=== PATIENT | male | born 1960 | race Caucasian/White ===

== ENCOUNTER 2017-05-21 15:15 | Inpatient (IN) | payer OTHER ==
[~2017-05-21] VITALS: Ht 175.3 cm; Wt 93.4 kg
[~2017-05-21 15:15] MED LIST: CGN1X PO; CLON0.5T3 PO; HALO10TA17 PO; INHALER PO; MULT-506 PO; OMEP40CA41 PO; TRAZ50TA35 PO
[2017-05-21] MEDS ORDERED: DSY100 PO (15:34)
[2017-05-21] MEDS ORDERED: ALBU18002 INH (15:34)
[2017-05-21] MEDS ORDERED: LEVO25TA PO (15:34)
[2017-05-21] MEDS ORDERED: MELO15TA4 PO (15:34)
[2017-05-21] MEDS ORDERED: OMEP40CA41 PO (15:34)
[2017-05-21] MEDS ORDERED: BENZ2TAB6 PO (15:34)
--- NOTE | 2017-05-21 15:50 | EMERGENCY ROOM VISIT NOTE ---
History Report prepared by Jesus: Matty Cnonor Under the Supervision of: Dr. William Irby M.D. First contact with patient: 15:25 Chief Complaint: ALTERED MENTAL STATUS Stated Complaint: ALTERED MENTAL STATUS Nursing Triage Summary: Patient arrives via ALS from elderly apartment complex with complaints of altered mental status, weakness, frequent urination, and paranoia. Patient A&O to person, place, and event. History of Present Illness The patient is a 56 year old male who presents to the Emergency Room via [facility] for an altered mental status. Per EMS, the patient lives in an elderly assisted living complex with his who suffers from dementia. The nursing staff states that the patient was seeing people who were not actually there today. EMS also note increased urinary frequency, worsening weakness, and paranoia. His temperature was 101.9 degrees on their evaluation. He is currently complaining of pain in the left chest, intermittent vomiting, and diarrhea. The patient has a history of schizophrenia and mental illness. Source of History: patient, EMS History Limited By: AMS Position: other (AMS) Quality: other (AMS) Associated Symptoms: + fevers, + chest pain, + diarrhea, + urinary symptoms , + weakness Review of Systems See HPI for pertinent positives & negatives. A total of 10 systems reviewed and were otherwise negative. Past Medical & Surgical Medical Problems: (1) Anxiety (2) Benign hypertension (3) Depression (4) Gastroesophageal reflux disease (5) History of - schizophrenia (6) Pulmonary embolism Family History FHx: cancer FHx: diabetes FHx: heart disease FHx: hypertension FHx: lung disease Social History Smoking Status: Current Every Day Smoker Alcohol Use: none Drug Use: none Marital Status: Housing Status: lives with significant other Occupation Status: disabled Current/Historical Medications Scheduled Benztropine Mesylate (Benztropine Mesylate), 2 MG PO BID Clonazepam (Klonopin), 0.5 MG PO BID Haloperidol (Haldol), 20 MG PO HS Levothyroxine Sodium (Synthroid), 25 MCG PO QAM Meloxicam (Meloxicam), 15 MG PO DAILY Multivitamin (Multivitamin), 1 TAB PO DAILY Omeprazole (Prilosec), 40 MG PO DAILY Trazodone HCl (Trazodone HCl), 100 MG PO HS Scheduled PRN Albuterol Sulfate (Proair Respiclick), 2 PUFFS INH QID PRN for SOB/Wheezing Allergies Coded Allergies: No Known Allergies (Verified , 06/18/16) Physical Exam Vital Signs Date Time Temp Pulse Resp B/P (MAP) Pulse Ox O2 Delivery O2 Flow Rate FiO2 05/21/17 17:15 123 20 134/83 93 Nasal Cannula 2.0 05/21/17 16:34 126 20 123/86 05/21/17 16:16 123 05/21/17 15:35 94 Room Air 05/21/17 15:27 37.1 128 18 127/90 92 Room Air Physical Exam GENERAL: Patient is in no acute distress. HEENT: No acute trauma, normocephalic atraumatic, mucous membranes dry, no nasal congestion, no scleral icterus. NECK: No stridor, no adenopathy, no meningismus, trachea is midline. LUNGS: Clear to auscultation bilaterally, no wheeze, no rhonchi, breath sounds equal. HEART: Tachycardiac with a regular rhythm, no murmurs. ABDOMEN: Soft, nontender, bowel sounds positive, no hernias, no peritonitis. EXTREMITIES: There are abrasions to the knees and ankles, no evidence for underlying fracture, no cellulitis. No edema. NEUROLOGIC: Somewhat confused. Mumbles at times, no facial droop or focal motor deficit. Skin: No rash or jaundice. Medical Decision & Procedures ER Provider Diagnostic Interpretation: Radiology results as stated below per my review and radiologist interpretation: CHEST ONE VIEW PORTABLE CLINICAL HISTORY: Altered mental status. Weakness. COMPARISON STUDY: Chest radiograph June 18, 2016. FINDINGS: Lung volumes are diminished. There is no pneumothorax or pleural effusion. There is no evidence of pulmonary edema. Mild bibasilar opacities are noted. Cardiac size is within normal limits. The patient is rotated. IMPRESSION: Diminished lung volumes with bibasilar opacities which favor atelectasis. An infectious process could appear. Electronically signed by: Valeriano Cuellar M.D. 05/21/2017 4:08 PM Dictated Date/Time: 05/21/2017 4:[address] HEAD WITHOUT CONTRAST (CT) CLINICAL HISTORY: Acute change in mental status. Weakness. COMPARISON STUDY: 12/18/2012 TECHNIQUE: Axial CT of the brain is performed from the vertex to the skull base. IV contrast was not administered for this examination. A dose lowering technique was utilized adhering to the principles of ALARA. CT DOSE: 537.48 mGy.cm FINDINGS: No intra or extra-axial mass lesions are visualized. There is no CT evidence of acute cortical infarction. There is no evidence of midline shift. There is no acute hemorrhage. No calvarial fractures are visualized. There is no evidence of pathologic ventricular dilatation. There is no evidence of acute sinusitis IMPRESSION: No acute intracranial findings Electronically signed by: Dain Frias M.D. 05/21/2017 5:05 PM Dictated Date/Time: 05/21/2017 5:04 PM Laboratory Results 05/21/17 16:13 Red Blood Count 4.70, Mean Corpuscular Volume 87.9, Mean Corpuscular Hemoglobin 31.1, Mean Corpuscular Hemoglobin Concent 35.4, Mean Platelet Volume 8.8, Neutrophils (%) (Auto) 86.9, Lymphocytes (%) (Auto) 4.4, Monocytes (%) (Auto) 8.1, Eosinophils (%) (Auto) 0.0, Basophils (%) (Auto) 0.1, Neutrophils # (Auto) 19.01, Lymphocytes # (Auto) 0.96, Monocytes # (Auto) 1.77, Eosinophils # (Auto) 0.00, Basophils # (Auto) 0.02 05/21/17 16:13 Test 05/21/17 15:40 05/21/17 15:58 05/21/17 16:13 05/21/17 16:23 Urine Color YELLOW Urine Appearance CLEAR (CLEAR) Urine pH 5.5 (4.5-7.5) Urine Specific [place] 1.020 (1.000-1.030) Urine Protein TRACE (NEG) Urine Glucose (UA) NEG (NEG) Urine Ketones 1+ (NEG) Urine Occult Blood 2+ (NEG) Urine Nitrite NEG (NEG) Urine Bilirubin NEG (NEG) Urine Urobilinogen NEG (NEG) Urine Leukocyte Esterase NEG (NEG) Urine WBC (Auto) 1-5 /hpf (0-5) Urine RBC (Auto) 0-4 /hpf (0-4) Urine Hyaline Casts (Auto) 10-30 /lpf (0-5) Urine Epithelial Cells (Auto) >30 /lpf (0-5) Urine Bacteria (Auto) NEG (NEG) Urine Renal Epithelial Cells 0-5 /lpf (0-5) Urine Pathogenic Casts 0-3 RBC CASTS /lpf (0) Urine Opiates Screen NEG (NEG) Urine Methadone, Qualitative NEG (NEG) Urine Barbiturates NEG (NEG) Urine Phencyclidine (PCP) Level NEG (NEG) Ur Amphetamine/Methamphetamine NEG (NEG) MDMA (Ecstasy) Screen NEG (NEG) Urine Benzodiazepines Screen POS (NEG) Urine Cocaine Metabolite NEG (NEG) Urine Marijuana (THC) NEG (NEG) White Blood Count 21.87 K/uL (4.8-10.8) Red Blood Count 4.70 M/uL (4.7-6.1) Hemoglobin 14.6 g/dL (14.0-18.0) Hematocrit 41.3 % (42-52) Mean Corpuscular Volume 87.9 fL (80-100) Mean Corpuscular Hemoglobin 31.1 pg (25-34) Mean Corpuscular Hemoglobin Concent 35.4 g/dl (32-36) Platelet Count 250 K/uL (130-400) Mean Platelet Volume 8.8 fL (7.4-10.4) Neutrophils (%) (Auto) 86.9 % Lymphocytes (%) (Auto) 4.4 % Monocytes (%) (Auto) 8.1 % Eosinophils (%) (Auto) 0.0 % Basophils (%) (Auto) 0.1 % Neutrophils # (Auto) 19.01 K/uL (1.4-6.5) Lymphocytes # (Auto) 0.96 K/uL (1.2-3.4) Monocytes # (Auto) 1.77 K/uL (0.11-0.59) Eosinophils # (Auto) 0.00 K/uL (0-0.5) Basophils # (Auto) 0.02 K/uL (0-0.2) RDW Standard Deviation 45.0 fL (36.4-46.3) RDW Coefficient of Variation 14.0 % (11.5-14.5) Immature Granulocyte % (Auto) 0.5 % Immature Granulocyte # (Auto) 0.11 K/uL (0.00-0.02) Prothrombin Time 11.1 SECONDS (9.0-12.0) Prothromb Time International Ratio 1.0 (0.9-1.1) Activated Partial Thromboplast Time 26.7 SECONDS (21.0-31.0) Partial Thromboplastin Ratio 1.0 Anion Gap 8.0 mmol/L (3-11) Estimated GFR () 44.7 Estimated GFR (Non- 38.6 BUN/Creatinine Ratio 15.1 (10-20) Lactic Acid Level 2.2 mmol/L (0.4-2.0) Calcium Level 9.8 mg/dl (8.5-10.1) Magnesium Level 1.6 mg/dl (1.8-2.4) Total Bilirubin 0.8 mg/dl (0.2-1) Aspartate Amino Transf (AST/SGOT) 54 U/L (15-37) Alanine Aminotransferase (ALT/SGPT) 31 U/L (12-78) Alkaline Phosphatase 64 U/L (45-117) Ammonia 25.0 umol/L (11-32) Total Creatine Kinase 1708 U/L (39-308) Troponin I 0.414 ng/ml (0-0.045) Total Protein 6.9 gm/dl (6.4-8.2) Albumin 3.6 gm/dl (3.4-5.0) Globulin 3.3 gm/dl (2.5-4.0) Albumin/Globulin Ratio 1.1 (0.9-2) Thyroid Stimulating Hormone (TSH) 0.376 uIu/ml (0.300-4.500) Free Thyroxine 1.14 ng/dl (0.80-1.60) Ethyl Alcohol mg/dL < 3.0 mg/dl (0-3) Laboratory results reviewed by me. Medications Administered Medications (Trade) Dose Ordered Sig/Key Route Start Time Stop Time Status Last Admin Dose Admin Piperacillin Sod/ Tazobactam Sod (Zosyn Iv) 4.5 gm NOW STAT IV 05/21/17 16:49 05/21/17 16:50 DC 05/21/17 17:14 4.5 GM Sodium Chloride 1,000 ml @ 999 mls/hr Q1H1M STAT IV 05/21/17 17:04 05/21/17 18:04 DC 05/21/17 17:15 999 MLS/HR Magnesium Sulfate (Magnesium Sulfate) 1 gm NOW STAT IV 05/21/17 17:16 05/21/17 17:17 DC 05/21/17 17:25 1 GM ECG Indication: chest pain, altered mental status Rate (beats per minute): 127 Rhythm: sinus tachycardia Findings: nonspecific-ST abn, no acute ischemic change ED Course 1531: The patient was evaluated in room B1. A complete history and physical exam was performed. 1649: Ordered Zosyn 4.5 gm IV. 1704: Ordered Sodium Chloride 1000 mL @ 999 mL/hr IV. 1716: Ordered Magnesium Sulfate 1 gm IV. 1741: I reevaluated the patient at this time. He looks the same. His HR is coming down and I informed him about the status of his . 1748: I discussed the case with Dr. Anthony COWAN Hospitalist at this time. She will call me back for further consultation. 1807: I discussed the case further with Dr. Anthony COWAN Hospitalist at this time. She will evaluate the patient for further treatment. Medical Decision Differential Diagnosis includes; Dehydration, medication overdose, rhabdomyolysis, electrolyte abnormality, intracranial bleeding, stroke, sepsis, bacteremia, UTI. There is a significant leukocytosis at 21,000, this could be consistent with infection or with the stress of his situation over the last few days. There was no concerning anemia. Renal panel testing shows some acute renal failure/ dehydration. Magnesium was low at 1.6. There was no hepatitis. The patient appeared to be in a euthyroid state. Chest film did not show pneumonia or CHF. Brain CT showed no acute bleed or mass effect. On exam, there were no focal motor deficits. EKG show what I thought to be a sinus tachycardia without acute ischemia. Cardiac enzyme testing times one does show a slight elevation to the troponin-this could be consistent with cardiac injury or strain. There was no coagulopathy. Urinalysis does not show infection. Urine tox shows benzos, alcohol level was undetectable. Ammonia level was not elevated. Blood cultures are pending. The patient received IV saline, IV magnesium. He was given IV Zosyn as antibiotic coverage. The patient presents with a change in mental status. He has laboratory abnormalities that warrant a hospital stay. He is not medically clear for any type of rehabilitation or long-term care facility. The cause for this entire presentation is not completely clear. Of note, his was brought to the ER as well, the office of aging had been involved and the living conditions were not felt adequate. The patient's is being [facility] a jail later today. I spoke to case management, I talked to the patient. The on-call hospitalist was consulted. Medication Reconcilliation Current Medication List: was personally reviewed by me Blood Pressure Screening Patient's blood pressure: Elevated blood pressure Blood pressure disposition: Elevated BP felt to be situational Consults Time Called: 174 Consulting Physician: Dr. Anthony COWAN Hospitalist Returned Call: [phone] I discussed the case further with Dr. Anthony COWAN [facility] at this time. She will evaluate the patient for further treatment. Impression Primary Impression: Altered mental status Additional Impressions: Tachycardia Leukocytosis Dehydration Elevated troponin Scribe Attestation The scribe's documentation has been prepared under my direction and personally reviewed by me in its entirety. I confirm that the note above accurately reflects all work, treatment, procedures, and medical decision making performed by me. Departure Information Dispostion Being Evaluated By Hospitalist Referrals Ashley Spence (PCP) Patient Instructions [facility] Problem Qualifiers
--- NOTE | 2017-05-21 16:10 | DIAGNOSTIC IMAGING REPORT ---
CHEST ONE VIEW PORTABLE CLINICAL HISTORY: Altered mental status. Weakness. COMPARISON STUDY: Chest radiograph June 18, 2016. FINDINGS: Lung volumes are diminished. There is no pneumothorax or pleural effusion. There is no evidence of pulmonary edema. Mild bibasilar opacities are noted. Cardiac size is within normal limits. The patient is rotated. IMPRESSION: Diminished lung volumes with bibasilar opacities which favor atelectasis. An infectious process could appear. Electronically signed by: Valeriano Cuellar M.D. 05/21/2017 4:08 PM Dictated Date/Time: 05/21/2017 4:07 PM
[2017-05-21 16:25] LABS: URINE APPEARANCE CLEAR (CLEAR); URINE BILIRUBIN NEG (NEG); URINE COLOR YELLOW; URINE EPITHELIAL CELL AUTO >30 /lpf (0-5); URINE NITRITE NEG (NEG); URINE PH 5.5 (4.5-7.5); UROBILINOGEN NEG (NEG); ZZURINE CULT IF INDIC CATH NO
[2017-05-21 16:26] LABS: MANUAL MICROSCOPIC REQUIRED? NO; REVIEW REQ? YES
[2017-05-21 16:37] LABS: URINE PATH CASTS 0-3 RBC CASTS /lpf (0)
[2017-05-21 16:39] LABS: BENZODIAZEPINE, URINE POS (NEG); COCAINE,URINE NEG (NEG); PHENCYCLIDINE, URINE NEG (NEG)
[2017-05-21 16:47] LABS: HEMATOCRIT 41.3 % (42-52); MEAN CELL VOLUME 87.9 fL (80-100); MEAN CORPUSCULAR HEMOGLOBIN 31.1 pg (25-34); MEAN CORPUSCULAR HGB CONC 35.4 g/dl (32-36); MEAN PLATELET VOLUME 8.8 fL (7.4-10.4); PLATELET COUNT 250 K/uL (130-400); WHITE BLOOD COUNT 21.87 K/uL (4.8-10.8)
[2017-05-21] MEDS ORDERED: PIPERACILLIN/TAZOBACTAM 4.5 GM/100ML D5W IV STA (16:49)
[2017-05-21 16:55] LABS: PROTHROMBIN TIME (PATIENT) 11.1 SECONDS (9.0-12.0)
[2017-05-21] MEDS ORDERED: SODIUM CHLORIDE 0.9% 1000ML 1,000 ML IV STA (17:04)
--- NOTE | 2017-05-21 17:06 | DIAGNOSTIC IMAGING REPORT ---
CT HEAD WITHOUT CONTRAST (CT) CLINICAL HISTORY: Acute change in mental status. Weakness. COMPARISON STUDY: 12/18/2012 TECHNIQUE: Axial CT of the brain is performed from the vertex to the skull base. IV contrast was not administered for this examination. A dose lowering technique was utilized adhering to the principles of ALARA. CT DOSE: 537.48 mGy.cm FINDINGS: No intra or extra-axial mass lesions are visualized. There is no CT evidence of acute cortical infarction. There is no evidence of midline shift. There is no acute hemorrhage. No calvarial fractures are visualized. There is no evidence of pathologic ventricular dilatation. There is no evidence of acute sinusitis IMPRESSION: No acute intracranial findings Electronically signed by: Dain Frias M.D. 05/21/2017 5:05 PM Dictated Date/Time: 05/21/2017 5:04 PM
[2017-05-21 17:08] LABS: ALT/SGPT 31 U/L (12-78); AST/SGOT 54 U/L (15-37); BLOOD UREA NITROGEN 29 mg/dl (7-18); BUN/CREATININE RATIO 15.1 (10-20); CALCIUM 9.8 mg/dl (8.5-10.1); CARBON DIOXIDE 23 mmol/L (21-32); CHLORIDE 112 mmol/L (98-107); GLUCOSE 129 mg/dl (70-99); MAGNESIUM 1.6 mg/dl (1.8-2.4); POTASSIUM 3.9 mmol/L (3.5-5.1); SODIUM 143 mmol/L (136-145)
[2017-05-21 17:09] LABS: BASO % 0.1 %; BASO ABS # 0.02 K/uL (0-0.2); COMPLETE YES; IG% 0.5 %; LYMPH % 4.4 %; LYMPH ABS # 0.96 K/uL (1.2-3.4); MONO % 8.1 %; NEUT % 86.9 %
[2017-05-21] MEDS ORDERED: MAGNESIUM SULFATE 1GM / D5W 1 GM BAG IV STA (17:16)
[2017-05-21 17:26] LABS: ALB/GLOB RATIO 1.1 (0.9-2); ALKALINE PHOSPHATASE 64 U/L (45-117); THYROID STIMULATING HORMONE 0.376 uIu/ml (0.300-4.500)
--- NOTE | 2017-05-21 19:54 | History and Physical ---
History & Physical Date & Time of Service: May 21, 2017 at 19:12 Chief Complaint: Altered Mental Status Primary Care Physician: Ashley Spence History of Present Illness Source: patient The patient is a 56 year old male who presents to the Emergency Room via [facility] for an altered mental status. Per EMS, the patient lives in an elderly assisted living complex with his who suffers from dementia. The nursing staff states that the patient was seeing people who were not actually there today. EMS also note increased urinary frequency, worsening weakness, and paranoia. His temperature was 101.9 degrees on their evaluation. He is currently complaining of pain in the left chest, intermittent vomiting, and diarrhea. The patient has a history of schizophrenia and mental illness. Past Medical/Surgical History Medical Problems: (1) Anxiety Status: Chronic (2) Benign hypertension Status: Chronic (3) Depression Status: Chronic (4) Gastroesophageal reflux disease Status: Chronic (5) History of - schizophrenia Status: Chronic (6) Pulmonary embolism Status: Resolved PSH: Family History FHx: cancer FHx: diabetes FHx: heart disease FHx: hypertension FHx: lung disease Social History Smoking Status: Current Every Day Smoker Drug Use: none Marital Status: Housing status: lives with family Occupational Status: disabled Immunizations History of Influenza Vaccine: Yes Influenza Vaccine Date: Nov 01, 2009 History of Tetanus Vaccine?: No History of Pneumococcal: Yes Pneumococcal Date: Nov 24, 2008 History of Hepatitis B Vaccine: No Multi-Drug Resistant Organisms History of MDRO: No Allergies Coded Allergies: No Known Allergies (Verified , 06/18/16) Home Medications Scheduled Benztropine Mesylate (Benztropine Mesylate), 2 MG PO BID Clonazepam (Klonopin), 0.5 MG PO BID Haloperidol (Haldol), 20 MG PO HS Levothyroxine Sodium (Synthroid), 25 MCG PO QAM Meloxicam (Meloxicam), 15 MG PO DAILY Multivitamin (Multivitamin), 1 TAB PO DAILY Omeprazole (Prilosec), 40 MG PO DAILY Trazodone HCl (Trazodone HCl), 100 MG PO HS Scheduled PRN Albuterol Sulfate (Proair Respiclick), 2 PUFFS INH QID PRN for SOB/Wheezing Physical Exam Vital Signs Date Time Temp Pulse Resp B/P (MAP) Pulse Ox O2 Delivery O2 Flow Rate FiO2 7/21/17 18:30 109 20 147/79 93 Nasal Cannula 2.0 05/21/17 17:15 123 20 134/83 93 Nasal Cannula 2.0 05/21/17 16:34 126 20 123/86 05/21/17 16:16 123 05/21/17 15:35 94 Room Air 05/21/17 15:27 37.1 128 18 127/90 92 Room Air Diagnostics Laboratory Results Results Past 24 Hours Test 05/21/17 15:40 05/21/17 15:58 05/21/17 16:13 05/21/17 16:23 Range/Units Urine Color YELLOW Urine Appearance CLEAR CLEAR Urine pH 5.5 4.5-7.5 Urine Specific [place] 1.020 1.000-1.030 Urine Protein TRACE NEG Urine Glucose (UA) NEG NEG Urine Ketones 1+ NEG Urine Occult Blood 2+ NEG Urine Nitrite NEG NEG Urine Bilirubin NEG NEG Urine Urobilinogen NEG NEG Urine Leukocyte Esterase NEG NEG Urine WBC (Auto) 1-5 0-5 /hpf Urine RBC (Auto) 0-4 0-4 /hpf Urine Hyaline Casts (Auto) 10-30 0-5 /lpf Urine Epithelial Cells (Auto) >30 0-5 /lpf Urine Bacteria (Auto) NEG NEG Urine Renal Epithelial Cells 0-5 0-5 /lpf Urine Pathogenic Casts 0-3 RBC CASTS 0 /lpf Urine Opiates Screen NEG NEG Urine Methadone, Qualitative NEG NEG Urine Barbiturates NEG NEG Urine Phencyclidine (PCP) Level NEG NEG Ur Amphetamine/Methamphetamine NEG NEG MDMA (Ecstasy) Screen NEG NEG Urine Benzodiazepines Screen POS NEG Urine Cocaine Metabolite NEG NEG Urine Marijuana (THC) NEG NEG White Blood Count 21.87 4.8-10.8 K/uL Red Blood Count 4.70 4.7-6.1 M/uL Hemoglobin 14.6 14.0-18.0 g/dL Hematocrit 41.3 42-52 % Mean Corpuscular Volume 87.9 80-100 fL Mean Corpuscular Hemoglobin 31.1 25-34 pg Mean Corpuscular Hemoglobin Concent 35.4 32-36 g/dl Platelet Count 250 130-400 K/uL Mean Platelet Volume 8.8 7.4-10.4 fL Neutrophils (%) (Auto) 86.9 % Lymphocytes (%) (Auto) 4.4 % Monocytes (%) (Auto) 8.1 % Eosinophils (%) (Auto) 0.0 % Basophils (%) (Auto) 0.1 % Neutrophils # (Auto) 19.01 1.4-6.5 K/uL Lymphocytes # (Auto) 0.96 1.2-3.4 K/uL Monocytes # (Auto) 1.77 0.11-0.59 K/uL Eosinophils # (Auto) 0.00 0-0.5 K/uL Basophils # (Auto) 0.02 0-0.2 K/uL RDW Standard Deviation 45.0 36.4-46.3 fL RDW Coefficient of Variation 14.0 11.5-14.5 % Immature Granulocyte % (Auto) 0.5 % Immature Granulocyte # (Auto) 0.11 0.00-0.02 K/uL Prothrombin Time 11.1 9.0-12.0 SECONDS Prothromb Time International Ratio 1.0 0.9-1.1 Activated Partial Thromboplast Time 26.7 21.0-31.0 SECONDS Partial Thromboplastin Ratio 1.0 Sodium Level 143 136-145 mmol/L Potassium Level 3.9 3.5-5.1 mmol/L Chloride Level 112 98-107 mmol/L Carbon Dioxide Level 23 21-32 mmol/L Anion Gap 8.0 3-11 mmol/L Blood Urea Nitrogen 29 7-18 mg/dl Creatinine 1.90 0.60-1.40 mg/dl Estimated GFR () 44.7 Estimated GFR (Non- 38.6 BUN/Creatinine Ratio 15.1 10-20 Random Glucose 129 70-99 mg/dl Lactic Acid Level 2.2 0.4-2.0 mmol/L Calcium Level 9.8 8.5-10.1 mg/dl Magnesium Level 1.6 1.8-2.4 mg/dl Total Bilirubin 0.8 0.2-1 mg/dl Aspartate Amino Transf (AST/SGOT) 54 15-37 U/L Alanine Aminotransferase (ALT/SGPT) 31 12-78 U/L Alkaline Phosphatase 64 45-117 U/L Ammonia 25.0 11-32 umol/L Total Creatine Kinase 1708 39-308 U/L Troponin I 0.414 0-0.045 ng/ml Total Protein 6.9 6.4-8.2 gm/dl Albumin 3.6 3.4-5.0 gm/dl Globulin 3.3 2.5-4.0 gm/dl Albumin/Globulin Ratio 1.1 0.9-2 Thyroid Stimulating Hormone (TSH) 0.376 0.300-4.500 uIu/ml Free Thyroxine 1.14 0.80-1.60 ng/dl Ethyl Alcohol mg/dL < 3.0 0-3 mg/dl Microbiology Results 05/21/17 Blood Culture, Received Pending 05/21/17 Blood Culture, Received Pending
[2017-05-21] MEDS ORDERED: POLYETHYLENE (MIRALAX) 17 GM PACK PO PRN (20:15)
[2017-05-21] MEDS ORDERED: ALBUTEROL HFA 8 GM INHALER INH PRN (20:15)
[2017-05-21] MEDS ORDERED: NITROGLYCERIN 0.4 MG SL PER TAB CHARGE SL PRN (20:15)
--- NOTE | 2017-05-21 20:23 | History and Physical ---
History & Physical Date & Time of Service: May 21, 2017 at 20:19 Chief Complaint: Altered Mental Status Primary Care Physician: Ashley Spence History of Present Illness Source: patient 56-year-old male with past medical history of hypertension, GERD, schizophrenia , pulmonary embolism presented to the ER via EMS for altered mental status. Per EMS the patient lives in an elderly assisted living complex with his who has a history of dementia. The patient has a history of schizophrenia and is noncompliant with this medication. He was found to have fever, weakness with poor by mouth intake. The patient is alert and oriented but is very unreliable with his history Past Medical/Surgical History Medical Problems: (1) Anxiety Status: Chronic (2) Benign hypertension Status: Chronic (3) Depression Status: Chronic (4) Gastroesophageal reflux disease Status: Chronic (5) History of - schizophrenia Status: Chronic (6) Pulmonary embolism Status: Resolved Family History FHx: cancer FHx: diabetes FHx: heart disease FHx: hypertension FHx: lung disease Social History Smoking Status: Current Every Day Smoker Drug Use: none Marital Status: Housing status: lives with family Occupational Status: disabled Immunizations History of Influenza Vaccine: Yes Influenza Vaccine Date: Nov 01, 2009 History of Tetanus Vaccine?: No History of Pneumococcal: Yes Pneumococcal Date: Nov 24, 2008 History of Hepatitis B Vaccine: No Multi-Drug Resistant Organisms History of MDRO: No Allergies Coded Allergies: No Known Allergies (Verified , 06/18/16) Home Medications Scheduled Benztropine Mesylate (Benztropine Mesylate), 2 MG PO BID Clonazepam (Klonopin), 0.5 MG PO BID Haloperidol (Haldol), 10 MG PO HS Levothyroxine Sodium (Synthroid), 25 MCG PO QAM Meloxicam (Meloxicam), 15 MG PO DAILY Multivitamin (Multivitamin), 1 TAB PO DAILY Omeprazole (Prilosec), 40 MG PO DAILY Trazodone HCl (Trazodone HCl), 100 MG PO HS Scheduled PRN Albuterol Sulfate (Proair Respiclick), 2 PUFFS INH QID PRN for SOB/Wheezing Review of Systems Constitutional: + fever Eyes: No worsening of vision Respiratory: + cough, No shortness of breath Cardiovascular: + chest pain Abdomen: + nausea, + vomiting, + diarrhea, No pain Musculoskeletal: No joint pain Genitourinary - Male: + urinary frequency, No hematuria Endocrine: No excessive thirst Physical Exam Vital Signs Date Time Temp Pulse Resp B/P (MAP) Pulse Ox O2 Delivery O2 Flow Rate FiO2 05/21/17 19:45 103 26 94 05/21/17 19:15 114 20 91 05/21/17 19:02 141/86 05/21/17 18:45 114 18 93 05/21/17 18:30 109 20 147/79 93 Nasal Cannula 2.0 05/21/17 18:15 115 29 96 05/21/17 18:02 147/79 05/21/17 17:45 119 20 91 05/21/17 17:15 121 19 92 05/21/17 17:15 123 20 134/83 93 Nasal Cannula 2.0 05/21/17 17:12 134/83 05/21/17 16:45 122 14 93 05/21/17 16:35 123/86 05/21/17 16:34 126 20 123/86 05/21/17 16:16 123 05/21/17 16:15 123 21 92 05/21/17 15:45 133 23 92 05/21/17 15:35 94 Room Air 05/21/17 15:27 37.1 128 18 127/90 92 Room Air 05/21/17 15:21 127/90 General Appearance: WD/WN, no apparent distress Eyes: normal inspection ENT: normal ENT inspection, hearing grossly normal Neck: supple Respiratory/Chest: chest non-tender, lungs clear, normal breath sounds, no respiratory distress Cardiovascular: + tachycardia Abdomen/GI: normal bowel sounds, non tender, soft Back: no CVA tenderness Extremities/Musculoskelatal: no calf tenderness, no pedal edema Neurologic/Psych: alert, oriented x 3 Diagnostics Laboratory Results Results Past 24 Hours Test 05/21/17 15:40 05/21/17 15:58 05/21/17 16:13 05/21/17 16:23 Range/Units Urine Color YELLOW Urine Appearance CLEAR CLEAR Urine pH 5.5 4.5-7.5 Urine Specific [place] 1.020 1.000-1.030 Urine Protein TRACE NEG Urine Glucose (UA) NEG NEG Urine Ketones 1+ NEG Urine Occult Blood 2+ NEG Urine Nitrite NEG NEG Urine Bilirubin NEG NEG Urine Urobilinogen NEG NEG Urine Leukocyte Esterase NEG NEG Urine WBC (Auto) 1-5 0-5 /hpf Urine RBC (Auto) 0-4 0-4 /hpf Urine Hyaline Casts (Auto) 10-30 0-5 /lpf Urine Epithelial Cells (Auto) >30 0-5 /lpf Urine Bacteria (Auto) NEG NEG Urine Renal Epithelial Cells 0-5 0-5 /lpf Urine Pathogenic Casts 0-3 RBC CASTS 0 /lpf Urine Opiates Screen NEG NEG Urine Methadone, Qualitative NEG NEG Urine Barbiturates NEG NEG Urine Phencyclidine (PCP) Level NEG NEG Ur Amphetamine/Methamphetamine NEG NEG MDMA (Ecstasy) Screen NEG NEG Urine Benzodiazepines Screen POS NEG Urine Cocaine Metabolite NEG NEG Urine Marijuana (THC) NEG NEG White Blood Count 21.87 4.8-10.8 K/uL Red Blood Count 4.70 4.7-6.1 M/uL Hemoglobin 14.6 14.0-18.0 g/dL Hematocrit 41.3 42-52 % Mean Corpuscular Volume 87.9 80-100 fL Mean Corpuscular Hemoglobin 31.1 25-34 pg Mean Corpuscular Hemoglobin Concent 35.4 32-36 g/dl Platelet Count 250 130-400 K/uL Mean Platelet Volume 8.8 7.4-10.4 fL Neutrophils (%) (Auto) 86.9 % Lymphocytes (%) (Auto) 4.4 % Monocytes (%) (Auto) 8.1 % Eosinophils (%) (Auto) 0.0 % Basophils (%) (Auto) 0.1 % Neutrophils # (Auto) 19.01 1.4-6.5 K/uL Lymphocytes # (Auto) 0.96 1.2-3.4 K/uL Monocytes # (Auto) 1.77 0.11-0.59 K/uL Eosinophils # (Auto) 0.00 0-0.5 K/uL Basophils # (Auto) 0.02 0-0.2 K/uL RDW Standard Deviation 45.0 36.4-46.3 fL RDW Coefficient of Variation 14.0 11.5-14.5 % Immature Granulocyte % (Auto) 0.5 % Immature Granulocyte # (Auto) 0.11 0.00-0.02 K/uL Prothrombin Time 11.1 9.0-12.0 SECONDS Prothromb Time International Ratio 1.0 0.9-1.1 Activated Partial Thromboplast Time 26.7 21.0-31.0 SECONDS Partial Thromboplastin Ratio 1.0 Sodium Level 143 136-145 mmol/L Potassium Level 3.9 3.5-5.1 mmol/L Chloride Level 112 98-107 mmol/L Carbon Dioxide Level 23 21-32 mmol/L Anion Gap 8.0 3-11 mmol/L Blood Urea Nitrogen 29 7-18 mg/dl Creatinine 1.90 0.60-1.40 mg/dl Estimated GFR () 44.7 Estimated GFR (Non- 38.6 BUN/Creatinine Ratio 15.1 10-20 Random Glucose 129 70-99 mg/dl Lactic Acid Level 2.2 0.4-2.0 mmol/L Calcium Level 9.8 8.5-10.1 mg/dl Magnesium Level 1.6 1.8-2.4 mg/dl Total Bilirubin 0.8 0.2-1 mg/dl Aspartate Amino Transf (AST/SGOT) 54 15-37 U/L Alanine Aminotransferase (ALT/SGPT) 31 12-78 U/L Alkaline Phosphatase 64 45-117 U/L Ammonia 25.0 11-32 umol/L Total Creatine Kinase 1708 39-308 U/L Troponin I 0.414 0-0.045 ng/ml Total Protein 6.9 6.4-8.2 gm/dl Albumin 3.6 3.4-5.0 gm/dl Globulin 3.3 2.5-4.0 gm/dl Albumin/Globulin Ratio 1.1 0.9-2 Thyroid Stimulating Hormone (TSH) 0.376 0.300-4.500 uIu/ml Free Thyroxine 1.14 0.80-1.60 ng/dl Ethyl Alcohol mg/dL < 3.0 0-3 mg/dl Microbiology Results 05/21/17 Blood Culture, Received Pending 05/21/17 Blood Culture, Received Pending Diagnostic Radiology CT HEAD WITHOUT CONTRAST (CT) CLINICAL HISTORY: Acute change in mental status. Weakness. COMPARISON STUDY: 12/18/2012 TECHNIQUE: Axial CT of the brain is performed from the vertex to the skull base. IV contrast was not administered for this examination. A dose lowering technique was utilized adhering to the principles of ALARA. CT DOSE: 537.48 mGy.cm FINDINGS: No intra or extra-axial mass lesions are visualized. There is no CT evidence of acute cortical infarction. There is no evidence of midline shift. There is no acute hemorrhage. No calvarial fractures are visualized. There is no evidence of pathologic ventricular dilatation. There is no evidence of acute sinusitis IMPRESSION: No acute intracranial findings Electronically signed by: Dain Frias M.D. 05/21/2017 5:05 PM Dictated Date/Time: 05/21/2017 5:04 PM [~ rep ct add3]] CHEST ONE VIEW PORTABLE CLINICAL HISTORY: Altered mental status. Weakness. COMPARISON STUDY: Chest radiograph June 18, 2016. FINDINGS: Lung volumes are diminished. There is no pneumothorax or pleural effusion. There is no evidence of pulmonary edema. Mild bibasilar opacities are noted. Cardiac size is within normal limits. The patient is rotated. IMPRESSION: Diminished lung volumes with bibasilar opacities which favor atelectasis. An infectious process could appear. Electronically signed by: Valeriano Cuellar M.D. 05/21/2017 4:08 PM Dictated Date/Time: 05/21/2017 4:07 PM The status of this report is Signed. Draft = Not yet reviewed or approved by Radiologist. Signed = Reviewed and approved by Radiologist. EKG sinus tachycardia Nonspecific ST and T wave abnormality Abnormal ECG When compared with ECG of 19-JUN-2016 06:56, Vent. rate has increased BY 63 BPM Confirmed by Leon Alcantara ([id number]) on 05/21/2017 5:24:27 PM Impression Assessment and Plan 56-year-old male with past medical history of hypertension, GERD, schizophrenia , pulmonary embolism presented to the ER via EMS for altered mental status. Per EMS the patient lives in an elderly assisted living complex with his who has a history of dementia. Sepsis likely secondary to pneumonia: - Meets criteria with elevated white count, tachycardia, elevated lactate - Chest x-ray: Diminished lung volumes with bibasilar opacities which favor atelectasis. An infectious process could appear. - Lactate at 2.2, repeat lactate ordered - Continue Zosyn - Aspiration precautions - Repeat chest x-ray in a.m. - Continue albuterol Elevated troponin: Likely secondary to demand Initial troponin at 0.414, trend every 8 hours - EKG: sinus tachycardia ,Nonspecific ST and T wave abnormality Acute kidney injury: - Likely secondary to volume depletion/rhabdo - Creatinine at 1.9 - Continue IV fluids and trend creatinine Elevated creatinine kinase: Likely secondary to recent fall - Head CT negative - CK at 1708 - Continue IV fluids and trend CK Schizophrenia: - Continue benztropine, Haldol, Klonopin, trazodone - Psych consult - patient is noncompliant with medication Hypothyroidism: - Continue Synthroid GERD - Continue omeprazole DVT prophylaxis: SCDs Disposition: Admitted to telemetry Level of Care Telemetry VTE Prophylaxis VTE Risk Assessment Done? Y/N: Yes Risk Level: Moderate Given or contraindicated: SCD's Resident Tracking Resident Involvement: Resident Care Provided Care Provided: Adult Hospital Medicine Reviewed: Pt Seen/Exam by Me History Resident Physician Supervision Note: I interviewed and examined the patient. Discussed with Dr. Lindquist and agree with findings and plan as documented in the note. Any exceptions or clarifications are listed here: \ The patient is a 56 year old male who presents to the Emergency Room via [facility] for an altered mental status after his called EMS. Per EMS, the patient lives in an elderly assisted living complex with his who suffers from dementia. The nursing staff states that the patient was seeing people who were not actually there today. EMS also note increased urinary frequency, worsening weakness, and paranoia. His temperature was 101.9 degrees on their evaluation. He is currently complaining of pain in the left chest, intermittent vomiting, and diarrhea. The patient has a history of schizophrenia and mental illness. His white blood cell count was significantly elevated at 21,000, and his chest x-ray was consistent with a bite basilar pneumonia, and he was tachycardic. He will be admitted for sepsis and pneumonia which very well could be aspiration pneumonia given his recent vomiting. He was noted to have dried vomitus on him upon presentation and he reports 3 months of vomiting at home. It is difficult to get a reliable history. He did report falling on his knees possibly due to weakness. Vitals reviewed, no acute distress, sitting up in bed eating a salad Mild tachycardia, regular rhythm, no murmurs gallops rubs Lungs with decreased breath sounds at the bases, otherwise clear Abdomen positive bowel sounds soft nontender nondistended Extremities no edema, 2+ dorsalis pedis pulses Psych-flattened affect, appears agitated and angry speaking in a raised twice about anger towards his 56-year-old male with history of schizophrenia, here with sepsis and most likely aspiration pneumonia given recent episodes of vomiting. -Treat with Zosyn, if not improving, consider adding on coverage for atypicals -IV fluids -Follow CBC -For acute kidney injury from dehydration and poor by mouth intake with recent vomiting, follow PRP and give IV fluids -Elevated troponin is most likely demand ischemia from sepsis, trend troponin and follow ECG-he had a normal stress echo less than one year ago -Repeat lactate again in the morning as the second one was higher than the first one despite IV fluid resuscitation although he clinically appears better now -Patient is unsure about his Haldol dose at home and is traditionally noncompliant with his psychiatric medications, will decrease dose to 10 mg for tonight as this is what he was on last year as per hospital records-appreciate psychiatric consultation -Add heparin for DVT prophylaxis Documented By: Nicolasa Cruz
[2017-05-21] MEDS ORDERED: HALOPERIDOL 5 MG TAB PO SCH (21:00)
[2017-05-21 22:00] VITALS: BP 143/85; PULSE 112; TEMP 36.8; O2SAT 91; Ht 175.3 cm; Wt 93.4 kg
[2017-05-21] MEDS ORDERED: PIPERACILL/TAZOBAC CONSULT ACTIVE PRN (22:15)
[2017-05-21] MEDS ORDERED: PATIENT'S HEIGHT AND/OR WEIGHT NEEDED SCH (22:15)
[2017-05-21] MEDS ORDERED: MAGNESIUM SULFATE 1GM / D5W 1 GM in PREMIXED IN D5W 100 ML IV ONE (22:30)
[2017-05-21] MEDS: SODIUM CHLORIDE 0.9% 1000ML 1,000 ML IV SCH (22:48)
[2017-05-21] MEDS: CLONAZEPAM 0.5 MG TAB PO SCH (22:55)
[2017-05-21] MEDS ORDERED: HALO10TA17 PO (23:12)
[2017-05-21] MEDS ORDERED: HALOPERIDOL 5 MG TAB PO ONE (23:13)
[2017-05-21] MEDS: TRAZODONE HCL 100 MG TAB PO SCH (23:31)
[2017-05-21] MEDS: BENZTROPINE MESYLATE 1 MG TAB PO SCH (23:31)
[2017-05-22] VITALS (10 sets, daily range): BP systolic 121–155; BP diastolic 73–90; PULSE 55–120; TEMP 36.7–37.7; O2SAT 87–97
[2017-05-22] MEDS: PIPERACILL/TAZOBAC IV 3.375 GM in DEXTROSE 5% 100ML 100 ML IV SCH ×4 (00:34→23:27)
[2017-05-22 06:20] LABS: HEMATOCRIT 40.7 % (42-52); MEAN CELL VOLUME 89.1 fL (80-100); MEAN CORPUSCULAR HEMOGLOBIN 31.3 pg (25-34); MEAN CORPUSCULAR HGB CONC 35.1 g/dl (32-36); PLATELET COUNT 213 K/uL (130-400); RED BLOOD COUNT 4.57 M/uL (4.7-6.1); WHITE BLOOD COUNT 20.71 K/uL (4.8-10.8)
[2017-05-22] MEDS: LEVOTHYROXINE 25 MCG TAB PO SCH (06:38)
[2017-05-22 06:41] LABS: BLOOD UREA NITROGEN 22 mg/dl (7-18); BUN/CREATININE RATIO 15.5 (10-20); CALCIUM 9.2 mg/dl (8.5-10.1); CARBON DIOXIDE 26 mmol/L (21-32); CHLORIDE 110 mmol/L (98-107); GLUCOSE 128 mg/dl (70-99); MAGNESIUM 2.3 mg/dl (1.8-2.4); POTASSIUM 3.6 mmol/L (3.5-5.1); SODIUM 142 mmol/L (136-145)
[2017-05-22] MEDS: HEPARIN SOD 5000 UNIT/0.5 ML CARP SQ SCH ×3 (06:41→20:32)
[2017-05-22] MEDS: SODIUM CHLORIDE 0.9% 1000ML 1,000 ML IV SCH ×2 (06:41→16:14)
[2017-05-22] MEDS: BENZTROPINE MESYLATE 1 MG TAB PO SCH ×2 (07:41→20:31)
[2017-05-22] MEDS: PANTOprazole SOD 40 MG TAB PO SCH (07:41)
[2017-05-22] MEDS: CLONAZEPAM 0.5 MG TAB PO SCH ×2 (07:44→20:32)
--- NOTE | 2017-05-22 10:48 | DIAGNOSTIC IMAGING REPORT ---
CHEST 2 VIEWS ROUTINE CLINICAL HISTORY: Evaluate for pneumonia. COMPARISON STUDY: Radiograph May 21, 2017. FINDINGS: There is no pneumothorax or pleural effusion. There is no evidence of pulmonary edema. Cardiomediastinal silhouette is normal. There is no lobar consolidation. There is mild asymmetric interstitial thickening within the right lung with minimal opacity. IMPRESSION: No definite acute findings. Slight asymmetric interstitial thickening within the right lung likely reflects normal vessels although a mild infectious process could appear similar. Electronically signed by: Valeriano Cuellar M.D. 05/22/2017 10:46 AM Dictated Date/Time: 05/22/2017 10:44 AM
--- NOTE | 2017-05-22 17:41 | Family Medicine Progress Note ---
Progress Note Date of Service May 22, 2017. Subjective Pt evaluation today including: conversation w/ patient, physical exam, chart review, lab review, review of studies Pt seen and examined at bedside. No acute events since admission. Reports improving aching b/l lower chest/epigastric pain and resolved nausea/diarrhea. Denies any SOB, palpitations, rashes, DOMINGUEZ, lightheadedness, vision changes, joint pain. Constitutional: No fever, No chills, No sweats Cardiovascular: + chest pain, No edema, No palpitations Abdomen: No pain, No nausea, No vomiting, No diarrhea Neurologic: No weakness, No numbness/tingling, No vertigo Medications Current Inpatient Medications Medications (Trade) Dose Ordered Sig/Key Route Start Time Stop Time Status Last Admin Dose Admin Sodium Chloride 1,000 ml @ 100 mls/hr Q10H IV 05/21/17 20:11 06/20/17 20:10 05/22/17 16:14 100 MLS/HR Acetaminophen (Tylenol Tab) 650 mg Q4H PRN PO 05/21/17 20:15 06/20/17 20:14 Ondansetron HCl (Zofran Inj) 4 mg Q6H PRN IV 05/21/17 20:15 06/20/17 20:14 Nitroglycerin (Nitrostat Tab) 0.4 mg UD PRN SL 05/21/17 20:15 06/20/17 20:14 Polyethylene (Miralax Powder Packet) 17 gm DAILY PRN PO 05/21/17 20:15 06/20/17 20:14 Clonazepam (Klonopin Tab) 0.5 mg BID PO 05/21/17 21:00 06/20/17 20:59 05/22/17 07:44 0.5 MG Levothyroxine Sodium (Synthroid Tab) 25 mcg DAILYBB PO 05/22/17 06:30 06/21/17 06:59 05/22/17 06:38 25 MCG Trazodone HCl (Desyrel Tab) 100 mg HS PO 05/21/17 21:00 06/20/17 20:59 05/21/17 23:31 100 MG Albuterol (Ventolin Hfa Inhaler) 2 puffs QID PRN INH 05/21/17 20:15 06/20/17 20:14 05/22/17 16:14 2 PUFFS Pantoprazole Sodium (Protonix Tab) 40 mg DAILY PO 05/22/17 09:00 06/21/17 08:59 05/22/17 07:41 40 MG Piperacillin Sod/ Tazobactam Sod 3.375 gm/Dextrose 115 ml @ 28.75 mls/ hr Q8H IV 05/22/17 00:00 05/29/17 00:00 05/22/17 16:14 28.75 MLS/HR Piperacillin Sod/ Tazobactam Sod (Consult) 1 ea UD PRN N/A 05/21/17 22:15 06/20/17 22:14 Haloperidol (Haldol Tab) 10 mg HS PO 05/22/17 21:00 06/20/17 20:59 Heparin Sodium (Porcine) (Heparin Sq 5000 Unit/0.5ml) 5,000 unit Q8H SQ 05/22/17 06:00 06/21/17 05:59 05/22/17 06:41 5,000 UNIT Benztropine Mesylate (Cogentin Tab) 1 mg BID PO 05/22/17 21:00 06/20/17 20:59 Albuterol/ Ipratropium (Duoneb) 3 ml QIDR INH 05/22/17 20:00 06/21/17 19:59 Objective Vital Signs Date Time Temp Pulse Resp B/P (MAP) Pulse Ox O2 Delivery O2 Flow Rate FiO2 05/22/17 15:50 37.7 109 20 142/90 (107) 90 Nasal Cannula 2.0 05/22/17 12:00 Room Air 05/22/17 11:00 37.3 118 22 138/73 (94) 91 Room Air 05/22/17 08:03 36.9 98 18 143/89 (107) 90 Room Air 05/22/17 08:00 Room Air 05/22/17 04:00 91 Nasal Cannula 2.0 05/22/17 03:56 36.7 105 20 155/85 (108) 91 Room Air 05/22/17 02:06 Nasal Cannula 2.0 05/21/17 22:00 36.8 112 20 143/85 91 Nasal Cannula 2.0 05/21/17 21:32 100 19 144/68 97 Room Air 05/21/17 20:21 103 05/21/17 19:45 103 26 94 05/21/17 19:15 114 20 91 05/21/17 19:02 141/86 05/21/17 18:45 114 18 93 05/21/17 18:30 109 20 147/79 93 Nasal Cannula 2.0 05/21/17 18:15 115 29 96 05/21/17 18:02 147/79 05/21/17 17:45 119 20 91 Physical Exam General Appearance: WD/WN, no apparent distress Respiratory/Chest: chest non-tender, no respiratory distress, + respiratory distress, + rhonchi Cardiovascular: regular rate, rhythm, no edema, no murmur Abdomen: normal bowel sounds, soft, no organomegaly, + tenderness (b/l upper/ epigastric TTP which reproduces complaint) Neurologic/Psychiatric: no motor/sensory deficits, alert, normal mood/affect, oriented x 3 Laboratory Results 05/22/17 06:02 05/22/17 06:02 Test 05/22/17 06:02 05/22/17 16:18 Red Blood Count 4.57 M/uL (4.7-6.1) Mean Corpuscular Volume 89.1 fL (80-100) Mean Corpuscular Hemoglobin 31.3 pg (25-34) Mean Corpuscular Hemoglobin Concent 35.1 g/dl (32-36) RDW Standard Deviation 47.0 fL (36.4-46.3) RDW Coefficient of Variation 14.4 % (11.5-14.5) Mean Platelet Volume 9.0 fL (7.4-10.4) Anion Gap 6.0 mmol/L (3-11) Est Creatinine Clear Calc Drug Dose 68.2 ml/min Estimated GFR () 64.6 Estimated GFR (Non- 55.8 BUN/Creatinine Ratio 15.5 (10-20) Lactic Acid Level 1.9 mmol/L (0.4-2.0) Calcium Level 9.2 mg/dl (8.5-10.1) Magnesium Level 2.3 mg/dl (1.8-2.4) Creatine Kinase MB 17.0 ng/ml (0.5-3.6) Creatine Kinase MB Ratio (0-3.0) Troponin I 0.076 ng/ml (0-0.045) Assessment/Plan 56 y/o male h/o schizophrenia (nonadherent to medication) presented with delirium atop dementia Delirium likely 2/2 aspiration pneumonia - WBC stable/mildly decreased - continue zosyn, IVF, trend CBC in AM - if no further improvement in WBC, will consider broadening coverage though clinically improved CURTIS - gentle hydration w/ IVF, encourage POI, trend BMP in AM Elevated troponin - improved, continue to trend, repeat EKG in AM Schizophrenia - psychiatric consultation appreciated - continue present medication regimen, AAOx3 and without labile mood at present DVT PPX - heparin
[2017-05-22] MEDS: ALBUT/IPRATROP 3MG/0.5MG NEB 3 ML VIAL INH SCH ×2 (19:05→23:45)
[2017-05-22] MEDS: TRAZODONE HCL 100 MG TAB PO SCH (20:32)
[2017-05-22] MEDS: HALOPERIDOL 5 MG TAB PO SCH (20:32)
[2017-05-23] VITALS (15 sets, daily range): BP systolic 102–128; BP diastolic 63–82; PULSE 104–118; TEMP 36.8–38.4; O2SAT 89–99
[2017-05-23] MEDS: SODIUM CHLORIDE 0.9% 1000ML 1,000 ML IV SCH (02:32)
--- NOTE | 2017-05-23 02:40 | PSYCHIATRIC CONSULTATION ---
DATE OF CONSULTATION: 05/22/2017 IDENTIFYING INFORMATION: This is a 56-year-old gentleman with a history of paranoid schizophrenia, who is known to the psychiatry service with last contact back in 2009 when he was last admitted here. History is obtained from available records and patient interview. 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 CHIEF COMPLAINT: "I don't want to see a psychiatrist. They ruined my life." HISTORY OF PRESENT ILLNESS: The patient was admitted to the [facility] on 05/21/2017, presented via EMS, thought to be noncompliant with this medication and had a fever and weakness on presentation. Medical workup in the ER showed a negative head CT. He did have nonspecific ST and T-wave abnormality on EKG and elevated troponin and it was felt that he likely had sepsis secondary to pneumonia as well as an acute kidney injury, for which he is being treated. Psychiatry consulted secondary to concern for noncompliance with medications. ER note also indicates that the patient lives in an assisted living complex with his , who suffers from dementia and that he had been seeing people who were not there earlier on the day of presentation as well as some paranoia. On interview this morning, the patient consistently indicates that he has no interest in seeing psychiatry; however, he is readily willing to talk with me despite me very directly identify myself as a psychiatrist. He gives a rather brief and somewhat inconsistent history. He states that he lives with his that things were going fine, but she has been having health problems for a long time and is older than him. He reports that he has been taking his Haldol. He states that he has been taking 10 mg at bedtime as 20 is too much. He reports that he is well compliant with his Klonopin, Cogentin and trazodone, which he also finds helpful. He is able to recall a history of feeling dystonic on Haldol in the distant past. He tells me that he used to hear voices, but he does not any longer. He denies any recent visual or auditory hallucinations. He denies feelings of paranoia presently. He denies thoughts of harm to himself or anyone else. He does repeatedly make comments that he would punch a psychiatrist if he had to go to one, but makes no specific threats towards anyone individual. He seems to feel well cared for by his current primary care physician and comments that he has never had problems with a medical doctor. He seems to appreciate some mild confusion. He identifies this day first as 1917 and when he attempts to correct himself, he states that it is 18/17. He is oriented to hospital and town, but not County. He is oriented to himself. He is able to tell me that he is being treated for pneumonia. PAST MEDICAL HISTORY: Per chart, hypertension, reflux, and pulmonary embolism. Does have a known history of schizophrenia, requiring multiple psychiatric hospitalizations in the past and does have a distant history of overdose attempt. FAMILY HISTORY: Cancer, diabetes, heart disease, hypertension, and lung disease. SOCIAL HISTORY: He is a current smoker. He is and lives with his in an assisted living facility. He is on disability. ALLERGIES: No known drug allergies. HOME MEDICATIONS: Reported as Cogentin 2 mg twice a day, Klonopin 0.5 mg twice a day, Haldol 10 mg at bedtime, Synthroid 25 mcg daily, meloxicam 15 mg daily, multivitamin daily, omeprazole 40 mg daily, and trazodone 100 mg at bedtime. In the hospital, Haldol has been restarted at 10 mg at bedtime, Klonopin at 0.5 mg b.i.d., trazodone 100 mg at bedtime, and Cogentin 2 mg twice a day. REVIEW OF SYSTEMS: The patient is uncertain if he is still feeling feverish. He does describe malaise and cough. He has had recent chest pain and stomach upset. He denies tremulousness, dystonia, dyskinesia. Ten point review of systems otherwise negative except as per HPI. VITAL SIGNS: Temperature today 36.9, pulse 98, respirations 18, blood pressure 143/89, and pulse ox 90% on room air. LABORATORIES: CBC this morning showed a leukocytosis of 20.71. Chem panel showed a normal sodium, glucose elevated at 128, and EGFR 64.6. Tox panel positive only for benzodiazepines. Head CT showed no acute process on admission. ASSESSMENT: A 56-year-old gentleman with a long history of paranoid schizophrenia and a history of medication noncompliance, who resides at an assisted living facility and does not presently have outpatient psychiatric care, which he has been refusing for some time. He appears to be struggling a bit today with his attention and recall. I am uncertain of his cognitive baseline, but there is likely an element of delirium. Medication compliance at home is likely questionable. There is some discrepancy regarding his at bedtime Haldol dose either being 10 or 20 mg at bedtime. As our last point of contact with him here, he was taking 10 mg at bedtime and was also taking a large dose of Seroquel, which he has since discontinued. He reports he fired his nurse case manager about a year ago. DIAGNOSES: Schizophrenia, chronic, paranoid type and unspecified anxiety disorder. PLAN: We will attempt to verify what he has actually been taking at home regarding Haldol. For the time being, we will continue with the 10 mg p.o. at bedtime dose and watch his sensorium as he is treated for underlying medical acute conditions. He may have an element of cognitive impairment at baseline additionally. In an effort to minimize the impact of his medication regimen on this in a gentle way, I am going to reduce his Cogentin to 1 mg twice a day. If we do reescalate the Haldol to 20, this may need to be reescalated as well. Clonazepam appears to be maintenance therapy and we will defer adjusting that secondary to potential for causing some withdrawal or behavioral decompensation. The patient would certainly benefit from specialized outpatient psychiatric followup; however, he appears to be refusing to participate. We will continue to follow. Thank you for allowing us to participate in this patient's care. [facility] HOSPITALJanene
[2017-05-23] MEDS: HEPARIN SOD 5000 UNIT/0.5 ML CARP SQ SCH ×3 (06:02→21:41)
[2017-05-23] MEDS: LEVOTHYROXINE 25 MCG TAB PO SCH (06:02)
[2017-05-23] MEDS: ALBUT/IPRATROP 3MG/0.5MG NEB 3 ML VIAL INH SCH ×4 (07:13→20:01)
[2017-05-23] MEDS: PANTOprazole SOD 40 MG TAB PO SCH (07:55)
[2017-05-23] MEDS: BENZTROPINE MESYLATE 1 MG TAB PO SCH ×2 (07:55→21:39)
[2017-05-23] MEDS: PIPERACILL/TAZOBAC IV 3.375 GM in DEXTROSE 5% 100ML 100 ML IV SCH ×2 (07:55→15:52)
[2017-05-23] MEDS: CLONAZEPAM 0.5 MG TAB PO SCH ×2 (07:55→21:40)
[2017-05-23 08:42] LABS: BASO % 0.1 %; BASO ABS # 0.02 K/uL (0-0.2); COMPLETE YES; EOS % 0.1 %; HEMATOCRIT 36.8 % (42-52); IG% 0.3 %; LYMPH % 8.2 %; LYMPH ABS # 1.46 K/uL (1.2-3.4); MEAN CORPUSCULAR HEMOGLOBIN 30.1 pg (25-34); MEAN CORPUSCULAR HGB CONC 34.2 g/dl (32-36); MEAN PLATELET VOLUME 8.8 fL (7.4-10.4); MONO % 5.7 %; NEUT % 85.6 %; PLATELET COUNT 193 K/uL (130-400); RED BLOOD COUNT 4.18 M/uL (4.7-6.1); WHITE BLOOD COUNT 17.89 K/uL (4.8-10.8)
[2017-05-23] MEDS ORDERED: LEVOFLOXACIN CONSULT ACTIVE PRN (09:00)
[2017-05-23 09:13] LABS: BLOOD UREA NITROGEN 14 mg/dl (7-18); BUN/CREATININE RATIO 12.3 (10-20); CALCIUM 8.9 mg/dl (8.5-10.1); CARBON DIOXIDE 24 mmol/L (21-32); CHLORIDE 110 mmol/L (98-107); GLUCOSE 149 mg/dl (70-99); POTASSIUM 3.8 mmol/L (3.5-5.1); SODIUM 141 mmol/L (136-145)
--- NOTE | 2017-05-23 09:22 | DIAGNOSTIC IMAGING REPORT ---
CHEST 2 VIEWS ROUTINE CLINICAL HISTORY: Cough. Worsening shortness of breath. COMPARISON STUDY: 05/20/2017 FINDINGS: The cardiac and mediastinal contours remain stable. There are developing bilateral pulmonary airspace opacities. The findings could represent either a pneumonia or pulmonary edema. There is no significant pleural fluid.[ IMPRESSION: Developing bilateral pulmonary airspace opacities. Diagnostic considerations include a bilateral pneumonitis, or pulmonary edema. Clinical and radiographic follow-up is recommended. Electronically signed by: Dain Frias M.D. 05/23/2017 9:20 AM Dictated Date/Time: 05/23/2017 9:18 AM
[2017-05-23] MEDS: LEVOFLOXACIN 500MG / D5W IV SCH (09:56)
[2017-05-23 11:47] LABS: ARTERIAL BLD GAS O2 SATURATION 86.5 % (90-95); ARTERIAL BLOOD GAS HCO3 22 mmol/L (19-24); ARTERIAL BLOOD GAS PO2 52 mm/Hg (80-95); ARTERIAL BLOOD GAS pH 7.48 (7.35-7.45)
[2017-05-23 11:48] LABS: ALLEN TEST POS (POS); O2 ADMINISTRATION 11L
[2017-05-23] MEDS ORDERED: FUROSEMIDE INJ 40 MG in SYRINGE 0 ML IV STA (12:25)
[2017-05-23] MEDS ORDERED: FUROSEMIDE 40 MG/4 ML VIAL ONE (12:26)
[2017-05-23] MEDS ORDERED: OPTIRAY 320 IV PRN (12:30)
[2017-05-23] MEDS: ACETAMINOPHEN 325 MG TAB PO PRN (15:53)
--- NOTE | 2017-05-23 16:48 | Procedure Note ---
Procedure Note Date of Service May 23, 2017. Procedure Note Critical Care Medicine Point of Care Bedside Ultrasound Procedure: Limited Bedside Lung Ultrasound Procedure Date: 05/23/2017 Indication: Acute hypoxia. I was requested to perform a bedside ultrasound evaluation of the patient by Dr. Carias. Attending: Heriberto Zhang DO Resident/Physician Radar Tester: Not applicable Organs Examined: Lung, heart, bilateral common femoral and popliteal veins BLUE point (upper), BLUE point (lower), Phrenic Point (axillary), PLAPS point ( posterior) A lines visualized: No, Hemithorax: Bilateral B lines visualized: Present, Hemithorax: Bilateral from posterior 0.2 anterior chest Lung Sliding: Present, Hemithorax: Bilateral Tissue-like Sign: Absent, Hemithorax: Bilateral Shred Sign: Absent, Hemithorax: Bilateral Quad Sign: Absent, Hemithorax: Bilateral Sinusoid Sign: Absent, Hemithorax: Bilateral Type of effusions: Absence, Hemithorax: Bilateral Interpleural distance: Not applicable 4 chamber apical view of the heart revealed a hypokinetic left ventricle, difficult to evaluate right ventricle, no pericardial effusion Common femoral vein visualized bilaterally, compressible bilaterally Popliteal vein visualized bilaterally, compressible bilaterally Impression: Negative two point compression test bilaterally, no evidence of ultrasound. Type B lung ultrasound consistent with interstitial edema Hypokinetic left ventricle concerning for possible CHF exacerbation Plan: I have discussed these findings with Dr. Carias Images obtained are saved for permanent record
[2017-05-23] MEDS ORDERED: VANCOMYCIN INJ 1,000 MG in SODIUM CHLORIDE 0.9% 250ML 250 ML IV ONE (18:53)
[2017-05-23] MEDS ORDERED: VANCOMYCIN CONSULT ACTIVE PRN (19:30)
--- NOTE | 2017-05-23 19:37 | Family Medicine Progress Note ---
Progress Note Date of Service May 23, 2017. Subjective Pt seen and examined at bedside. Progressively increasing oxygen need despite increased abx and repositioning. On bedside US eval, b/l pulmonary edema concerning for fluid overload. Improvement in SOB w/ placement on CPAP @ 10 and lasix 40mg IV (now BID). Reports no DOMINGUEZ, lightheadedness, fever, chills, CP, palpitations, n/v/d/c Constitutional: + fever, + chills, + fatigue, No sweats, No weakness Respiratory: + cough, + sputum, + shortness of breath, + dyspnea on exertion , + dyspnea at rest Cardiovascular: No chest pain, No edema, No palpitations Abdomen: No pain, No nausea, No vomiting, No diarrhea Neurologic: No memory loss, No weakness, No numbness/tingling Psychiatric: No anxiety Skin: No rash, No new/changing skin lesions Medications Current Inpatient Medications Medications (Trade) Dose Ordered Sig/Key Route Start Time Stop Time Status Last Admin Dose Admin Acetaminophen (Tylenol Tab) 650 mg Q4H PRN PO 05/21/17 20:15 06/20/17 20:14 05/23/17 15:53 650 MG Ondansetron HCl (Zofran Inj) 4 mg Q6H PRN IV 05/21/17 20:15 06/20/17 20:14 Nitroglycerin (Nitrostat Tab) 0.4 mg UD PRN SL 05/21/17 20:15 06/20/17 20:14 Polyethylene (Miralax Powder Packet) 17 gm DAILY PRN PO 05/21/17 20:15 06/20/17 20:14 Clonazepam (Klonopin Tab) 0.5 mg BID PO 05/21/17 21:00 06/20/17 20:59 05/23/17 07:55 0.5 MG Levothyroxine Sodium (Synthroid Tab) 25 mcg DAILYBB PO 05/22/17 06:30 06/21/17 06:59 05/23/17 06:02 25 MCG Trazodone HCl (Desyrel Tab) 100 mg HS PO 05/21/17 21:00 06/20/17 20:59 05/22/17 20:32 100 MG Albuterol (Ventolin Hfa Inhaler) 2 puffs QID PRN INH 7/21/17 20:15 06/20/17 20:14 05/22/17 16:14 2 PUFFS Pantoprazole Sodium (Protonix Tab) 40 mg DAILY PO 05/22/17 09:00 06/21/17 08:59 05/23/17 07:55 40 MG Piperacillin Sod/ Tazobactam Sod 3.375 gm/Dextrose 115 ml @ 28.75 mls/ hr Q8H IV 05/22/17 00:00 05/29/17 00:00 05/23/17 15:52 28.75 MLS/HR Piperacillin Sod/ Tazobactam Sod (Consult) 1 ea UD PRN N/A 05/21/17 22:15 06/20/17 22:14 Haloperidol (Haldol Tab) 10 mg HS PO 05/22/17 21:00 06/20/17 20:59 05/22/17 20:32 10 MG Heparin Sodium (Porcine) (Heparin Sq 5000 Unit/0.5ml) 5,000 unit Q8H SQ 05/22/17 06:00 06/21/17 05:59 05/23/17 06:02 5,000 UNIT Benztropine Mesylate (Cogentin Tab) 1 mg BID PO 05/22/17 21:00 06/20/17 20:59 05/23/17 07:55 1 MG Albuterol/ Ipratropium (Duoneb) 3 ml QIDR INH 05/22/17 20:00 06/21/17 19:59 05/23/17 14:27 3 ML Levofloxacin 500 mg/Prmx 100 ml @ 100 mls/hr DAILY IV 05/23/17 09:00 05/30/17 08:59 05/23/17 09:56 100 MLS/HR Levofloxacin (Consult) 1 ea UD PRN N/A 05/23/17 09:00 06/22/17 08:59 Ioversol (Optiray 320) 125 ml UD PRN IV 05/23/17 12:30 05/27/17 12:29 Furosemide 40 mg/ Syringe 4 ml @ 4 mls/min BID IV 05/23/17 21:00 06/22/17 20:59 Vancomycin HCl (Consult) 1 ea UD PRN N/A 05/23/17 19:30 06/22/17 19:29 Vancomycin HCl 2500 mg/Sodium Chloride 550 ml @ 200 mls/hr NOW ONCE IV 05/23/17 20:00 05/23/17 22:44 Objective Vital Signs Date Time Temp Pulse Resp B/P (MAP) Pulse Ox O2 Delivery O2 Flow Rate FiO2 05/23/17 16:02 98 CPAP 60 05/23/17 15:20 38.4 118 36 102/65 (77) 97 CPAP 60 05/23/17 14:27 118 35 97 BiPAP/CPAP 60 05/23/17 13:30 118 97 60 05/23/17 12:35 112 99 60 05/23/17 12:22 37.1 115 24 122/75 (91) 90 Oxymask 11.0 05/23/17 12:00 Venturi Mask 10.0 05/23/17 11:11 111 24 89 Diffusion Mask 11.0 05/23/17 08:00 Venturi Mask 10.0 05/23/17 07:31 36.8 104 20 126/68 (87) 90 Venturi Mask 10.0 05/23/17 07:15 107 24 90 Diffusion Mask 10.0 05/23/17 04:24 37.5 109 22 122/74 (90) 91 Venturi Mask 9.0 05/23/17 04:00 Venturi Mask 10.0 05/23/17 00:00 Venturi Mask 10.0 05/22/17 23:46 120 28 87 Nasal Cannula 5.0 05/22/17 23:46 37.1 119 22 121/81 (94) 05/22/17 20:00 92 Nasal Cannula 3.0 05/22/17 19:56 37.5 55 20 133/82 (99) 96 Room Air Physical Exam General Appearance: WD/WN, no apparent distress Neck: supple, no adenopathy Respiratory/Chest: chest non-tender, + respiratory distress, + decreased breath sounds, + rhonchi Cardiovascular: regular rate, rhythm, no edema, no murmur Abdomen: normal bowel sounds, non tender, soft, no organomegaly Neurologic/Psychiatric: no motor/sensory deficits, alert, normal mood/affect, oriented x 3 Laboratory Results 05/23/17 08:29 Red Blood Count 4.18, Mean Corpuscular Volume 88.0, Mean Corpuscular Hemoglobin 30.1, Mean Corpuscular Hemoglobin Concent 34.2, Mean Platelet Volume 8.8, Neutrophils (%) (Auto) 85.6, Lymphocytes (%) (Auto) 8.2, Monocytes (%) (Auto) 5.7, Eosinophils (%) (Auto) 0.1, Basophils (%) (Auto) 0.1, Neutrophils # (Auto) 15.32, Lymphocytes # (Auto) 1.46, Monocytes # (Auto) 1.02, Eosinophils # (Auto) 0.01, Basophils # (Auto) 0.02 05/23/17 08:29 Test 05/23/17 08:29 05/23/17 11:23 05/23/17 15:47 White Blood Count 17.89 K/uL (4.8-10.8) Red Blood Count 4.18 M/uL (4.7-6.1) Hemoglobin 12.6 g/dL (14.0-18.0) Hematocrit 36.8 % (42-52) Mean Corpuscular Volume 88.0 fL (80-100) Mean Corpuscular Hemoglobin 30.1 pg (25-34) Mean Corpuscular Hemoglobin Concent 34.2 g/dl (32-36) Platelet Count 193 K/uL (130-400) Mean Platelet Volume 8.8 fL (7.4-10.4) Neutrophils (%) (Auto) 85.6 % Lymphocytes (%) (Auto) 8.2 % Monocytes (%) (Auto) 5.7 % Eosinophils (%) (Auto) 0.1 % Basophils (%) (Auto) 0.1 % Neutrophils # (Auto) 15.32 K/uL (1.4-6.5) Lymphocytes # (Auto) 1.46 K/uL (1.2-3.4) Monocytes # (Auto) 1.02 K/uL (0.11-0.59) Eosinophils # (Auto) 0.01 K/uL (0-0.5) Basophils # (Auto) 0.02 K/uL (0-0.2) RDW Standard Deviation 46.1 fL (36.4-46.3) RDW Coefficient of Variation 14.3 % (11.5-14.5) Immature Granulocyte % (Auto) 0.3 % Immature Granulocyte # (Auto) 0.06 K/uL (0.00-0.02) Anion Gap 7.0 mmol/L (3-11) Est Creatinine Clear Calc Drug Dose 86.8 ml/min Estimated GFR () 86.5 Estimated GFR (Non- 74.6 BUN/Creatinine Ratio 12.3 (10-20) Calcium Level 8.9 mg/dl (8.5-10.1) Arterial Blood pH 7.48 (7.35-7.45) Arterial Blood Partial Pressure CO2 30 mmHg (35-46) Arterial Blood Partial Pressure O2 52 mm/Hg (80-95) Arterial Blood HCO3 22 mmol/L (19-24) Arterial Blood Oxygen Saturation 86.5 % (90-95) Arterial Blood Base Excess -1.0 mEq/L (-9-1.8) Arterial Blood Gas Delivery 11L Bruce Test POS (POS) Troponin I < 0.015 ng/ml (0-0.045) Assessment/Plan 56 y/o male h/o schizophrenia (nonadherent to medication) presented with delirium w/ SOB and cough Pulmonary edema - echocardiogram completed, answering service operator consulted and aware - lasix 40mg IV BID, continue CPAP at 10 PNA - ?aspiration episode - WBC stable/mildly decreased w/ new fever 7.23 - re- culture. add vancomycin, levofloxacin, continue zosyn. Trend CBC in AM CURTIS - improved, trend BMP Elevated troponin - resolved Schizophrenia - psychiatric consultation appreciated - continue present medication regimen, AAOx3 and without labile mood at present DVT PPX - heparin As respiratory status initially started to worsen, reviewed patient's code status in regard to intubation and completed POLST - after discussion regarding interventions including mechanical ventilation, pressor support and CPR, the patient was able to repeat back to me an understanding that he would pass if he required these interventions and did not receive them, at which point we completed the POLST as DNR/DNI w/ limited additional interventions. Code status updated.
[2017-05-23] MEDS ORDERED: VANCOMYCIN INJ 2,500 MG in SODIUM CHLORIDE 0.9% 500ML 500 ML IV ONE (20:00)
--- NOTE | 2017-05-23 20:59 | Pharmacy Progress Note ---
Pharmacy Abx Initial Consult Date of Service May 23, 2017. Pharmacy Dosing Scope Date of Consult: 05/23/17 Consultation requested by: Dr. Maya Pharmacy is consulted to initiate Vancomycin IV dosing therapy for additional pneumonia coverage (patient currently on Zosyn and Levaquin per pharmacy consult ), order appropriate labs and adjust drug dose/frequency. Subjective The patient is a 56 year old male admitted on May 21, 2017 at 20:18. Objective Height (Feet): 5 Height (Inches): 9.00 Weight (Kilograms): 98.600 Vital Signs (Past 12Hrs) Vital Signs Past 12 Hours Date Time Temp Pulse Resp B/P (MAP) Pulse Ox O2 Delivery O2 Flow Rate FiO2 05/23/17 19:54 37.0 115 20 114/63 (80) 95 CPAP 60 05/23/17 19:30 111 24 97 BiPAP/CPAP 60 05/23/17 16:02 98 CPAP 60 05/23/17 15:20 38.4 118 36 102/65 (77) 97 CPAP 60 05/23/17 14:27 118 35 97 BiPAP/CPAP 60 05/23/17 13:30 118 97 60 05/23/17 12:35 112 99 60 05/23/17 12:22 37.1 115 24 122/75 (91) 90 Oxymask 11.0 05/23/17 12:00 Venturi Mask 10.0 05/23/17 11:11 111 24 89 Diffusion Mask 11.0 Lab Results (24Hrs) Laboratory Tests (24 Hours) Test 05/23/17 08:29 White Blood Count 17.89 K/uL (4.8-10.8) H Red Blood Count 4.18 M/uL (4.7-6.1) L Hemoglobin 12.6 g/dL (14.0-18.0) L Hematocrit 36.8 % (42-52) L Mean Corpuscular Volume 88.0 fL (80-100) Mean Corpuscular Hemoglobin 30.1 pg (25-34) Mean Corpuscular Hemoglobin Concent 34.2 g/dl (32-36) Platelet Count 193 K/uL (130-400) Mean Platelet Volume 8.8 fL (7.4-10.4) Neutrophils (%) (Auto) 85.6 % Lymphocytes (%) (Auto) 8.2 % Monocytes (%) (Auto) 5.7 % Eosinophils (%) (Auto) 0.1 % Basophils (%) (Auto) 0.1 % Neutrophils # (Auto) 15.32 K/uL (1.4-6.5) H Lymphocytes # (Auto) 1.46 K/uL (1.2-3.4) Monocytes # (Auto) 1.02 K/uL (0.11-0.59) H Eosinophils # (Auto) 0.01 K/uL (0-0.5) Basophils # (Auto) 0.02 K/uL (0-0.2) Micro Results Date/Time Source Procedure Growth Status 05/23/17 19:20 Blood Blood Culture Pending Received 05/23/17 19:14 Blood Blood Culture Pending Received 05/21/17 16:23 Blood Blood Culture - Preliminary NO GROWTH TO DATE. Resulted 05/21/17 16:13 Blood Blood Culture - Preliminary NO GROWTH TO DATE. Resulted Risk Factors for Resistance * Resident in a snf or extended-care facility Assessment & Plan Assessment 56 year old male with worsening pneumonia. Patient already a Zosyn and Levaquin pharmacy consult. Plan Pharmacy has been consulted for treatment of pneumonia Vancomycin IV * Loading dose: 2500 mg (25 mg/kg) * Maintenance dose: 1500 mg IV (15 mg/kg) every 12 hours * Estimated P'kinetic levels: ke= 0.0766/hr, t1/2= 9 hrs * Goal trough level for pneumonia : 15 to 20 mcg/mL * Trough level ordered for 05/25/17 ~30 minutes before the 2000 dose Pharmacy will continue to follow and will adjust dose/frequency as necessary. Thank you.
[2017-05-23] MEDS ORDERED: VANCOMYCIN INJ 1,000 MG in SODIUM CHLORIDE 0.9% 250ML 250 ML IV SCH (21:00)
--- NOTE | 2017-05-23 21:33 | DIAGNOSTIC IMAGING REPORT ---
CT ANGIOGRAM OF THE CHEST CLINICAL HISTORY: Worsening shortness of breath. Cough. Possible pulmonary embolism. COMPARISON STUDY: 04/19/2012 , chest x-ray dated 05/23/2017 TECHNIQUE: Following the IV administration of 90 mL of Optiray-320, CT angiogram of the thorax was performed from the thoracic inlet to the lung bases utilizing the pulmonary embolus protocol. Images are reviewed in the axial, sagittal, and coronal planes. IV contrast was administered without complication. MIP imaging was performed. A dose lowering technique was utilized adhering to the principles of ALARA. CT DOSE: 603.45 mGy.cm FINDINGS: Mediastinal lymph nodes are the upper limits of normal in size. There are borderline enlarged hilar lymph nodes. There was no evidence of thoracic aortic dilatation. There is suboptimal pulmonary arterial opacification. There is a probable small pulmonary artery filling defect within a lingular branch. There is a probable tiny filling defect within a right lower lobe pulmonary artery branch. Correlation with venous Doppler leg ultrasonography is recommended. No pleural effusions are visualized. There are extensive relatively diffuse bilateral groundglass opacities with a mosaic pattern. IMPRESSION: 1. Technically limited study 2. Probable but not definite small bilateral pulmonary emboli. Correlation with leg venous ultrasound sonography is recommended. 3. Extensive bilateral groundglass pulmonary opacities with a mosaic pattern. Electronically signed by: Dain Frias M.D. 05/23/2017 9:32 PM Dictated Date/Time: 05/23/2017 9:24 PM
[2017-05-23] MEDS: HALOPERIDOL 5 MG TAB PO SCH (21:39)
[2017-05-23] MEDS: TRAZODONE HCL 100 MG TAB PO SCH (21:40)
[2017-05-23] MEDS: FUROSEMIDE INJ 40 MG in SYRINGE 0 ML IV SCH (21:43)
--- NOTE | 2017-05-23 22:09 | Progress Note ---
Progress Note Date of Service May 23, 2017. Progress Note Patient CT shows possible PE. Patient has a history of PE in Nov 2010. Note from March 2012 does not have him on any anticoagulation. Therefore we will treat with IV heparin overnight without bolus due to already receiving heparin 5000 units Q8H SQ. We will also get an US doppler of legs to assess for DVT. extermination inspector treatment to be decided by day team. Resident Tracking Resident Involvement: Resident Care Provided Care Provided: Adult ED
[2017-05-23 22:58] LABS: BASO % 0.1 %; BASO ABS # 0.02 K/uL (0-0.2); EOS % 0.1 %; HEMATOCRIT 36.3 % (42-52); IG% 0.5 %; LYMPH % 9.6 %; LYMPH ABS # 1.39 K/uL (1.2-3.4); MEAN CELL VOLUME 88.5 fL (80-100); MEAN CORPUSCULAR HEMOGLOBIN 30.5 pg (25-34); MEAN PLATELET VOLUME 8.7 fL (7.4-10.4); MONO % 6.4 %; NEUT % 83.3 %; PLATELET COUNT 180 K/uL (130-400); WHITE BLOOD COUNT 14.48 K/uL (4.8-10.8)
[2017-05-23 23:11] LABS: INR 1.1 (0.9-1.1); PARTIAL THROMBOPLASTIN RATIO 1.4; PROTHROMBIN TIME (PATIENT) 11.7 SECONDS (9.0-12.0)
[2017-05-23] MEDS: HEPARIN 25000 UNIT/ D5W 500 ML (PHARMACY PREPARED) IV PRN ×2 (23:17)
[2017-05-23 23:34] LABS: COMPLETE YES; MEAN CORPUSCULAR HGB CONC 34.4 g/dl (32-36)
[2017-05-24] VITALS (19 sets, daily range): BP systolic 112–123; BP diastolic 65–77; PULSE 103–129; TEMP 36.8–38.2; O2SAT 88–97
[2017-05-24] MEDS: PIPERACILL/TAZOBAC IV 3.375 GM in DEXTROSE 5% 100ML 100 ML IV SCH ×4 (00:21→23:27)
[2017-05-24 03:21] LABS: HYDROXYETHYLFLURAZEPAM CONF NEGATIVE NG/ML (CUTOFF=50); HYDROXYMIDAZOLAM NEGATIVE NG/ML (CUTOFF=50); HYDROXYTRIAZOLAM CONF NEGATIVE NG/ML (CUTOFF=50); TEMAZEPAM CONF NEGATIVE NG/ML (CUTOFF=50)
[2017-05-24 05:24] LABS: HEMATOCRIT 33.8 % (42-52); MEAN CORPUSCULAR HEMOGLOBIN 30.5 pg (25-34); MEAN CORPUSCULAR HGB CONC 34.6 g/dl (32-36); MEAN PLATELET VOLUME 8.8 fL (7.4-10.4); PLATELET COUNT 184 K/uL (130-400); RED BLOOD COUNT 3.84 M/uL (4.7-6.1); WHITE BLOOD COUNT 14.63 K/uL (4.8-10.8)
--- NOTE | 2017-05-24 06:20 | DIAGNOSTIC IMAGING REPORT ---
VENOUS DOPPLER LW EXT BILAT HISTORY: 9 CTPA shows possible PE ?DVT in legs COMPARISON STUDY: 06/18/2016 FINDINGS: Chronic venous scarring right popliteal vein. No evidence of deep venous thrombosis. Compressibility and augmentation characteristics are unremarkable. IMPRESSION: Chronic scarring right popliteal vein. No evidence for acute deep venous thrombosis. The above report was generated using voice recognition software. It may contain grammatical, syntax or spelling errors. Electronically signed by: Manjeet Thompson M.D. 05/24/2017 6:18 AM Dictated Date/Time: 05/24/2017 6:17 AM
[2017-05-24] MEDS: LEVOTHYROXINE 25 MCG TAB PO SCH (06:25)
[2017-05-24] MEDS: ALBUT/IPRATROP 3MG/0.5MG NEB 3 ML VIAL INH SCH ×4 (07:31→19:17)
[2017-05-24] MEDS: PANTOprazole SOD 40 MG TAB PO SCH (07:33)
[2017-05-24] MEDS: CLONAZEPAM 0.5 MG TAB PO SCH ×2 (07:33→21:10)
[2017-05-24] MEDS: BENZTROPINE MESYLATE 1 MG TAB PO SCH ×2 (07:33→21:10)
[2017-05-24] MEDS: VANCOMYCIN INJ 1,500 MG in SODIUM CHLORIDE 0.9% 500ML 500 ML IV SCH ×2 (07:33→20:08)
[2017-05-24] MEDS: FUROSEMIDE INJ 40 MG in SYRINGE 0 ML IV SCH ×2 (07:33→21:11)
[2017-05-24] MEDS: LEVOFLOXACIN 500MG / D5W IV SCH (07:33)
[2017-05-24] MEDS: ACETAMINOPHEN 325 MG TAB PO PRN ×3 (07:33→23:28)
--- NOTE | 2017-05-24 07:35 | Clinical Documentation Query ---
ADRI Richards : CLINICAL DOCUMENTATION QUERIES QUERY 1 OF 2 Patient is a 56 year old male admitted for sepsis secondary to probable aspiration pneumonia and possible pulmonary emboli. On 05/23, noted to have progressive oxygen requirements despite active interventions. Ultimately necessitated CPAP and IV Furosemide. Bedside echocardiogram demonstrated a hypokinetic LV. Documentation has included "pulmonary edema". The acuity of this diagnosis cannot be assumed by the professional tax manager cpa. As appropriate, consider documentation as suggested below. Thank you. In your clinical opinion is this patient being managed for: ( X) Acute pulmonary edema secondary to acute systolic CHF ( ) Other explanation of clinical findings (Please Explain) ( ) Unable to determine (Please Define) ( ) Need to Discuss ( ) Not Agree The medical record reflects the following clinical findings, treatment, and risk factors. Clinical Indicators: As above Treatment: CPAP, CT chest, echocardiogram, increased supplemental O2, IV Lasix Risk Factors: Age, IVF, PE, aspiration pneumonia/infection QUERY 2 OF 2 Respirations to 30's, oxygen requirements to 60% FiO2, HR to 120's. Physical exam 05/23 noted "respiratory distress". ABG demonstrated a pO2 of 52 on 11L/min suppemental O2. As appropriate, please consider documentation as suggested below. In your clinical opinion is this patient being managed for: ( X) Acute respiratory failure with hypoxia ( ) Other explanation of clinical findings (Please Explain) ( ) Unable to determine (Please Define) ( ) Need to Discuss ( ) Not Agree The medical record reflects the following clinical findings, treatment, and risk factors. Clinical Indicators: As above Treatment: Supplemental O2, PPV, IV Lasix Risk Factors: Acute pulmonary edema/systolic LV CHF Please clarify and document your clinical opinion in the progress notes and discharge summary. Terms such as "probable", "suspected", "likely", "questionable", "possible", or "still to be ruled out" are acceptable. IF IN AGREEMENT, YOU MUST DOCUMENT ABOVE DIAGNOSTIC STATEMENT IN DAILY PROGRESS NOTES AND DISCHARGE SUMMARY. This document is not part of the patient's record. Thank You, Marcelo Fischer, RN [phone]
--- NOTE | 2017-05-24 08:48 | Psychiatric Progress Notes ---
Psychiatric Progress Note Date of Service May 24, 2017. Notes Patient reviewed with liaison nurse. Initial consult by Dr. Syed reviewed. Patient is currently resting with bipap. Liaison to confirm dosing of Haldol.
--- NOTE | 2017-05-24 08:48 | ECHOCARDIOGRAM REPORT ---
*NOTICE TO RECEIVING REPUBLICAN AGENCY This information is strictly Confidential and protected under [place] law. [place] law prohibits you from making any further disclosure of this information unless further disclosure is expressly permitted by the written consent of the person to whom it pertains or is authorized by law. A general authorization for the release of medical or other information is not sufficient for this purpose. Hospital accepts no responsibility if the information is made available to any other person, INCLUDING THE PATIENT. Interpretation Summary * Name: CHUY POE Study Date: 05/23/2017 01:53 PM BP: 122/75 mmHg * Patient Location: [facility]\S\N281\S\2 HR: 112 * : 1960 (M/d/yyyy) Gender: Male Height: 69 in * Age: 56 yrs Ethnicity: CA Weight: 217 lb * Ordering Physician: Leon Carias * Referring Physician: Self, Referred * Performed By: Rachana Jurado RDCS * * Reason For Study: CHF * BSA: 2.1 m2 * Hyperdynamic left ventricular systolic function. * Class I LV diastolic dysfunction. * Normal chamber dimensions. * No significant valvular abnormalities. * No evidence of elevated right ventricular or central venous pressures. * The study was technically difficult. Procedure Details * A complete two-dimensional transthoracic echocardiogram was performed (2D, M-mode, Doppler and color flow Doppler). * A contrast injection of Definity was performed to improve assessment of LV function. * Contrast was injected into an intravenous site in the left arm. * One vial of Definity ultrasound contrast was diluted in normal saline to a total volume of 10 ml. A total of '3' ml of solution was administered during imaging. * Lot # [id number] of Definity utilized for procedure. * Expiration date JUN 18. * The attending nurse who injected the contrast agent was Zulma Suazo RN. * The study was technically limited. * The study was technically difficult. * Limited views were obtained. Left Ventricle * The left ventricle is normal in size. * There is normal left ventricular wall thickness. * Ejection Fraction = >70 %. * The left ventricle is hyperdynamic. * A full diastolic examination was done with clinical findings of Class I diastolic dysfunction. * No regional wall motion abnormalities noted. Right Ventricle * The right ventricle is normal in size and function. * The right ventricular systolic function is normal as assessed by tricuspid annular plane systolic excursion (TAPSE) (normal >1.5 cm). Atria * The left atrial size is normal. * Right atrial size is normal. * No ASD detected; PFO is not assessed. Mitral Valve * The mitral valve is grossly normal. * There is no mitral valve stenosis. * There is no mitral regurgitation noted. Tricuspid Valve * The tricuspid valve is not well visualized. * There is no tricuspid stenosis. * There is trace tricuspid regurgitation. * Right ventricular systolic pressure is normal. Aortic Valve * The aortic valve is not well visualized. * The valve appears to be trileaflet and to open normally. * No hemodynamically significant valvular aortic stenosis. * There is no significant aortic regurgitation. Pulmonic Valve * The pulmonic valve is not well visualized. * The pulmonary valve is inadequately visualized, but the Doppler data is adequate for interpretation. * There is no pulmonic valvular stenosis. * There is no significant pulmonary regurgitation. Great Vessels * The aortic root is normal size. Pericardium/Pleural * There is no pericardial effusion. Great Vessels * Normal inferior vena cava diameter and respiratory variation suggests normal central venous pressure. MMode 2D Measurements and Calculations IVSd 0.89 cm LVIDd 4.2 cm LVIDs 2.5 cm LVPWd 1.1 cm IVS/LVPW 0.83 FS 39.7 % EDV(Teich) 79.0 ml ESV(Teich) 23.2 ml EF(Teich) 70.7 % EDV(cubed) 74.6 ml ESV(cubed) 16.3 ml EF(cubed) 78.1 % LV mass(C)d 134.4 grams LV mass(C)dI 62.9 grams/m\S\2 SV(Teich) 55.9 ml SI(Teich) 26.1 ml/m\S\2 SV(cubed) 58.3 ml SI(cubed) 27.3 ml/m\S\2 Ao root diam 3.2 cm Ao root area 8.3 cm\S\2 ACS 1.8 cm LA dimension 3.1 cm asc Aorta Diam 3.3 cm LA/Ao 0.94 LVAd ap4 27.5 cm\S\2 LVLd ap4 7.7 cm EDV(MOD-sp4) 79.5 ml EDV(sp4-el) 83.0 ml LVAs ap4 13.6 cm\S\2 LVLs ap4 6.2 cm ESV(MOD-sp4) 25.4 ml ESV(sp4-el) 25.3 ml EF(MOD-sp4) 68.0 % EF(sp4-el) 69.5 % LVAd ap2 23.3 cm\S\2 LVLd ap2 6.9 cm EDV(MOD-sp2) 63.2 ml EDV(sp2-el) 66.2 ml LVAs ap2 11.3 cm\S\2 LVLs ap2 5.0 cm ESV(MOD-sp2) 21.6 ml ESV(sp2-el) 21.5 ml EF(MOD-sp2) 65.8 % EF(sp2-el) 67.5 % LVLd %diff -11.34 % EDV(MOD-bp) 75.3 ml LVLs %diff -22.44 % ESV(MOD-bp) 25.8 ml EF(MOD-bp) 65.7 % SV(MOD-sp4) 54.1 ml SI(MOD-sp4) 25.3 ml/m\S\2 SV(MOD-sp2) 41.6 ml SI(MOD-sp2) 19.4 ml/m\S\2 SV(MOD-bp) 49.5 ml SI(MOD-bp) 23.1 ml/m\S\2 SV(sp4-el) 57.6 ml SI(sp4-el) 27.0 ml/m\S\2 SV(sp2-el) 44.7 ml SI(sp2-el) 20.9 ml/m\S\2 Doppler Measurements and Calculations MV E max rey 89.7 cm/sec MV A max rey 115.0 cm/sec MV E/A 0.78 Ao V2 max 173.7 cm/sec Ao max PG 12.1 mmHg Ao max PG (full) 1.3 mmHg LV V1 max PG 10.8 mmHg LV V1 max 164.1 cm/sec TR max rey 150.5 cm/sec
--- NOTE | 2017-05-24 13:34 | Clinical Documentation Query ---
CATIE Hernandez : CLINICAL DOCUMENTATION QUERIES QUERY 1 OF 2 Patient is a 56 year old male admitted for sepsis secondary to probable aspiration pneumonia and possible pulmonary emboli. On 05/23, noted to have progressive oxygen requirements despite active interventions. Ultimately necessitated CPAP and IV Furosemide. Bedside echocardiogram demonstrated a hypokinetic LV. Documentation has included "pulmonary edema". The acuity of this diagnosis cannot be assumed by the professional gastroenterology physician. As appropriate, consider documentation as suggested below. Thank you. In your clinical opinion is this patient being managed for: ( ) Acute pulmonary edema secondary to acute systolic CHF ( ) Other explanation of clinical findings (Please Explain) ( ) Unable to determine (Please Define) ( ) Need to Discuss ( x ) Not Agree - see cardiology consult The medical record reflects the following clinical findings, treatment, and risk factors. Clinical Indicators: As above Treatment: CPAP, CT chest, echocardiogram, increased supplemental O2, IV Lasix Risk Factors: Age, IVF, PE, aspiration pneumonia/infection QUERY 2 OF 2 Respirations to 30's, oxygen requirements to 60% FiO2, HR to 120's. Physical exam 05/23 noted "respiratory distress". ABG demonstrated a pO2 of 52 on 11L/min suppemental O2. As appropriate, please consider documentation as suggested below. In your clinical opinion is this patient being managed for: ( x ) Acute respiratory failure with hypoxia ( ) Other explanation of clinical findings (Please Explain) ( ) Unable to determine (Please Define) ( ) Need to Discuss ( ) Not Agree The medical record reflects the following clinical findings, treatment, and risk factors. Clinical Indicators: As above Treatment: Supplemental O2, PPV, IV Lasix Risk Factors: Acute pulmonary edema/systolic LV CHF Please clarify and document your clinical opinion in the progress notes and discharge summary. Terms such as "probable", "suspected", "likely", "questionable", "possible", or "still to be ruled out" are acceptable. IF IN AGREEMENT, YOU MUST DOCUMENT ABOVE DIAGNOSTIC STATEMENT IN DAILY PROGRESS NOTES AND DISCHARGE SUMMARY. This document is not part of the patient's record. Thank You, Marcelo Fischer, RN [phone]
[2017-05-24] MEDS: ONDANSETRON INJ 2 MG/ML 2 ML VIAL IV PRN (15:26)
--- NOTE | 2017-05-24 15:29 | CARDIOLOGY CONSULTATION ---
DATE OF CONSULTATION: 05/24/2017 REFERRING PHYSICIAN: Leon Carias MD. ATTENDING PHYSICIAN: Norberto Cat DO. CONSULTATION: Alex Martinez MD. HISTORY OF PRESENT ILLNESS: The patient is a 56-year-old white male. Past medical history is significant for pulmonary embolism, schizophrenia, gastroesophageal reflux disease, hypertension, anxiety and depression. In the past, he has undergone cardiac evaluation. This included a cardiac catheterization performed in March 2010. At that time he had no obstructive coronary artery disease. Normal left ventricular end-diastolic pressure. LV ejection fraction 65%. A stress echocardiogram performed in June 2016 for complaints of chest pain revealed normal resting LV systolic function. Normal right ventricular size and systolic function. Normal ECG and echo response to exercise. 85% of maximum predicted heart rate attained. His past history is also significant for longstanding cigarette smoking. The patient was admitted on 05/21/2017 after presenting to the Emergency Department with change in mental status. The patient lives at an assisted living facility with his . The staff at the facility reported the patient was having hallucinations. It was also reported that he had progressively worsening weakness, urinary frequency, and a temperature elevation to 101.9 degrees. On arrival to the Emergency Department, he complained of a left-sided chest discomfort, vomiting, and diarrhea. The chest discomfort was not characterized. The patient was a difficult historian by report. It was felt that he had had decreased oral intake prior to admission. He was admitted with a diagnosis of pneumonia and possible sepsis. He was started on intravenous fluids and antibiotics. He had elevation in his BUN and creatinine at the time of admission. The BUN was 29 and creatinine of 1.90. His lactic acid level was also elevated on May 21 as high as 3.2. On admission he had a resting tachycardia of a 128 beats per minute. His electrocardiogram revealed sinus tachycardia. The patient was admitted to the medical floor. On May 23 the patient was noted to have oxygen saturations in the mid 80s. This is by the nursing note from May 23 at 12:00 midnight. He was placed on oxygen with a mask at 10 liters per minute. Because of persistent hypoxia he was subsequently switched from a facemask to BiPAP. He was reported to have increased dyspnea as well as a productive cough based on progress notes from May 23. An electrocardiogram from May 23 revealed sinus tachycardia of nonspecific ST and T wave abnormalities. This was similar to the electrocardiograms of May 21 and May 22. There were no acute changes. A bedside ultrasound was performed of his lungs and heart. It was reported that his LV systolic function was decreased. "Hypokinetic left ventricle." It was felt based on interpretation of the lung ultrasound that there was interstitial edema. Based on these findings, the patient was treated with intravenous furosemide for presumed pulmonary edema. The chest x-ray performed on the morning of May 23 revealed bilateral alveolar opacities which was new compared to an x-ray of May 20. It was felt by the radiologist that diagnostic considerations would include a bilateral pneumonitis or pulmonary edema. As stated above, the patient was given intravenous furosemide for presumed pulmonary edema. On the morning of May 23 he also underwent a chest CT scan. This revealed probable but not definite small bilateral pulmonary emboli. Extensive bilateral ground-glass pulmonary opacities with a mosaic pattern. This is by the radiology report. The study was technically limited. A venous Doppler exam performed this morning of his legs shows no evidence for acute deep venous thrombosis. After the above CT scan results were obtained, the patient was placed on intravenous heparin. He has been maintained on BiPAP and broad-spectrum antibiotic coverage. He still had a temperature elevation this morning of up to 38.1 axillary. This subsequently decreased. He has remained tachycardic throughout the admission. The patient was seen by me this morning in his medical floor room. This was at approximately 8:45. He is on BiPAP. He states that with the BiPAP he does not have any dyspnea. He complains of mild nausea. No abdominal pain. No leg pain. He denies any lightheadedness or palpitations. He denied to me any chest pain. The patient was lethargic at the time of my exam. He was able to answer my questions with brief answers. PAST MEDICAL HISTORY: 1. Pulmonary emboli November 2010. Pulmonary emboli were noted in branches to the right middle and lower lobes. Some involvement to the right upper lobe was also noted. 2. Cardiac catheterization in 2009 for chest pain. Findings as documented above. No obstructive coronary artery disease. 3. Admission (observation) June 2016 for chest pain. Cardiac enzymes negative for myocardial injury. Subsequent stress echocardiogram with results as above. Negative for evidence of myocardial ischemia by both ECG and echo criteria. Lipid profile at that time revealed total cholesterol 135, calculated LDL 55, HDL 33. 4. Paranoid schizophrenia. 5. History of anxiety and depression. 6. Hypertension. 7. History of gastroesophageal reflux disease. 8. Dyslipidemia. 9. Hypothyroidism. SOCIAL HISTORY: The patient now lives with his in assisted living facility. His reportedly has dementia. Cigarette smoking up to 2 packs a day. Approximately 42 years of smoking. History of alcohol use in the past. FAMILY HISTORY: Grandmother had premature coronary artery disease. ALLERGIES AND ADVERSE DRUG REACTIONS: None. CURRENT MEDICATIONS: Vancomycin 1500 mg IV b.i.d., intravenous heparin by weight base protocol, furosemide 40 mg IV b.i.d., levofloxacin 500 mg IV daily, Haldol 10 mg at bedtime, Cogentin 1 mg b.i.d., DuoNeb nebulizer q.i.d., pantoprazole 40 mg daily, levothyroxine 25 mcg daily, piperacillin/tazobactam 3.375 grams IV q.8 hours, Klonopin 0.5 mg b.i.d., trazodone 100 mg at bedtime, and several p.r.n. medications. At the time of admission, the patient was reported to be on Clonazepam, Haldol, levothyroxine, Meloxicam, multivitamin, omeprazole, trazodone, and benztropine, as needed ProAir inhaler. REVIEW OF SYSTEMS: As in history. The patient also complains of diffuse weakness. Otherwise, he had no complaints on 10-point review of systems. PHYSICAL EXAMINATION: GENERAL: The patient was lying in his bed. He is on BiPAP. He was difficult to arouse. He was subsequently able to be aroused. He responded with brief answers to my questions. GENERAL APPEARANCE: Showed him to be in no distress. HEAD: Normal. EYES: Pupils are equal and round. Anicteric. NECK: Jugular venous pressure approximately 6-7 cm. Carotids 2/2 bilaterally. Normal upstroke. No bruits. LUNGS: Rhonchi and wheezes at both bases. No rales heard. HEART: PMI normal. No lifts or heaves. Increased rate. Regular rhythm. S1, S2 normal. No S3 or S4 heard. No murmur or rub heard. ABDOMEN: Soft. Nontender. Normal bowel sounds. No bruits. No palpable masses. No organomegaly. EXTREMITIES: No pretibial edema. No calf tenderness. No cyanosis or clubbing. PULSES: Distal pulses in all extremities palpable. NEUROLOGIC: Lethargic but arousable. He can move all extremities well. Oriented to name and place (hospital). DATA: All the electrocardiograms were reviewed by me. They all reveal sinus tachycardia, nonspecific ST and T wave abnormalities. Compared to prior electrocardiogram of June 2016, the rate has increased. Troponin I on May 21 was 0.414. On May 22 0.235, 0.139, and 0.076. On May 23 0.035, less than 0.015, less than 0.015. Echocardiogram performed at 1:53 p.m. on May 23. Reviewed by me. The official report by me. Hyperdynamic LV systolic function, no segmental wall motion abnormalities of the left ventricle, normal right ventricular size and systolic function, no significant valvular abnormalities. No evidence of elevated right ventricular or central venous pressures. The bedside ultrasound images from yesterday were reviewed by me. As with the echocardiogram, the study was technically difficult. On my review of the images, the LV systolic function appears to be normal. Chest CT scan performed yesterday with results as reported in history. The images were reviewed by me with the radiologist. Mosaic pattern of bilateral ground-glass opacities. Mild septal thickening. Venous ultrasound of the legs this morning without evidence of deep venous thrombosis. Chest x-ray performed on May 23 reviewed by me with diffuse bilateral alveolar infiltrates. Cardiac enzymes as above. Admission WBC on May 21 was 21.87. Hemoglobin was 14.6. Absolute neutrophil count elevated at 19.01. Today, WBC is 14.63. Hemoglobin 11.7. Hematocrit 33.8, platelet count 184. Arterial blood gas yesterday late morning revealed pH 7.48, pCO2 of 30, pO2 of 52, oxygen saturation 86.5. This was on supplemental oxygen at a reported flow rate of 11 liters. Baseline INR on May 21 1.0. Baseline PTT was 26.7. PTT today 51.9. Metabolic profile on May 21 with sodium 143, potassium 3.9, chloride 112, carbon dioxide 23, BUN 29, creatinine 1.90, random glucose 129. Magnesium 1.6. Lactic acid 2.2. Albumin was 3.6. TSH 0.376. Free T4 of 1.14. Lactic acid later on May 21 3.2. BUN and creatinine on May 22 22 and 1.40. CK total on May 21 1708. CK-MB on May 22 was 17.0. No CK total reported with this. Metabolic profile today with sodium 141, potassium 3.8, chloride 110, carbon dioxide 24, BUN 14, creatinine 1.10, random glucose 149. Magnesium on May 22 was 2.3. Intake and output on May 21 reported an output of 1350 mL Intake was not reported. On May 22 positive fluid balance of 1447 mL reported. On May 23 negative fluid balance of 1852 mL. Weight on May 21 was reported to be 98.5 kg. On May 22 98.5 kg. On May 23 98.6 kg. On May 24 98.5 kg. ASSESSMENT: 1. Admission with mental status changes, weakness, dehydration, acute kidney injury, possible sepsis, and probable pneumonia. Treated with intravenous fluids and broad-spectrum antibiotics. 2. Report of worsening dyspnea on May 23. Additionally, increase in respiratory rate noted. He was treated for presumed pulmonary edema. He was placed on BiPAP therapy. A CT scan showed evidence of pulmonary emboli. Also, diffuse airspace opacities noted. Today, the patient has no complaints of dyspnea. 3. My review of bedside ultrasound performed yesterday shows normal LV systolic function. Echocardiogram performed yesterday with use of Definity contrast shows estimated and calculated LV ejection fraction of at least 70%. No segmental wall motion abnormalities of left ventricle. No evidence of elevated central venous pressures or volume overload. He did not have any significant positive fluid balances up until yesterday. Especially if insensible fluid losses are accounted for. His weights since admission have been relatively stable. Based on his echocardiographic findings of a normal appearance of his inferior vena cava yesterday, his weight, and his intake and outputs, doubt that he had any significant volume overload. He has hyperdynamic LV systolic function. He does have type 1 LV diastolic dysfunction. Certainly cannot exclude a component of heart failure having been present yesterday. He could have worsened diastolic dysfunction from the tachycardia and hypoxemia. However, I do not suspect that his respiratory failure is primarily secondary to congestive heart failure. The ProBNP today is normal at 201. No BNP was obtained yesterday. Based on today's BMP there is no significant heart failure. However, he still is requiring significant supplemental oxygen via BiPAP to maintain adequate oxygenation. Thus, suspect that the main etiologies for his respiratory failure are a baseline chronic obstructive pulmonary disease, acute pulmonary embolus, and an acute infectious process. 4. Acute kidney injury at the time of admission. He was felt to be dehydrated. He had had decreased oral intake. His BUN and creatinine have normalized. On exam today, the patient appears euvolemic. 5. Anemia. His hemoglobin has decreased since admission. 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 No bleeding has been reported. 6. Prior history of pulmonary emboli. CT scan this admission with evidence of acute pulmonary emboli. No evidence of deep venous thrombosis on ultrasound of the legs. It does not appear that the patient has had a clotting workup performed on his prior hospitalizations. 7. Sinus tachycardia secondary to his acute illness. 8. Prior cardiac catheterization with no obstructive coronary artery disease. 9. Mild troponin elevations on admission. Suspect secondary to increased myocardial oxygen demand secondary to sustained heart rate. Also acute pulmonary emboli can cause a mild elevation in troponin. His CK total was markedly elevated. This suggests a skeletal muscle etiology. The CK-MB ratio with this total is very low when the CK-MB the following day was compared with the elevated CK total of 1708. This would go against a cardiac etiology for the CK-MB elevation. 10. Longstanding smoking history. Evidence of emphysema on his CT scan performed yesterday. RECOMMENDATIONS: 1. No further cardiac workup or evaluation at this time. 2. Consider discontinuing furosemide at this time. Monitor intake and output. If he develops a significantly positive fluid balance, could give an as needed dose of furosemide. 3. Intravenous heparin. 4. Long-term anticoagulation therapy with an oral anticoagulant. 5. Consider clotting workup. 6. Consider pulmonary consultation. 7. Management of his pneumonia by the hospitalist service. 8. Repeat chest x-ray. The above assessment and recommendations were discussed with Dr. Cat by myself. Assessment and recommendations were discussed by me with the nursing staff. Thank you for asking us to see this patient in cardiology consultation. ARIEL
[2017-05-24] MEDS: HEPARIN 25000 UNIT/ D5W 500 ML (PHARMACY PREPARED) IV PRN ×2 (16:57)
--- NOTE | 2017-05-24 18:53 | Family Medicine Progress Note ---
Progress Note Date of Service May 24, 2017. Subjective Pt evaluation today including: conversation w/ patient, physical exam, chart review, lab review, review of studies Pain: No pain reported this morning Voiding: no voiding problems, no incontinence Patient is resting comfortably in bed this afternoon and states that he is feeling better and is coughing up more mucous. He denies any fevers, chills, nausea, vomiting, abdominal pain, headache, or dizziness. Constitutional: No fever, No chills Respiratory: + cough, No wheezing, No shortness of breath Cardiovascular: No chest pain, No palpitations Abdomen: No pain, No nausea, No vomiting Male : No dysuria Medications Current Inpatient Medications Medications (Trade) Dose Ordered Sig/Key Route Start Time Stop Time Status Last Admin Dose Admin Acetaminophen (Tylenol Tab) 650 mg Q4H PRN PO 05/21/17 20:15 06/20/17 20:14 05/24/17 15:43 650 MG Ondansetron HCl (Zofran Inj) 4 mg Q6H PRN IV 05/21/17 20:15 06/20/17 20:14 05/24/17 15:26 4 MG Nitroglycerin (Nitrostat Tab) 0.4 mg UD PRN SL 05/21/17 20:15 06/20/17 20:14 Polyethylene (Miralax Powder Packet) 17 gm DAILY PRN PO 05/21/17 20:15 06/20/17 20:14 Clonazepam (Klonopin Tab) 0.5 mg BID PO 05/21/17 21:00 06/20/17 20:59 05/24/17 07:33 0.5 MG Levothyroxine Sodium (Synthroid Tab) 25 mcg DAILYBB PO 05/22/17 06:30 06/21/17 06:59 05/24/17 06:25 25 MCG Trazodone HCl (Desyrel Tab) 100 mg HS PO 05/21/17 21:00 06/20/17 20:59 05/23/17 21:40 100 MG Albuterol (Ventolin Hfa Inhaler) 2 puffs QID PRN INH 05/21/17 20:15 06/20/17 20:14 05/22/17 16:14 2 PUFFS Pantoprazole Sodium (Protonix Tab) 40 mg DAILY PO 05/22/17 09:00 06/21/17 08:59 05/24/17 07:33 40 MG Piperacillin Sod/ Tazobactam Sod 3.375 gm/Dextrose 115 ml @ 28.75 mls/ hr Q8H IV 05/22/17 00:00 05/29/17 00:00 05/24/17 15:35 28.75 MLS/HR Piperacillin Sod/ Tazobactam Sod (Consult) 1 ea UD PRN N/A 05/21/17 22:15 06/20/17 22:14 Haloperidol (Haldol Tab) 10 mg HS PO 05/22/17 21:00 06/20/17 20:59 05/23/17 21:39 10 MG Benztropine Mesylate (Cogentin Tab) 1 mg BID PO 05/22/17 21:00 06/20/17 20:59 05/24/17 07:33 1 MG Albuterol/ Ipratropium (Duoneb) 3 ml QIDR INH 05/22/17 20:00 06/21/17 19:59 05/24/17 19:17 3 ML Levofloxacin 500 mg/Prmx 100 ml @ 100 mls/hr DAILY IV 05/23/17 09:00 05/30/17 08:59 05/24/17 07:33 100 MLS/HR Levofloxacin (Consult) 1 ea UD PRN N/A 05/23/17 09:00 06/22/17 08:59 Ioversol (Optiray 320) 125 ml UD PRN IV 05/23/17 12:30 05/27/17 12:29 Furosemide 40 mg/ Syringe 4 ml @ 4 mls/min BID IV 05/23/17 21:00 06/22/17 20:59 05/24/17 07:33 4 MLS/MIN Vancomycin HCl (Consult) 1 ea UD PRN N/A 05/23/17 19:30 06/22/17 19:29 Vancomycin HCl 1500 mg/Sodium Chloride 530 ml @ 200 mls/hr Q12H IV 05/24/17 08:00 05/30/17 19:59 05/24/17 07:33 200 MLS/HR Heparin Sodium (Porcine) 60705 unit/Dextrose 500 ml @ 29 mls/hr [id number] PRN IV 05/23/17 22:30 06/22/17 22:29 05/24/17 16:57 29 MLS/HR Objective Vital Signs Date Time Temp Pulse Resp B/P (MAP) Pulse Ox O2 Delivery O2 Flow Rate FiO2 05/24/17 19:43 38.0 115 24 115/65 (82) 90 Nasal Cannula 15.0 05/24/17 19:23 111 26 90 Mask 15.0 05/24/17 16:00 88 Mask 10.0 60 05/24/17 15:51 37.5 115 24 123/77 (92) 88 Mask 16.0 05/24/17 15:50 37.1 110 26 113/72 (86) 88 Mask 12.0 60 05/24/17 15:08 104 26 88 Mask 12.0 05/24/17 12:00 BiPAP 05/24/17 11:19 110 95 60 05/24/17 11:15 110 34 95 BiPAP/CPAP 60 05/24/17 11:07 37.1 103 24 113/72 (86) 97 BiPAP 05/24/17 08:17 36.9 05/24/17 08:00 BiPAP 05/24/17 07:31 109 97 60 05/24/17 07:29 38.1 118 32 120/75 (90) 95 BiPAP 05/24/17 07:15 109 45 97 BiPAP/CPAP 60 05/24/17 05:16 114 97 60 05/24/17 04:02 36.8 112 22 112/72 (85) 93 CPAP 10.0 05/24/17 04:00 CPAP 60 05/24/17 02:20 113 22 95 BiPAP/CPAP 60 05/24/17 00:00 CPAP 60 05/23/17 23:28 36.8 105 24 128/82 (97) 94 CPAP 60 05/23/17 22:08 110 97 60 05/23/17 20:00 98 CPAP 10.0 60 05/23/17 19:54 37.0 115 20 114/63 (80) 95 CPAP 60 Physical Exam General Appearance: WD/WN, no apparent distress Eyes: normal inspection, sclerae normal Neck: supple, no carotid bruits Respiratory/Chest: chest non-tender, no respiratory distress, + decreased breath sounds, + rales (right sided), + wheezing (right sided) Cardiovascular: regular rate, rhythm, no edema, no gallop Abdomen: normal bowel sounds, non tender, soft Extremities: non-tender, normal inspection Neurologic/Psychiatric: alert Laboratory Results Results Past 24 Hours Test 05/23/17 22:49 05/24/17 05:12 05/24/17 05:15 05/24/17 09:58 Range/Units White Blood Count 14.48 14.63 4.8-10.8 K/uL Red Blood Count 4.10 3.84 4.7-6.1 M/uL Hemoglobin 12.5 11.7 14.0-18.0 g/dL Hematocrit 36.3 33.8 42-52 % Mean Corpuscular Volume 88.5 88.0 80-100 fL Mean Corpuscular Hemoglobin 30.5 30.5 25-34 pg Mean Corpuscular Hemoglobin Concent 34.4 34.6 32-36 g/dl Platelet Count 180 184 130-400 K/uL Mean Platelet Volume 8.7 8.8 7.4-10.4 fL Neutrophils (%) (Auto) 83.3 % Lymphocytes (%) (Auto) 9.6 % Monocytes (%) (Auto) 6.4 % Eosinophils (%) (Auto) 0.1 % Basophils (%) (Auto) 0.1 % Neutrophils # (Auto) 12.06 1.4-6.5 K/uL Lymphocytes # (Auto) 1.39 1.2-3.4 K/uL Monocytes # (Auto) 0.93 0.11-0.59 K/uL Eosinophils # (Auto) 0.01 0-0.5 K/uL Basophils # (Auto) 0.02 0-0.2 K/uL RDW Standard Deviation 45.9 45.7 36.4-46.3 fL RDW Coefficient of Variation 14.1 14.1 11.5-14.5 % Immature Granulocyte % (Auto) 0.5 % Immature Granulocyte # (Auto) 0.07 0.00-0.02 K/uL Prothrombin Time 11.7 9.0-12.0 SECONDS Prothromb Time International Ratio 1.1 0.9-1.1 Activated Partial Thromboplast Time 35.5 51.9 21.0-31.0 SECONDS Partial Thromboplastin Ratio 1.4 2.0 Pro-B-Type Natriuretic Peptide 201 0-900 pg/ml Hepatitis C Antibody Screen NEG NEG Assessment and Plan Patient is a 56 year old male with a past medical history of Schizophrenia, HTN , GERD, and PE that presented to the the hospital with worsening shortness of breath, cough, and altered mental status. 1) Sepsis 2/2 Pneumonia - Improving respiratory status while on antibiotic therapy - Day 4 of Zosyn, Day 2 of Levaquin and Vancomycin - CXR: Bibasilar Opacities - Blood Cultures positive for gram positive cocci - ECHO: No signs of CHF, Good ejection fraction - Leukocytosis steadily improving - DuoNeb 2) Possible PE on CT - CT for PE: Probable but not definite bilateral small pulmonary emboli - IV Heparin - Consider switching to Lovenox for time being and then transitioning to chcf Anticoagulation - US LE show no DVT 3) CHF? - Cardiology consult - Based on ECHO patient appears to have adequate cardiac function and no evidence of CHF - Discontinue Lasix - Monitor I/O 4) Schizophrenia - Chronic, Paranoid type with unspecified Anxiety disorder - Psych consult place - Benztropine reduced to 1mg BID - Discrepancy regarding bedtime Haldol - liaison to confirm dose - Clonazepam - Outpatient Psychiatry follow up 5) Acute Kidney Injury - Resolve - Creatinine 1.1 today - Most likely secondary to dehydration 6) DVT Prophylaxis - Heparin 7) Code Status - DNR/ DNI with limited interventions Resident Physician Supervision Note: I interviewed and examined the patient. Discussed with Dr. Clark and agree with findings and plan as documented in the note. Any exceptions or clarifications are listed here: None Documented By: Norberto Cat breathing feeling OK. no new complaints. ongoing treatment explained he expressed understanding. all other ROS otherwise negative except for as above vitals noted nad breathing unlabored no pallor or icterus diminished air entry b /l CAP/PE/hypoxia/sepsis - continue current course, slow improvement Resident Tracking Resident Involvement: Resident Care Provided Care Provided: Adult Hospital Medicine
[2017-05-24] MEDS: TRAZODONE HCL 100 MG TAB PO SCH (21:10)
[2017-05-24] MEDS: HALOPERIDOL 5 MG TAB PO SCH (21:10)
[2017-05-25] VITALS (10 sets, daily range): BP systolic 110–130; BP diastolic 59–83; PULSE 102–121; TEMP 36.8–39; O2SAT 88–97
[2017-05-25 05:47] LABS: PARTIAL THROMBOPLASTIN RATIO 1.9
[2017-05-25] MEDS: LEVOTHYROXINE 25 MCG TAB PO SCH (05:58)
[2017-05-25] MEDS: ALBUT/IPRATROP 3MG/0.5MG NEB 3 ML VIAL INH SCH ×4 (07:24→19:05)
[2017-05-25] MEDS: PIPERACILL/TAZOBAC IV 3.375 GM in DEXTROSE 5% 100ML 100 ML IV SCH ×3 (07:50→23:53)
[2017-05-25] MEDS: VANCOMYCIN INJ 1,500 MG in SODIUM CHLORIDE 0.9% 500ML 500 ML IV SCH ×2 (07:50→20:15)
[2017-05-25] MEDS: PANTOprazole SOD 40 MG TAB PO SCH (07:51)
[2017-05-25] MEDS: CLONAZEPAM 0.5 MG TAB PO SCH ×2 (07:51→21:39)
[2017-05-25] MEDS: BENZTROPINE MESYLATE 1 MG TAB PO SCH ×2 (07:51→21:41)
[2017-05-25] MEDS: FUROSEMIDE INJ 40 MG in SYRINGE 0 ML IV SCH ×2 (07:51→21:40)
[2017-05-25 08:48] LABS: BASO % 0.1 %; BASO ABS # 0.02 K/uL (0-0.2); COMPLETE YES; EOS % 0.3 %; HEMATOCRIT 32.1 % (42-52); IG% 0.5 %; LYMPH % 8.3 %; LYMPH ABS # 1.17 K/uL (1.2-3.4); MEAN CELL VOLUME 87.9 fL (80-100); MEAN CORPUSCULAR HGB CONC 35.2 g/dl (32-36); MEAN PLATELET VOLUME 9.2 fL (7.4-10.4); MONO % 6.7 %; NEUT % 84.1 %; PLATELET COUNT 227 K/uL (130-400); RED BLOOD COUNT 3.65 M/uL (4.7-6.1); WHITE BLOOD COUNT 14.07 K/uL (4.8-10.8)
[2017-05-25] MEDS ORDERED: HEPARIN 25000 UNIT/ D5W 500 ML (PHARMACY PREPARED) IV PRN ×2 (10:30)
[2017-05-25] MEDS: ONDANSETRON INJ 2 MG/ML 2 ML VIAL IV PRN (10:51)
--- NOTE | 2017-05-25 11:23 | Medical Consult ---
Consultation Date of Consultation: May 25, 2017. Attending Physician: Norberto Cat D.O. Reason for Consultation: Staph bacteremia History of Present Illness 56-year-old male with history of schizophrenia, depression anxiety, as well as pulmonary emboli, was admitted on May 21 with 1-2 day history worsening mental status with hallucinations, diminishing oral intake, nausea, urinary frequency, and overall weakness. He was found to have positive blood culture on admission for Staph aureus, and currently being treated with vancomycin. Follow-up blood cultures have been negative. CT scan of the chest reveals bilateral opacifications and changes consistent with possible pulmonary emboli. Now receiving anticoagulation. Has remained intermittently febrile with vague chest pain. Has slight cough, no hemoptysis. Past Medical/Surgical History Medical Problems: (1) Altered mental status Status: Acute (2) Chest pain Status: Acute (3) Dehydration Status: Acute (4) Elevated troponin Status: Acute (5) Leukocytosis Status: Acute (6) Precordial chest pain Status: Acute (7) Tachycardia Status: Acute PAST MEDICAL HISTORY: 1. Pulmonary emboli November 2010. Pulmonary emboli were noted in branches to the right middle and lower lobes. Some involvement to the right upper lobe was also noted. 2. Cardiac catheterization in 2009 for chest pain. Findings as documented above. No obstructive coronary artery disease. 3. Admission (observation) June 2016 for chest pain. Cardiac enzymes negative for myocardial injury. Subsequent stress echocardiogram with results as above. Negative for evidence of myocardial ischemia by both ECG and echo criteria. Lipid profile at that time revealed total cholesterol 135, calculated LDL 55, HDL 33. 4. Paranoid schizophrenia. 5. History of anxiety and depression. 6. Hypertension. 7. History of gastroesophageal reflux disease. 8. Dyslipidemia. 9. Hypothyroidism. Family History FHx: cancer FHx: diabetes FHx: heart disease FHx: hypertension FHx: lung disease Social History Smoking Status: Current Every Day Smoker Drug Use: none Marital Status: Housing Status: lives with significant other Occupation Status: disabled Allergies Coded Allergies: No Known Allergies (Verified , 06/18/16) Current Inpatient Medications Current Inpatient Medications Medications (Trade) Dose Ordered Sig/Key Route Start Time Stop Time Status Last Admin Dose Admin Acetaminophen (Tylenol Tab) 650 mg Q4H PRN PO 05/21/17 20:15 06/20/17 20:14 05/24/17 23:28 650 MG Ondansetron HCl (Zofran Inj) 4 mg Q6H PRN IV 05/21/17 20:15 06/20/17 20:14 05/25/17 10:51 4 MG Nitroglycerin (Nitrostat Tab) 0.4 mg UD PRN SL 05/21/17 20:15 06/20/17 20:14 Polyethylene (Miralax Powder Packet) 17 gm DAILY PRN PO 05/21/17 20:15 06/20/17 20:14 Clonazepam (Klonopin Tab) 0.5 mg BID PO 05/21/17 21:00 06/20/17 20:59 05/25/17 07:51 0.5 MG Levothyroxine Sodium (Synthroid Tab) 25 mcg DAILYBB PO 05/22/17 06:30 06/21/17 06:59 05/25/17 05:58 25 MCG Trazodone HCl (Desyrel Tab) 100 mg HS PO 05/21/17 21:00 06/20/17 20:59 05/24/17 21:10 100 MG Albuterol (Ventolin Hfa Inhaler) 2 puffs QID PRN INH 05/21/17 20:15 06/20/17 20:14 05/22/17 16:14 2 PUFFS Pantoprazole Sodium (Protonix Tab) 40 mg DAILY PO 05/22/17 09:00 06/21/17 08:59 05/25/17 07:51 40 MG Piperacillin Sod/ Tazobactam Sod 3.375 gm/Dextrose 115 ml @ 28.75 mls/ hr Q8H IV 05/22/17 00:00 05/29/17 00:00 05/25/17 07:50 28.75 MLS/HR Piperacillin Sod/ Tazobactam Sod (Consult) 1 ea UD PRN N/A 05/21/17 22:15 06/20/17 22:14 Haloperidol (Haldol Tab) 10 mg HS PO 05/22/17 21:00 06/20/17 20:59 05/24/17 21:10 10 MG Benztropine Mesylate (Cogentin Tab) 1 mg BID PO 05/22/17 21:00 06/20/17 20:59 05/25/17 07:51 1 MG Albuterol/ Ipratropium (Duoneb) 3 ml QIDR INH 05/22/17 20:00 06/21/17 19:59 05/25/17 07:24 3 ML Levofloxacin (Consult) 1 ea UD PRN N/A 05/23/17 09:00 06/22/17 08:59 Ioversol (Optiray 320) 125 ml UD PRN IV 05/23/17 12:30 05/27/17 12:29 Furosemide 40 mg/ Syringe 4 ml @ 4 mls/min BID IV 05/23/17 21:00 06/22/17 20:59 05/25/17 07:51 4 MLS/MIN Vancomycin HCl (Consult) 1 ea UD PRN N/A 05/23/17 19:30 06/22/17 19:29 Vancomycin HCl 1500 mg/Sodium Chloride 530 ml @ 200 mls/hr Q12H IV 05/24/17 08:00 05/30/17 19:59 05/25/17 07:50 200 MLS/HR Rivaroxaban (Xarelto Tab) 15 mg BID PO 05/25/17 21:00 06/24/17 20:59 Heparin Sodium (Porcine) 64511 unit/Dextrose 500 ml @ 29 mls/hr [id number] PRN IV 05/25/17 10:30 05/25/17 21:00 05/25/17 10:32 29 MLS/HR Miscellaneous (Stop Order) 1 ea TODAY@2100 ONCE N/A 05/25/17 21:00 05/25/17 21:01 Levofloxacin 500 mg/Prmx 100 ml @ 100 mls/hr Q24H IV 05/25/17 12:00 05/30/17 11:59 Review of Systems Constitutional: + fever, + weakness, + fatigue Eyes: No problem reported ENT: No problem reported Respiratory: + cough, + shortness of breath Cardiovascular: + chest pain Abdomen: + nausea Musculoskeletal: + muscle pain Genitourinary - Male: + urinary frequency Neurologic: + weakness Psychiatric: + depression symptoms, + anxiety Endocrine: No problem reported Hematologic / Lymphatic: No problem reported Integumentary: No problem reported Allergic / Immunologic: No problem reported Physical Exam Date Time Temp Pulse Resp B/P (MAP) Pulse Ox O2 Delivery O2 Flow Rate FiO2 05/25/17 08:00 BiPAP 15.0 60 05/25/17 07:49 104 124/80 (95) 97 BiPAP 05/25/17 07:24 118 29 95 BiPAP/CPAP 15.0 60 05/25/17 07:16 37.1 111 23 121/79 (93) 96 BiPAP 05/25/17 04:20 37.1 103 18 114/74 (87) 91 Non-Rebreather 15.0 05/25/17 04:00 Non-Rebreather 15.0 05/25/17 00:00 Oxymask 15.0 05/24/17 23:33 38.2 112 16 116/73 (87) 90 Oxymask 15.0 05/24/17 22:19 106 96 60 05/24/17 20:00 Mask 15.0 05/24/17 19:43 38.0 115 24 115/65 (82) 90 Nasal Cannula 15.0 05/24/17 19:23 111 26 90 Mask 15.0 05/24/17 16:00 88 Mask 10.0 60 05/24/17 15:51 37.5 115 24 123/77 (92) 88 Mask 16.0 05/24/17 15:50 37.1 110 26 113/72 (86) 88 Mask 12.0 60 05/24/17 15:08 104 26 88 Mask 12.0 05/24/17 12:00 BiPAP 05/24/17 11:19 110 95 60 General Appearance: WD/WN, + mild distress, + pertinent finding (On BiPAP mask) Head: normocephalic, atraumatic Eyes: normal inspection, EOMI, sclerae normal ENT: normal ENT inspection, pharynx normal Neck: supple, no adenopathy, thyroid normal, trachea midline Respiratory/Chest: chest non-tender, no accessory muscle use, + rhonchi, + wheezing Cardiovascular: regular rate, rhythm, no gallop, no murmur Abdomen/GI: normal bowel sounds, non tender, soft, no organomegaly Back: normal inspection, no CVA tenderness Extremities/Musculoskelatal: normal inspection, no calf tenderness, non-tender Neurologic/Psych: alert, oriented x 3 Skin: normal color, warm/dry, no rash Lymphatic: no adenopathy Laboratory Results RUN DATE: 05/25/17 [facility] LAB PAGE 1 RUN TIME: 0754 Specimen Inquiry PATIENT: CHUY POE [facility] # : [id number] AGE/SX: 56/M ROOM: [facility] REG : 05/21/[address]: Norberto Cat D.O. : 1960 BED: 2 DIS : STATUS: ADM IN TLOC: SPEC #: [id number] JOSE ALEJANDRO: 05/21/17 STATUS: RES REQ #: [id number] RECD: 05/21/[address]: William Irby M.D. SOURCE: BLOOD ENTR: 05/21/17-2 [facility] [address]: Ashley Spence SPDESC: ORDERED: BLOOD CULTURE COMMENTS: Comments to [employer] SAME TIME, DIFFERENT SITES Procedure Result Verified Site BLD CULT Preliminary 05/25/17-0754 Organism 1 STAPHYLOCOCCUS AUREUS SENS SENSITIVITY TO FOLLOW Phoned Positive Blood Culture Gram Stain Report to ARTUR HALL on 05/24/17 At 0640 By [employer]. Results were verbalized back to MIRANDA. Last 24 Hours Test 05/25/17 05:19 White Blood Count 14.07 K/uL Red Blood Count 3.65 M/uL Hemoglobin 11.3 g/dL Hematocrit 32.1 % Mean Corpuscular Volume 87.9 fL Mean Corpuscular Hemoglobin 31.0 pg Mean Corpuscular Hemoglobin Concent 35.2 g/dl Platelet Count 227 K/uL Mean Platelet Volume 9.2 fL Neutrophils (%) (Auto) 84.1 % Lymphocytes (%) (Auto) 8.3 % Monocytes (%) (Auto) 6.7 % Eosinophils (%) (Auto) 0.3 % Basophils (%) (Auto) 0.1 % Neutrophils # (Auto) 11.83 K/uL Lymphocytes # (Auto) 1.17 K/uL Monocytes # (Auto) 0.94 K/uL Eosinophils # (Auto) 0.04 K/uL Basophils # (Auto) 0.02 K/uL RDW Standard Deviation 45.6 fL RDW Coefficient of Variation 14.0 % Immature Granulocyte % (Auto) 0.5 % Immature Granulocyte # (Auto) 0.07 K/uL Activated Partial Thromboplast Time 48.9 SECONDS Partial Thromboplastin Ratio 1.9 Creatinine 1.00 mg/dl Est Creatinine Clear Calc Drug Dose 95.5 ml/min Estimated GFR () 97.1 Estimated GFR (Non- 83.8 Patient Name: CHUY POE Unit Number: [id number] Dictated: 05/23/172123 Transcribed: 05/23/172123 ARG Printed Date/Time: [~ rep prt dt]/[~ rep prt tm] [~ rep ct labl] - [~ rep ct ivnm] [facility] [place] [address] Dictated: 05/23/172123 Transcribed: 05/23/172123 ARG Printed Date/Time: [~ rep prt dt]/[~ rep prt tm] [~ rep ct labl] - [~ rep ct ivnm] [~ rep ct add3]] CT ANGIOGRAM OF THE CHEST CLINICAL HISTORY: Worsening shortness of breath. Cough. Possible pulmonary embolism. COMPARISON STUDY: 04/19/2012 , chest x-ray dated 05/23/2017 TECHNIQUE: Following the IV administration of 90 mL of Optiray-320, CT angiogram of the thorax was performed from the thoracic inlet to the lung bases utilizing the pulmonary embolus protocol. Images are reviewed in the axial, sagittal, and coronal planes. IV contrast was administered without complication. MIP imaging was performed. A dose lowering technique was utilized adhering to the principles of ALARA. CT DOSE: 603.45 mGy.cm FINDINGS: Mediastinal lymph nodes are the upper limits of normal in size. There are borderline enlarged hilar lymph nodes. There was no evidence of thoracic aortic dilatation. There is suboptimal pulmonary arterial opacification. There is a probable small pulmonary artery filling defect within a lingular branch. There is a probable tiny filling defect within a right lower lobe pulmonary artery branch. Correlation with venous Doppler leg ultrasonography is recommended. No pleural effusions are visualized. There are extensive relatively diffuse bilateral groundglass opacities with a mosaic pattern. IMPRESSION: 1. Technically limited study 2. Probable but not definite small bilateral pulmonary emboli. Correlation with leg venous ultrasound sonography is recommended. 3. Extensive bilateral groundglass pulmonary opacities with a mosaic pattern. Electronically signed by: Dain Frias M.D. 05/23/2017 9:32 PM Dictated Date/Time: 05/23/2017 9:24 PM The status of this report is Signed. Draft = Not yet reviewed or approved by Radiologist. Signed = Reviewed and approved by Radiologist. <AttendingPhy>Leon Carias MD</AttendingPhy> <FamilyPhy>Ashley SpenceN.P.</FamilyPhy> <PrimaryPhy>Ashley SpenceN.P.</PrimaryPhy> <UnitNumber >[id number]</UnitNumber> <VisitNumber>[id number]</VisitNumber> <PatientName> CHUY POE</PatientName> <DateOfBirth>1960</DateOfBirth> <Location> [facility]</Location> <ServiceDate>05/21/17</ServiceDate> <MNE>ESINDI</MNE> < OrderingPhy>Leon Carias MD</OrderingPhy> <OrderingPhyMNE>f rep ord dr stevenson</OrderingPhyMNE> <DictatingPhyMNE>f rep dict dr stevenson</DictatingPhyMNE> < CCListMNE>f rep ct graham</CCListMNE> <AdmittingPhyMNE>f pt admit dr stevenson</ AdmittingPhyMNE> <AttendingPhyMNE>f pt attend dr stevenson</AttendingPhyMNE> <ConsultingPhyMNE>f pt consult dr stevenson</ConsultingPhyMNE> <FamilyPhyMNE>f pt fam dr stevenson</FamilyPhyMNE> <OtherPhyMNE>f pt other dr stevenson</OtherPhyMNE> < PrimaryPhyMNE>f pt prim care dr stevenson</PrimaryPhyMNE> <ReferringPhyMNE>f pt referring dr stevenson</ReferringPhyMNE> Assessment & Plan Staph aureus sepsis without obvious source but worry about possible "septic emboli". Patient should continue on vancomycin pending final sensitivities. Will discuss with cardiology need for PÉREZ. Length of IV abx to be determined. Will follow.
--- NOTE | 2017-05-25 11:45 | Family Medicine Progress Note ---
Progress Note Date of Service May 25, 2017. Subjective Pt evaluation today including: conversation w/ patient, physical exam, chart review, lab review, review of studies Pain: No complaints of pain this morning Voiding: no voiding problems, no incontinence Patient is resting comfortably in bed this morning with no acute complaints overnight. Patient states that he has been continuously coughing up sputum since yesterday evening and feels like he is improving. Constitutional: + fatigue, No fever, No chills Respiratory: + cough, + sputum, + shortness of breath, No wheezing Cardiovascular: No chest pain, No palpitations Abdomen: No pain, No nausea, No vomiting Medications Current Inpatient Medications Medications (Trade) Dose Ordered Sig/Key Route Start Time Stop Time Status Last Admin Dose Admin Acetaminophen (Tylenol Tab) 650 mg Q4H PRN PO 05/21/17 20:15 06/20/17 20:14 05/24/17 23:28 650 MG Ondansetron HCl (Zofran Inj) 4 mg Q6H PRN IV 05/21/17 20:15 06/20/17 20:14 05/25/17 10:51 4 MG Nitroglycerin (Nitrostat Tab) 0.4 mg UD PRN SL 05/21/17 20:15 06/20/17 20:14 Polyethylene (Miralax Powder Packet) 17 gm DAILY PRN PO 05/21/17 20:15 06/20/17 20:14 Clonazepam (Klonopin Tab) 0.5 mg BID PO 05/21/17 21:00 06/20/17 20:59 05/25/17 07:51 0.5 MG Levothyroxine Sodium (Synthroid Tab) 25 mcg DAILYBB PO 05/22/17 06:30 06/21/17 06:59 05/25/17 05:58 25 MCG Trazodone HCl (Desyrel Tab) 100 mg HS PO 05/21/17 21:00 06/20/17 20:59 05/24/17 21:10 100 MG Albuterol (Ventolin Hfa Inhaler) 2 puffs QID PRN INH 05/21/17 20:15 06/20/17 20:14 05/22/17 16:14 2 PUFFS Pantoprazole Sodium (Protonix Tab) 40 mg DAILY PO 05/22/17 09:00 06/21/17 08:59 05/25/17 07:51 40 MG Piperacillin Sod/ Tazobactam Sod 3.375 gm/Dextrose 115 ml @ 28.75 mls/ hr Q8H IV 05/22/17 00:00 05/29/17 00:00 05/25/17 15:58 28.75 MLS/HR Piperacillin Sod/ Tazobactam Sod (Consult) 1 ea UD PRN N/A 05/21/17 22:15 06/20/17 22:14 Haloperidol (Haldol Tab) 10 mg HS PO 05/22/17 21:00 06/20/17 20:59 05/24/17 21:10 10 MG Benztropine Mesylate (Cogentin Tab) 1 mg BID PO 05/22/17 21:00 06/20/17 20:59 05/25/17 07:51 1 MG Albuterol/ Ipratropium (Duoneb) 3 ml QIDR INH 05/22/17 20:00 06/21/17 19:59 05/25/17 07:24 3 ML Levofloxacin (Consult) 1 ea UD PRN N/A 05/23/17 09:00 06/22/17 08:59 Ioversol (Optiray 320) 125 ml UD PRN IV 05/23/17 12:30 05/27/17 12:29 Furosemide 40 mg/ Syringe 4 ml @ 4 mls/min BID IV 05/23/17 21:00 06/22/17 20:59 05/25/17 07:51 4 MLS/MIN Vancomycin HCl (Consult) 1 ea UD PRN N/A 05/23/17 19:30 06/22/17 19:29 Vancomycin HCl 1500 mg/Sodium Chloride 530 ml @ 200 mls/hr Q12H IV 05/24/17 08:00 05/30/17 19:59 05/25/17 07:50 200 MLS/HR Rivaroxaban (Xarelto Tab) 15 mg BID PO 05/25/17 21:00 06/24/17 20:59 Heparin Sodium (Porcine) 90520 unit/Dextrose 500 ml @ 29 mls/hr [id number] PRN IV 05/25/17 10:30 05/25/17 21:00 05/25/17 10:32 29 MLS/HR Miscellaneous (Stop Order) 1 ea TODAY@2100 ONCE N/A 05/25/17 21:00 05/25/17 21:01 Levofloxacin 500 mg/Prmx 100 ml @ 100 mls/hr Q24H IV 05/25/17 12:00 05/30/17 11:59 05/25/17 12:24 100 MLS/HR Objective Vital Signs Date Time Temp Pulse Resp B/P (MAP) Pulse Ox O2 Delivery O2 Flow Rate FiO2 05/25/17 15:13 37.0 105 20 129/80 (96) 88 Oxymask 15.0 05/25/17 13:34 111 20 114/59 (77) 90 Oxymask 15.0 05/25/17 12:00 BiPAP 15.0 60 05/25/17 11:24 36.8 102 20 130/79 (96) 95 BiPAP 05/25/17 08:00 BiPAP 15.0 60 05/25/17 07:49 104 124/80 (95) 97 BiPAP 05/25/17 07:24 118 29 95 BiPAP/CPAP 15.0 60 05/25/17 07:16 37.1 111 23 121/79 (93) 96 BiPAP 05/25/17 04:20 37.1 103 18 114/74 (87) 91 Non-Rebreather 15.0 05/25/17 04:00 Non-Rebreather 15.0 05/25/17 00:00 Oxymask 15.0 05/24/17 23:33 38.2 112 16 116/73 (87) 90 Oxymask 15.0 05/24/17 22:19 106 96 60 05/24/17 20:00 Mask 15.0 05/24/17 19:43 38.0 115 24 115/65 (82) 90 Nasal Cannula 15.0 05/24/17 19:23 111 26 90 Mask 15.0 Physical Exam General Appearance: + pertinent finding (Patient resting comfortably in bed on BiPAP, patient visibly tired) Eyes: normal inspection, sclerae normal Respiratory/Chest: + decreased breath sounds, + rales (over the right side of the chest), + wheezing (over the right side of the chest) Cardiovascular: regular rate, rhythm, no edema, no gallop Abdomen: normal bowel sounds, non tender, soft Extremities: no calf tenderness Laboratory Results Results Past 24 Hours Test 05/25/17 05:19 Range/Units White Blood Count 14.07 4.8-10.8 K/uL Red Blood Count 3.65 4.7-6.1 M/uL Hemoglobin 11.3 14.0-18.0 g/dL Hematocrit 32.1 42-52 % Mean Corpuscular Volume 87.9 80-100 fL Mean Corpuscular Hemoglobin 31.0 25-34 pg Mean Corpuscular Hemoglobin Concent 35.2 32-36 g/dl Platelet Count 227 130-400 K/uL Mean Platelet Volume 9.2 7.4-10.4 fL Neutrophils (%) (Auto) 84.1 % Lymphocytes (%) (Auto) 8.3 % Monocytes (%) (Auto) 6.7 % Eosinophils (%) (Auto) 0.3 % Basophils (%) (Auto) 0.1 % Neutrophils # (Auto) 11.83 1.4-6.5 K/uL Lymphocytes # (Auto) 1.17 1.2-3.4 K/uL Monocytes # (Auto) 0.94 0.11-0.59 K/uL Eosinophils # (Auto) 0.04 0-0.5 K/uL Basophils # (Auto) 0.02 0-0.2 K/uL RDW Standard Deviation 45.6 36.4-46.3 fL RDW Coefficient of Variation 14.0 11.5-14.5 % Immature Granulocyte % (Auto) 0.5 % Immature Granulocyte # (Auto) 0.07 0.00-0.02 K/uL Activated Partial Thromboplast Time 48.9 21.0-31.0 SECONDS Partial Thromboplastin Ratio 1.9 Creatinine 1.00 0.60-1.40 mg/dl Est Creatinine Clear Calc Drug Dose 95.5 ml/min Estimated GFR () 97.1 Estimated GFR (Non- 83.8 Assessment and Plan Patient is a 56 year old male with a past medical history of Schizophrenia, HTN , GERD, and PE that presented to the the hospital with worsening shortness of breath, cough, and altered mental status. Blood cultures returned positive for Staph Aureus this morning, and ID recommends remaining on Vancomycin. The patients WBC has gradually improved but the he has continued to require BiPAP to keep is oxygen saturation elevated. Cardiology believes that due to the current respiratory status the patient is not a candidate to undergo a PÉREZ due to risk of intubation, and despite a TTE having been performed it showed no vegetations. For the time being we will monitor the patients respiratory status while on broad spectrum antibiotics and will consult pulmonology if there is no clinical improvement tomorrow. 1) Sepsis 2/2 Pneumonia - Patient desaturated while on BiPAP this afternoon into the 70's - Day 5 of Zosyn, Day 3 of Levaquin and Vancomycin - Blood culture positive for staph aureus - ID on board: Recommend continuing Vancomycin - Cardiology: PÉREZ not recommended at this time due to respiratory status - CXR: Bibasilar Opacities - ECHO: No signs of CHF, Good ejection fraction, no visible vegitations - Leukocytosis steadily improving - DuoNeb 2) Possible PE on CT - CT for PE: Probable but not definite bilateral small pulmonary emboli - Transition fro IV Heparin to Xarelto today - US LE show no DVT 3) CHF? - Cardiology consult - Based on ECHO patient appears to have adequate cardiac function and no evidence of CHF - Discontinue Lasix - Monitor I/O 4) Schizophrenia - Chronic, Paranoid type with unspecified Anxiety disorder - Psych consult place - Benztropine reduced to 1mg BID - Discrepancy regarding bedtime Haldol - liaison to confirm dose - Clonazepam - Outpatient Psychiatry follow up 5) Acute Kidney Injury - Resolved - Creatinine 1.0 today - Most likely secondary to dehydration 6) DVT Prophylaxis - Heparin transitioned to Xarelto tonight 7) Code Status - DNR/ DNI with limited interventions Resident Physician Supervision Note: I interviewed and examined the patient. Discussed with Dr. Clark and agree with findings and plan as documented in the note. Any exceptions or clarifications are listed here: None Documented By: Norberto Cat generally feeling Ok. no new complaitns. later in the day was agitated and wanting to go home, refusing bipap. went to reassess, respiratory had just seen , resting comfortably no longer threatening to leave. all other ROS otherwise negative except for as above vitals noted nad breathing unlabored diminished air entry CAP/sepsis/hypoxia/gram positive bacteremia -contineu current abx, possibly can dc zosyn tomorrow, ID input in regards to bacteremia, continue supportive care and reassurance, otherwise as above Resident Tracking Resident Involvement: Resident Care Provided Care Provided: Adult Hospital Medicine
[2017-05-25] MEDS: LEVOFLOXACIN 500MG / D5W IV SCH (12:24)
--- NOTE | 2017-05-25 18:10 | CARDIOLOGY PROGRESS NOTE ---
DATE: 05/25/2017 SUBJECTIVE: The patient was seen by me this afternoon on the medical floor. He was reported by nursing staff today to be angry. He was not compliant with his BiPAP. Without any supplemental oxygen, he was disoriented. His oxygen saturation was noted to be 69%. He is currently tolerating a facemask. With the facemask in place, he denies any dyspnea. His current oxygen saturation on 15 liters per minute OxyMask is 88%-91%. The patient denies any chest pain. He states he developed a cough productive of sputum. He does not know the color of the sputum. He denies any palpitations. No lightheadedness. No syncope. No chest pain. No abdominal pain or nausea. Sensation of chills overnight. His main concern is that he wants to be discharged from the hospital and go home to his . CURRENT MEDICATIONS: Xarelto 50 mg p.o. b.i.d., levofloxacin 500 mg IV q. 24 hours, intravenous heparin by weight based protocol, vancomycin 1500 mg IV b.i.d., furosemide 40 mg IV b.i.d., haloperidol 10 mg at bedtime, benztropine 1 mg p.o. b.i.d., DuoNeb 3 mL q.i.d., pantoprazole 40 mg daily, levothyroxine 25 mcg daily, piperacillin/tazobactam 3.375 grams IV q. 8 hours, clonazepam 0.5 mg b.i.d., and trazodone 100 mg at bedtime. ALLERGIES AND ADVERSE DRUG REACTIONS: None. Intake and output yesterday reported to be 2875/3350. Today . Today's weight 97.5 kg. Yesterday's weight 98.5 kg. PHYSICAL EXAMINATION: VITAL SIGNS: This afternoon with oral temperature 37.0, pulse 105, blood pressure 129/80, pulse oximetry on 15 L per minute via OxyMask 88%. Last evening at 11:33 p.m., he had a temperature elevation at 38.2 documented. GENERAL APPEARANCE: Shows him to be lying in his bed in no distress. He does have an oxygen mask in place. NECK: No jugular venous distention. LUNGS: Normal respiratory effort. Decreased breath sounds at the right base. Rales at the right base. Rales in the left lung field third away up. Scattered rhonchi and wheezing. HEART: Increased rate. Regular rhythm. S1 and S2 normal. No S3 or S4. No murmur or rub. ABDOMEN: Soft. Mild tenderness at the site of a ventral hernia. Normal bowel sounds. No bruits. EXTREMITIES: No pretibial edema. No calf tenderness. LABORATORY DATA: Today with WBC 14.07, hemoglobin 11.3, hematocrit 32.1, and platelet count 227. Only chemistry today was creatinine of 1.00. ProB natriuretic peptide yesterday morning was 201. The patient has had 4 blood cultures. One from May 21 positive for Staph aureus. The others are all negative with no growth to date. Echocardiogram performed on May 23 and reviewed by me showed hyperdynamic LV systolic function without segmental wall motion abnormalities. No evidence of elevated right ventricular central venous pressures. ASSESSMENT: 1. Acute respiratory failure secondary to diffuse alveolar process in his lungs. This is noted on CT scan as well as a chest x-ray. With recurrent temperature elevations, probable infectious etiology. He also has evidence of acute pulmonary embolism on CT angiography. This will also be contributory to his respiratory failure. He still had a temperature elevation late last evening. He is afebrile today. His white blood cell count is decreasing since admission. 2. Do not suspect any significant cardiac contribution to his acute respiratory failure. His proB natriuretic peptide yesterday morning was normal at 201. This would go against any significant congestive heart failure. The patient is still significantly hypoxic today. 3. Sinus tachycardia secondary to his acute illness. 4. Creatinine today normal. 5. On exam, he appears euvolemic. RECOMMENDATIONS: 1. It has been recommended by the ID service that the patient undergo a transesophageal echocardiogram. At this time, the patient is not a candidate for transesophageal echocardiogram. He has significant hypoxia. The performance of a transesophageal echocardiogram requires at least moderate sedation. This could markedly worsen his respiratory status. Only could be safely performed at this time if the patient was endotracheally intubated. Would not recommend this. The patient is very adverse to undergoing any procedures at this time. Thus, at this time, would recommend not pursuing a transesophageal echocardiogram. His transthoracic echocardiogram was of limited quality. There was no evidence of a vegetation on the transthoracic echo. 2. If his respiratory status has not improved by tomorrow, would again recommend pulmonary consultation. 3. Metabolic profile tomorrow. Reassess BUN and creatinine. MTDD
[2017-05-25] MEDS ORDERED: VANCOMYCIN TROUGH SCH (19:30)
[2017-05-25] MEDS: ACETAMINOPHEN 325 MG TAB PO PRN (21:39)
[2017-05-25] MEDS: HALOPERIDOL 5 MG TAB PO SCH (21:40)
[2017-05-25] MEDS: RIVAROXABAN TAB 15 MG TAB PO SCH (21:41)
[2017-05-25] MEDS: TRAZODONE HCL 100 MG TAB PO SCH (21:42)
--- NOTE | 2017-05-25 22:25 | Pharmacy Progress Note ---
Pharmacy Abx Dose Progress Nt Date of Service May 25, 2017. Pharmacy Dosing Scope The patient is currently receiving the following antimicrobial agents per Pharmacy consult: Vancomycin 1500 mg IV every 12 hours and Zosyn 3.375 grams IV q8 hours extended infusion Objective Height (Feet): 5 Height (Inches): 9.00 Weight (Kilograms): 97.500 Vital Signs (Past 12Hrs) Vital Signs Past 12 Hours Date Time Temp Pulse Resp B/P (MAP) Pulse Ox O2 Delivery O2 Flow Rate FiO2 05/25/17 20:00 Oxymask 15.0 05/25/17 19:45 39.0 121 22 128/83 (98) 90 Oxymask 15.0 05/25/17 19:05 114 26 95 Diffusion Mask 15.0 05/25/17 16:00 Oxymask 15.0 05/25/17 15:13 37.0 105 20 129/80 (96) 88 Oxymask 15.0 05/25/17 13:34 111 20 114/59 (77) 90 Oxymask 15.0 05/25/17 12:00 BiPAP 15.0 60 05/25/17 11:24 36.8 102 20 130/79 (96) 95 BiPAP Lab Results (24Hrs) Item Value Date Time Vancomycin Level Trough 9.1 mcg/ml 05/25/17 1931 Laboratory Tests (24 Hours) Test 05/25/17 05:19 White Blood Count 14.07 K/uL (4.8-10.8) H Red Blood Count 3.65 M/uL (4.7-6.1) L Hemoglobin 11.3 g/dL (14.0-18.0) L Hematocrit 32.1 % (42-52) L Mean Corpuscular Volume 87.9 fL (80-100) Mean Corpuscular Hemoglobin 31.0 pg (25-34) Mean Corpuscular Hemoglobin Concent 35.2 g/dl (32-36) Platelet Count 227 K/uL (130-400) Mean Platelet Volume 9.2 fL (7.4-10.4) Neutrophils (%) (Auto) 84.1 % Lymphocytes (%) (Auto) 8.3 % Monocytes (%) (Auto) 6.7 % Eosinophils (%) (Auto) 0.3 % Basophils (%) (Auto) 0.1 % Neutrophils # (Auto) 11.83 K/uL (1.4-6.5) H Lymphocytes # (Auto) 1.17 K/uL (1.2-3.4) L Monocytes # (Auto) 0.94 K/uL (0.11-0.59) H Eosinophils # (Auto) 0.04 K/uL (0-0.5) Basophils # (Auto) 0.02 K/uL (0-0.2) Micro Results Date/Time Source Procedure Growth Status 05/23/17 19:20 Blood Blood Culture - Preliminary NO GROWTH TO DATE. Resulted 05/23/17 19:14 Blood Blood Culture - Preliminary NO GROWTH TO DATE. Resulted 05/21/17 16:23 Blood Blood Culture - Preliminary NO GROWTH TO DATE. Resulted 05/21/17 16:13 Blood Blood Culture - Preliminary Staphylococcus Aureus Resulted Risk Factors for Resistance * Resident in a longterm or extended-care facility Assessment & Plan Assessment 56 year old male receiving for treatment of positive Staph aureus blood culture and possible pneumonia. [] Day # 3 of antimicrobial therapy Plan Vancomycin IV * Trough level of 9.1 mcg/mL is subtherapeutic. * Change to Vancomycin 1650 mg IV every 10 hours * Goal trough level for sepsis/pneumonia: 15 to 20 mcg/mL * Trough level ordered for: 05/27/17 before the noon dose Piperacillin/tazobactam * Continue 3.375 g IV extended infusion every 8 hours for CrCl greater than 20 mL/min OR every 12 hours for CrCl 20 mL/min or less. Pharmacy will continue to follow and will adjust dose/frequency as necessary. Thank you.
[2017-05-26] VITALS (13 sets, daily range): BP systolic 95–136; BP diastolic 57–73; PULSE 104–117; TEMP 36.6–37.9; O2SAT 88–98
--- NOTE | 2017-05-26 00:12 | Progress Note ---
Progress Note Date of Service May 26, 2017. Progress Note Notified by RN overnight due to recurrent fever. Seen by ID today and discussed doing a PÉREZ but his respiratory failure currently makes this not an option. Discussed over the phone with Lamar PIÑA and he reportedly has no new mental status changes to suggest septic emboli to his brain. Therefore we will just take blood cultures to make sure they are staying negative after the initial positive culture. Otherwise will continue on appropriate antibiotics and reassess in morning.
[2017-05-26] MEDS ORDERED: VANCOMYCIN INJ 1,650 MG in SODIUM CHLORIDE 0.9% 500ML 500 ML IV SCH (06:00)
[2017-05-26] MEDS: LEVOTHYROXINE 25 MCG TAB PO SCH (06:07)
[2017-05-26 06:09] LABS: HEMATOCRIT 31.5 % (42-52); MEAN CELL VOLUME 89.5 fL (80-100); MEAN CORPUSCULAR HGB CONC 34.6 g/dl (32-36); MEAN PLATELET VOLUME 9.1 fL (7.4-10.4); PLATELET COUNT 198 K/uL (130-400); RED BLOOD COUNT 3.52 M/uL (4.7-6.1); WHITE BLOOD COUNT 13.43 K/uL (4.8-10.8)
[2017-05-26 06:34] LABS: PARTIAL THROMBOPLASTIN RATIO 1.4
[2017-05-26 06:46] LABS: CALCIUM 8.7 mg/dl (8.5-10.1); CREATININE 0.98 mg/dl (0.60-1.40)
[2017-05-26] MEDS: ALBUT/IPRATROP 3MG/0.5MG NEB 3 ML VIAL INH SCH ×4 (07:37→19:37)
[2017-05-26] MEDS: ONDANSETRON INJ 2 MG/ML 2 ML VIAL IV PRN (07:45)
[2017-05-26] MEDS: PIPERACILL/TAZOBAC IV 3.375 GM in DEXTROSE 5% 100ML 100 ML IV SCH ×2 (07:45→15:46)
[2017-05-26] MEDS: CLONAZEPAM 0.5 MG TAB PO SCH ×2 (07:45→21:13)
[2017-05-26] MEDS: RIVAROXABAN TAB 15 MG TAB PO SCH ×2 (07:46→21:14)
[2017-05-26] MEDS: FUROSEMIDE INJ 40 MG in SYRINGE 0 ML IV SCH (07:46)
[2017-05-26] MEDS: PANTOprazole SOD 40 MG TAB PO SCH (07:46)
[2017-05-26] MEDS: BENZTROPINE MESYLATE 1 MG TAB PO SCH ×2 (07:47→21:13)
[2017-05-26] MEDS ORDERED: POTASSIUM CHLR 20 MEQ / WTR 40 MEQ in PREMIXED WATER 100 ML IV STA (10:13)
[2017-05-26] MEDS: POTASSIUM CHLR 10MEQ / WTR IV SCH ×4 (10:39→14:42)
[2017-05-26] MEDS: ACETAMINOPHEN 325 MG TAB PO PRN (11:21)
[2017-05-26] MEDS: LEVOFLOXACIN 500MG / D5W IV SCH (12:10)
--- NOTE | 2017-05-26 14:35 | Pulmonary Consultation ---
History General Date of Service: May 26, 2017. Stated Complaint: Hypoxemia HPI The patient is a 56 year old male who presents to [facility] with complaints of Weakness Generalized. The patient's primary care provider is Ashley Spence. This a 56-year-old male who presented to [facility] on from an assisted living facility with progressive shortness of breath and nonproductive cough and associated altered mental status. Since that time the patient has become more hypoxic and is required nonrebreather oxygen therapy. He 's been worked up with CT angiograms, DVT studies echocardiogram and continued on chronic antibiotics. He was noted on arrival to have one blood culture noted for MSSA. During our conversation the patient does note dyspnea at rest, intermittent mildly productive cough possibly 3-4 times per day but denies: Fever, chills, pleurisy, classic cardiac chest pain or hemoptysis. Work-Up: Blood culture 05/21/2017: MSSA WBC: 13K PLT: 198K ABG: (05/23/17) 7.48/30/52/22--11L aPTT: 35.9 DVT study (05/23/17) chronic scarring right popliteal vein, no evidence for acute DVTs CT angiogram(05/23/17) possible small bilateral pulmonary emboli, extensive bilateral groundglass opacities CXR (05/21/17) diminished lung volumes with basilar opacifications CXR (05/23/17) increasing bilateral airspace opacifications Cardiac Echo (05/23/17) LV: EF > 70%, class I diastolic heart failure RV: TAPSE > 1.5cm Valves: WNL Current treatment: #1 Xarelto 15mg BID #2 Levofloxacin 500 #3 duo nebs #4 Zosyn Outpatient medications Omeprazole 40 MG Oral Capsule Delayed Release; TAKE 1 CAPSULE Daily; Therapy: Biotin 1000 MCG Oral Tablet; Take 1 tablet daily; Therapy: 12Apr2012 to Calcium 600/Vitamin D 600-400 MG-UNIT Oral Tablet; TAKE 2 TABLET Daily; Therapy: Fish Oil 1200 MG Oral Capsule; TAKE 1 CAPSULE Daily; Therapy: 12Apr2012 to Multi-Vitamin/Minerals Oral Tablet; TAKE 1 TABLET DAILY; Therapy: 12Apr2012 to Vitamin C 1000 MG Oral Tablet; TAKE 1 TABLET DAILY; Therapy: 12Apr2012 to Benztropine Mesylate 1 MG Oral Tablet; TAKE 1 TABLET AT BEDTIME; Therapy: Haloperidol 10 MG Oral Tablet; TAKE 1 TABLET AT BEDTIME; Therapy: 13Apr2012 to SEROquel 300 MG Oral Tablet; TAKE 2 TABLETS AT BEDTIME; Therapy: 12Apr2012 to Meloxicam 7.5 MG Oral Tablet; TAKE 1 TABLET TWICE DAILY NEEDED; Therapy: Aspirin 81 MG Oral Tablet; TAKE 1 TABLET DAILY; Therapy: 12Apr2012 to Historian: patient, EMS Review of Systems Constitutional: reports: weakness Eyes: reports: no symptoms ENT: reports: no symptoms Cardiovascular: reports: no symptoms Respiratory: reports: as stated in HPI Gastrointestinal: reports: no symptoms Genitourinary - Male: reports: no symptoms Musculoskeletal: reports: myalgias Integumentary: reports: no symptoms Neurologic: reports: no symptoms Psychiatric: reports: no symptoms Endocrine: no symptoms Hematologic / Lymphatic: no symptoms Allergic / Immunologic: no symptoms Past Medical History Past Medical History: Cardiac Cath Procedure Summary Community-acquired Pneumonia Pulmonary Embolism Schizophrenia Anxiety HTN Depression GERD Possible COPD-no history of pulmonary function studies, clinical diagnosis Past Medical History: GERD Past Surgical History: Cardiac Cath Procedure Past Surgical History: no surgical history Family History FHx: cancer FHx: diabetes FHx: heart disease FHx: hypertension FHx: lung disease Patient was adopted and does not know his family history Social History Current Every Day Smoker Currently On Disability Marital History - Currently Tobacco Use Hx Tobacco Use In Past Year?: Yes (2 packs/day) Smoking Status: Current Every Day Smoker Alcohol: socially Drug Use: none Marital status: Housing status: lives with family Occupational Status: disabled Immunizations History of Influenza Vaccine: Yes Influenza Vaccine Date: Nov 01, 2009 History of Tetanus Vaccine?: No History of Pneumococcal: Yes Pneumococcal Date: Nov 24, 2008 History of Hepatitis B Vaccine: No History of MDRO History of MDRO: No Allergies Coded Allergies: No Known Allergies (Verified , 06/18/16) Current Medications Reported Home Medications Medications Dose Route/Sig Max Daily Dose Days Date Category Haldol (Haloperidol) 10 Mg Tab 10 Mg PO HS 30 05/21/17 Rx Benztropine Mesylate 2 Mg Tab 2 Mg PO BID 05/21/17 Reported Prilosec (Omeprazole) 40 Mg Cap 40 Mg PO DAILY 05/21/17 Reported Synthroid (Levothyroxine Sodium) 25 Mcg Tab 25 Mcg PO QAM 05/21/17 Reported Proair Respiclick (Albuterol Sulfate) 108 Mcg/Act Aer 2 Puffs INH QID PRN 05/21/17 Reported Meloxicam 15 Mg Tab 15 Mg PO DAILY 05/21/17 Reported Trazodone HCl 100 Mg Tab 100 Mg PO HS 05/21/17 Reported Multivitamin (Multivitamins) Tab 1 Tab PO DAILY 06/18/16 Reported Klonopin (Clonazepam) 0.5 Mg Tab 0.5 Mg PO BID 01/22/14 Reported Physical Physical Exam Vital Signs: Date Time Temp Pulse Resp B/P (MAP) Pulse Ox O2 Delivery O2 Flow Rate FiO2 05/26/17 13:31 37.4 05/26/17 12:00 Non-Rebreather 15.0 05/26/17 11:27 117 18 91 Non-Rebreather 15.0 05/26/17 11:21 37.9 113 22 113/69 (84) 91 Non-Rebreather 15.0 05/26/17 11:20 37.9 05/26/17 08:00 Non-Rebreather 15.0 05/26/17 07:44 114 136/70 (92) 05/26/17 07:41 109 20 88 Non-Rebreather 15.0 05/26/17 07:11 37.7 104 20 95/57 (70) 93 Non-Rebreather 15.0 05/26/17 04:07 37.1 108 22 118/73 (88) 05/26/17 04:00 Non-Rebreather 15.0 05/26/17 00:29 Oxymask 15.0 05/25/17 23:25 38.5 108 20 110/69 (83) 91 Oxymask 15.0 05/25/17 20:00 Oxymask 15.0 05/25/17 19:45 39.0 121 22 128/83 (98) 90 Oxymask 15.0 05/25/17 19:05 114 26 95 Diffusion Mask 15.0 05/25/17 16:00 Oxymask 15.0 05/25/17 15:13 37.0 105 20 129/80 (96) 88 Oxymask 15.0 General Appearance: mild distress Head: NORMOCEPHALIC, ATRAUMATIC Eyes: PERRLA, NO DISCHARGE, EOMI, SCLERAE NORMAL ENT: NORMAL EAR EXAM, NORMAL NASAL EXAM, other (dry mucous membranes) Neck: NORMAL RANGE OF MOTION, NO TENDERNESS, TRACHEA MIDLINE, NO STRIDOR, SUPPLE Respiratory: other Cardiovasular: REGULAR RATE/RHYTHM, NORMAL S1S2, NO M/G/R, NO MURMUR, NO GALLOP Abdomen: NON TENDER, NORMAL BOWEL SOUNDS, NO REBOUND, NO MASSES, NO GUARDING, NO ORGANOMEGALY Genitourinary - Male: EXTERNAL GENITALIA NORMAL Back: NORMAL INSPECTION, NO MIDLINE TENDERNESS, NO CVA TENDERNESS, NO PARAVERTEBRAL TTP Upper Extremities: NO EDEMA, NO DEFORMITY, NORMAL ROM Lower Extremities: NO EDEMA, NORMAL ROM, other (right lower extremity mild superficial skin laceration over his lateral ankle) Pulses: carotid (R) (2+), carotid (L) (2+), posterior tibial (R), posterior tibial (L) (2+) Neuro: ALERT, ORIENTED x 3, NORMAL MOTOR EXAM, NORMAL SENSATION Diagnostics Labs Results Past 24 Hours Test 05/25/17 19:31 05/26/17 05:46 Range/Units Vancomycin Level Trough 9.1 SEE COMMENT mcg/ml White Blood Count 13.43 4.8-10.8 K/uL Red Blood Count 3.52 4.7-6.1 M/uL Hemoglobin 10.9 14.0-18.0 g/dL Hematocrit 31.5 42-52 % Mean Corpuscular Volume 89.5 80-100 fL Mean Corpuscular Hemoglobin 31.0 25-34 pg Mean Corpuscular Hemoglobin Concent 34.6 32-36 g/dl RDW Standard Deviation 46.9 36.4-46.3 fL RDW Coefficient of Variation 14.2 11.5-14.5 % Platelet Count 198 130-400 K/uL Mean Platelet Volume 9.1 7.4-10.4 fL Activated Partial Thromboplast Time 35.9 21.0-31.0 SECONDS Partial Thromboplastin Ratio 1.4 Sodium Level 141 136-145 mmol/L Potassium Level 3.0 3.5-5.1 mmol/L Chloride Level 103 98-107 mmol/L Carbon Dioxide Level 31 21-32 mmol/L Anion Gap 7.0 3-11 mmol/L Blood Urea Nitrogen 20 7-18 mg/dl Creatinine 0.98 0.60-1.40 mg/dl Est Creatinine Clear Calc Drug Dose 97.0 ml/min Estimated GFR () 99.5 Estimated GFR (Non- 85.8 BUN/Creatinine Ratio 20.0 10-20 Random Glucose 126 70-99 mg/dl Calcium Level 8.7 8.5-10.1 mg/dl Microbiology Results 05/26/17 Blood Culture, Received Pending 05/26/17 Blood Culture, Received Pending Diagnostic Radiology Cardiac Echo (05/23/17) LV: EF > 70%, class I diastolic heart failure RV: TAPSE > 1.5cm Valves: WNL EKG Sinus tachycardia with PAC Impression Assessment and Plan 56-year-old male with progressive hypoxemia: #1 hypoxemia: At this time the patient has had a full workup and his clinical history, serum studies and radiographic evaluations as well as echocardiogram all suggest the patient has a diagnosis of ARDS. At this time I will switch the patient over to the high flow oxygen system. I also suggest we try to keep the patient even as this is shown to be beneficial in the overall hypoxemia associated with ARDS. We'll continue to follow along at this time would not interrupt our change antibiotics are introduce steroids. #2 pulmonary emboli: The patient has subsegmental pulmonary emboli on an overall poor CT angiogram performed 05/23/17. This could be exacerbating his overall hypoxemia please are retreated with Xarelto and we'll have to continue at this time. The patient will have to be treated for a total of 3 month course with reevaluation. Once again I still believe his overlying hypoxemia is consistent with ARDS pattern and that the CT angiogram could be showing nonphysiological pulmonary emboli associated with underlying disease. It is also possible the patient could be having septic emboli but he is unable to undergo PÉREZ for evaluation.
--- NOTE | 2017-05-26 15:05 | Family Medicine Progress Note ---
Progress Note Date of Service May 26, 2017. Subjective Pt evaluation today including: conversation w/ patient, physical exam, chart review, lab review, review of studies Pain: No pain reported this morning Voiding: no voiding problems, no incontinence Patient is resting comfortably in bed this morning with a nonrebreather mask on. He states that he is still short of breath and is having a cough, but feel that he is much improved from yesterday. The patient states that he also feels like he had a fever this morning. He denies any nausea, vomiting, diarrhea, abdominal pain, or chest pain. Constitutional: + fever, + sweats, No chills Respiratory: No cough, No shortness of breath Cardiovascular: No chest pain, No palpitations Abdomen: No pain, No nausea, No vomiting Musculoskeletal: No joint pain Male : No dysuria Medications Current Inpatient Medications Medications (Trade) Dose Ordered Sig/Key Route Start Time Stop Time Status Last Admin Dose Admin Acetaminophen (Tylenol Tab) 650 mg Q4H PRN PO 05/21/17 20:15 06/20/17 20:14 05/26/17 11:21 650 MG Ondansetron HCl (Zofran Inj) 4 mg Q6H PRN IV 05/21/17 20:15 06/20/17 20:14 05/26/17 07:45 4 MG Nitroglycerin (Nitrostat Tab) 0.4 mg UD PRN SL 05/21/17 20:15 06/20/17 20:14 Polyethylene (Miralax Powder Packet) 17 gm DAILY PRN PO 05/21/17 20:15 06/20/17 20:14 Clonazepam (Klonopin Tab) 0.5 mg BID PO 05/21/17 21:00 06/20/17 20:59 05/26/17 07:45 0.5 MG Levothyroxine Sodium (Synthroid Tab) 25 mcg DAILYBB PO 05/22/17 06:30 06/21/17 06:59 05/26/17 06:07 25 MCG Trazodone HCl (Desyrel Tab) 100 mg HS PO 05/21/17 21:00 06/20/17 20:59 05/25/17 21:42 100 MG Albuterol (Ventolin Hfa Inhaler) 2 puffs QID PRN INH 05/21/17 20:15 06/20/17 20:14 7/22/17 16:14 2 PUFFS Pantoprazole Sodium (Protonix Tab) 40 mg DAILY PO 05/22/17 09:00 06/21/17 08:59 05/26/17 07:46 40 MG Piperacillin Sod/ Tazobactam Sod 3.375 gm/Dextrose 115 ml @ 28.75 mls/ hr Q8H IV 05/22/17 00:00 05/29/17 00:00 05/26/17 07:45 28.75 MLS/HR Piperacillin Sod/ Tazobactam Sod (Consult) 1 ea UD PRN N/A 05/21/17 22:15 06/20/17 22:14 Haloperidol (Haldol Tab) 10 mg HS PO 05/22/17 21:00 06/20/17 20:59 05/25/17 21:40 10 MG Benztropine Mesylate (Cogentin Tab) 1 mg BID PO 05/22/17 21:00 06/20/17 20:59 05/26/17 07:47 1 MG Albuterol/ Ipratropium (Duoneb) 3 ml QIDR INH 05/22/17 20:00 06/21/17 19:59 05/26/17 11:27 3 ML Levofloxacin (Consult) 1 ea UD PRN N/A 05/23/17 09:00 06/22/17 08:59 Ioversol (Optiray 320) 125 ml UD PRN IV 05/23/17 12:30 05/27/17 12:29 Rivaroxaban (Xarelto Tab) 15 mg BID PO 05/25/17 21:00 06/24/17 20:59 05/26/17 07:46 15 MG Levofloxacin 500 mg/Prmx 100 ml @ 100 mls/hr Q24H IV 05/25/17 12:00 05/30/17 11:59 05/26/17 12:10 100 MLS/HR Potassium Chloride 10 meq/ Prmx 100 ml @ 100 mls/hr 1030,1130,1230,1330 IV 05/26/17 10:30 05/26/17 17:00 05/26/17 12:10 100 MLS/HR Objective Vital Signs Date Time Temp Pulse Resp B/P (MAP) Pulse Ox O2 Delivery O2 Flow Rate FiO2 05/26/17 11:27 117 18 91 Non-Rebreather 15.0 05/26/17 11:21 37.9 113 22 113/69 (84) 91 Non-Rebreather 15.0 05/26/17 11:20 37.9 05/26/17 08:00 Non-Rebreather 15.0 05/26/17 07:44 114 136/70 (92) 05/26/17 07:41 109 20 88 Non-Rebreather 15.0 05/26/17 07:11 37.7 104 20 95/57 (70) 93 Non-Rebreather 15.0 05/26/17 04:07 37.1 108 22 118/73 (88) 05/26/17 04:00 Non-Rebreather 15.0 05/26/17 00:29 Oxymask 15.0 05/25/17 23:25 38.5 108 20 110/69 (83) 91 Oxymask 15.0 05/25/17 20:00 Oxymask 15.0 05/25/17 19:45 39.0 121 22 128/83 (98) 90 Oxymask 15.0 05/25/17 19:05 114 26 95 Diffusion Mask 15.0 05/25/17 16:00 Oxymask 15.0 05/25/17 15:13 37.0 105 20 129/80 (96) 88 Oxymask 15.0 05/25/17 13:34 111 20 114/59 (77) 90 Oxymask 15.0 Physical Exam General Appearance: WD/WN, no apparent distress Eyes: normal inspection, sclerae normal Respiratory/Chest: chest non-tender, + pertinent finding (Bilateral wheezing and coarse breath sounds) Cardiovascular: regular rate, rhythm, no edema, no gallop Abdomen: normal bowel sounds, non tender, soft Extremities: non-tender, no calf tenderness Neurologic/Psychiatric: alert, normal mood/affect, oriented x 3 Laboratory Results Results Past 24 Hours Test 05/25/17 19:31 05/26/17 05:46 Range/Units Vancomycin Level Trough 9.1 SEE COMMENT mcg/ml White Blood Count 13.43 4.8-10.8 K/uL Red Blood Count 3.52 4.7-6.1 M/uL Hemoglobin 10.9 14.0-18.0 g/dL Hematocrit 31.5 42-52 % Mean Corpuscular Volume 89.5 80-100 fL Mean Corpuscular Hemoglobin 31.0 25-34 pg Mean Corpuscular Hemoglobin Concent 34.6 32-36 g/dl RDW Standard Deviation 46.9 36.4-46.3 fL RDW Coefficient of Variation 14.2 11.5-14.5 % Platelet Count 198 130-400 K/uL Mean Platelet Volume 9.1 7.4-10.4 fL Activated Partial Thromboplast Time 35.9 21.0-31.0 SECONDS Partial Thromboplastin Ratio 1.4 Sodium Level 141 136-145 mmol/L Potassium Level 3.0 3.5-5.1 mmol/L Chloride Level 103 98-107 mmol/L Carbon Dioxide Level 31 21-32 mmol/L Anion Gap 7.0 3-11 mmol/L Blood Urea Nitrogen 20 7-18 mg/dl Creatinine 0.98 0.60-1.40 mg/dl Est Creatinine Clear Calc Drug Dose 97.0 ml/min Estimated GFR () 99.5 Estimated GFR (Non- 85.8 BUN/Creatinine Ratio 20.0 10-20 Random Glucose 126 70-99 mg/dl Calcium Level 8.7 8.5-10.1 mg/dl Microbiology Results 05/26/17 Blood Culture, Received Pending 05/26/17 Blood Culture, Received Pending Assessment and Plan Patient is a 56 year old male with ARDS and Sepsis 2/2 pneumonia with positive staph aureus blood cultures currently on Day 6 of Zosyn and Day 4 Vancomycin and Zosyn. At this time the patient has been evaluated by ID, Cardiology, and Respiratory and is on optical medical management. At this time Respiratory recommended changing the patient to high flow oxygen therapy shown to have beneficial clinical effects on ARDS. The patient appears to have improving respiratory status but is still febrile and requiring a high amount of oxygen. The patient has also started Xarelto for his pulmonary emboli and will require a 3 month course with reevaluation. At this time cardiology felt that the patient would not be suitable to undergo a PÉREZ although TTE did not show any vegetations. 1) Sepsis 2/2 Pneumonia - Patient is continuing to be febrile - Staph Aureus positive blood cultures, Awaiting antibiotic sensitivities - Patient placed on high flow oxygen by respiratory - Day 6 of Zosyn, Day 4 of Levaquin and Vancomycin - ID on board: Recommend continuing Vancomycin - Cardiology: PÉREZ not recommended at this time due to respiratory status - CXR: Bibasilar Opacities - ECHO: No signs of CHF, Good ejection fraction, no visible vegitations - Leukocytosis steadily improving - DuoNeb 2) Possible PE on CT - CT for PE: Probable but not definite bilateral small pulmonary emboli - Xarelto for anticoagulation --> will require 3 months of anticoagulation therapy - US LE show no DVT 3) Hypokalemia - K+ 3.0 today - 40meq IV K+ 4) CHF? - Cardiology consult - Based on ECHO patient appears to have adequate cardiac function and no evidence of CHF - Discontinue Lasix - Monitor I/O, currently has a negative balance of 1L for the duration of the admission 5) Schizophrenia - Chronic, Paranoid type with unspecified Anxiety disorder - Psych consult placed - Benztropine reduced to 1mg BID - Discrepancy regarding bedtime Haldol - liaison to confirm dose - Clonazepam - Outpatient Psychiatry follow up 7) Acute Kidney Injury - Resolved - Creatinine 0.98 today - Most likely secondary to dehydration 8) DVT Prophylaxis - Xarelto 9) Code Status - DNR/ DNI with limited interventions 10) Disposition - Discussed patient with case investigator today who are currently working with the patient - Currently awaiting input from psych about patient competency - He was the primary decision maker for his who is a resident at [facility] - Patient states he does not want to be placed at [facility] Resident Physician Supervision Note: I interviewed and examined the patient. Discussed with Dr. Clark and agree with findings and plan as documented in the note. Any exceptions or clarifications are listed here: None Documented By: Norberto Cat worried about being in the hopsital and not beign there to pay rent. also notes that he was looking to move to house of care personal nursing home but then notes that he doesn't want to go there straight from hospital all other ROS otherwise negative except for as above vitals noted NAD on O2 but rapidly desaturates off of it. no accessory muscles pneumonia/bactermia/low grade ARDS - ongoing supportive care, abx. duration to be determined by ID given 1 (+) blood culture PE - xarelto otherwise as above Resident Tracking Resident Involvement: Resident Care Provided Care Provided: Adult Hospital Medicine
--- NOTE | 2017-05-26 18:50 | DIAGNOSTIC IMAGING REPORT ---
CHEST ONE VIEW PORTABLE CLINICAL HISTORY: 56 years-old Male presenting with recurrent fever ?worse pneumonia vs other. TECHNIQUE: Portable upright AP view of the chest was obtained. COMPARISON: 05/23/2017. FINDINGS: Cardiomediastinal silhouette normal. Interval increase in multifocal patchy opacities, right greater than left. Suggestion of cavitation or underlying emphysema given central lucency noted in the right mid lung. No large effusion or pneumothorax. Osseous structures and upper abdomen normal. IMPRESSION: 1. Multifocal patchy opacities most concerning for multifocal pneumonia. Suggestion of cavitation or underlying emphysema. Electronically signed by: Panda Miner M.D. 05/26/2017 6:49 PM Dictated Date/Time: 05/26/2017 6:46 PM
[2017-05-26] MEDS: HALOPERIDOL 5 MG TAB PO SCH (21:13)
[2017-05-26] MEDS: TRAZODONE HCL 100 MG TAB PO SCH (21:14)
[2017-05-27] VITALS (15 sets, daily range): BP systolic 115–128; BP diastolic 70–77; PULSE 94–111; TEMP 36.3–38.6; O2SAT 86–95
[2017-05-27] MEDS: PIPERACILL/TAZOBAC IV 3.375 GM in DEXTROSE 5% 100ML 100 ML IV SCH ×4 (03:00→23:42)
[2017-05-27] MEDS: ACETAMINOPHEN 325 MG TAB PO PRN (03:26)
[2017-05-27] MEDS: LEVOTHYROXINE 25 MCG TAB PO SCH (06:04)
[2017-05-27 06:09] LABS: CREATININE 0.98 mg/dl (0.60-1.40)
[2017-05-27 06:16] LABS: C-REACTIVE PROTEIN 32.7 mg/dl (0-0.29)
[2017-05-27] MEDS: ALBUT/IPRATROP 3MG/0.5MG NEB 3 ML VIAL INH SCH ×4 (07:50→20:12)
[2017-05-27] MEDS: CLONAZEPAM 0.5 MG TAB PO SCH ×2 (08:03→20:58)
[2017-05-27] MEDS: RIVAROXABAN TAB 15 MG TAB PO SCH ×2 (08:03→21:06)
[2017-05-27] MEDS: PANTOprazole SOD 40 MG TAB PO SCH (08:03)
[2017-05-27] MEDS: BENZTROPINE MESYLATE 1 MG TAB PO SCH ×2 (08:03→21:06)
[2017-05-27 11:30] LABS: BASO % 0.3 %; BASO ABS # 0.03 K/uL (0-0.2); COMPLETE YES; EOS % 1.7 %; HEMATOCRIT 29.8 % (42-52); IG% 1.4 %; LYMPH % 10.9 %; LYMPH ABS # 1.28 K/uL (1.2-3.4); MEAN CELL VOLUME 89.5 fL (80-100); MEAN CORPUSCULAR HEMOGLOBIN 30.9 pg (25-34); MEAN CORPUSCULAR HGB CONC 34.6 g/dl (32-36); MEAN PLATELET VOLUME 9.8 fL (7.4-10.4); MONO % 5.2 %; NEUT % 80.5 %; PLATELET COUNT 152 K/uL (130-400); RED BLOOD COUNT 3.33 M/uL (4.7-6.1); WHITE BLOOD COUNT 11.76 K/uL (4.8-10.8)
[2017-05-27] MEDS ORDERED: VANCOMYCIN TROUGH SCH (11:30)
[2017-05-27 12:10] LABS: BUN/CREATININE RATIO 25.6 (10-20); CALCIUM 8.7 mg/dl (8.5-10.1); CREATININE 0.88 mg/dl (0.60-1.40); POTASSIUM 3.1 mmol/L (3.5-5.1)
--- NOTE | 2017-05-27 16:28 | Pulmonology Progress Note ---
Pulmonary Progress Note Date of Service May 27, 2017. Attending Dr. Ray Subjective Feeling improved somewhat from yesterday. Continues to cough with deep inspiration. Denies any abdominal or chest pain. Denies any peripheral edema. Objective 56-yo male admitted to [facility] from assisted living facility 05/21/17 with sepsis. Presenting symptoms included AMS/hallucinations, fevers, CURTIS, emesis/loose stools, and hypoxic respiratory failure. Prior records were reviewed. PMhx includes: grade I diastolic dysfunction, GERD , schizophrenia, pulmonary embolism (11/2010), HTN, and anxiety/depression. 42- year h/o tobacco use. H/o ETOH. W/U notable for leukocytosis, lactic acid 2.2/3.2, and troponin leak . Toxicology + benzodiazepines. CT head was unremarkable. CTA 05/23/17 described ? small bilateral pulmonary emboli of the lingular branch and ? RLL pulmonary artery branch as well as and extensive bilateral ground glass mosaic opacities. BC + MSSA. ABG 05/23/17: 7.48/30/52-11L/22 He was treated with BiPAP then HFNC, IVF, anticoagulation/rivaroxaban, bronchodilators, and broad-spectrum antibiotic (received levofloxacin, vancomycin and levofloxacin). CXR 05/26/17 "IMPRESSION 1. Multifocal patchy opacities most concerning for multifocal pneumonia. Suggestion of cavitation or underlying emphysema". Today: - T-max this AM 37.8F - This AM Drop in UOP: 0.3mL/kg/hr - low grade tachycardia, BP stable - HFNC 65% - 50L - Repeat BC and Urine culture: pending - CR: 32.7 (down trending) - Bun/Cr: 20/0.98 - WBC: improved to 13.43 Physical Exam: Constitutional: Acutely ill appearing obese male lying in hospital bed. No acute distress Head: + facial symmetry, lopez Eyes: EOMi, PERRLA, no injection Mouth: Mucous membranes are moist. White plaque on tongue. Respiratory: O2 via HFNC. Cough provoked with deep inspiration - loose. Bilateral rhonchi Left > Right. No wheeze. CV: Rapid rate, regular rhythm. Warm and perfused peripherally GI: Soft, active bowel sounds MSK/Extremities: Moving and developed symmetrically. No peripheral edema. Skin abrasions on ankle and knee Neurologic: A&O. Good data recall. Appropriate affect. Assessment & Plan 1 ? small lingular and right sided subsegmental pulmonary embolism: - Appropriate to treat him as continue full anticoagulation - tolerating this well - Prior history of pulmonary embolism 11/2010 - w/u for definitive consideration of this event as a second occurrence once stabilized clinically with additional testing and further recommendations regarding chronicity of his anticoagulation from this event on 2. ARDS requiring high level of O2 support - Leukocytosis and inflammatory markers down trending - continue antibiotic coverage per ID - Renal function improved/hemodynamically stable - could consider 1x dose furosemide 20mg for pulmonary optimization. The patient's case has been reviewed and the plan agreed with. Data Medications: Current Inpatient Medications Medications (Trade) Dose Ordered Sig/Key Route Start Time Stop Time Status Last Admin Dose Admin Acetaminophen (Tylenol Tab) 650 mg Q4H PRN PO 05/21/17 20:15 06/20/17 20:14 05/26/17 11:21 650 MG Ondansetron HCl (Zofran Inj) 4 mg Q6H PRN IV 05/21/17 20:15 06/20/17 20:14 05/26/17 07:45 4 MG Nitroglycerin (Nitrostat Tab) 0.4 mg UD PRN SL 05/21/17 20:15 06/20/17 20:14 Polyethylene (Miralax Powder Packet) 17 gm DAILY PRN PO 05/21/17 20:15 06/20/17 20:14 Clonazepam (Klonopin Tab) 0.5 mg BID PO 05/21/17 21:00 06/20/17 20:59 05/27/17 08:03 0.5 MG Levothyroxine Sodium (Synthroid Tab) 25 mcg DAILYBB PO 05/22/17 06:30 06/21/17 06:59 05/27/17 06:04 25 MCG Trazodone HCl (Desyrel Tab) 100 mg HS PO 05/21/17 21:00 06/20/17 20:59 05/26/17 21:14 100 MG Albuterol (Ventolin Hfa Inhaler) 2 puffs QID PRN INH 05/21/17 20:15 06/20/17 20:14 05/22/17 16:14 2 PUFFS Pantoprazole Sodium (Protonix Tab) 40 mg DAILY PO 05/22/17 09:00 06/21/17 08:59 05/27/17 08:03 40 MG Piperacillin Sod/ Tazobactam Sod 3.375 gm/Dextrose 115 ml @ 28.75 mls/ hr Q8H IV 05/22/17 00:00 05/29/17 00:00 05/27/17 08:03 28.75 MLS/HR Piperacillin Sod/ Tazobactam Sod (Consult) 1 ea UD PRN N/A 05/21/17 22:15 06/20/17 22:14 Haloperidol (Haldol Tab) 10 mg HS PO 05/22/17 21:00 06/20/17 20:59 05/26/17 21:13 10 MG Benztropine Mesylate (Cogentin Tab) 1 mg BID PO 05/22/17 21:00 06/20/17 20:59 05/27/17 08:03 1 MG Albuterol/ Ipratropium (Duoneb) 3 ml QIDR INH 05/22/17 20:00 06/21/17 19:59 05/27/17 07:50 3 ML Ioversol (Optiray 320) 125 ml UD PRN IV 05/23/17 12:30 05/27/17 12:29 Rivaroxaban (Xarelto Tab) 15 mg BID PO 05/25/17 21:00 06/24/17 20:59 05/27/17 08:03 15 MG Vital Signs: Date Time Temp Pulse Resp B/P (MAP) Pulse Ox O2 Delivery O2 Flow Rate FiO2 05/27/17 08:00 Nasal Cannula 50.0 65 05/27/17 07:50 101 20 91 Nasal Cannula 50.0 65 05/27/17 07:35 37.3 94 20 121/71 (88) 86 High Flow Oxygen 05/27/17 06:03 37.3 05/27/17 04:57 37.8 05/27/17 04:00 95 BiPAP 50.0 70 05/27/17 03:32 37.9 103 20 128/75 (92) 95 BiPAP 05/27/17 03:00 38.5 05/27/17 03:00 92 High Flow Oxygen 50.0 70 05/27/17 00:03 38.6 111 22 127/77 (94) 92 High Flow Oxygen 05/26/17 20:08 37.7 108 16 111/62 (78) 96 Nasal Cannula 05/26/17 20:00 93 High Flow Oxygen 50.0 70 05/26/17 19:37 105 20 98 Nasal Cannula 50.0 05/26/17 16:02 Non-Rebreather 15.0 05/26/17 15:47 111 24 93 Non-Rebreather 15.0 05/26/17 15:21 36.6 105 20 109/68 (82) 91 Non-Rebreather 15.0 05/26/17 13:31 37.4 05/26/17 12:00 Non-Rebreather 15.0 05/26/17 11:27 117 18 91 Non-Rebreather 15.0 05/26/17 11:21 37.9 113 22 113/69 (84) 91 Non-Rebreather 15.0 05/26/17 11:20 37.9 Laboratory Results: Last 24 Hours Test 05/26/17 17:44 05/27/17 05:13 05/27/17 10:35 C-Reactive Protein 39.80 mg/dl 32.70 mg/dl Activated Partial Thromboplast Time 50.9 SECONDS Partial Thromboplastin Ratio 2.0 Creatinine 0.98 mg/dl Est Creatinine Clear Calc Drug Dose 96.9 ml/min Estimated GFR () 99.5 Estimated GFR (Non- 85.8
[2017-05-27] MEDS ORDERED: GENTAMICIN INJ 80 MG in DEXTROSE 5% 100ML 100 ML IV SCH (18:45)
--- NOTE | 2017-05-27 18:48 | Family Medicine Progress Note ---
Progress Note Date of Service May 27, 2017. Subjective Pt evaluation today including: conversation w/ patient, physical exam, chart review, lab review, review of studies Pain: no pain reported this morning Voiding: no voiding problems, no incontinence The patient is resting comfortably in bed this morning with no acute complaints overnight. He states that is feeling less short of breath, but did take off his nasal cannula to blow his nose and very short of breath. He also states that he was able to resolve his living situation and will be going to live with his at [facility]. Constitutional: + fever, + sweats, + fatigue, No chills Respiratory: + cough, + shortness of breath Medications Current Inpatient Medications Medications (Trade) Dose Ordered Sig/Key Route Start Time Stop Time Status Last Admin Dose Admin Acetaminophen (Tylenol Tab) 650 mg Q4H PRN PO 05/21/17 20:15 06/20/17 20:14 05/26/17 11:21 650 MG Ondansetron HCl (Zofran Inj) 4 mg Q6H PRN IV 05/21/17 20:15 06/20/17 20:14 05/26/17 07:45 4 MG Nitroglycerin (Nitrostat Tab) 0.4 mg UD PRN SL 05/21/17 20:15 06/20/17 20:14 Polyethylene (Miralax Powder Packet) 17 gm DAILY PRN PO 05/21/17 20:15 06/20/17 20:14 05/27/17 17:29 17 GM Clonazepam (Klonopin Tab) 0.5 mg BID PO 05/21/17 21:00 06/20/17 20:59 05/27/17 08:03 0.5 MG Levothyroxine Sodium (Synthroid Tab) 25 mcg DAILYBB PO 05/22/17 06:30 06/21/17 06:59 05/27/17 06:04 25 MCG Trazodone HCl (Desyrel Tab) 100 mg HS PO 05/21/17 21:00 06/20/17 20:59 05/26/17 21:14 100 MG Albuterol (Ventolin Hfa Inhaler) 2 puffs QID PRN INH 05/21/17 20:15 06/20/17 20:14 05/22/17 16:14 2 PUFFS Pantoprazole Sodium (Protonix Tab) 40 mg DAILY PO 05/22/17 09:00 06/21/17 08:59 05/27/17 08:03 40 MG Piperacillin Sod/ Tazobactam Sod 3.375 gm/Dextrose 115 ml @ 28.75 mls/ hr Q8H IV 05/22/17 00:00 06/03/17 00:00 05/27/17 16:57 28.75 MLS/HR Piperacillin Sod/ Tazobactam Sod (Consult) 1 ea UD PRN N/A 05/21/17 22:15 06/20/17 22:14 Haloperidol (Haldol Tab) 10 mg HS PO 05/22/17 21:00 06/20/17 20:59 05/26/17 21:13 10 MG Benztropine Mesylate (Cogentin Tab) 1 mg BID PO 05/22/17 21:00 06/20/17 20:59 05/27/17 08:03 1 MG Albuterol/ Ipratropium (Duoneb) 3 ml QIDR INH 05/22/17 20:00 06/21/17 19:59 05/27/17 16:13 3 ML Rivaroxaban (Xarelto Tab) 15 mg BID PO 05/25/17 21:00 06/24/17 20:59 05/27/17 08:03 15 MG Gentamicin Sulfate 80 mg/ Dextrose 102 ml @ 100 mls/hr Q8H IV 05/27/17 18:45 05/29/17 18:44 UNV Objective Vital Signs Date Time Temp Pulse Resp B/P (MAP) Pulse Ox O2 Delivery O2 Flow Rate FiO2 05/27/17 17:31 95 High Flow Oxygen 05/27/17 16:17 106 20 93 Nasal Cannula 50.0 65 05/27/17 16:00 High Flow Oxygen 50.0 65 05/27/17 15:54 37.8 107 18 122/74 (90) 92 05/27/17 12:00 Nasal Cannula 50.0 65 05/27/17 11:26 37.5 106 20 125/74 (91) 89 High Flow Oxygen 05/27/17 11:05 105 20 92 Nasal Cannula 50.0 65 05/27/17 08:00 Nasal Cannula 50.0 65 05/27/17 07:50 101 20 91 Nasal Cannula 50.0 65 05/27/17 07:35 37.3 94 20 121/71 (88) 86 High Flow Oxygen 05/27/17 06:03 37.3 05/27/17 04:57 37.8 05/27/17 04:00 95 BiPAP 50.0 70 05/27/17 03:32 37.9 103 20 128/75 (92) 95 BiPAP 05/27/17 03:00 38.5 05/27/17 03:00 92 High Flow Oxygen 50.0 70 05/27/17 00:03 38.6 111 22 127/77 (94) 92 High Flow Oxygen 05/26/17 20:08 37.7 108 16 111/62 (78) 96 Nasal Cannula 05/26/17 20:00 93 High Flow Oxygen 50.0 70 05/26/17 19:37 105 20 98 Nasal Cannula 50.0 Physical Exam General Appearance: WD/WN, no apparent distress Eyes: normal inspection, sclerae normal Respiratory/Chest: chest non-tender, + rales Cardiovascular: regular rate, rhythm, no edema, no gallop Abdomen: normal bowel sounds, non tender, soft Extremities: no calf tenderness Neurologic/Psychiatric: alert, normal mood/affect, oriented x 3 Laboratory Results Results Past 24 Hours Test 05/27/17 05:13 05/27/17 10:35 Range/Units Activated Partial Thromboplast Time 50.9 21.0-31.0 SECONDS Partial Thromboplastin Ratio 2.0 Creatinine 0.98 0.88 0.60-1.40 mg/dl Est Creatinine Clear Calc Drug Dose 96.9 107.9 ml/min Estimated GFR () 99.5 111.3 Estimated GFR (Non- 85.8 96.0 C-Reactive Protein 32.70 0-0.29 mg/dl White Blood Count 11.76 4.8-10.8 K/uL Red Blood Count 3.33 4.7-6.1 M/uL Hemoglobin 10.3 14.0-18.0 g/dL Hematocrit 29.8 42-52 % Mean Corpuscular Volume 89.5 80-100 fL Mean Corpuscular Hemoglobin 30.9 25-34 pg Mean Corpuscular Hemoglobin Concent 34.6 32-36 g/dl Platelet Count 152 130-400 K/uL Mean Platelet Volume 9.8 7.4-10.4 fL Neutrophils (%) (Auto) 80.5 % Lymphocytes (%) (Auto) 10.9 % Monocytes (%) (Auto) 5.2 % Eosinophils (%) (Auto) 1.7 % Basophils (%) (Auto) 0.3 % Neutrophils # (Auto) 9.47 1.4-6.5 K/uL Lymphocytes # (Auto) 1.28 1.2-3.4 K/uL Monocytes # (Auto) 0.61 0.11-0.59 K/uL Eosinophils # (Auto) 0.20 0-0.5 K/uL Basophils # (Auto) 0.03 0-0.2 K/uL RDW Standard Deviation 47.6 36.4-46.3 fL RDW Coefficient of Variation 14.4 11.5-14.5 % Immature Granulocyte % (Auto) 1.4 % Immature Granulocyte # (Auto) 0.17 0.00-0.02 K/uL Sodium Level 138 136-145 mmol/L Potassium Level 3.1 3.5-5.1 mmol/L Chloride Level 103 98-107 mmol/L Carbon Dioxide Level 29 21-32 mmol/L Anion Gap 6.0 3-11 mmol/L Blood Urea Nitrogen 23 7-18 mg/dl BUN/Creatinine Ratio 25.6 10-20 Random Glucose 128 70-99 mg/dl Calcium Level 8.7 8.5-10.1 mg/dl Microbiology Results 05/26/17 Urine Culture - Preliminary, Resulted NO GROWTH - LESS THAN 1,000 COLONIES/... Assessment and Plan Patient is a 56-year-old male 7 treatment for bilateral pneumonia. Repeat chest x-ray showed multifocal patchy opacities most concerning for a multifocal pneumonia. The patient is currently on day 7 of Zosyn IV antibiotics, today we will add gentamicin to his antibiotic regimen. The patient did spike fevers overnight last night and had a fever late this afternoon. By her other metrics including an improving white count and decreasing CRP the patient appears to be improving. He also appears more improved on physical examination his shortness of breath is improving. The patient also states that he said he will go to [facility] for therapy after treatment. 1) Sepsis 2/2 Pneumonia - Due to continued fevers today we added gentamicin to his antibiotic regimen as well as ordered repeat blood cultures - Repeat chest x-ray today shows multifocal patchy opacities most concerning for multifocal pneumonia - Staph Aureus positive blood cultures - Based on sensitivities, we narrowed the spectrum antibiotic therapy Zosyn - Currently on day 7 of Zosyn therapy - Cardiology: PÉREZ not recommended at this time due to respiratory status - ECHO: No signs of CHF, Good ejection fraction, no visible vegetations - Leukocytosis steadily improving - DuoNeb 2) Possible PE on CT - CT for PE: Probable but not definite bilateral small pulmonary emboli - Xarelto for anticoagulation --> will require 3 months of anticoagulation therapy - US LE show no DVT 3) Hypokalemia - K+ 3.1 today - 40meq IV K+ 4) CHF? - Cardiology consult - Based on ECHO patient appears to have adequate cardiac function and no evidence of CHF - Discontinue Lasix - Monitor I/O, currently has a negative balance of 1L for the duration of the admission 5) Schizophrenia - Chronic, Paranoid type with unspecified Anxiety disorder - Psych consult placed - Benztropine reduced to 1mg BID - Discrepancy regarding bedtime Haldol - liaison to confirm dose - Clonazepam - Outpatient Psychiatry follow up 7) Acute Kidney Injury - Resolved - Creatinine 0.88 today - Most likely secondary to dehydration 8) DVT Prophylaxis - Xarelto 9) Code Status - DNR/ DNI with limited interventions 10) Disposition - Patient states that really would like to [facility] on discharge Resident Physician Supervision Note: I interviewed and examined the patient. Discussed with Dr. Clark and agree with findings and plan as documented in the note. Any exceptions or clarifications are listed here: None Documented By: Norberto Cat feeling better. had a fever again. vitals noted nad breathing unlabored b/l rales pneumonia low grade ARDS sepsis - overall improving. recurrent fevers concerning but clinically he's looking better. unlikely to be resistant gram positives given cultures, unlikely to be atypicals given several days on levaquin but febrile anyway. change/double cover gram negatives. follwo, ongoing supportive care Resident Tracking Resident Involvement: Resident Care Provided Care Provided: Adult Hospital Medicine
--- NOTE | 2017-05-27 19:39 | Pharmacy Progress Note ---
Pharmacy Abx Initial Consult Date of Service May 27, 2017. Pharmacy Dosing Scope Date of Consult: 05/27/17 Consultation requested by: Dr. Clark Pharmacy is consulted to initiate Gentamicin IV dosing therapy, order appropriate labs and adjust drug dose/frequency. Subjective The patient is a 56 year old male admitted on May 21, 2017 at 20:18. Objective Height (Feet): 5 Height (Inches): 9.00 Weight (Kilograms): 97.400 Vital Signs (Past 12Hrs) Vital Signs Past 12 Hours Date Time Temp Pulse Resp B/P (MAP) Pulse Ox O2 Delivery O2 Flow Rate FiO2 05/27/17 17:31 95 High Flow Oxygen 05/27/17 16:17 106 20 93 Nasal Cannula 50.0 65 05/27/17 16:00 High Flow Oxygen 50.0 65 05/27/17 15:54 37.8 107 18 122/74 (90) 92 05/27/17 12:00 Nasal Cannula 50.0 65 05/27/17 11:26 37.5 106 20 125/74 (91) 89 High Flow Oxygen 05/27/17 11:05 105 20 92 Nasal Cannula 50.0 65 05/27/17 08:00 Nasal Cannula 50.0 65 05/27/17 07:50 101 20 91 Nasal Cannula 50.0 65 05/27/17 07:35 37.3 94 20 121/71 (88) 86 High Flow Oxygen Lab Results (24Hrs) Laboratory Tests (24 Hours) Test 05/27/17 05:13 05/27/17 10:35 C-Reactive Protein 32.70 mg/dl (0-0.29) H White Blood Count 11.76 K/uL (4.8-10.8) H Red Blood Count 3.33 M/uL (4.7-6.1) L Hemoglobin 10.3 g/dL (14.0-18.0) L Hematocrit 29.8 % (42-52) L Mean Corpuscular Volume 89.5 fL (80-100) Mean Corpuscular Hemoglobin 30.9 pg (25-34) Mean Corpuscular Hemoglobin Concent 34.6 g/dl (32-36) Platelet Count 152 K/uL (130-400) Mean Platelet Volume 9.8 fL (7.4-10.4) Neutrophils (%) (Auto) 80.5 % Lymphocytes (%) (Auto) 10.9 % Monocytes (%) (Auto) 5.2 % Eosinophils (%) (Auto) 1.7 % Basophils (%) (Auto) 0.3 % Neutrophils # (Auto) 9.47 K/uL (1.4-6.5) H Lymphocytes # (Auto) 1.28 K/uL (1.2-3.4) Monocytes # (Auto) 0.61 K/uL (0.11-0.59) H Eosinophils # (Auto) 0.20 K/uL (0-0.5) Basophils # (Auto) 0.03 K/uL (0-0.2) Micro Results Date/Time Source Procedure Growth Status 05/27/17 18:56 Blood Blood Culture Pending Ordered 05/27/17 18:56 Blood Blood Culture Pending Ordered 05/26/17 00:43 Blood Blood Culture - Preliminary NO GROWTH TO DATE. Resulted 05/26/17 00:31 Blood Blood Culture - Preliminary NO GROWTH TO DATE. Resulted 05/23/17 19:20 Blood Blood Culture - Preliminary NO GROWTH TO DATE. Resulted 05/23/17 19:14 Blood Blood Culture - Preliminary NO GROWTH TO DATE. Resulted 05/21/17 16:23 Blood Blood Culture - Final NO GROWTH Complete 05/21/17 16:13 Blood Blood Culture - Final Staphylococcus Aureus Complete 05/26/17 19:40 Urine,Catheterized Urine Culture - Preliminary NO GROWTH - LESS THAN 1,000 COLONIES/... Resulted Risk Factors for Resistance * Resident in a fpc or extended-care facility * Hospitalization for 48 hours or more within the past 90 days * Current hospitalization > 5 days Assessment & Plan Assessment [age] yo male empirically adding IV Gentamicin for double gram negative coverage pneumonia after patient remains febrile after 7 days of IV Zosyn. Patient admitted with Scr elevated at 1.9 mg/dl, however, has remained stable at baseline for the past five days. Plan Gentamicin ordered for 48 hours only, will follow with resident/Infectious Disease to assess need for treament greater than 48 hours Gentamicin * Patient meets criteria for extended-interval aminoglycoside dosing per the [place] nomogram * Dose: 560 mg (7 mg/kg) IV every 24 hours * Dosage based on adjusted body weight for patients weighing > 120% of ideal body weight. * Random level ordered for approximately 8 hours after the start of the infusion to ensure dosing interval is appropriate. Pharmacy will continue to follow and will adjust dose/frequency as necessary. Thank you.
[2017-05-27] MEDS: POTASSIUM CHLR 10 MEQ / WTR 10 MEQ in PREMIXED WATER 100 ML IV SCH ×4 (19:58→22:11)
[2017-05-27] MEDS ORDERED: GENTAMICIN CONSULT ACTIVE PRN (20:45)
[2017-05-27] MEDS: GENTAMICIN IV SCH (20:49)
[2017-05-27] MEDS: DEXTROSE 5% IV SCH (20:49)
[2017-05-27] MEDS: HALOPERIDOL 5 MG TAB PO SCH (21:05)
[2017-05-27] MEDS: TRAZODONE HCL 100 MG TAB PO SCH (21:06)
--- NOTE | 2017-05-27 21:30 | Infectious Disease Progress Nt ---
Progress Note Date of Service May 27, 2017. Subjective Pt evaluation today including: conversation w/ patient, physical exam, chart review, lab review, review of studies, conversation w/ production support consultant, review of inpatient medication list Still with some shortness of breath, had another low-grade fever. Follow-up blood cultures remain negative. No other new complaints. All Other Systems: Reviewed and Negative Medications Current Inpatient Medications Medications (Trade) Dose Ordered Sig/Key Route Start Time Stop Time Status Last Admin Dose Admin Acetaminophen (Tylenol Tab) 650 mg Q4H PRN PO 05/21/17 20:15 06/20/17 20:14 05/26/17 11:21 650 MG Ondansetron HCl (Zofran Inj) 4 mg Q6H PRN IV 05/21/17 20:15 06/20/17 20:14 05/26/17 07:45 4 MG Nitroglycerin (Nitrostat Tab) 0.4 mg UD PRN SL 05/21/17 20:15 06/20/17 20:14 Polyethylene (Miralax Powder Packet) 17 gm DAILY PRN PO 05/21/17 20:15 06/20/17 20:14 05/27/17 17:29 17 GM Clonazepam (Klonopin Tab) 0.5 mg BID PO 05/21/17 21:00 06/20/17 20:59 05/27/17 20:58 0.5 MG Levothyroxine Sodium (Synthroid Tab) 25 mcg DAILYBB PO 05/22/17 06:30 06/21/17 06:59 05/27/17 06:04 25 MCG Trazodone HCl (Desyrel Tab) 100 mg HS PO 05/21/17 21:00 06/20/17 20:59 05/27/17 21:06 100 MG Albuterol (Ventolin Hfa Inhaler) 2 puffs QID PRN INH 05/21/17 20:15 06/20/17 20:14 05/22/17 16:14 2 PUFFS Pantoprazole Sodium (Protonix Tab) 40 mg DAILY PO 05/22/17 09:00 06/21/17 08:59 05/27/17 08:03 40 MG Piperacillin Sod/ Tazobactam Sod 3.375 gm/Dextrose 115 ml @ 28.75 mls/ hr Q8H IV 05/22/17 00:00 06/03/17 00:00 05/27/17 16:57 28.75 MLS/HR Piperacillin Sod/ Tazobactam Sod (Consult) 1 ea UD PRN N/A 05/21/17 22:15 06/20/17 22:14 Haloperidol (Haldol Tab) 10 mg HS PO 05/22/17 21:00 06/20/17 20:59 05/27/17 21:05 10 MG Benztropine Mesylate (Cogentin Tab) 1 mg BID PO 05/22/17 21:00 06/20/17 20:59 05/27/17 21:06 1 MG Albuterol/ Ipratropium (Duoneb) 3 ml QIDR INH 05/22/17 20:00 06/21/17 19:59 05/27/17 20:12 3 ML Rivaroxaban (Xarelto Tab) 15 mg BID PO 05/25/17 21:00 06/24/17 20:59 05/27/17 21:06 15 MG Potassium Chloride 10 meq/ Prmx 100 ml @ 100 mls/hr Q1H IV 05/27/17 19:30 05/27/17 23:29 05/27/17 21:07 100 MLS/HR Gentamicin Sulfate 560 mg/ Dextrose 114 ml @ 100 mls/hr TODAY@2000 IV 05/27/17 20:00 05/29/17 19:59 05/27/17 20:49 100 MLS/HR Gentamicin Sulfate (Consult) 1 ea PRN N/A 05/27/17 20:45 05/29/17 20:44 Objective Vital Signs Date Time Temp Pulse Resp B/P (MAP) Pulse Ox O2 Delivery O2 Flow Rate FiO2 05/27/17 20:12 100 16 94 Nasal Cannula 50.0 65 05/27/17 20:00 High Flow Oxygen 50.0 65 05/27/17 19:30 36.3 109 16 115/70 (85) 95 Room Air 05/27/17 17:31 95 High Flow Oxygen 05/27/17 16:17 106 20 93 Nasal Cannula 50.0 65 05/27/17 16:00 High Flow Oxygen 50.0 65 05/27/17 15:54 37.8 107 18 122/74 (90) 92 05/27/17 12:00 Nasal Cannula 50.0 65 05/27/17 11:26 37.5 106 20 125/74 (91) 89 High Flow Oxygen 05/27/17 11:05 105 20 92 Nasal Cannula 50.0 65 05/27/17 08:00 Nasal Cannula 50.0 65 05/27/17 07:50 101 20 91 Nasal Cannula 50.0 65 05/27/17 07:35 37.3 94 20 121/71 (88) 86 High Flow Oxygen 05/27/17 06:03 37.3 05/27/17 04:57 37.8 05/27/17 04:00 95 BiPAP 50.0 70 05/27/17 03:32 37.9 103 20 128/75 (92) 95 BiPAP 05/27/17 03:00 38.5 05/27/17 03:00 92 High Flow Oxygen 50.0 70 05/27/17 00:03 38.6 111 22 127/77 (94) 92 High Flow Oxygen Physical Exam General Appearance: WD/WN, no apparent distress Eyes: EOMI ENT: normal ENT inspection, pharynx normal Neck: supple, no adenopathy, trachea midline Respiratory/Chest: chest non-tender, no respiratory distress, no accessory muscle use, + stridor Cardiovascular: regular rate, rhythm, no gallop, no murmur Abdomen: normal bowel sounds, non tender, soft, no organomegaly Extremities: non-tender, no calf tenderness Neurologic/Psychiatric: alert, oriented x 3 Skin: normal color, no rash Lymphatic: no adenopathy Laboratory Results Date/Time Source Procedure Growth Status 05/27/17 19:22 Blood Blood Culture Pending Received 05/27/17 19:22 Blood Blood Culture Pending Received Last 24 Hours Test 05/27/17 05:13 05/27/17 10:35 Activated Partial Thromboplast Time 50.9 SECONDS Partial Thromboplastin Ratio 2.0 Creatinine 0.98 mg/dl 0.88 mg/dl Est Creatinine Clear Calc Drug Dose 96.9 ml/min 107.9 ml/min Estimated GFR () 99.5 111.3 Estimated GFR (Non- 85.8 96.0 C-Reactive Protein 32.70 mg/dl White Blood Count 11.76 K/uL Red Blood Count 3.33 M/uL Hemoglobin 10.3 g/dL Hematocrit 29.8 % Mean Corpuscular Volume 89.5 fL Mean Corpuscular Hemoglobin 30.9 pg Mean Corpuscular Hemoglobin Concent 34.6 g/dl Platelet Count 152 K/uL Mean Platelet Volume 9.8 fL Neutrophils (%) (Auto) 80.5 % Lymphocytes (%) (Auto) 10.9 % Monocytes (%) (Auto) 5.2 % Eosinophils (%) (Auto) 1.7 % Basophils (%) (Auto) 0.3 % Neutrophils # (Auto) 9.47 K/uL Lymphocytes # (Auto) 1.28 K/uL Monocytes # (Auto) 0.61 K/uL Eosinophils # (Auto) 0.20 K/uL Basophils # (Auto) 0.03 K/uL RDW Standard Deviation 47.6 fL RDW Coefficient of Variation 14.4 % Immature Granulocyte % (Auto) 1.4 % Immature Granulocyte # (Auto) 0.17 K/uL Sodium Level 138 mmol/L Potassium Level 3.1 mmol/L Chloride Level 103 mmol/L Carbon Dioxide Level 29 mmol/L Anion Gap 6.0 mmol/L Blood Urea Nitrogen 23 mg/dl BUN/Creatinine Ratio 25.6 Random Glucose 128 mg/dl Calcium Level 8.7 mg/dl CHEST ONE VIEW PORTABLE CLINICAL HISTORY: 56 years-old Male presenting with recurrent fever ?worse pneumonia vs other. TECHNIQUE: Portable upright AP view of the chest was obtained. COMPARISON: 05/23/2017. FINDINGS: Cardiomediastinal silhouette normal. Interval increase in multifocal patchy opacities, right greater than left. Suggestion of cavitation or underlying emphysema given central lucency noted in the right mid lung. No large effusion or pneumothorax. Osseous structures and upper abdomen normal. IMPRESSION: 1. Multifocal patchy opacities most concerning for multifocal pneumonia. Suggestion of cavitation or underlying emphysema. Electronically signed by: Panda Miner M.D. 05/26/2017 6:49 PM Dictated Date/Time: 05/26/2017 6:46 PM The status of this report is Signed. Draft = Not yet revi Assessment and Plan Staph aureus sepsis with chest x-ray suggesting new cavitary infiltrates, consistent with either pulmonary infarction or septic emboli. Given positive blood cultures for Staph aureus, feel that patient should be continued on treatment for staphylococcal sepsis. Zosyn will cover methicillin Staph aureus , and also cover potential other pathogens. Will adjust once repeat cultures are available. Will follow.
[2017-05-28] VITALS (13 sets, daily range): BP systolic 107–149; BP diastolic 65–88; PULSE 91–107; TEMP 36.5–38.6; O2SAT 90–100
[2017-05-28] MEDS: ACETAMINOPHEN 325 MG TAB PO PRN (03:43)
[2017-05-28] MEDS ORDERED: HALOPERIDOL LACTATE 5 MG/ML 1 ML VIAL IV PRN (04:30)
[2017-05-28] MEDS: LEVOTHYROXINE 25 MCG TAB PO SCH (05:42)
[2017-05-28 06:01] LABS: BASO % 0.3 %; BASO ABS # 0.04 K/uL (0-0.2); COMPLETE YES; EOS % 1.1 %; HEMATOCRIT 28.8 % (42-52); IG% 1.2 %; LYMPH ABS # 1.33 K/uL (1.2-3.4); MEAN CELL VOLUME 88.9 fL (80-100); MEAN CORPUSCULAR HEMOGLOBIN 30.9 pg (25-34); MEAN CORPUSCULAR HGB CONC 34.7 g/dl (32-36); MEAN PLATELET VOLUME 9.7 fL (7.4-10.4); MONO % 6.2 %; NEUT % 80.2 %; PLATELET COUNT 157 K/uL (130-400); RED BLOOD COUNT 3.24 M/uL (4.7-6.1); WHITE BLOOD COUNT 12.14 K/uL (4.8-10.8)
[2017-05-28 06:10] LABS: PARTIAL THROMBOPLASTIN RATIO 1.4
[2017-05-28 06:37] LABS: BUN/CREATININE RATIO 22.3 (10-20); CALCIUM 8.6 mg/dl (8.5-10.1); CREATININE 0.93 mg/dl (0.60-1.40); POTASSIUM 3.3 mmol/L (3.5-5.1)
[2017-05-28] MEDS: ALBUT/IPRATROP 3MG/0.5MG NEB 3 ML VIAL INH SCH ×4 (07:53→19:38)
[2017-05-28] MEDS: BENZTROPINE MESYLATE 1 MG TAB PO SCH ×2 (08:06→19:28)
[2017-05-28] MEDS: RIVAROXABAN TAB 15 MG TAB PO SCH ×2 (08:06→16:07)
[2017-05-28] MEDS: PANTOprazole SOD 40 MG TAB PO SCH (08:06)
[2017-05-28] MEDS: CLONAZEPAM 0.5 MG TAB PO SCH ×2 (08:06→19:29)
[2017-05-28] MEDS: PIPERACILL/TAZOBAC IV 3.375 GM in DEXTROSE 5% 100ML 100 ML IV SCH ×3 (08:11→23:20)
[2017-05-28] MEDS ORDERED: BISACODYL 10 MG SUPP ONE (09:54)
[2017-05-28] MEDS ORDERED: BISACODYL 5 MG TABEC ONE (09:54)
[2017-05-28] MEDS ORDERED: NURSING VERBAL MED ORDER ONE (10:00)
--- NOTE | 2017-05-28 12:12 | Psychiatric Progress Notes ---
Psychiatric Progress Note Date of Service May 28, 2017. Notes Patient reviewed with liaison nurse. Initial consult by Dr. Syed. cc "They are trying to figure out why I can't breathe" HPI: patient remains on tele and did receive a dose of Haldol IV yesterday in the setting of increase in hypoxia/agitation with O2 requirement up to 15 L. Per nurse this am, hasn't been combative or purposely uncooperative in any way but will seem fine then respond to ambrosio by picking at the air and talk with folks that aren't there. 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 Thoughts concrete but organized. Denied SI/ HI/ambrosio. Imp: delirium superimposed on baseline psych dx that have been stable on 10 mg Haldol hs Plan: PO Haldol 5 mg up to BID prn would be preferrable to IV (unless emergency and on tele), additional needed to delirium. Avoid benzos. Continue baseline dosing of Haldol 10 mg po qhs
[2017-05-28] MEDS ORDERED: HALOPERIDOL 5 MG TAB PO PRN (12:15)
--- NOTE | 2017-05-28 14:37 | Pharmacy Progress Note ---
Pharmacy Abx Dose Progress Nt Date of Service May 28, 2017. Pharmacy Dosing Scope The patient is currently receiving the following antimicrobial agents per Pharmacy consult: Gentamicin mg IV every 24 hours as extended interval therapy for empiric antimicrobial coverage. To note, empiric therapy changed to cover pneumonia. Objective Height (Feet): 5 Height (Inches): 9.00 Weight (Kilograms): 96.800 Vital Signs (Past 12Hrs) Vital Signs Past 12 Hours Date Time Temp Pulse Resp B/P (MAP) Pulse Ox O2 Delivery O2 Flow Rate FiO2 05/28/17 12:48 36.5 98 20 107/65 (79) 100 High Flow Oxygen 05/28/17 12:05 BiPAP 05/28/17 11:26 101 22 97 BiPAP/CPAP 60 05/28/17 10:22 102 98 60 05/28/17 08:15 High Flow Oxygen 50.0 05/28/17 07:53 91 16 90 Nasal Cannula 50.0 53 05/28/17 06:47 37.2 99 20 147/82 (103) 93 High Flow Oxygen 05/28/17 05:27 37.4 05/28/17 04:00 High Flow Oxygen 50.0 05/28/17 03:30 38.6 107 22 149/88 (108) 93 High Flow Oxygen 50 Lab Results (24Hrs) Laboratory Tests (24 Hours) Test 05/28/17 05:16 05/28/17 08:09 White Blood Count 12.14 K/uL (4.8-10.8) H Red Blood Count 3.24 M/uL (4.7-6.1) L Hemoglobin 10.0 g/dL (14.0-18.0) L Hematocrit 28.8 % (42-52) L Mean Corpuscular Volume 88.9 fL (80-100) Mean Corpuscular Hemoglobin 30.9 pg (25-34) Mean Corpuscular Hemoglobin Concent 34.7 g/dl (32-36) Platelet Count 157 K/uL (130-400) Mean Platelet Volume 9.7 fL (7.4-10.4) Neutrophils (%) (Auto) 80.2 % Lymphocytes (%) (Auto) 11.0 % Monocytes (%) (Auto) 6.2 % Eosinophils (%) (Auto) 1.1 % Basophils (%) (Auto) 0.3 % Neutrophils # (Auto) 9.75 K/uL (1.4-6.5) H Lymphocytes # (Auto) 1.33 K/uL (1.2-3.4) Monocytes # (Auto) 0.75 K/uL (0.11-0.59) H Eosinophils # (Auto) 0.13 K/uL (0-0.5) Basophils # (Auto) 0.04 K/uL (0-0.2) C-Reactive Protein 25.10 mg/dl (0-0.29) H Micro Results Date/Time Source Procedure Growth Status 05/27/17 19:22 Blood Blood Culture Pending Received 05/27/17 19:22 Blood Blood Culture Pending Received 05/26/17 00:43 Blood Blood Culture - Preliminary NO GROWTH TO DATE. Resulted 05/26/17 00:31 Blood Blood Culture - Preliminary NO GROWTH TO DATE. Resulted 05/23/17 19:20 Blood Blood Culture - Preliminary NO GROWTH TO DATE. Resulted 05/23/17 19:14 Blood Blood Culture - Preliminary NO GROWTH TO DATE. Resulted 05/21/17 16:23 Blood Blood Culture - Final NO GROWTH Complete 05/21/17 16:13 Blood Blood Culture - Final Staphylococcus Aureus Complete 05/26/17 19:40 Urine,Catheterized Urine Culture - Final NO GROWTH - LESS THAN 1,000 COLONIES/ML Complete Risk Factors for Resistance * [facility]ident in a [facility] or extended-care facility * Current hospitalization > 5 days Assessment & Plan Assessment 56 year old male receiving Gentamicin for treatment of empiric therapy switched to pneumonia indication Day # 12/08 of antimicrobial therapy Plan Gentamicin * Patient meets criteria for extended-interval aminoglycoside dosing per the Radha nomogram * Random level of 2.8 mcg/ml drawn 8 hours after start of infusion indicates a dosing interval of every 24 hours. * Continue 560 mg (7 mg/kg) every 24 hours. Pharmacy will continue to follow and will adjust dose/frequency as necessary. Thank you.
--- NOTE | 2017-05-28 17:49 | Infectious Disease Progress Nt ---
Progress Note Date of Service May 28, 2017. Subjective Pt evaluation today including: conversation w/ patient, physical exam, chart review, lab review, review of studies, conversation w/ rural health consultant, review of inpatient medication list patient offering no new complaints today. No increase in cough or shortness of breath. Temperature down. Follow-up cultures negative to date. All Other Systems: Reviewed and Negative Medications Current Inpatient Medications Medications (Trade) Dose Ordered Sig/Key Route Start Time Stop Time Status Last Admin Dose Admin Acetaminophen (Tylenol Tab) 650 mg Q4H PRN PO 05/21/17 20:15 06/20/17 20:14 05/28/17 03:43 650 MG Ondansetron HCl (Zofran Inj) 4 mg Q6H PRN IV 05/21/17 20:15 06/20/17 20:14 05/26/17 07:45 4 MG Nitroglycerin (Nitrostat Tab) 0.4 mg UD PRN SL 05/21/17 20:15 06/20/17 20:14 Polyethylene (Miralax Powder Packet) 17 gm DAILY PRN PO 05/21/17 20:15 06/20/17 20:14 05/27/17 17:29 17 GM Clonazepam (Klonopin Tab) 0.5 mg BID PO 05/21/17 21:00 06/20/17 20:59 05/28/17 08:06 0.5 MG Levothyroxine Sodium (Synthroid Tab) 25 mcg DAILYBB PO 05/22/17 06:30 06/21/17 06:59 05/28/17 05:42 25 MCG Trazodone HCl (Desyrel Tab) 100 mg HS PO 05/21/17 21:00 06/20/17 20:59 05/27/17 21:06 100 MG Albuterol (Ventolin Hfa Inhaler) 2 puffs QID PRN INH 05/21/17 20:15 06/20/17 20:14 05/22/17 16:14 2 PUFFS Pantoprazole Sodium (Protonix Tab) 40 mg DAILY PO 05/22/17 09:00 06/21/17 08:59 05/28/17 08:06 40 MG Piperacillin Sod/ Tazobactam Sod 3.375 gm/Dextrose 115 ml @ 28.75 mls/ hr Q8H IV 05/22/17 00:00 06/03/17 00:00 05/28/17 16:07 28.75 MLS/HR Piperacillin Sod/ Tazobactam Sod (Consult) 1 UD PRN N/A 05/21/17 22:15 06/20/17 22:14 Haloperidol (Haldol Tab) 10 mg HS PO 05/22/17 21:00 06/20/17 20:59 05/27/17 21:05 10 MG Benztropine Mesylate (Cogentin Tab) 1 mg BID PO 05/22/17 21:00 06/20/17 20:59 05/28/17 08:06 1 MG Albuterol/ Ipratropium (Duoneb) 3 ml QIDR INH 05/22/17 20:00 06/21/17 19:59 05/28/17 15:38 3 ML Gentamicin Sulfate 560 mg/ Dextrose 114 ml @ 100 mls/hr TODAY@1999 IV 05/27/17 20:00 05/29/17 19:59 05/27/17 20:49 100 MLS/HR Gentamicin Sulfate (Consult) 1 [facility] PRN N/A 05/27/17 20:45 05/29/17 20:44 Haloperidol Lactate (Haldol Inj) 5 mg Q4H PRN IV 05/28/17 04:30 06/27/17 04:29 05/28/17 04:51 5 MG Rivaroxaban (Xarelto Tab) 15 mg BIDM PO 05/28/17 17:00 06/14/17 23:00 05/28/17 16:07 15 MG Haloperidol (Haldol Tab) 5 mg BID PRN PO 05/28/17 12:15 06/27/17 12:14 Gentamicin Sulfate 560 mg/ Dextrose 114 ml @ 100 mls/hr TODAY@1999 IV 05/29/17 20:00 06/03/17 19:59 Objective Vital Signs Date Time Temp Pulse Resp B/P (MAP) Pulse Ox O2 Delivery O2 Flow Rate FiO2 05/28/17 16:31 High Flow Oxygen 50.0 05/28/17 15:38 94 22 100 BiPAP/CPAP 95 05/28/17 15:16 37.4 91 18 121/72 (88) 100 High Flow Oxygen 05/28/17 12:48 36.5 98 20 107/65 (79) 100 High Flow Oxygen 05/28/17 12:05 BiPAP 05/28/17 11:26 101 22 97 BiPAP/CPAP 60 05/28/17 10:22 102 98 60 05/28/17 08:15 High Flow Oxygen 50.0 05/28/17 07:53 91 16 90 Nasal Cannula 50.0 53 05/28/17 06:47 37.2 99 20 147/82 (103) 93 High Flow Oxygen 05/28/17 05:27 37.4 05/28/17 04:00 High Flow Oxygen 50.0 05/28/17 03:30 38.6 107 22 149/88 (108) 93 High Flow Oxygen 50 05/28/17 00:00 High Flow Oxygen 50.0 05/28/17 00:00 37.4 104 20 120/73 (89) 91 BiPAP 05/27/17 20:12 100 16 94 Nasal Cannula 50.0 65 05/27/17 20:00 High Flow Oxygen 50.0 65 05/27/17 19:30 36.3 109 16 115/70 (85) 95 Room Air Physical Exam General Appearance: WD/WN, no apparent distress Eyes: normal inspection, sclerae normal ENT: normal ENT inspection, pharynx normal Neck: supple, no adenopathy, trachea midline Respiratory/Chest: chest non-tender, no respiratory distress, no accessory muscle use, + rales Cardiovascular: regular rate, rhythm, no gallop, no murmur Abdomen: normal bowel sounds, non tender, soft, no organomegaly Extremities: non-tender, no calf tenderness Neurologic/Psychiatric: alert, oriented x 3 Skin: normal color, no rash Lymphatic: no adenopathy Laboratory Results Last 24 Hours Test 05/28/17 05:16 05/28/17 08:09 White Blood Count 12.14 K/uL Red Blood Count 3.24 M/uL Hemoglobin 10.0 g/dL Hematocrit 28.8 % Mean Corpuscular Volume 88.9 fL Mean Corpuscular Hemoglobin 30.9 pg Mean Corpuscular Hemoglobin Concent 34.7 g/dl Platelet Count 157 K/uL Mean Platelet Volume 9.7 fL Neutrophils (%) (Auto) 80.2 % Lymphocytes (%) (Auto) 11.0 % Monocytes (%) (Auto) 6.2 % Eosinophils (%) (Auto) 1.1 % Basophils (%) (Auto) 0.3 % Neutrophils # (Auto) 9.75 K/uL Lymphocytes # (Auto) 1.33 K/uL Monocytes # (Auto) 0.75 K/uL Eosinophils # (Auto) 0.13 K/uL Basophils # (Auto) 0.04 K/uL RDW Standard Deviation 47.4 fL RDW Coefficient of Variation 14.4 % Immature Granulocyte % (Auto) 1.2 % Immature Granulocyte # (Auto) 0.14 K/uL Activated Partial Thromboplast Time 36.6 SECONDS Partial Thromboplastin Ratio 1.4 Sodium Level 140 mmol/L Potassium Level 3.3 mmol/L Chloride Level 103 mmol/L Carbon Dioxide Level 29 mmol/L Anion Gap 8.0 mmol/L Blood Urea Nitrogen 21 mg/dl Creatinine 0.93 mg/dl Est Creatinine Clear Calc Drug Dose 102.1 ml/min Estimated GFR () 106.0 Estimated GFR (Non- 91.4 BUN/Creatinine Ratio 22.3 Random Glucose 138 mg/dl Calcium Level 8.6 mg/dl Random Gentamicin Level 2.80 mcg/ml C-Reactive Protein 25.10 mg/dl Assessment and Plan Staph aureus sepsis with chest x-ray suggesting new cavitary infiltrates, consistent with either pulmonary infarction or septic emboli. Given positive blood cultures for Staph aureus, feel that patient should be continued on treatment for staphylococcal sepsis. Zosyn will cover methicillin Staph aureus , and also cover potential other pathogens. Will consider transition to cefazolin in next day or so. Will likely need 2 weeks Iv Rx. Will follow.
--- NOTE | 2017-05-28 18:02 | Pulmonology Progress Note ---
Pulmonary Progress Note Date of Service May 28, 2017. Attending Dr. Ray Subjective Patient is altered today but currently denies any active pulmonary complaints Objective 56-yo male admitted to [facility] from assisted living facility 05/21/17 with sepsis. Presenting symptoms included AMS/hallucinations, fevers, CURTIS, emesis/loose stools, and hypoxic respiratory failure. Prior records were reviewed. PMhx includes: grade I diastolic dysfunction, GERD , schizophrenia, pulmonary embolism (11/2010), HTN, and anxiety/depression. 42- year h/o tobacco use. H/o ETOH. W/U notable for leukocytosis, lactic acid 2.2/3.2, and troponin leak . Toxicology + benzodiazepines. CT head was unremarkable. CTA 05/23/17 described ? small bilateral pulmonary emboli of the lingular branch and ? RLL pulmonary artery branch as well as and extensive bilateral ground glass mosaic opacities. BC + MSSA. ABG 05/23/17: 7.48/30/52-11L/ He was treated with BiPAP then HFNC, IVF, anticoagulation/rivaroxaban, bronchodilators, and broad-spectrum antibiotic (received levofloxacin, vancomycin and levofloxacin). CXR 05/26/17 "IMPRESSION 1. Multifocal patchy opacities most concerning for multifocal pneumonia. Suggestion of cavitation or underlying emphysema". Vital signs: Patient continues on high flow oxygen currently flow rate of 50 and FiO2 of 60% Physical Exam: Gen.: Confused Respiratory: Expiratory wheezing noted bilaterally and globally/rhonchi Cardiac: S1 and S2 tachycardic distant heart sounds Abdomen: Soft nontender positive bowel sounds Assessment & Plan 56-year-old male admitted with MSSA sepsis and found to have pulmonary emboli with associated hypoxemia #1 Pulmonary emboli: Patient does have a prior history of pulmonary embolism in November 2010. Due to this he is a candidate for lifelong anticoagulation. We'll have to repeat consider this as an outpatient as this is overall poor study. When the patient is more lucent and his hypoxia has resolved evaluation with ventilation/perfusion scan may be helpful at that time. #2 Hypoxemia: At this time I believe the patient's severe hypoxemia requiring high flow oxygen is a large part secondary to ARDS. It is possible it is secondary to pulmonary emboli either septic or blood clot in nature. We'll have to continue the patient on high flow oxygen try to maintain a negative to even overall fluid balance and continue current antibiotic course and anticoagulation. Data Medications: Current Inpatient Medications Medications (Trade) Dose Ordered Sig/Key Route Start Time Stop Time Status Last Admin Dose Admin Acetaminophen (Tylenol Tab) 650 mg Q4H PRN PO 05/21/17 20:15 06/20/17 20:14 05/28/17 03:43 650 MG Ondansetron HCl (Zofran Inj) 4 mg Q6H PRN IV 05/21/17 20:15 06/20/17 20:14 05/26/17 07:45 4 MG Nitroglycerin (Nitrostat Tab) 0.4 mg UD PRN SL 05/21/17 20:15 06/20/17 20:14 Polyethylene (Miralax Powder Packet) 17 gm DAILY PRN PO 05/21/17 20:15 06/20/17 20:14 05/27/17 17:29 17 GM Clonazepam (Klonopin Tab) 0.5 mg BID PO 05/21/17 21:00 06/20/17 20:59 05/28/17 08:06 0.5 MG Levothyroxine Sodium (Synthroid Tab) 25 mcg DAILYBB PO 05/22/17 06:30 06/21/17 06:59 05/28/17 05:42 25 MCG Trazodone HCl (Desyrel Tab) 100 mg HS PO 05/21/17 21:00 06/20/17 20:59 05/27/17 21:06 100 MG Albuterol (Ventolin Hfa Inhaler) 2 puffs QID PRN INH 05/21/17 20:15 06/20/17 20:14 05/22/17 16:14 2 PUFFS Pantoprazole Sodium (Protonix Tab) 40 mg DAILY PO 05/22/17 09:00 06/21/17 08:59 05/28/17 08:06 40 MG Piperacillin Sod/ Tazobactam Sod 3.375 gm/Dextrose 115 ml @ 28.75 mls/ hr Q8H IV 05/22/17 00:00 06/03/17 00:00 05/28/17 16:07 28.75 MLS/HR Piperacillin Sod/ Tazobactam Sod (Consult) 1 ea UD PRN N/A 05/21/17 22:15 06/20/17 22:14 Haloperidol (Haldol Tab) 10 mg HS PO 05/22/17 21:00 06/20/17 20:59 05/27/17 21:05 10 MG Benztropine Mesylate (Cogentin Tab) 1 mg BID PO 05/22/17 21:00 06/20/17 20:59 05/28/17 08:06 1 MG Albuterol/ Ipratropium (Duoneb) 3 ml QIDR INH 05/22/17 20:00 06/21/17 19:59 05/28/17 15:38 3 ML Gentamicin Sulfate 560 mg/ Dextrose 114 ml @ 100 mls/hr TODAY@1999 IV 05/27/17 20:00 05/29/17 19:59 05/27/17 20:49 100 MLS/HR Gentamicin Sulfate (Consult) 1 ea UD PRN N/A 05/27/17 20:45 05/29/17 20:44 Haloperidol Lactate (Haldol Inj) 5 mg Q4H PRN IV 05/28/17 04:30 06/27/17 04:29 05/28/17 04:51 5 MG Rivaroxaban (Xarelto Tab) 15 mg BIDM PO 05/28/17 17:00 06/14/17 23:00 05/28/17 16:07 15 MG Haloperidol (Haldol Tab) 5 mg BID PRN PO 05/28/17 12:15 06/27/17 12:14 Gentamicin Sulfate 560 mg/ Dextrose 114 ml @ 100 mls/hr TODAY@1999 IV 05/29/17 20:00 06/03/17 19:59 I & O: 24-Hour Column 05/29/17 08:00 Intake Total 600 ml Output Total 850 ml Balance -250 ml Vital Signs: Date Time Temp Pulse Resp B/P (MAP) Pulse Ox O2 Delivery O2 Flow Rate FiO2 05/28/17 16:31 High Flow Oxygen 50.0 05/28/17 15:38 94 22 100 BiPAP/CPAP 95 05/28/17 15:16 37.4 91 18 121/72 (88) 100 High Flow Oxygen 05/28/17 12:48 36.5 98 20 107/65 (79) 100 High Flow Oxygen 05/28/17 12:05 BiPAP 05/28/17 11:26 101 22 97 BiPAP/CPAP 60 05/28/17 10:22 102 98 60 05/28/17 08:15 High Flow Oxygen 50.0 05/28/17 07:53 91 16 90 Nasal Cannula 50.0 53 05/28/17 06:47 37.2 99 20 147/82 (103) 93 High Flow Oxygen 05/28/17 05:27 37.4 05/28/17 04:00 High Flow Oxygen 50.0 05/28/17 03:30 38.6 107 22 149/88 (108) 93 High Flow Oxygen 50 05/28/17 00:00 High Flow Oxygen 50.0 05/28/17 00:00 37.4 104 20 120/73 (89) 91 BiPAP 05/27/17 20:12 100 16 94 Nasal Cannula 50.0 65 05/27/17 20:00 High Flow Oxygen 50.0 65 05/27/17 19:30 36.3 109 16 115/70 (85) 95 Room Air Laboratory Results: Last 24 Hours Test 05/28/17 05:16 05/28/17 08:09 White Blood Count 12.14 K/uL Red Blood Count 3.24 M/uL Hemoglobin 10.0 g/dL Hematocrit 28.8 % Mean Corpuscular Volume 88.9 fL Mean Corpuscular Hemoglobin 30.9 pg Mean Corpuscular Hemoglobin Concent 34.7 g/dl Platelet Count 157 K/uL Mean Platelet Volume 9.7 fL Neutrophils (%) (Auto) 80.2 % Lymphocytes (%) (Auto) 11.0 % Monocytes (%) (Auto) 6.2 % Eosinophils (%) (Auto) 1.1 % Basophils (%) (Auto) 0.3 % Neutrophils # (Auto) 9.75 K/uL Lymphocytes # (Auto) 1.33 K/uL Monocytes # (Auto) 0.75 K/uL Eosinophils # (Auto) 0.13 K/uL Basophils # (Auto) 0.04 K/uL RDW Standard Deviation 47.4 fL RDW Coefficient of Variation 14.4 % Immature Granulocyte % (Auto) 1.2 % Immature Granulocyte # (Auto) 0.14 K/uL Activated Partial Thromboplast Time 36.6 SECONDS Partial Thromboplastin Ratio 1.4 Sodium Level 140 mmol/L Potassium Level 3.3 mmol/L Chloride Level 103 mmol/L Carbon Dioxide Level 29 mmol/L Anion Gap 8.0 mmol/L Blood Urea Nitrogen 21 mg/dl Creatinine 0.93 mg/dl Est Creatinine Clear Calc Drug Dose 102.1 ml/min Estimated GFR () 106.0 Estimated GFR (Non- 91.4 BUN/Creatinine Ratio 22.3 Random Glucose 138 mg/dl Calcium Level 8.6 mg/dl Random Gentamicin Level 2.80 mcg/ml C-Reactive Protein 25.10 mg/dl
--- NOTE | 2017-05-28 18:21 | Family Medicine Progress Note ---
Progress Note Date of Service May 28, 2017. Subjective Pt evaluation today including: conversation w/ patient, physical exam, chart review, lab review, review of studies Pain: no pain reported this morning Voiding: no voiding problems, no incontinence The patient is resting comfortably in bed this morning with no acute complaints overnight. Respiratory therapy was in the room changing the patient to BiPAP because he had been continuously taking off his high flow nasal cannula. There' s also states that the patient had been having hallucinations including stating he was seen monkeys on the wall, as well as having conversations with people that were not in the room. The patient states that he is feeling less short of breath today and does appear like he is clinically improving. Constitutional: No fever, No chills, No sweats Respiratory: + cough, + sputum, + shortness of breath, + dyspnea at rest, No wheezing Cardiovascular: No chest pain, No palpitations Abdomen: + constipation, No pain, No nausea, No vomiting, No diarrhea Male : No dysuria Medications Current Inpatient Medications Medications (Trade) Dose Ordered Sig/Key Route Start Time Stop Time Status Last Admin Dose Admin Acetaminophen (Tylenol Tab) 650 mg Q4H PRN PO 05/21/17 20:15 06/20/17 20:14 05/28/17 03:43 650 MG Ondansetron HCl (Zofran Inj) 4 mg Q6H PRN IV 05/21/17 20:15 06/20/17 20:14 05/26/17 07:45 4 MG Nitroglycerin (Nitrostat Tab) 0.4 mg UD PRN SL 05/21/17 20:15 06/20/17 20:14 Polyethylene (Miralax Powder Packet) 17 gm DAILY PRN PO 05/21/17 20:15 06/20/17 20:14 05/27/17 17:29 17 GM Clonazepam (Klonopin Tab) 0.5 mg BID PO 05/21/17 21:00 06/20/17 20:59 05/28/17 19:29 0.5 MG Levothyroxine Sodium (Synthroid Tab) 25 mcg DAILYBB PO 05/22/17 06:30 06/21/17 06:59 05/28/17 05:42 25 MCG Trazodone HCl (Desyrel Tab) 100 mg HS PO 05/21/17 21:00 06/20/17 20:59 05/28/17 19:28 100 MG Albuterol (Ventolin Hfa Inhaler) 2 puffs QID PRN INH 05/21/17 20:15 06/20/17 20:14 05/22/17 16:14 2 PUFFS Pantoprazole Sodium (Protonix Tab) 40 mg DAILY PO 05/22/17 09:00 06/21/17 08:59 05/28/17 08:06 40 MG Piperacillin Sod/ Tazobactam Sod 3.375 gm/Dextrose 115 ml @ 28.75 mls/ hr Q8H IV 05/22/17 00:00 06/03/17 00:00 05/28/17 16:07 28.75 MLS/HR Piperacillin Sod/ Tazobactam Sod (Consult) 1 ea UD PRN N/A 05/21/17 22:15 06/20/17 22:14 Haloperidol (Haldol Tab) 10 mg HS PO 05/22/17 21:00 06/20/17 20:59 05/28/17 19:29 10 MG Benztropine Mesylate (Cogentin Tab) 1 mg BID PO 05/22/17 21:00 06/20/17 20:59 05/28/17 19:28 1 MG Albuterol/ Ipratropium (Duoneb) 3 ml QIDR INH 05/22/17 20:00 06/21/17 19:59 05/28/17 19:38 3 ML Gentamicin Sulfate 560 mg/ Dextrose 114 ml @ 100 mls/hr TODAY@2000 IV 05/27/17 20:00 05/29/17 19:59 05/28/17 19:16 100 MLS/HR Gentamicin Sulfate (Consult) 1 ea UD PRN N/A 05/27/17 20:45 05/29/17 20:44 Haloperidol Lactate (Haldol Inj) 5 mg Q4H PRN IV 05/28/17 04:30 06/27/17 04:29 05/28/17 04:51 5 MG Rivaroxaban (Xarelto Tab) 15 mg BIDM PO 05/28/17 17:00 06/14/17 23:00 05/28/17 16:07 15 MG Haloperidol (Haldol Tab) 5 mg BID PRN PO 05/28/17 12:15 06/27/17 12:14 05/28/17 18:31 5 MG Gentamicin Sulfate 560 mg/ Dextrose 114 ml @ 100 mls/hr TODAY@1999 IV 05/29/17 20:00 06/03/17 19:59 Objective Vital Signs Date Time Temp Pulse Resp B/P (MAP) Pulse Ox O2 Delivery O2 Flow Rate FiO2 05/28/17 20:00 High Flow Oxygen 50.0 05/28/17 19:39 100 22 97 BiPAP/CPAP 95 05/28/17 19:00 37.4 93 16 116/70 (85) 93 High Flow Oxygen 05/28/17 16:31 High Flow Oxygen 50.0 05/28/17 15:38 94 22 100 BiPAP/CPAP 95 05/28/17 15:16 37.4 91 18 121/72 (88) 100 High Flow Oxygen 05/28/17 12:48 36.5 98 20 107/65 (79) 100 High Flow Oxygen 05/28/17 12:05 BiPAP 05/28/17 11:26 101 22 97 BiPAP/CPAP 60 05/28/17 10:22 102 98 60 05/28/17 08:15 High Flow Oxygen 50.0 05/28/17 07:53 91 16 90 Nasal Cannula 50.0 53 05/28/17 06:47 37.2 99 20 147/82 (103) 93 High Flow Oxygen 05/28/17 05:27 37.4 05/28/17 04:00 High Flow Oxygen 50.0 05/28/17 03:30 38.6 107 22 149/88 (108) 93 High Flow Oxygen 50 05/28/17 00:00 High Flow Oxygen 50.0 05/28/17 00:00 37.4 104 20 120/73 (89) 91 BiPAP Physical Exam General Appearance: WD/WN, no apparent distress, + pertinent finding (Patient on BiPAP but does not appear to be in respiratory distress) Eyes: normal inspection, sclerae normal Respiratory/Chest: chest non-tender, + rhonchi (Right-sided rhonchi) Cardiovascular: regular rate, rhythm, no edema, no gallop Abdomen: normal bowel sounds, non tender, soft Neurologic/Psychiatric: alert, normal mood/affect Laboratory Results Results Past 24 Hours Test 05/28/17 05:16 05/28/17 08:09 Range/Units White Blood Count 12.14 4.8-10.8 K/uL Red Blood Count 3.24 4.7-6.1 M/uL Hemoglobin 10.0 14.0-18.0 g/dL Hematocrit 28.8 42-52 % Mean Corpuscular Volume 88.9 80-100 fL Mean Corpuscular Hemoglobin 30.9 25-34 pg Mean Corpuscular Hemoglobin Concent 34.7 32-36 g/dl Platelet Count 157 130-400 K/uL Mean Platelet Volume 9.7 7.4-10.4 fL Neutrophils (%) (Auto) 80.2 % Lymphocytes (%) (Auto) 11.0 % Monocytes (%) (Auto) 6.2 % Eosinophils (%) (Auto) 1.1 % Basophils (%) (Auto) 0.3 % Neutrophils # (Auto) 9.75 1.4-6.5 K/uL Lymphocytes # (Auto) 1.33 1.2-3.4 K/uL Monocytes # (Auto) 0.75 0.11-0.59 K/uL Eosinophils # (Auto) 0.13 0-0.5 K/uL Basophils # (Auto) 0.04 0-0.2 K/uL RDW Standard Deviation 47.4 36.4-46.3 fL RDW Coefficient of Variation 14.4 11.5-14.5 % Immature Granulocyte % (Auto) 1.2 % Immature Granulocyte # (Auto) 0.14 0.00-0.02 K/uL Activated Partial Thromboplast Time 36.6 21.0-31.0 SECONDS Partial Thromboplastin Ratio 1.4 Sodium Level 140 136-145 mmol/L Potassium Level 3.3 3.5-5.1 mmol/L Chloride Level 103 98-107 mmol/L Carbon Dioxide Level 29 21-32 mmol/L Anion Gap 8.0 3-11 mmol/L Blood Urea Nitrogen 21 7-18 mg/dl Creatinine 0.93 0.60-1.40 mg/dl Est Creatinine Clear Calc Drug Dose 102.1 ml/min Estimated GFR () 106.0 Estimated GFR (Non- 91.4 BUN/Creatinine Ratio 22.3 10-20 Random Glucose 138 70-99 mg/dl Calcium Level 8.6 8.5-10.1 mg/dl Random Gentamicin Level 2.80 mcg/ml C-Reactive Protein 25.10 0-0.29 mg/dl Assessment and Plan The patient is a 56-year-old male that presented to the ED with shortness of breath and on cultures was found to have staph aureus. Based on imaging and clinical appearance the patient is currently in ARDS although he has been clinically improving while still necessitating BiPAP. We still have the patient on Zosyn in addition to gentamicin. Psychiatry was consult because the patient has had continued hallucinations in the setting of fevers and schizophrenia, and has been pulling off his BiPAP. They recommended having when necessary Haldol 5 mg for hallucinating and aggressive episodes. 1) Sepsis 2/2 Pneumonia - Patient is clinically improving but remains on BiPAP and still having intermittent fevers - ARDS clinical picture based on imaging and lot of respiratory improvement - Zosyn Day 8, Gentamicin Day 2 - CXR 05/27: Multifocal patchy opacities most concerning for multifocal pneumonia - Staph Aureus positive blood cultures - Cardiology: PÉREZ not recommended at this time due to respiratory status - ECHO: No signs of CHF, Good ejection fraction, no visible vegetations - Leukocytosis steadily improving - DuoNeb 2) Possible PE on CT - CT for PE: Probable but not definite bilateral small pulmonary emboli - Xarelto for anticoagulation --> will require 3 months of anticoagulation therapy - US LE show no DVT 3) Hypokalemia - K+ 3.3 today - 40meq IV K+ 4) CHF? - Cardiology consult - Based on ECHO patient appears to have adequate cardiac function and no evidence of CHF - Discontinue Lasix - Monitor I/O, currently has a negative balance of 1L for the duration of the admission 5) Schizophrenia - Chronic, Paranoid type with unspecified Anxiety disorder - Psych consult placed - Recommend 5mg Haldol BID PRN for agitation - Benztropine reduced to 1mg BID - Discrepancy regarding bedtime Haldol - liaison to confirm dose - 10mg qHS for now - Clonazepam - Outpatient Psychiatry follow up 7) Acute Kidney Injury - Resolved - Creatinine 0.92 today - Most likely secondary to dehydration 8) DVT Prophylaxis - Xarelto 9) Code Status - DNR/ DNI with limited interventions 10) Disposition - Patient states that really would like to [facility] on discharge Resident Physician Supervision Note: I interviewed and examined the patient. Discussed with Dr. Clark and agree with findings and plan as documented in the note. Any exceptions or clarifications are listed here: None Documented By: Norberto Cat feeling better but back on bipap. still having fevers. vitals noted nad lungs more clear pneumonia, low grade ARDS -ongoing care as above. stable Resident Tracking Resident Involvement: Resident Care Provided Care Provided: Adult Hospital Medicine
[2017-05-28] MEDS ORDERED: SODIUM CHLORIDE 0.65% NA SOLN 45 ML (OCEAN) ONE (18:33)
[2017-05-28] MEDS: GENTAMICIN IV SCH (19:16)
[2017-05-28] MEDS: DEXTROSE 5% IV SCH (19:16)
[2017-05-28] MEDS: TRAZODONE HCL 100 MG TAB PO SCH (19:28)
[2017-05-28] MEDS: HALOPERIDOL 5 MG TAB PO SCH (19:29)
[2017-05-28] MEDS: POTASSIUM CHLR 10 MEQ / WTR 10 MEQ in PREMIXED WATER 100 ML IV SCH ×3 (21:12→23:12)
[2017-05-29] VITALS (13 sets, daily range): BP systolic 118–134; BP diastolic 73–80; PULSE 75–98; TEMP 37.1–37.4; O2SAT 90–98
[2017-05-29] MEDS: POTASSIUM CHLR 10 MEQ / WTR 10 MEQ in PREMIXED WATER 100 ML IV SCH ×5 (00:13→20:03)
[2017-05-29] MEDS: LEVOTHYROXINE 25 MCG TAB PO SCH (05:44)
--- NOTE | 2017-05-29 07:12 | DIAGNOSTIC IMAGING REPORT ---
CHEST ONE VIEW PORTABLE CLINICAL HISTORY: Hypoxia, low oxygen saturation. COMPARISON STUDY: Chest CT May 23, 2017 and chest radiograph May 26, 2017. FINDINGS: There is no pneumothorax or pleural effusion. Diffuse bilateral airspace opacities with interstitial thickening are noted. Slight progression since prior exam is noted. Cardiomediastinal silhouette is stable. IMPRESSION: Slight progression of extensive bilateral airspace opacities and interstitial thickening. The findings could reflect multifocal pneumonia, pulmonary edema or ARDS. Electronically signed by: Valeriano Cuellar M.D. 05/29/2017 7:11 AM Dictated Date/Time: 05/29/2017 7:07 AM
[2017-05-29 07:18] LABS: HEMATOCRIT 30.6 % (42-52); MEAN CELL VOLUME 89.7 fL (80-100); MEAN CORPUSCULAR HEMOGLOBIN 30.5 pg (25-34); MEAN PLATELET VOLUME 9.6 fL (7.4-10.4); PLATELET COUNT 198 K/uL (130-400); RED BLOOD COUNT 3.41 M/uL (4.7-6.1); WHITE BLOOD COUNT 12.06 K/uL (4.8-10.8)
[2017-05-29] MEDS: ALBUT/IPRATROP 3MG/0.5MG NEB 3 ML VIAL INH SCH ×4 (07:27→19:11)
[2017-05-29 07:34] LABS: PARTIAL THROMBOPLASTIN RATIO 1.3
[2017-05-29] MEDS: RIVAROXABAN TAB 15 MG TAB PO SCH ×2 (07:46→17:13)
[2017-05-29] MEDS: PANTOprazole SOD 40 MG TAB PO SCH (07:46)
[2017-05-29] MEDS: BENZTROPINE MESYLATE 1 MG TAB PO SCH ×2 (07:47→20:30)
[2017-05-29 07:48] LABS: BASO ABS # 0.11 K/uL (0-0.2); BASOPHIL % 0.9 % (0-2); COMPLETE YES; EOSINOPHIL % 0.9 %; LYMPH ABS # 0.94 K/uL (1.2-3.4); LYMPHOCYTE % 7.8 %; MYELOCYTE % 0.9 %; NEUTROPHILS % 83.5 %
[2017-05-29 07:50] LABS: BUN/CREATININE RATIO 25.3 (10-20); CALCIUM 8.7 mg/dl (8.5-10.1); CREATININE 0.77 mg/dl (0.60-1.40); POTASSIUM 3.2 mmol/L (3.5-5.1)
[2017-05-29] MEDS: PIPERACILL/TAZOBAC IV 3.375 GM in DEXTROSE 5% 100ML 100 ML IV SCH ×2 (07:52→15:53)
[2017-05-29] MEDS: CLONAZEPAM 0.5 MG TAB PO SCH ×2 (07:52→20:28)
--- NOTE | 2017-05-29 13:39 | Pulmonology Progress Note ---
Pulmonary Progress Note Date of Service May 29, 2017. Attending Dr. Ray Subjective Patient still high flow oxygen but notes he has no acute respiratory issues Objective 56-yo male admitted to [facility] from assisted living facility 05/21/17 with sepsis. Presenting symptoms included AMS/hallucinations, fevers, CURTIS, emesis/loose stools, and hypoxic respiratory failure. Prior records were reviewed. PMhx includes: grade I diastolic dysfunction, GERD , schizophrenia, pulmonary embolism (11/2010), HTN, and anxiety/depression. 42- year h/o tobacco use. H/o ETOH. W/U notable for leukocytosis, lactic acid 2.2/3.2, and troponin leak . Toxicology + benzodiazepines. CT head was unremarkable. CTA 05/23/17 described ? small bilateral pulmonary emboli of the lingular branch and ? RLL pulmonary artery branch as well as and extensive bilateral ground glass mosaic opacities. BC + MSSA. LABS: WBC: 12K (Neutro #: 10.07H) PLT: 198K BUN/Cr: 20/0.77 (ratio: 2.3) CRP: 39.80H---25.10H Micro: Blood (05/21/17) MSSA CXR (05/29/17) compared to (05/26/17) Slight progression of extensive bilateral airspace disease: Opacification/ interstitial thickening VS: I/Os: Total: -2.7L 24hrs: -300cc SaO2: 90-96% FiO2: High Flow system (rate: 50L//FiO2:50-95%) RR: 20 GEN: Alert and orientated to person and place RESP: Bilateral rhonchi and expiratory wheezes CARD: S1-S2 tachycardic no murmurs rubs or gallops appreciated ABD: Positive bowel sounds soft nontender Medications #1 gentamicin #2 Xeralto #3 duo nebs #4 Protonix #5 Zosyn #6 Ventolin HFA when necessary shortness of breath/wheezing #7 clonazepam 0.5 mg twice Assessment & Plan 56-year-old male admitted with MSSA sepsis and found to have pulmonary emboli with associated hypoxemia #1 Pulmonary Emboli: The patient will need anticoagulation treatment/Cymbalta for at least the next 3 months. At that time because of his previous history of pulmonary embolism we will have to reevaluate his overall need for anticoagulation possibly lifelong as an outpatient. #2 Hypoxemia: I do believe patient's hypoxemia is most likely combination of MSSA sepsis, pulmonary emboli with associated ARDS. The patient is stable currently on the high flow system. #3 altered mental status: Patient does have underlying psychological dysfunctioning but he also notes a long history of alcoholism to me. We should continue to monitor patient for delirium tremens and place him on the CIWA protocol. Plan: At this time for me has no new advice will sign off please call if recent clinical status changes. Data Medications: Current Inpatient Medications Medications (Trade) Dose Ordered Sig/Key Route Start Time Stop Time Status Last Admin Dose Admin Acetaminophen (Tylenol Tab) 650 mg Q4H PRN PO 05/21/17 20:15 06/20/17 20:14 05/28/17 03:43 650 MG Ondansetron HCl (Zofran Inj) 4 mg Q6H PRN IV 05/21/17 20:15 06/20/17 20:14 05/26/17 07:45 4 MG Nitroglycerin (Nitrostat Tab) 0.4 mg UD PRN SL 05/21/17 20:15 06/20/17 20:14 Polyethylene (Miralax Powder Packet) 17 gm DAILY PRN PO 05/21/17 20:15 06/20/17 20:14 05/27/17 17:29 17 GM Clonazepam (Klonopin Tab) 0.5 mg BID PO 05/21/17 21:00 06/20/17 20:59 05/29/17 07:52 0.5 MG Levothyroxine Sodium (Synthroid Tab) 25 mcg DAILYBB PO 05/22/17 06:30 06/21/17 06:59 05/29/17 05:44 25 MCG Trazodone HCl (Desyrel Tab) 100 mg HS PO 05/21/17 21:00 06/20/17 20:59 05/28/17 19:28 100 MG Albuterol (Ventolin Hfa Inhaler) 2 puffs QID PRN INH 05/21/17 20:15 06/20/17 20:14 05/22/17 16:14 2 PUFFS Pantoprazole Sodium (Protonix Tab) 40 mg DAILY PO 05/22/17 09:00 06/21/17 08:59 05/29/17 07:46 40 MG Piperacillin Sod/ Tazobactam Sod 3.375 gm/Dextrose 115 ml @ 28.75 mls/ hr Q8H IV 05/22/17 00:00 06/03/17 00:00 05/29/17 07:52 28.75 MLS/HR Piperacillin Sod/ Tazobactam Sod (Consult) 1 ea UD PRN N/A 05/21/17 22:15 06/20/17 22:14 Haloperidol (Haldol Tab) 10 mg HS PO 05/22/17 21:00 06/20/17 20:59 05/28/17 19:29 10 MG Benztropine Mesylate (Cogentin Tab) 1 mg BID PO 05/22/17 21:00 06/20/17 20:59 05/29/17 07:47 1 MG Albuterol/ Ipratropium (Duoneb) 3 ml QIDR INH 05/22/17 20:00 06/21/17 19:59 05/29/17 11:18 3 ML Gentamicin Sulfate 560 mg/ Dextrose 114 ml @ 100 mls/hr TODAY@1999 IV 05/27/17 20:00 05/29/17 19:59 05/28/17 19:16 100 MLS/HR Gentamicin Sulfate (Consult) 1 [facility] PRN N/A 05/27/17 20:45 05/29/17 20:44 Haloperidol Lactate (Haldol Inj) 5 mg Q4H PRN IV 05/28/17 04:30 06/27/17 04:29 05/28/17 04:51 5 MG Rivaroxaban (Xarelto Tab) 15 mg BIDM PO 05/28/17 17:00 06/14/17 23:00 05/29/17 07:46 15 MG Haloperidol (Haldol Tab) 5 mg BID PRN PO 05/28/17 12:15 06/27/17 12:14 05/28/17 18:31 5 MG Gentamicin Sulfate 560 mg/ Dextrose 114 ml @ 100 mls/hr TODAY@1999 IV 05/29/17 20:00 06/03/17 19:59 Vital Signs: Date Time Temp Pulse Resp B/P (MAP) Pulse Ox O2 Delivery O2 Flow Rate FiO2 05/29/17 12:01 96 Nasal Cannula 05/29/17 11:19 94 20 93 Nasal Cannula 50.0 88 05/29/17 08:06 37.4 89 20 124/80 (95) 96 Humidified Air 05/29/17 08:00 96 Nasal Cannula 05/29/17 07:27 92 20 96 Nasal Cannula 50.0 88 05/29/17 04:00 High Flow Oxygen 50.0 05/29/17 03:56 90 05/29/17 03:55 37.2 98 20 134/80 (98) 05/29/17 00:00 High Flow Oxygen 50.0 05/28/17 23:52 37.6 102 18 117/73 (88) 92 05/28/17 20:00 High Flow Oxygen 50.0 05/28/17 19:39 100 22 97 BiPAP/CPAP 95 05/28/17 19:00 37.4 93 16 116/70 (85) 93 High Flow Oxygen 05/28/17 16:31 High Flow Oxygen 50.0 05/28/17 15:38 94 22 100 BiPAP/CPAP 95 05/28/17 15:16 37.4 91 18 121/72 (88) 100 High Flow Oxygen Laboratory Results: Last 24 Hours Test 05/29/17 06:42 White Blood Count 12.06 K/uL Red Blood Count 3.41 M/uL Hemoglobin 10.4 g/dL Hematocrit 30.6 % Mean Corpuscular Volume 89.7 fL Mean Corpuscular Hemoglobin 30.5 pg Mean Corpuscular Hemoglobin Concent 34.0 g/dl Platelet Count 198 K/uL Mean Platelet Volume 9.6 fL RDW Standard Deviation 47.9 fL RDW Coefficient of Variation 14.5 % Neutrophils % (Manual) 83.5 % Lymphocytes % (Manual) 7.8 % Monocytes % (Manual) 6.0 % Eosinophils % (Manual) 0.9 % Basophils % (Manual) 0.9 % Myelocytes % 0.9 % Neutrophils # (Manual) 10.07 K/uL Total Absolute Neutrophils 10.07 K/uL Lymphocytes # (Manual) 0.94 K/uL Total Absolute Lymphocytes 0.94 K/uL Monocytes # (Manual) 0.72 K/uL Eosinophils # (Manual) 0.11 K/uL Basophils # (Manual) 0.11 K/uL Myelocytes # 0.11 K/uL Red Blood Cell Morphology Unremarkable Activated Partial Thromboplast Time 33.9 SECONDS Partial Thromboplastin Ratio 1.3 Sodium Level 141 mmol/L Potassium Level 3.2 mmol/L Chloride Level 106 mmol/L Carbon Dioxide Level 29 mmol/L Anion Gap 6.0 mmol/L Blood Urea Nitrogen 20 mg/dl Creatinine 0.77 mg/dl Est Creatinine Clear Calc Drug Dose 123.0 ml/min Estimated GFR () 117.6 Estimated GFR (Non- 101.4 BUN/Creatinine Ratio 25.3 Random Glucose 116 mg/dl Calcium Level 8.7 mg/dl
--- NOTE | 2017-05-29 15:18 | Family Medicine Progress Note ---
Progress Note Date of Service May 29, 2017. Subjective Pt evaluation today including: conversation w/ patient, physical exam, chart review, lab review, review of studies Pain: no pain reported this morning Voiding: no voiding problems, no incontinence Patient is resting comfortably in bed this morning with no acute complaints overnight. Patient states that he thinks his shortness of breath is the same as it was yesterday. Patient was desaturating overnight, and aspirin 19 he chewed his oxygen tubing and once changed he returned to normal oxygen saturation. Constitutional: No fever, No chills Respiratory: + cough, + sputum, + wheezing, + shortness of breath, + dyspnea on exertion, + dyspnea at rest, No hemoptysis Cardiovascular: No chest pain, No palpitations Abdomen: No pain, No nausea, No vomiting, No diarrhea, No constipation Psychiatric: + problem reported (patient did not have any hallucinations overnight) Medications Current Inpatient Medications Medications (Trade) Dose Ordered Sig/Key Route Start Time Stop Time Status Last Admin Dose Admin Acetaminophen (Tylenol Tab) 650 mg Q4H PRN PO 05/21/17 20:15 06/20/17 20:14 05/28/17 03:43 650 MG Ondansetron HCl (Zofran Inj) 4 mg Q6H PRN IV 05/21/17 20:15 06/20/17 20:14 05/26/17 07:45 4 MG Nitroglycerin (Nitrostat Tab) 0.4 mg UD PRN SL 05/21/17 20:15 06/20/17 20:14 Polyethylene (Miralax Powder Packet) 17 gm DAILY PRN PO 05/21/17 20:15 06/20/17 20:14 05/27/17 17:29 17 GM Clonazepam (Klonopin Tab) 0.5 mg BID PO 05/21/17 21:00 06/20/17 20:59 05/29/17 07:52 0.5 MG Levothyroxine Sodium (Synthroid Tab) 25 mcg DAILYBB PO 05/22/17 06:30 06/21/17 06:59 05/29/17 05:44 25 MCG Trazodone HCl (Desyrel Tab) 100 mg HS PO 05/21/17 21:00 06/20/17 20:59 05/28/17 19:28 100 MG Albuterol (Ventolin Hfa Inhaler) 2 puffs QID PRN INH 05/21/17 20:15 06/20/17 20:14 05/22/17 16:14 2 PUFFS Pantoprazole Sodium (Protonix Tab) 40 mg DAILY PO 05/22/17 09:00 06/21/17 08:59 05/29/17 07:46 40 MG Piperacillin Sod/ Tazobactam Sod 3.375 gm/Dextrose 115 ml @ 28.75 mls/ hr Q8H IV 05/22/17 00:00 06/03/17 00:00 05/29/17 07:52 28.75 MLS/HR Piperacillin Sod/ Tazobactam Sod (Consult) 1 ea UD PRN N/A 05/21/17 22:15 06/20/17 22:14 Haloperidol (Haldol Tab) 10 mg HS PO 05/22/17 21:00 06/20/17 20:59 05/28/17 19:29 10 MG Benztropine Mesylate (Cogentin Tab) 1 mg BID PO 05/22/17 21:00 06/20/17 20:59 05/29/17 07:47 1 MG Albuterol/ Ipratropium (Duoneb) 3 ml QIDR INH 05/22/17 20:00 06/21/17 19:59 05/29/17 15:12 3 ML Gentamicin Sulfate 560 mg/ Dextrose 114 ml @ 100 mls/hr TODAY@2000 IV 05/27/17 20:00 05/29/17 19:59 05/28/17 19:16 100 MLS/HR Gentamicin Sulfate (Consult) 1 ea UD PRN N/A 05/27/17 20:45 05/29/17 20:44 Haloperidol Lactate (Haldol Inj) 5 mg Q4H PRN IV 05/28/17 04:30 06/27/17 04:29 05/28/17 04:51 5 MG Rivaroxaban (Xarelto Tab) 15 mg BIDM PO 05/28/17 17:00 06/14/17 23:00 05/29/17 07:46 15 MG Haloperidol (Haldol Tab) 5 mg BID PRN PO 05/28/17 12:15 06/27/17 12:14 05/28/17 18:31 5 MG Gentamicin Sulfate 560 mg/ Dextrose 114 ml @ 100 mls/hr TODAY@1999 IV 05/29/17 20:00 06/03/17 19:59 Objective Vital Signs Date Time Temp Pulse Resp B/P (MAP) Pulse Ox O2 Delivery O2 Flow Rate FiO2 05/29/17 14:24 37.1 82 18 118/73 (88) 98 High Flow Oxygen 05/29/17 12:01 96 Nasal Cannula 05/29/17 11:19 94 20 93 Nasal Cannula 50.0 88 05/29/17 08:06 37.4 89 20 124/80 (95) 96 Humidified Air 05/29/17 08:00 96 Nasal Cannula 05/29/17 07:27 92 20 96 Nasal Cannula 50.0 88 05/29/17 04:00 High Flow Oxygen 50.0 05/29/17 03:56 90 05/29/17 03:55 37.2 98 20 134/80 (98) 05/29/17 00:00 High Flow Oxygen 50.0 05/28/17 23:52 37.6 102 18 117/73 (88) 92 05/28/17 20:00 High Flow Oxygen 50.0 05/28/17 19:39 100 22 97 BiPAP/CPAP 95 05/28/17 19:00 37.4 93 16 116/70 (85) 93 High Flow Oxygen 05/28/17 16:31 High Flow Oxygen 50.0 05/28/17 15:38 94 22 100 BiPAP/CPAP 95 Physical Exam General Appearance: WD/WN, no apparent distress, + pertinent finding (patient resting comfortably in bed with high flow nasal cannula on., Does not appear to be in respiratory distress) Eyes: normal inspection, sclerae normal Respiratory/Chest: chest non-tender, + pertinent finding (bilateral rhonchi and wheezing auscultated, loudest in upper lung boone bilaterally) Cardiovascular: regular rate, rhythm, no edema, no gallop Abdomen: normal bowel sounds, non tender, soft Neurologic/Psychiatric: alert, + pertinent finding (patient denies any hallucinations this morning) Laboratory Results Results Past 24 Hours Test 05/29/17 06:42 Range/Units White Blood Count 12.06 4.8-10.8 K/uL Red Blood Count 3.41 4.7-6.1 M/uL Hemoglobin 10.4 14.0-18.0 g/dL Hematocrit 30.6 42-52 % Mean Corpuscular Volume 89.7 80-100 fL Mean Corpuscular Hemoglobin 30.5 25-34 pg Mean Corpuscular Hemoglobin Concent 34.0 32-36 g/dl Platelet Count 198 130-400 K/uL Mean Platelet Volume 9.6 7.4-10.4 fL RDW Standard Deviation 47.9 36.4-46.3 fL RDW Coefficient of Variation 14.5 11.5-14.5 % Neutrophils % (Manual) 83.5 % Lymphocytes % (Manual) 7.8 % Monocytes % (Manual) 6.0 % Eosinophils % (Manual) 0.9 % Basophils % (Manual) 0.9 0-2 % Myelocytes % 0.9 % Neutrophils # (Manual) 10.07 1.4-6.5 K/uL Total Absolute Neutrophils 10.07 1.4-6.5 K/uL Lymphocytes # (Manual) 0.94 1.2-3.4 K/uL Total Absolute Lymphocytes 0.94 1.2-3.4 K/uL Monocytes # (Manual) 0.72 0.11-0.59 K/uL Eosinophils # (Manual) 0.11 0-0.5 K/uL Basophils # (Manual) 0.11 0-0.2 K/uL Myelocytes # 0.11 0-0 K/uL Red Blood Cell Morphology Unremarkable Activated Partial Thromboplast Time 33.9 21.0-31.0 SECONDS Partial Thromboplastin Ratio 1.3 Sodium Level 141 136-145 mmol/L Potassium Level 3.2 3.5-5.1 mmol/L Chloride Level 106 98-107 mmol/L Carbon Dioxide Level 29 21-32 mmol/L Anion Gap 6.0 3-11 mmol/L Blood Urea Nitrogen 20 7-18 mg/dl Creatinine 0.77 0.60-1.40 mg/dl Est Creatinine Clear Calc Drug Dose 123.0 ml/min Estimated GFR () 117.6 Estimated GFR (Non- 101.4 BUN/Creatinine Ratio 25.3 10-20 Random Glucose 116 70-99 mg/dl Calcium Level 8.7 8.5-10.1 mg/dl Assessment and Plan Patient is a 56-year-old male that is currently here on hospital day 9 for bilateral MSSA sepsis, ARDS, and pulmonary embolisms. The patient respiratory status is continuing to improve, but he remains on high flow nasal cannula. The patient did not have any hallucinations overnight while on an increased dose of Haldol. He continues to have bilateral breast sounds including rhonchi and wheezing, but his shortness of breath he states is same as yesterday. He is welted have a fever last night, but has remained afebrile throughout the day thus far. We will continue to treat the patient with Zosyn IV to which the staph blood cultures were sensitive. 1) Hypoxic Respiratory Failure 2/2 MSSA Sepsis and Pneumonia, Bilateral Pulmonary Embolisms, and ARDS - Patient is clinically improving but remains on high flow nasal cannula - Patient continues to have intermittent fevers - Zosyn Day 8, Gentamicin Day 2 - CXR 05/27: Multifocal patchy opacities most concerning for multifocal pneumonia - CXR 05/28: Slight progression of extensive bilateral opacities - Staph Aureus positive blood cultures - Cardiology: PÉREZ not recommended at this time due to respiratory status - ECHO: No signs of CHF, Good ejection fraction, no visible vegetations - Leukocytosis steadily improving - DuoNeb 2) Possible PE on CT - CT for PE: Probable but not definite bilateral small pulmonary emboli - Xarelto for anticoagulation --> will require 3 months of anticoagulation therapy - US LE show no DVT 3) Hypokalemia - K+ 3.2 today - 40meq IV K+ 4) CHF? - Cardiology consult - Based on ECHO patient appears to have adequate cardiac function and no evidence of CHF - Discontinue Lasix - Monitor I/O, currently has a negative balance of 1L for the duration of the admission 5) Schizophrenia - Chronic, Paranoid type with unspecified Anxiety disorder - Psych consult placed - Recommend 5mg Haldol BID PRN for agitation - Benztropine reduced to 1mg BID - Discrepancy regarding bedtime Haldol - liaison to confirm dose - 10mg qHS for now - Clonazepam - Outpatient Psychiatry follow up 7) Acute Kidney Injury - Resolved - Most likely secondary to dehydration 8) DVT Prophylaxis - Xarelto 9) Code Status - DNR/ DNI with limited interventions 10) Disposition - Patient states that really would like to [facility] on discharge Resident Physician Supervision Note: I interviewed and examined the patient. Discussed with Dr. Clark and agree with findings and plan as documented in the note. Any exceptions or clarifications are listed here: None Documented By: Norberto Stephania feeling better breathing oK ros otherwise negative vitals noted nad breathing unlabored no pallor or icterus, diffuse faint rales better air entry pneumonia / ARDS / hypoxia / acute hypoxic respiratory failure due to above seems to be slowly improving Resident Tracking Resident Involvement: Resident Care Provided Care Provided: Adult Hospital Medicine
[2017-05-29] MEDS: DEXTROSE 5% IV SCH (20:07)
[2017-05-29] MEDS: GENTAMICIN IV SCH (20:07)
[2017-05-29] MEDS: HALOPERIDOL 5 MG TAB PO SCH (20:29)
[2017-05-29] MEDS: TRAZODONE HCL 100 MG TAB PO SCH (20:29)
[2017-05-30] VITALS (14 sets, daily range): BP systolic 104–112; BP diastolic 66–73; PULSE 61–88; TEMP 36.6–37.5; O2SAT 92–100
[2017-05-30] MEDS: PIPERACILL/TAZOBAC IV 3.375 GM in DEXTROSE 5% 100ML 100 ML IV SCH ×4 (00:17→23:39)
[2017-05-30] MEDS: LEVOTHYROXINE 25 MCG TAB PO SCH (05:28)
[2017-05-30] MEDS: ALBUT/IPRATROP 3MG/0.5MG NEB 3 ML VIAL INH SCH ×4 (07:20→19:36)
[2017-05-30] MEDS: CLONAZEPAM 0.5 MG TAB PO SCH ×2 (07:50→21:00)
[2017-05-30] MEDS: BENZTROPINE MESYLATE 1 MG TAB PO SCH ×2 (07:50→21:01)
[2017-05-30] MEDS: PANTOprazole SOD 40 MG TAB PO SCH (07:50)
[2017-05-30] MEDS: RIVAROXABAN TAB 15 MG TAB PO SCH ×2 (07:50→17:12)
[2017-05-30 08:32] LABS: BASO % 0.4 %; BASO ABS # 0.05 K/uL (0-0.2); COMPLETE YES; EOS % 3.2 %; IG% 1.9 %; LYMPH % 17.5 %; LYMPH ABS # 2.16 K/uL (1.2-3.4); MEAN CELL VOLUME 90.4 fL (80-100); MEAN CORPUSCULAR HEMOGLOBIN 30.7 pg (25-34); MEAN PLATELET VOLUME 9.5 fL (7.4-10.4); PLATELET COUNT 252 K/uL (130-400); RED BLOOD COUNT 3.32 M/uL (4.7-6.1); WHITE BLOOD COUNT 12.33 K/uL (4.8-10.8)
[2017-05-30 08:39] LABS: PARTIAL THROMBOPLASTIN RATIO 1.2
[2017-05-30 09:12] LABS: BUN/CREATININE RATIO 20.7 (10-20); CALCIUM 8.4 mg/dl (8.5-10.1); CREATININE 0.89 mg/dl (0.60-1.40); POTASSIUM 3.4 mmol/L (3.5-5.1)
--- NOTE | 2017-05-30 18:34 | Family Medicine Progress Note ---
Progress Note Date of Service May 30, 2017. Subjective Pt evaluation today including: conversation w/ patient, physical exam, chart review, lab review Pain: No pain reported this morning Voiding: no voiding problems, no incontinence Patient is resting comfortably in bed this morning with no acute complaints overnight. Patient denies any fevers overnight, and did not have any reported hallucinations. His shortness of breath is better today and he is continuing to cough up whitish sputum. Constitutional: + fatigue, No fever, No chills, No sweats Respiratory: + cough, + sputum, + shortness of breath, + dyspnea on exertion , No wheezing Cardiovascular: No chest pain, No palpitations Abdomen: No pain, No nausea, No vomiting, No diarrhea, No constipation Male : No dysuria Medications Current Inpatient Medications Medications (Trade) Dose Ordered Sig/Key Route Start Time Stop Time Status Last Admin Dose Admin Acetaminophen (Tylenol Tab) 650 mg Q4H PRN PO 05/21/17 20:15 06/20/17 20:14 05/28/17 03:43 650 MG Ondansetron HCl (Zofran Inj) 4 mg Q6H PRN IV 05/21/17 20:15 06/20/17 20:14 05/26/17 07:45 4 MG Nitroglycerin (Nitrostat Tab) 0.4 mg UD PRN SL 05/21/17 20:15 06/20/17 20:14 Polyethylene (Miralax Powder Packet) 17 gm DAILY PRN PO 05/21/17 20:15 06/20/17 20:14 05/27/17 17:29 17 GM Clonazepam (Klonopin Tab) 0.5 mg BID PO 05/21/17 21:00 06/20/17 20:59 05/30/17 07:50 0.5 MG Levothyroxine Sodium (Synthroid Tab) 25 mcg DAILYBB PO 05/22/17 06:30 06/21/17 06:59 05/30/17 05:28 25 MCG Trazodone HCl (Desyrel Tab) 100 mg HS PO 05/21/17 21:00 06/20/17 20:59 05/29/17 20:29 100 MG Albuterol (Ventolin Hfa Inhaler) 2 puffs QID PRN INH 05/21/17 20:15 06/20/17 20:14 05/22/17 16:14 2 PUFFS Pantoprazole Sodium (Protonix Tab) 40 mg DAILY PO 05/22/17 09:00 06/21/17 08:59 05/30/17 07:50 40 MG Piperacillin Sod/ Tazobactam Sod 3.375 gm/Dextrose 115 ml @ 28.75 mls/ hr Q8H IV 05/22/17 00:00 06/03/17 00:00 05/30/17 15:29 28.75 MLS/HR Piperacillin Sod/ Tazobactam Sod (Consult) 1 ea UD PRN N/A 05/21/17 22:15 06/20/17 22:14 Haloperidol (Haldol Tab) 10 mg HS PO 05/22/17 21:00 06/20/17 20:59 05/29/17 20:29 10 MG Benztropine Mesylate (Cogentin Tab) 1 mg BID PO 05/22/17 21:00 06/20/17 20:59 05/30/17 07:50 1 MG Albuterol/ Ipratropium (Duoneb) 3 ml QIDR INH 05/22/17 20:00 06/21/17 19:59 05/30/17 16:10 3 ML Haloperidol Lactate (Haldol Inj) 5 mg Q4H PRN IV 05/28/17 04:30 06/27/17 04:29 05/28/17 04:51 5 MG Rivaroxaban (Xarelto Tab) 15 mg BIDM PO 05/28/17 17:00 06/14/17 23:00 05/30/17 17:12 15 MG Haloperidol (Haldol Tab) 5 mg BID PRN PO 05/28/17 12:15 06/27/17 12:14 05/28/17 18:31 5 MG Gentamicin Sulfate 560 mg/ Dextrose 114 ml @ 100 mls/hr TODAY@1999 IV 05/29/17 20:00 06/03/17 19:59 05/29/17 20:07 100 MLS/HR Objective Vital Signs Date Time Temp Pulse Resp B/P (MAP) Pulse Ox O2 Delivery O2 Flow Rate FiO2 05/30/17 16:10 85 20 98 Nasal Cannula 60.0 60 05/30/17 16:00 97 High Flow Oxygen 50.0 05/30/17 14:50 37.0 71 20 112/69 (83) 98 05/30/17 12:01 97 High Flow Oxygen 50.0 05/30/17 11:39 88 20 94 Nasal Cannula 50.0 60 05/30/17 08:05 37.0 61 20 108/68 (81) 97 05/30/17 08:00 97 High Flow Oxygen 50.0 05/30/17 07:20 88 20 94 Nasal Cannula 50.0 60 05/30/17 04:19 37.0 86 18 112/73 (86) 96 High Flow Oxygen 05/30/17 04:00 High Flow Oxygen 50.0 05/30/17 00:01 37.2 88 20 109/70 (83) 95 High Flow Oxygen 05/30/17 00:00 High Flow Oxygen 50.0 05/29/17 20:00 96 High Flow Oxygen 50.0 05/29/17 19:23 37.4 90 20 126/79 (95) 96 High Flow Oxygen 50.0 60 05/29/17 19:13 90 20 96 Nasal Cannula 50.0 60 Physical Exam General Appearance: WD/WN, no apparent distress Respiratory/Chest: chest non-tender, + decreased breath sounds, + rales ( bilateral rales) Cardiovascular: regular rate, rhythm, no edema, no gallop Abdomen: normal bowel sounds, non tender, soft Neurologic/Psychiatric: alert, normal mood/affect, oriented x 3 Laboratory Results Results Past 24 Hours Test 05/30/17 07:55 Range/Units White Blood Count 12.33 4.8-10.8 K/uL Red Blood Count 3.32 4.7-6.1 M/uL Hemoglobin 10.2 14.0-18.0 g/dL Hematocrit 30.0 42-52 % Mean Corpuscular Volume 90.4 80-100 fL Mean Corpuscular Hemoglobin 30.7 25-34 pg Mean Corpuscular Hemoglobin Concent 34.0 32-36 g/dl Platelet Count 252 130-400 K/uL Mean Platelet Volume 9.5 7.4-10.4 fL Neutrophils (%) (Auto) 69.0 % Lymphocytes (%) (Auto) 17.5 % Monocytes (%) (Auto) 8.0 % Eosinophils (%) (Auto) 3.2 % Basophils (%) (Auto) 0.4 % Neutrophils # (Auto) 8.49 1.4-6.5 K/uL Lymphocytes # (Auto) 2.16 1.2-3.4 K/uL Monocytes # (Auto) 0.99 0.11-0.59 K/uL Eosinophils # (Auto) 0.40 0-0.5 K/uL Basophils # (Auto) 0.05 0-0.2 K/uL RDW Standard Deviation 47.7 36.4-46.3 fL RDW Coefficient of Variation 14.4 11.5-14.5 % Immature Granulocyte % (Auto) 1.9 % Immature Granulocyte # (Auto) 0.24 0.00-0.02 K/uL Activated Partial Thromboplast Time 29.9 21.0-31.0 SECONDS Partial Thromboplastin Ratio 1.2 Sodium Level 142 136-145 mmol/L Potassium Level 3.4 3.5-5.1 mmol/L Chloride Level 105 98-107 mmol/L Carbon Dioxide Level 29 21-32 mmol/L Anion Gap 8.0 3-11 mmol/L Blood Urea Nitrogen 18 7-18 mg/dl Creatinine 0.89 0.60-1.40 mg/dl Est Creatinine Clear Calc Drug Dose 106.7 ml/min Estimated GFR () 110.8 Estimated GFR (Non- 95.6 BUN/Creatinine Ratio 20.7 10-20 Random Glucose 104 70-99 mg/dl Calcium Level 8.4 8.5-10.1 mg/dl Assessment and Plan Patient is a 56 year old male with ARDS, Staph MSSA, and bilateral PEs that is currently stable on high flow nasal cannula and Zosyn + Gentamicin. The patient was on broad spectrum antibiotics but after the cultures and sensitivities came back we narrowed the treatment to Zosyn. He continued to spike fevers for another 48 hours while on monotherapy so we added Gentamicin and he has now remained afebrile for over 24 hours. He remains on high flow nasal cannula and his shortness of breath is improving. He is also being followed by pulmonology and ID who are monitoring the patient who at this time is not a good candidate for a PÉREZ due to his respiratory status. Psych was also consulted due to his history of schizophrenia and multiple attempts to take off his nasal cannula and subsequently desaturate. The added additional PRN Haldol in case of those events, which have fortunately not occurred over the last 24 hours. This is also complicated but the fact that he is DNR/DNI. A one-to-one is at the patients bedside. 1) Hypoxic Respiratory Failure 2/2 MSSA Sepsis and Pneumonia, Bilateral Pulmonary Embolisms, and ARDS - Patient is clinically improving but remains on high flow nasal cannula, was previously on BiPAP as recently as yesterday morning - Patient Afebrile over the past 24 hours - Zosyn Day 9, Gentamicin Day 3 - CXR 05/27: Multifocal patchy opacities most concerning for multifocal pneumonia - CXR 05/28: Slight progression of extensive bilateral opacities - Staph Aureus positive blood cultures, Zosyn appropriate based on sensitivities - Cardiology: PÉREZ not recommended at this time due to respiratory status - ECHO: No signs of CHF, Good ejection fraction, no visible vegetations - DuoNeb 2) Possible PE on CT - CT for PE: Probable but not definite bilateral small pulmonary emboli - Xarelto for anticoagulation --> will require 3 months of anticoagulation therapy - US LE show no DVT 3) Hypokalemia - K+ 3.4 today - 40meq IV K+ 4) CHF? - Cardiology consult - Based on ECHO patient appears to have adequate cardiac function and no evidence of CHF - Discontinue Lasix (Last dose 05/26) - Monitor I/O 5) Schizophrenia - Chronic, Paranoid type with unspecified Anxiety disorder - Psych consult placed - Recommend 5mg Haldol BID PRN for agitation - Benztropine reduced to 1mg BID - Discrepancy regarding bedtime Haldol - liaison to confirm dose - 10mg qHS for now - Clonazepam - Outpatient Psychiatry follow up 7) Acute Kidney Injury - Resolved - Most likely secondary to dehydration 8) DVT Prophylaxis - Xarelto 9) Code Status - DNR/ DNI with limited interventions 10) Disposition - Patient states that really would like to [facility] on discharge Resident Physician Supervision Note: I interviewed and examined the patient. Discussed with [Amber] and agree with findings and plan as documented in the note. Any exceptions or clarifications are listed here: [None] Documented By: Norberto velasco good still needing a high flow no further fevers. vitals noted nad breathing unlabored no pallor or icterus. lungs w faint but diffuse rales, better air entry throughout pneumonia w low grade ARDS and severe hypoxia - ongoing abx, supportive care. fevers stopped since after double coverage w gent otherwise as above, slowly improving Resident Tracking Resident Involvement: Resident Care Provided Care Provided: Adult Hospital Medicine
[2017-05-30] MEDS: POTASSIUM CHLR 10 MEQ / WTR 10 MEQ in PREMIXED WATER 100 ML IV SCH ×4 (19:31→21:24)
[2017-05-30] MEDS: GENTAMICIN IV SCH (19:42)
[2017-05-30] MEDS: DEXTROSE 5% IV SCH (19:42)
[2017-05-30] MEDS: TRAZODONE HCL 100 MG TAB PO SCH (21:00)
[2017-05-30] MEDS: HALOPERIDOL 5 MG TAB PO SCH (21:01)
[2017-05-31] VITALS (11 sets, daily range): BP systolic 92–110; BP diastolic 54–68; PULSE 71–90; TEMP 37.1–37.4; O2SAT 94–98
[2017-05-31] MEDS: LEVOTHYROXINE 25 MCG TAB PO SCH (06:17)
[2017-05-31 07:08] LABS: HEMATOCRIT 30.2 % (42-52); MEAN CELL VOLUME 90.4 fL (80-100); MEAN CORPUSCULAR HEMOGLOBIN 30.8 pg (25-34); MEAN CORPUSCULAR HGB CONC 34.1 g/dl (32-36); MEAN PLATELET VOLUME 9.5 fL (7.4-10.4); PLATELET COUNT 312 K/uL (130-400); RED BLOOD COUNT 3.34 M/uL (4.7-6.1); WHITE BLOOD COUNT 13.03 K/uL (4.8-10.8)
[2017-05-31 07:16] LABS: PARTIAL THROMBOPLASTIN RATIO 1.2
[2017-05-31] MEDS: ALBUT/IPRATROP 3MG/0.5MG NEB 3 ML VIAL INH SCH ×4 (07:26→18:20)
[2017-05-31 07:45] LABS: BUN/CREATININE RATIO 15.5 (10-20); CALCIUM 8.4 mg/dl (8.5-10.1); CREATININE 0.94 mg/dl (0.60-1.40); POTASSIUM 4.1 mmol/L (3.5-5.1)
[2017-05-31 07:50] LABS: BASO % 0.4 %; BASO ABS # 0.05 K/uL (0-0.2); COMPLETE YES; EOS % 2.3 %; IG% 1.2 %; LYMPH % 16.7 %; LYMPH ABS # 2.18 K/uL (1.2-3.4); MONO % 7.6 %; NEUT % 71.8 %
[2017-05-31] MEDS: CLONAZEPAM 0.5 MG TAB PO SCH ×2 (07:55→20:45)
[2017-05-31] MEDS: PIPERACILL/TAZOBAC IV 3.375 GM in DEXTROSE 5% 100ML 100 ML IV SCH ×2 (07:55→16:02)
[2017-05-31] MEDS: RIVAROXABAN TAB 15 MG TAB PO SCH ×2 (07:55→16:02)
[2017-05-31] MEDS: PANTOprazole SOD 40 MG TAB PO SCH (07:55)
[2017-05-31] MEDS: BENZTROPINE MESYLATE 1 MG TAB PO SCH ×2 (07:55→20:41)
--- NOTE | 2017-05-31 16:21 | Family Medicine Progress Note ---
Progress Note Date of Service May 31, 2017. Subjective Pt evaluation today including: conversation w/ patient The patient was seen and examined at bedside. Overnight pt continues to remove his oxygen - this has been his normal during his hospital stay. Bed alarm is in place. Pt is on hi flow nasal cannicula at 50L/min. Nurse understand instructions to wean. Pt is not oriented to person, place or time but does answer questions appropriately. He denies being in any pain. Has no acute issues. Patient is resting comfortably in bed. Eating and urinating well. Plan of care was described to the patient and all questions were answered. Constitutional: No fever, No chills, No sweats Respiratory: + shortness of breath, No cough, No sputum, No wheezing Cardiovascular: No chest pain Abdomen: No pain, No nausea, No vomiting, No diarrhea, No constipation Male : No dysuria Objective Physical Exam General Appearance: WD/WN, no apparent distress Respiratory/Chest: chest non-tender, lungs clear, normal breath sounds, no respiratory distress, no accessory muscle use Cardiovascular: regular rate, rhythm, no edema, no gallop, no JVD, no murmur Abdomen: normal bowel sounds, non tender, soft, no organomegaly, no pulsatile mass Extremities: normal range of motion, non-tender, no pedal edema Neurologic/Psychiatric: no motor/sensory deficits, alert, normal mood/affect, + pertinent finding (not oriented to person place or time) Assessment and Plan 56M with ARDS, Staph MSSA, and bilateral PEs that is currently stable on high flow nasal cannula and Zosyn + Gentamicin. The patient was on broad spectrum antibiotics but after the cultures and sensitivities came back we narrowed the treatment to Zosyn. He continued to spike fevers for another 48 hours while on monotherapy so we added Gentamicin. He remains on high flow nasal cannula and his shortness of breath is improving. He is also being followed by pulmonology and ID who are monitoring the patient who at this time is not a good candidate for a PÉREZ due to his respiratory status. Psych was also consulted due to his history of schizophrenia and multiple attempts to take off his nasal cannula and subsequently desaturate. The added additional PRN Haldol in case of those events. Hypoxic Respiratory Failure 2/2 MSSA Sepsis possibly contributing to ARDS and Bilateral Pulmonary Embolisms, - Clinically improving - still on high flow O2, was previously on BiPAP. - Afebrile over the past 48 hours - CXR 05/27: Multifocal patchy opacities most concerning for multifocal pneumonia - CXR 05/28: Slight progression of extensive bilateral opacities - Staph Aureus positive blood cultures, Zosyn appropriate based on sensitivities. Repeat blood culture negative. - Unclear source of MSSA. No cavitary lesions on CT scan per pulmonology review of films. - PÉREZ not recommended at this time per cardiology due to respiratory status - Transthoracic ECHO: No signs of CHF, Good ejection fraction, no visible vegetations - Zosyn Day 10, Gentamicin Day 4 - continue DuoNeb QID scheduled Possible PE on CT - CT for PE: Probable but not definite bilateral small pulmonary emboli - Xarelto 15mg daily for anticoagulation --> will require 3 months of anticoagulation therapy - US LE shows no DVT Schizophrenia - Chronic, Paranoid type with unspecified Anxiety disorder - Clear mentation - Psych consulted - Recommended 5mg Haldol BID PRN for agitation - Benztropine reduced to 1mg BID - Continue bedtime Haldol dose - 10mg qHS for now. - Clonazepam 0.5mg BID - Outpatient Psychiatry follow up Concern of alcohol abuse - reported drinking every day to [employer]. Declined today. No sign of alcohol withdrawal. Follow. Acute Kidney Injury (resolved) - Most likely secondary to dehydration Hypothyroidism: continue synthroid 25mcg daily GI Proph: continue Protonix 40mg daily. Pain: Continue Trazodone 100mg QHS DVT Proph: Xarelto as above. Dispo: [facility] on discharge when an acceptable O2 sat is reached. DNR/ DNI with limited interventions Resident Involvement: Resident Care Provided Care Provided: Adult Hospital Medicine Reviewed: Pt Seen/Exam by Me History alert this am. denies any concerns. no worsening of breathing. Constitutional: denies: fever Cardiovascular: denies chest pain Gastrointestinal/Abdominal: negative: abdominal pain General Appearance: other (comfortable on high flow O2) Respiratory: no respiratory distress, decreased breath sounds Cardiovascular: regular rate, rhythm Neurologic/Psychiatric: alert, normal mood/affect, oriented x 3 Skin Characteristics: warm/dry Assessment/Plan Resident Physician Supervision Note: I was present with Dr. Wang in bedside. I verified the [place] history and physical, reviewed labs and image studies, discussed the case with the resident and agree with the findings and care plan.
[2017-05-31] MEDS ORDERED: HALO10TA17 PO (18:20)
--- NOTE | 2017-05-31 18:48 | Infectious Disease Progress Nt ---
Progress Note Date of Service May 31, 2017. Subjective Pt evaluation today including: conversation w/ patient, physical exam, chart review, lab review, review of studies, conversation w/ is consultant, review of inpatient medication list Patient offers no new complaints today. Remains afebrile. No increase in shortness of breath or cough. All Other Systems: Reviewed and Negative Medications Current Inpatient Medications Medications (Trade) Dose Ordered Sig/Key Route Start Time Stop Time Status Last Admin Dose Admin Acetaminophen (Tylenol Tab) 650 mg Q4H PRN PO 05/21/17 20:15 06/20/17 20:14 05/28/17 03:43 650 MG Ondansetron HCl (Zofran Inj) 4 mg Q6H PRN IV 05/21/17 20:15 06/20/17 20:14 05/26/17 07:45 4 MG Nitroglycerin (Nitrostat Tab) 0.4 mg UD PRN SL 05/21/17 20:15 06/20/17 20:14 Polyethylene (Miralax Powder Packet) 17 gm DAILY PRN PO 05/21/17 20:15 06/20/17 20:14 05/27/17 17:29 17 GM Clonazepam (Klonopin Tab) 0.5 mg BID PO 05/21/17 21:00 06/20/17 20:59 05/31/17 07:55 0.5 MG Levothyroxine Sodium (Synthroid Tab) 25 mcg DAILYBB PO 05/22/17 06:30 06/21/17 06:59 05/31/17 06:17 25 MCG Trazodone HCl (Desyrel Tab) 100 mg HS PO 05/21/17 21:00 06/20/17 20:59 05/30/17 21:00 100 MG Albuterol (Ventolin Hfa Inhaler) 2 puffs QID PRN INH 05/21/17 20:15 06/20/17 20:14 05/22/17 16:14 2 PUFFS Pantoprazole Sodium (Protonix Tab) 40 mg DAILY PO 05/22/17 09:00 06/21/17 08:59 05/31/17 07:55 40 MG Piperacillin Sod/ Tazobactam Sod 3.375 gm/Dextrose 115 ml @ 28.75 mls/ hr Q8H IV 05/22/17 00:00 06/03/17 00:00 05/31/17 16:02 28.75 MLS/HR Piperacillin Sod/ Tazobactam Sod (Consult) 1 ea UD PRN N/A 05/21/17 22:15 06/20/17 22:14 Haloperidol (Haldol Tab) 10 mg HS PO 05/22/17 21:00 06/20/17 20:59 05/30/17 21:01 10 MG Benztropine Mesylate (Cogentin Tab) 1 mg BID PO 05/22/17 21:00 06/20/17 20:59 05/31/17 07:55 1 MG Albuterol/ Ipratropium (Duoneb) 3 ml QIDR INH 05/22/17 20:00 06/21/17 19:59 05/31/17 18:20 3 ML Gentamicin Sulfate (Consult) 1 ea UD PRN N/A 05/27/17 20:45 06/03/17 19:59 Haloperidol Lactate (Haldol Inj) 5 mg Q4H PRN IV 05/28/17 04:30 06/27/17 04:29 05/28/17 04:51 5 MG Rivaroxaban (Xarelto Tab) 15 mg BIDM PO 05/28/17 17:00 06/14/17 23:00 05/31/17 16:02 15 MG Haloperidol (Haldol Tab) 5 mg BID PRN PO 05/28/17 12:15 06/27/17 12:14 05/28/17 18:31 5 MG Gentamicin Sulfate 560 mg/ Dextrose 114 ml @ 100 mls/hr TODAY@1999 IV 05/29/17 20:00 06/03/17 19:59 05/30/17 19:42 100 MLS/HR Objective Vital Signs Date Time Temp Pulse Resp B/P (MAP) Pulse Ox O2 Delivery O2 Flow Rate FiO2 05/31/17 18:20 77 18 94 Mask 5.0 05/31/17 16:01 97 Oxymask 7.0 05/31/17 15:59 37.4 88 15 99/63 (75) 98 Mask 7.0 05/31/17 15:28 71 18 97 Mask 7.0 05/31/17 12:11 Oxymask 7.0 05/31/17 11:33 37.1 71 20 101/58 (72) 97 Oxymask 7.0 05/31/17 11:22 73 18 98 Mask 7.0 05/31/17 11:04 High Flow Oxygen 50.0 05/31/17 08:00 High Flow Oxygen 50.0 05/31/17 07:26 82 20 96 Nasal Cannula 50.0 50 05/31/17 04:27 37.3 83 20 92/54 (67) 97 High Flow Oxygen 50.0 05/31/17 04:00 High Flow Oxygen 50.0 50 05/31/17 00:00 97 High Flow Oxygen 50.0 50 05/30/17 23:26 36.6 81 20 104/66 (79) 92 High Flow Oxygen 50.0 05/30/17 20:00 97 High Flow Oxygen 50.0 05/30/17 19:37 84 20 98 Nasal Cannula 50.0 50 Physical Exam General Appearance: WD/WN, no apparent distress Eyes: normal inspection, sclerae normal ENT: normal ENT inspection, pharynx normal Neck: supple, no adenopathy, thyroid normal, trachea midline Respiratory/Chest: chest non-tender, lungs clear, normal breath sounds, no respiratory distress Cardiovascular: regular rate, rhythm, no gallop, no murmur Abdomen: normal bowel sounds, non tender, soft, no organomegaly Extremities: non-tender, no calf tenderness Neurologic/Psychiatric: alert, oriented x 3 Skin: normal color, no rash Lymphatic: no adenopathy Laboratory Results Last 24 Hours Test 05/31/17 04:44 05/31/17 06:18 White Blood Count 13.03 K/uL Red Blood Count 3.34 M/uL Hemoglobin 10.3 g/dL Hematocrit 30.2 % Mean Corpuscular Volume 90.4 fL Mean Corpuscular Hemoglobin 30.8 pg Mean Corpuscular Hemoglobin Concent 34.1 g/dl Platelet Count 312 K/uL Mean Platelet Volume 9.5 fL Neutrophils (%) (Auto) 71.8 % Lymphocytes (%) (Auto) 16.7 % Monocytes (%) (Auto) 7.6 % Eosinophils (%) (Auto) 2.3 % Basophils (%) (Auto) 0.4 % Neutrophils # (Auto) 9.35 K/uL Lymphocytes # (Auto) 2.18 K/uL Monocytes # (Auto) 0.99 K/uL Eosinophils # (Auto) 0.30 K/uL Basophils # (Auto) 0.05 K/uL RDW Standard Deviation 47.1 fL RDW Coefficient of Variation 14.2 % Immature Granulocyte % (Auto) 1.2 % Immature Granulocyte # (Auto) 0.16 K/uL Activated Partial Thromboplast Time 31.0 SECONDS Partial Thromboplastin Ratio 1.2 Sodium Level 142 mmol/L Potassium Level 4.1 mmol/L Chloride Level 107 mmol/L Carbon Dioxide Level 30 mmol/L Anion Gap 5.0 mmol/L Blood Urea Nitrogen 15 mg/dl Creatinine 0.94 mg/dl Est Creatinine Clear Calc Drug Dose 100.4 ml/min Estimated GFR () 104.6 Estimated GFR (Non- 90.3 BUN/Creatinine Ratio 15.5 Random Glucose 107 mg/dl Calcium Level 8.4 mg/dl Assessment and Plan Staph aureus sepsis with chest x-ray suggesting new cavitary infiltrates, consistent with either pulmonary infarction or septic emboli. Given positive blood cultures for Staph aureus, feel that patient should be continued on treatment for staphylococcal sepsis. Patient has been changed to IV cefazolin to complete 2 weeks of therapy. Will discuss with all involved.
[2017-05-31] MEDS: ACETAMINOPHEN 325 MG TAB PO PRN (19:27)
[2017-05-31] MEDS: TRAZODONE HCL 100 MG TAB PO SCH (20:41)
[2017-05-31] MEDS: HALOPERIDOL 5 MG TAB PO SCH (20:41)
[2017-05-31] MEDS: CEFAZOLIN IV 2,000 MG in DEXTROSE 5% 50ML 50 ML IV SCH (20:45)
[2017-06-01] VITALS (11 sets, daily range): BP systolic 94–125; BP diastolic 58–106; PULSE 54–89; TEMP 36.6–37.2; O2SAT 95–98
[2017-06-01] MEDS: LEVOTHYROXINE 25 MCG TAB PO SCH (06:03)
[2017-06-01] MEDS: CEFAZOLIN IV 2,000 MG in DEXTROSE 5% 50ML 50 ML IV SCH ×2 (06:03→13:23)
[2017-06-01 06:10] LABS: HEMATOCRIT 30.4 % (42-52); MEAN CELL VOLUME 90.2 fL (80-100); MEAN CORPUSCULAR HEMOGLOBIN 30.9 pg (25-34); MEAN CORPUSCULAR HGB CONC 34.2 g/dl (32-36); MEAN PLATELET VOLUME 9.1 fL (7.4-10.4); PLATELET COUNT 384 K/uL (130-400); RED BLOOD COUNT 3.37 M/uL (4.7-6.1); WHITE BLOOD COUNT 12.99 K/uL (4.8-10.8)
[2017-06-01 06:12] LABS: PARTIAL THROMBOPLASTIN RATIO 1.1
[2017-06-01] MEDS: ALBUT/IPRATROP 3MG/0.5MG NEB 3 ML VIAL INH SCH ×3 (07:39→14:42)
--- NOTE | 2017-06-01 08:03 | Family Medicine Progress Note ---
Progress Note Date of Service Jun 01, 2017. Subjective Pt evaluation today including: conversation w/ patient The patient was seen and examined at bedside. No acute overnight events. Pt was sitting up and eating breakfast with 3LNC. He has a slight cough. Pt is oriented and responding to questions. Pt understands that eventual plan of care is to go to [facility] but he thinks he will go home first - that is not my understanding. I will clarify with the correctional counselor/case manager. Pt understands that he must use his oxygen because he has an infection and blood clots in his lungs. Patient is resting comfortably in bed. Denies having any pain. Eating and urinating well. Plan of care was described to the patient and all questions were answered. ROS: No chest pain, no SOB, no dyspnea on exertion, + cough, no palpitations, no fevers, no chills, no nausea, no vomiting, no diarrhea, no dysuria, no rash. Constitutional: No fever, No chills, No weight loss ENT: No nasal symptoms, No sore throat Respiratory: No cough, No sputum Cardiovascular: No chest pain Abdomen: No pain, No nausea, No vomiting, No diarrhea Objective Physical Exam General Appearance: WD/WN, no apparent distress Neck: no adenopathy Respiratory/Chest: chest non-tender, lungs clear, normal breath sounds, no respiratory distress, no accessory muscle use Cardiovascular: regular rate, rhythm, no edema, no gallop, no JVD, no murmur Abdomen: normal bowel sounds, non tender, soft, no organomegaly Extremities: normal range of motion, non-tender, normal inspection, no pedal edema Neurologic/Psychiatric: delivery architect II-XII nml as tested, no motor/sensory deficits, alert, normal mood/affect, + pertinent finding (pt answers questions appropriately, is oriented to person and place, not time. ) Skin: no rash Assessment and Plan 56M with ARDS, Staph MSSA, and bilateral PEs that is currently stable on 4L NC. The patient was on broad spectrum antibiotics but after the cultures and sensitivities came back we narrowed the treatment to Zosyn. He continued to spike fevers for another 48 hours while on monotherapy so we added Gentamicin. He remains on nasal cannula and his shortness of breath is improving. He is also being followed by pulmonology and ID who are monitoring the patient who at this time is not a good candidate for a PÉREZ due to his respiratory status. Psych was also consulted due to his history of schizophrenia and multiple attempts to take off his nasal cannula and subsequently desaturate. The added additional PRN Haldol in case of those events. At present pt was transitioned by ID from Zosyn to Gentamycin on 06/01/17. Pt is currently awaiting Target approval for placement. Hypoxic Respiratory Failure 2/2 MSSA Sepsis possibly contributing to ARDS and Bilateral Pulmonary Embolisms, - Clinically improving - still on high flow O2, was previously on BiPAP. - Afebrile over the past 48 hours - CXR 05/27: Multifocal patchy opacities most concerning for multifocal pneumonia - CXR 05/28: Slight progression of extensive bilateral opacities - Staph Aureus positive blood cultures, Zosyn appropriate based on sensitivities. Repeat blood culture negative. - Unclear source of MSSA. No cavitary lesions on CT scan per pulmonology review of films. - PÉREZ not recommended at this time per cardiology due to respiratory status - Transthoracic ECHO: No signs of CHF, Good ejection fraction, no visible vegetations - Stopped - Zosyn s/p 10 days and Gentamicin s/p 4 days. - Started Cefazolin 2g Q8 to complete two weeks of therapy. - continue DuoNeb QID scheduled Possible PE on CT - CT for PE: Probable but not definite bilateral small pulmonary emboli - Xarelto 15mg daily for anticoagulation --> will require 3 months of anticoagulation therapy - US LE shows no DVT Schizophrenia - Chronic, Paranoid type with unspecified Anxiety disorder - Clear mentation - Psych consulted - Recommended 5mg Haldol BID PRN for agitation - Benztropine reduced to 1mg BID - Continue bedtime Haldol dose - 10mg qHS for now. (Per Evan, pt was on 20mg Haldol QHS but doing well on 10mg) - Clonazepam 0.5mg BID - Outpatient Psychiatry follow up Concern of alcohol abuse - reported drinking every day to construction administrative assistant. Declined this history today. No sign of alcohol withdrawal. Follow. - Vit B1 tomorrow AM lab pending. Acute Kidney Injury (resolved) - Most likely secondary to dehydration Hypothyroidism: continue Synthroid 25mcg daily GI Proph: continue Protonix 40mg daily. Pain: Continue Trazodone 100mg QHS DVT Proph: Xarelto as above. Dispo: Awaiting TARGET approval before sending to [facility]. DNR/ DNI with limited interventions Resident Involvement: Resident Care Provided Care Provided: [facility]
[2017-06-01] MEDS: RIVAROXABAN TAB 15 MG TAB PO SCH (08:27)
[2017-06-01] MEDS: PANTOprazole SOD 40 MG TAB PO SCH (08:27)
[2017-06-01] MEDS: BENZTROPINE MESYLATE 1 MG TAB PO SCH (08:27)
[2017-06-01] MEDS: CLONAZEPAM 0.5 MG TAB PO SCH (08:30)
--- NOTE | 2017-06-01 10:05 | Infectious Disease Progress Nt ---
Progress Note Date of Service Jun 01, 2017. Subjective Pt evaluation today including: conversation w/ patient, physical exam, chart review, lab review, review of studies, conversation w/ organizational effectiveness consultant, review of inpatient medication list Offers no new complaints today. Remains afebrile. Tolerating cefazolin. No increasing cough or shortness of breath. No chest pain. All Other Systems: Reviewed and Negative Medications Current Inpatient Medications Medications (Trade) Dose Ordered Sig/Key Route Start Time Stop Time Status Last Admin Dose Admin Acetaminophen (Tylenol Tab) 650 mg Q4H PRN PO 05/21/17 20:15 06/20/17 20:14 05/31/17 19:27 650 MG Ondansetron HCl (Zofran Inj) 4 mg Q6H PRN IV 05/21/17 20:15 06/20/17 20:14 05/26/17 07:45 4 MG Nitroglycerin (Nitrostat Tab) 0.4 mg UD PRN SL 05/21/17 20:15 06/20/17 20:14 Polyethylene (Miralax Powder Packet) 17 gm DAILY PRN PO 05/21/17 20:15 06/20/17 20:14 05/27/17 17:29 17 GM Clonazepam (Klonopin Tab) 0.5 mg BID PO 05/21/17 21:00 06/20/17 20:59 06/01/17 08:30 0.5 MG Levothyroxine Sodium (Synthroid Tab) 25 mcg DAILYBB PO 05/22/17 06:30 06/21/17 06:59 06/01/17 06:03 25 MCG Trazodone HCl (Desyrel Tab) 100 mg HS PO 05/21/17 21:00 06/20/17 20:59 05/31/17 20:41 100 MG Albuterol (Ventolin Hfa Inhaler) 2 puffs QID PRN INH 05/21/17 20:15 06/20/17 20:14 05/22/17 16:14 2 PUFFS Pantoprazole Sodium (Protonix Tab) 40 mg DAILY PO 05/22/17 09:00 06/21/17 08:59 06/01/17 08:27 40 MG Haloperidol (Haldol Tab) 10 mg HS PO 05/22/17 21:00 06/20/17 20:59 05/31/17 20:41 10 MG Benztropine Mesylate (Cogentin Tab) 1 mg BID PO 05/22/17 21:00 06/20/17 20:59 06/01/17 08:27 1 MG Albuterol/ Ipratropium (Duoneb) 3 ml QIDR INH 05/22/17 20:00 06/21/17 19:59 06/01/17 07:39 3 ML Haloperidol Lactate (Haldol Inj) 5 mg Q4H PRN IV 05/28/17 04:30 06/27/17 04:29 05/28/17 04:51 5 MG Rivaroxaban (Xarelto Tab) 15 mg BIDM PO 05/28/17 17:00 06/14/17 23:00 06/01/17 08:27 15 MG Haloperidol (Haldol Tab) 5 mg BID PRN PO 05/28/17 12:15 06/27/17 12:14 05/28/17 18:31 5 MG Cefazolin Sodium 2000 mg/Dextrose 60 ml @ 100 mls/hr Q8 IV 05/31/17 20:00 06/14/17 19:59 06/01/17 06:03 100 MLS/HR Objective Vital Signs Date Time Temp Pulse Resp B/P (MAP) Pulse Ox O2 Delivery O2 Flow Rate FiO2 06/01/17 07:40 72 18 97 Nasal Cannula 3.0 06/01/17 07:30 97 Nasal Cannula 4.5 06/01/17 07:04 37.2 64 18 94/58 (70) 97 4.5 06/01/17 04:18 37.2 79 20 97/61 (73) 95 4.0 06/01/17 04:00 Nasal Cannula 4.5 06/01/17 00:05 36.6 54 18 125/106 (112) 98 4.5 06/01/17 00:00 97 Nasal Cannula 4.5 05/31/17 20:00 97 Oxymask 7.0 05/31/17 19:45 37.1 90 18 110/68 (82) 97 Nasal Cannula 4.5 05/31/17 18:20 77 18 94 Mask 5.0 05/31/17 16:01 97 Oxymask 7.0 05/31/17 15:59 37.4 88 15 99/63 (75) 98 Mask 7.0 05/31/17 15:28 71 18 97 Mask 7.0 05/31/17 12:11 Oxymask 7.0 05/31/17 11:33 37.1 71 20 101/58 (72) 97 Oxymask 7.0 05/31/17 11:22 73 18 98 Mask 7.0 05/31/17 11:04 High Flow Oxygen 50.0 Physical Exam General Appearance: WD/WN, no apparent distress Eyes: normal inspection, sclerae normal ENT: normal ENT inspection, pharynx normal Neck: supple, no adenopathy, trachea midline Respiratory/Chest: lungs clear, normal breath sounds, no respiratory distress Cardiovascular: regular rate, rhythm, no gallop, no murmur Abdomen: normal bowel sounds, non tender, soft, no organomegaly Extremities: non-tender, no calf tenderness Neurologic/Psychiatric: alert, oriented x 3 Skin: normal color, warm/dry, no rash Lymphatic: no adenopathy Laboratory Results RUN DATE: 05/29/17 [facility] PAGE 1 RUN TIME: 737 Specimen Inquiry PATIENT: CHUY POE Nikita [facility] #: [id number] LOC: [facility] # : [id number] AGE/SX: 56/M ROOM: 81 REG : 05/21/[address]: Norberto Cat D.O. : 1960 BED: 2 DIS : STATUS: ADM IN TLOC: SPEC #: [id number] JOSE ALEJANDRO: 05/27/17 STATUS: RES REQ #: [id number] RECD: 05/27/[address] [facility] [address]: Eloy Clark MD SOURCE: BLOOD ENTR: 05/27/17 [facility] DR: Erick Starr MD [facility]: Ashley Spence Jeffrey G., M.D. Good, Candace R., M.D. Ridenour, Ryan, D.O. Shippert, Brian W. , D.OTwyla Velasquez MD Tussey, Natalie B., MD Waddington, Laci Goldberg MD ORDERED: BLOOD CULTURE Procedure Result Verified Site BLD CULT Preliminary 05/29/17 NO GROWTH TO DATE. Last 24 Hours Test 06/01/17 05:20 White Blood Count 12.99 K/uL Red Blood Count 3.37 M/uL Hemoglobin 10.4 g/dL Hematocrit 30.4 % Mean Corpuscular Volume 90.2 fL Mean Corpuscular Hemoglobin 30.9 pg Mean Corpuscular Hemoglobin Concent 34.2 g/dl RDW Standard Deviation 46.4 fL RDW Coefficient of Variation 14.0 % Platelet Count 384 K/uL Mean Platelet Volume 9.1 fL Activated Partial Thromboplast Time 29.2 SECONDS Partial Thromboplastin Ratio 1.1 Assessment and Plan Staph aureus sepsis with chest x-ray suggesting new cavitary infiltrates, consistent with either pulmonary infarction or septic emboli. Given positive blood cultures for Staph aureus, feel that patient should be continued on treatment for staphylococcal sepsis. Patient has been changed to IV cefazolin to complete 2 weeks of therapy. Will discuss with all involved.
[2017-06-01] MEDS ORDERED: XRL15 PO (15:03)
[2017-06-01] MEDS ORDERED: IPRASOL4 INH (15:03)
[2017-06-01] MEDS ORDERED: CGN1 PO (15:03)
[2017-06-01] MEDS ORDERED: HLD5 PO (15:03)
[2017-06-01] MEDS ORDERED: KFZAV1 IV (15:03)
--- NOTE | 2017-06-01 15:07 | Discharge Instructions ---
Discharge Instructions Date of Service Jun 01, 2017. Admission Reason for Admission: Weakness Generalized Discharge Discharge Diagnosis / Problem: Acute respiratory failure, MSSA bacteremia/ sepsis, ARDS Discharge Goals Goal(s): Improve disease control Activity Recommendations Activity Level: Assistance Required . Additional Information Patient informed of condition: Yes Advance Directives: Yes DNR: Yes Level of Care: Skilled Communicable Disease: No Prognosis: Improving Instructions / Follow-Up Instructions / Follow-Up With family physician and pulmonology after discharge from [facility] To consider reviewing outpatient psychiatry follow up on discharge. Current Hospital Diet Patient's current hospital diet: AHA Diet (Heart Healthy) Discharge Diet Recommended Diet: Regular Diet Pending Studies Studies pending at discharge: no Medical Emergencies . Who to Call and When: Medical Emergencies: If at any time you feel your situation is an emergency, please call 911 immediately. . Non-Emergent Contact Non-Emergency issues call your: Primary Care Provider . . "Provider Documentation" section prepared by Nasima Jarvis. . Core Measure Problem Core Measures: None
--- NOTE | 2017-06-01 16:46 | Discharge Summary ---
Discharge Summary Date of Service Jun 01, 2017. (Manjeet Wang M.D.) Discharge Summary Admission Date: May 21, 2017 at 20:18 Discharge Date: Jun 01, 2017 Discharge Disposition: custodial facility Principal Diagnosis: MSSA Sepsis with Bacteremia Immunizations: Have You Had Influenza Vaccine: Yes Influenza Vaccine Date: Nov 01, 2009 History of Tetanus Vaccine?: No History of Pneumococcal: Yes Pneumococcal Date: Nov 24, 2008 History of Hepatitis B Vaccine: No Procedures: CT HEAD WITHOUT CONTRAST (CT) CLINICAL HISTORY: Acute change in mental status. Weakness. COMPARISON STUDY: 12/18/2012 TECHNIQUE: Axial CT of the brain is performed from the vertex to the skull base. IV contrast was not administered for this examination. A dose lowering technique was utilized adhering to the principles of ALARA. CT DOSE: 537.48 mGy.cm FINDINGS: No intra or extra-axial mass lesions are visualized. There is no CT evidence of acute cortical infarction. There is no evidence of midline shift. There is no acute hemorrhage. No calvarial fractures are visualized. There is no evidence of pathologic ventricular dilatation. There is no evidence of acute sinusitis IMPRESSION: No acute intracranial findings CT ANGIOGRAM OF THE CHEST CLINICAL HISTORY: Worsening shortness of breath. Cough. Possible pulmonary embolism. COMPARISON STUDY: 04/19/2012 , chest x-ray dated 05/23/2017 TECHNIQUE: Following the IV administration of 90 mL of Optiray-320, CT angiogram of the thorax was performed from the thoracic inlet to the lung bases utilizing the pulmonary embolus protocol. Images are reviewed in the axial, sagittal, and coronal planes. IV contrast was administered without complication. MIP imaging was performed. A dose lowering technique was utilized adhering to the principles of ALARA. CT DOSE: 603.45 mGy.cm FINDINGS: Mediastinal lymph nodes are the upper limits of normal in size. There are borderline enlarged hilar lymph nodes. There was no evidence of thoracic aortic dilatation. There is suboptimal pulmonary arterial opacification. There is a probable small pulmonary artery filling defect within a lingular branch. There is a probable tiny filling defect within a right lower lobe pulmonary artery branch. Correlation with venous Doppler leg ultrasonography is recommended. No pleural effusions are visualized. There are extensive relatively diffuse bilateral groundglass opacities with a mosaic pattern. IMPRESSION: 1. Technically limited study 2. Probable but not definite small bilateral pulmonary emboli. Correlation with leg venous ultrasound sonography is recommended. 3. Extensive bilateral groundglass pulmonary opacities with a mosaic pattern. VENOUS DOPPLER LW EXT BILAT HISTORY: 9 CTPA shows possible PE ?DVT in legs COMPARISON STUDY: 06/18/2016 FINDINGS: Chronic venous scarring right popliteal vein. No evidence of deep venous thrombosis. Compressibility and augmentation characteristics are unremarkable. IMPRESSION: Chronic scarring right popliteal vein. No evidence for acute deep venous thrombosis. ECHOCARDIOGRAM * Reason For Study: CHF * BSA: 2.1 m2 * Hyperdynamic left ventricular systolic function. * Class I LV diastolic dysfunction. * Normal chamber dimensions. * No significant valvular abnormalities. * No evidence of elevated right ventricular or central venous pressures. * The study was technically difficult. Most recent chest X-ray from 05/29/17: CHEST ONE VIEW PORTABLE CLINICAL HISTORY: Hypoxia, low oxygen saturation. COMPARISON STUDY: Chest CT May 23, 2017 and chest radiograph May 26, 2017. FINDINGS: There is no pneumothorax or pleural effusion. Diffuse bilateral airspace opacities with interstitial thickening are noted. Slight progression since prior exam is noted. Cardiomediastinal silhouette is stable. IMPRESSION: Slight progression of extensive bilateral airspace opacities and interstitial thickening. The findings could reflect multifocal pneumonia, pulmonary edema or ARDS. (Manjeet Wang M.D.) Medication Reconciliation New Medications: Cefazolin Sod (Cefazolin Sodium) 1 Gm Inj 2 GM IV Q8 for 2 Days, #6 VIAL Benztropine Mesylate (Cogentin) 1 Mg Tab 1 MG PO BID for 30 Days, #60 TAB Haloperidol (Haloperidol) 5 Mg Tab 10 MG PO HS for 30 Days, #30 TAB Ipratropium-Albuterol (Duoneb) 3 Ml Nebu 3 ML INH QIDR for 7 Days, #28 VIAL Rivaroxaban (Xarelto) 15 Mg Tab 15 MG PO BIDM for 30 Days, #60 TAB 15 mgs bid for 14 days then 20 mgs daily for total treatment duration of 6 months Continued Medications: Albuterol Sulfate (Proair Respiclick) 108 Mcg/Act Aer 2 PUFFS INH QID PRN for SOB/Wheezing Clonazepam (Klonopin) 0.5 Mg Tab 0.5 MG PO BID, TAB Haloperidol (Haldol) 10 Mg Tab 2 TAB PO HS Levothyroxine Sodium (Synthroid) 25 Mcg Tab 25 MCG PO QAM, TAB Meloxicam (Meloxicam) 15 Mg Tab 15 MG PO DAILY Multivitamin (Multivitamin) Tab 1 TAB PO DAILY, TAB Omeprazole (Prilosec) 40 Mg Cap 40 MG PO DAILY, CAP Trazodone HCl (Trazodone HCl) 100 Mg Tab 100 MG PO HS Discontinued Medications: Benztropine Mesylate (Benztropine Mesylate) 2 Mg Tab 2 MG PO BID, TAB Discharge Exam Subjective The patient was seen and examined at bedside. No acute overnight events. Pt was sitting up and eating breakfast with 3LNC. He has a slight cough. Pt is oriented and responding to questions. Pt understands that eventual plan of care is to go to [facility] but he thinks he will go home first - that is not my understanding. I will clarify with the case fitter. Pt understands that he must use his oxygen because he has an infection and blood clots in his lungs. Patient is resting comfortably in bed. Denies having any pain. Eating and urinating well. Plan of care was described to the patient and all questions were answered. ROS: No chest pain, no SOB, no dyspnea on exertion, + cough, no palpitations, no fevers, no chills, no nausea, no vomiting, no diarrhea, no dysuria, no rash. Constitutional: No fever, No chills, No weight loss ENT: No nasal symptoms, No sore throat Respiratory: No cough, No sputum Cardiovascular: No chest pain Abdomen: No pain, No nausea, No vomiting, No diarrhea Physical Exam General Appearance: WD/WN, no apparent distress Neck: no adenopathy Respiratory/Chest: chest non-tender, lungs clear, normal breath sounds, no respiratory distress, no accessory muscle use Cardiovascular: regular rate, rhythm, no edema, no gallop, no JVD, no murmur Abdomen: normal bowel sounds, non tender, soft, no organomegaly Extremities: normal range of motion, non-tender, normal inspection, no pedal edema 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 ) Skin: no rash (Manjeet Wang M.D.) breathing much improved. Review of Systems: Constitutional: No fever Cardiovascular: No chest pain Abdomen: No pain, No nausea Neurologic: No weakness Physical Exam: General Appearance: no apparent distress Respiratory/Chest: lungs clear, no respiratory distress Cardiovascular: regular rate, rhythm Neurologic/Psychiatric: alert, normal mood/affect, oriented x 3 Skin: warm/dry (Nasima Jarvis M.D.) Hospital Course 56M with ARDS, Staph MSSA, and bilateral PEs that is currently stable on 4L NC. Blood cultures grew Staph Aureus resistant to Clindamycin and Erythromycin. The patient was on broad spectrum antibiotics but after the cultures and sensitivities came back we narrowed the treatment to Zosyn. He continued to spike fevers for another 48 hours while on monotherapy so we added Gentamicin. Repeat blood cultures were negative. The pt was weaned from BIPAP to eventually nasal cannula. During his hospital stay he was anticoagulated with Xarelto which we will continue on discharge for at least 6 months. Psych was also consulted due to his history of schizophrenia and multiple attempts to take off his nasal cannula and subsequently desaturate. We added additional PRN Haldol in case of those events. The patient was discharged with an additional 2 days of Cefazolin IV TID per ID's recommendations. Per our Psychiatric Liaison the pt was on 20mg Haldol QHS but he was doing well on 10mg QHS. We recommend continued outpatient Psychiatry follow ups. The patient reported drinking every day to the [employer], however to myself and my Attending he stated he only had around 3 drinks per month. The patient's liver enzymes were not significantly elevated. Pt's other comorbidities that were treated in the hospital include hypothyroidism and MSK pain treated with Trazodone 100mg QHS. The patient's code status in the hospital was DNR/ DNI with limited interventions. Total Time Spent: Greater than 30 minutes This includes examination of the patient, discharge planning, medication reconciliation, and communication with other providers. (Manjeet Wang M.D.) Resident Physician Supervision Note: I was present with Dr. Wang in bedside. I verified the [place] history and physical, reviewed labs and image studies, discussed the case with the resident and agree with the findings and care plan. Total Time Spent: Greater than 30 minutes (40) (Nasima Jarvis M.D.) Discharge Instructions Please refer to the electronic Patient Visit Report (Discharge Instructions) for additional information. (Manjeet Wang M.D.) Additional Copies To Sanam Romo; Ashley Spence
[2017-07-04] MEDS ORDERED: ZTHM250 PO (10:29)
[2017-07-04] MEDS ORDERED: AMOX1TAB43 PO (10:29)
[2017-07-04] MEDS ORDERED: IPRA1AER2 INH (10:29)
== END 2017-06-01 17:11 | DRG 871 ==
LOC: EDBD 15:15 → C.EDB 15:16 → C.MED 20:18 → ENRESERV 20:54
PROVIDERS: ADMIT Family Medicine; ATTEND Family Medicine
DX: A41.01 Sepsis due to Methicillin susceptible Staphylococcus aureus (principal); J69.0 Pneumonitis due to inhalation of food and vomit; I24.8 Other forms of acute ischemic heart disease; N17.9 Acute kidney failure, unspecified; J96.01 Acute respiratory failure with hypoxia; F20.0 Paranoid schizophrenia; I26.99 Other pulmonary embolism without acute cor pulmonale; I10 Essential (primary) hypertension; F41.8 Other specified anxiety disorders; K21.9 Gastro-esophageal reflux disease without esophagitis; Z86.711 Personal history of pulmonary embolism; E11.9 Type 2 diabetes mellitus without complications; F17.200 Nicotine dependence, unspecified, uncomplicated; R65.20 Severe sepsis without septic shock; F03.90 Unspecified dementia, unspecified severity, without behavioral disturbance, psychotic disturbance, mood disturbance, and anxiety

== ENCOUNTER 2017-06-26 20:03 | Emergency (ER) | payer OTHER ==
[~2017-06-26] VITALS: Ht 175.3 cm; Wt 93.5 kg
[~2017-06-26 20:03] MED LIST changes: +ALBU18002 INH; +CGN1 PO; -CGN1X PO; +DSY100 PO; +HLD5 PO; -INHALER PO; +IPRASOL4 INH; +KFZAV1 IV; +LEVO25TA PO; +MELO15TA4 PO; -TRAZ50TA35 PO; +XRL15 PO
[2017-06-26 20:13] VITALS: TEMP 37.4; Ht 175.3 cm; Wt 93.5 kg
[2017-06-26] MEDS ORDERED: ALBUT/IPRATROP 3MG/0.5MG NEB 3 ML VIAL INH STA (20:35)
[2017-06-26 20:39] VITALS: O2SAT 100
[2017-06-26] MEDS ORDERED: CGN1 PO (21:00)
[2017-06-26 21:01] LABS: BASO % 0.2 %; BASO ABS # 0.03 K/uL (0-0.2); COMPLETE YES; EOS % 1.5 %; HEMATOCRIT 35.1 % (42-52); IG% 0.4 %; LYMPH % 23.5 %; LYMPH ABS # 3.27 K/uL (1.2-3.4); MEAN CELL VOLUME 88.2 fL (80-100); MEAN CORPUSCULAR HEMOGLOBIN 30.4 pg (25-34); MEAN CORPUSCULAR HGB CONC 34.5 g/dl (32-36); MEAN PLATELET VOLUME 8.5 fL (7.4-10.4); MONO % 5.2 %; NEUT % 69.2 %; PLATELET COUNT 240 K/uL (130-400); RED BLOOD COUNT 3.98 M/uL (4.7-6.1); WHITE BLOOD COUNT 13.89 K/uL (4.8-10.8)
[2017-06-26] MEDS ORDERED: HALO10TA17 PO (21:01)
[2017-06-26 21:12] LABS: PARTIAL THROMBOPLASTIN RATIO 1.1; PROTHROMBIN TIME (PATIENT) 11.1 SECONDS (9.0-12.0)
[2017-06-26 21:19] LABS: BUN/CREATININE RATIO 13.1 (10-20); CALCIUM 8.8 mg/dl (8.5-10.1); CREATININE 1.1 mg/dl (0.60-1.40); POTASSIUM 3.3 mmol/L (3.5-5.1)
[2017-06-26 21:22] LABS: POINT OF CARE TROPONIN I < 0.030 ng/ml (0-0.045)
[2017-06-26] MEDS ORDERED: OPTIRAY 320 IV PRN (22:15)
--- NOTE | 2017-06-26 22:26 | DIAGNOSTIC IMAGING REPORT ---
ADDENDUM Additional clinical history was provided the patient previously was diagnosed with staph aureus multifocal pneumonia. In light of this, these current findings on CT could represent overall improvement with expected interval evolution of multifocal pneumonia with subpleural reticulation likely representing postinfectious changes related to airspace clearance. Therefore, the diagnosis of nonspecific interstitial pneumonia is unlikely. Electronically signed by: Panda Miner M.D. 06/26/2017 10:44 PM Dictated Date/Time: 06/26/2017 10:41 PM ORIGINAL REPORT (CHEST FOR PE) ANGIO WITH CLINICAL HISTORY: 56 years-old Male presenting with difficulty breathing, clinical concern for pulmonary embolus. TECHNIQUE: Multidetector CT angiography of the chest was performed after administration of intravenous contrast. 3-D volumetric and maximum intensity projection (MIP) images were subsequently reconstructed for review. IV contrast: 115 mL of Optiray 320. A dose lowering technique was used consistent with the principles of ALARA (as low as reasonably achievable). COMPARISON: 05/23/2017. CT DOSE (mGy.cm): The estimated cumulative dose is 506.71 mGy.cm. FINDINGS: [employer] topogram: Unremarkable. Pulmonary vasculature: The study is adequate for assessment of the pulmonary vascular tree. No filling defect within the pulmonary arteries to suggest embolus. Main pulmonary artery not enlarged. No flattening of the interventricular septum. No intracardiac filling defect. Remaining chest: On soft tissue windows, normal thyroid and thoracic inlet. Few prominent mediastinal and bilateral hilar lymph nodes, likely reactive. Minimal atherosclerosis of the descending thoracic aorta. Normal heart size. No pericardial or pleural effusion. Upper abdomen normal. On lung windows, apical predominant emphysema. Peripheral reticulation and groundglass opacity with subpleural sparing. No significant bronchiectasis is evident. Mosaic attenuation also suggested. Overall decrease groundglass opacity and mosaic attenuation from prior exam. Airways patent. On bone windows, minimal degenerative changes of the thoracic spine. IMPRESSION: 1. No evidence of pulmonary embolus. 2. Interval evolution of previously noted diffuse opacities, which now demonstrate peripheral reticulation, groundglass, and subpleural sparing. This could be compatible with a nonspecific interstitial pneumonia pattern. 3. Emphysema. 4. Few prominent mediastinal and hilar lymph nodes likely reactive. Electronically signed by: Panda Miner M.D. 06/26/2017 10:24 PM Dictated Date/Time: 06/26/2017 10:19 PM
[2017-06-26] MEDS ORDERED: LEVOFLOXACIN 250 MG TAB PO STA (22:53)
[2017-06-26] MEDS ORDERED: LEVO-366 PO (22:56)
--- NOTE | 2017-06-26 23:12 | EMERGENCY ROOM VISIT NOTE ---
History Report prepared by Jesus: Eri Stephens Under the Supervision of: Dr. Laci Johnson M.D. First contact with patient: 20:22 Chief Complaint: SHORTNESS OF BREATH Stated Complaint: BREATHING DIFFICULTY Nursing Triage Summary: Patient arrived ALS for evaluation of shortness of breath. Patient has had shortness of breath x 1year. Patient was admitted to [facility] in May for COPD, pneumonia, a PE, and a possible TIA. Patient was discharged to [facility] for rehab and then released back to home last week. Patient reports increased shortness of breath since coming home. He had a difficulty breathing episode today that got better on its own. Patient is to wear home oxygen PRN. Upon EMS arrival, patient was standing outside with an O2 saturation of 96% on room air. History of Present Illness The patient is a 56 year old male who presents to the Emergency Room with complaints of worsening shortness of breath that started 10 hours ago. The patient states that he has had shortness of breath for a month. He reports that he has been on Oxygen, has had his AC on, and has been using his inhaler/ He notes that he has chills and started coughing this morning. He notes that his cough did produce sputum, but he doesn't know what color. The patient states that he has not been taking a blood thinner because he was not given one when he got out of [facility] 4 days ago. The patient states that he sometimes gets pain in his chest and that it hurts to take a deep breath when he has it. Source of History: patient Onset: 10 hours ago Position: other (global) Quality: other (global) Timing: worsening Modifying Factors (Worsening): breathing (deep) Associated Symptoms: + chills, + cough, + chest pain Review of Systems See HPI for pertinent positives & negatives. A total of 10 systems reviewed and were otherwise negative. Past Medical & Surgical Medical Problems: (1) Anxiety (2) ARDS (adult respiratory distress syndrome) (3) Benign hypertension (4) Depression (5) Gastroesophageal reflux disease (6) History of - schizophrenia (7) Pulmonary embolism (8) Weakness generalized Family History FHx: cancer FHx: diabetes FHx: heart disease FHx: hypertension FHx: lung disease Social History Smoking Status: Never Smoker Alcohol Use: none Drug Use: none Marital Status: Housing Status: lives with significant other Occupation Status: disabled Current/Historical Medications Scheduled Benztropine Mesylate (Cogentin), 1 MG PO BID Clonazepam (Klonopin), 0.5 MG PO BID Haloperidol (Haldol), 10 MG PO HS Levofloxacin (Levaquin), 500 MG PO DAILY Levothyroxine Sodium (Synthroid), 25 MCG PO QAM Meloxicam (Meloxicam), 15 MG PO DAILY Multivitamin (Multivitamin), 1 TAB PO DAILY Omeprazole (Prilosec), 40 MG PO DAILY Trazodone HCl (Trazodone HCl), 100 MG PO HS Scheduled PRN Albuterol Sulfate (Proair Respiclick), 2 PUFFS INH QID PRN for SOB/Wheezing Allergies Coded Allergies: No Known Allergies (Verified , 06/18/16) Physical Exam Vital Signs Date Time Temp Pulse Resp B/P (MAP) Pulse Ox O2 Delivery O2 Flow Rate FiO2 06/26/17 21:57 79 20 121/68 98 Nasal Cannula 2.0 06/26/17 20:39 100 Nasal Cannula 2.0 06/26/17 20:20 86 06/26/17 20:13 37.4 82 18 121/68 100 Nasal Cannula 2.0 06/26/17 20:13 99 Nasal Cannula 2.0 Physical Exam Constitutional: Vital signs reviewed. Eyes: Pupils are equal round reactive to light. Conjunctiva are noninjected. ENT: Pharynx is clear without erythema or exudate. Mucous membranes are moist. Neck supple without meningeal signs. Respiratory: Clear to auscultation bilaterally. Breath sounds are equal bilaterally. Fair to good air entry bilaterally. Cardiovascular: Regular rate and rhythm. No rubs or gallops. GI: Soft, nondistended and nontender. Bowel sounds are present. Musculoskeletal: No peripheral edema. No lower extremity tenderness. Integumentary: No cyanosis. Neurological: The patient is awake and alert. No focal deficits. Psychiatric: Normal affect. Medical Decision & Procedures ER Provider Diagnostic Interpretation: Radiology results as stated below per my review and the radiologist's interpretation: (CHEST FOR PE) ANGIO WITH CLINICAL HISTORY: 56 years-old Male presenting with difficulty breathing, clinical concern for pulmonary embolus. TECHNIQUE: Multidetector CT angiography of the chest was performed after administration of intravenous contrast. 3-D volumetric and maximum intensity projection (MIP) images were subsequently reconstructed for review. IV contrast: 115 mL of Optiray 320. A dose lowering technique was used consistent with the principles of ALARA (as low as reasonably achievable). COMPARISON: 05/23/2017. CT DOSE (mGy.cm): The estimated cumulative dose is 506.71 mGy.cm. FINDINGS: Lithographic Artist topogram: Unremarkable. Pulmonary vasculature: The study is adequate for assessment of the pulmonary vascular tree. No filling defect within the pulmonary arteries to suggest embolus. Main pulmonary artery not enlarged. No flattening of the interventricular septum. No intracardiac filling defect. Remaining chest: On soft tissue windows, normal thyroid and thoracic inlet. Few prominent mediastinal and bilateral hilar lymph nodes, likely reactive. Minimal atherosclerosis of the descending thoracic aorta. Normal heart size. No pericardial or pleural effusion. Upper abdomen normal. On lung windows, apical predominant emphysema. Peripheral reticulation and groundglass opacity with subpleural sparing. No significant bronchiectasis is evident. Mosaic attenuation also suggested. Overall decrease groundglass opacity and mosaic attenuation from prior exam. Airways patent. On bone windows, minimal degenerative changes of the thoracic spine. IMPRESSION: 1. No evidence of pulmonary embolus. 2. Interval evolution of previously noted diffuse opacities, which now demonstrate peripheral reticulation, groundglass, and subpleural sparing. This could be compatible with a nonspecific interstitial pneumonia pattern. 3. Emphysema. 4. Few prominent mediastinal and hilar lymph nodes likely reactive. Electronically signed by: Panda Miner M.D. 06/26/2017 10:24 PM Dictated Date/Time: 06/26/2017 10:19 PM Laboratory Results 06/26/17 20:50 Red Blood Count 3.98, Mean Corpuscular Volume 88.2, Mean Corpuscular Hemoglobin 30.4, Mean Corpuscular Hemoglobin Concent 34.5, Mean Platelet Volume 8.5, Neutrophils (%) (Auto) 69.2, Lymphocytes (%) (Auto) 23.5, Monocytes (%) (Auto) 5.2, Eosinophils (%) (Auto) 1.5, Basophils (%) (Auto) 0.2, Neutrophils # (Auto) 9.60, Lymphocytes # (Auto) 3.27, Monocytes # (Auto) 0.72, Eosinophils # (Auto) 0.21, Basophils # (Auto) 0.03 06/26/17 20:50 Test 06/26/17 20:50 06/26/17 21:04 White Blood Count 13.89 K/uL (4.8-10.8) Red Blood Count 3.98 M/uL (4.7-6.1) Hemoglobin 12.1 g/dL (14.0-18.0) Hematocrit 35.1 % (42-52) Mean Corpuscular Volume 88.2 fL (80-100) Mean Corpuscular Hemoglobin 30.4 pg (25-34) Mean Corpuscular Hemoglobin Concent 34.5 g/dl (32-36) Platelet Count 240 K/uL (130-400) Mean Platelet Volume 8.5 fL (7.4-10.4) Neutrophils (%) (Auto) 69.2 % Lymphocytes (%) (Auto) 23.5 % Monocytes (%) (Auto) 5.2 % Eosinophils (%) (Auto) 1.5 % Basophils (%) (Auto) 0.2 % Neutrophils # (Auto) 9.60 K/uL (1.4-6.5) Lymphocytes # (Auto) 3.27 K/uL (1.2-3.4) Monocytes # (Auto) 0.72 K/uL (0.11-0.59) Eosinophils # (Auto) 0.21 K/uL (0-0.5) Basophils # (Auto) 0.03 K/uL (0-0.2) RDW Standard Deviation 43.7 fL (36.4-46.3) RDW Coefficient of Variation 13.5 % (11.5-14.5) Immature Granulocyte % (Auto) 0.4 % Immature Granulocyte # (Auto) 0.06 K/uL (0.00-0.02) Prothrombin Time 11.1 SECONDS (9.0-12.0) Prothromb Time International Ratio 1.0 (0.9-1.1) Activated Partial Thromboplast Time 28.7 SECONDS (21.0-31.0) Partial Thromboplastin Ratio 1.1 Anion Gap 7.0 mmol/L (3-11) Est Creatinine Clear Calc Drug Dose 84.7 ml/min Estimated GFR () 86.5 Estimated GFR (Non- 74.6 BUN/Creatinine Ratio 13.1 (10-20) Calcium Level 8.8 mg/dl (8.5-10.1) Bedside D-Dimer > 450 ng/mlFEU (0-450) Bedside Troponin I < 0.030 ng/ml (0-0.045) Laboratory results as reviewed by me. Medications Administered Medications (Trade) Dose Ordered Sig/Key Route Start Time Stop Time Status Last Admin Dose Admin Albuterol/ Ipratropium (Duoneb) 3 ml NOW STAT INH 06/26/17 20:35 06/26/17 20:37 DC 06/26/17 20:56 3 ML ECG Indication: SOB/dyspnea Rate (beats per minute): 77 Rhythm: normal sinus Findings: no acute ischemic change, no ectopy Comparison ECG Date: May 22 Change: no significant change ED Course 2028: The patient was evaluated in room C4. A complete history and physical exam was performed. 2034: Ordered Duoneb 3 ml INH. 2238: I reevaluated the patient and discussed the test results with him. He feels much better. His O2 is at 100%. He states that he cannot be admitted to the hospital due to his . 2245: I discussed the patient's case with Dr. Roach. He states not to put the patient back on Xarelto. He wants the patient sent home on Levaquin and have him take his Pro Air when needed. 2251: Upon reevaluation, the patient appeared to have improvement of his symptoms. I discussed pooja's findings with the patient. He verbalized agreement of the treatment plan and is really happy about it. The patient was discharged home. 3: Ordered Levofloxacin 500 mg PO. Medical Decision This is a 56-year-old male who presents with shortness of breath. Differential diagnosis includes COPD exacerbation, pneumonia, pneumothorax, pulmonary embolism, bronchitis. I did perform a limited focused review of portions of the patient's old chart on the electronic medical record. The patient was admitted May 21 for MSSA, sepsis, and bacteremia. His CT angiogram of his chest showed probable, but not definite pulmonary emboli. Venous Doppler was negative for DVT. The patient was discharged home with Xarelto for 6 months. He was DNR and DNI. I did evaluate the patient as noted above. IV access was established. The patient was placed on a continuous equipment monitor phototypesetting. I did treat him with a DuoNeb. I did order and personally review the patient's 12-lead EKG as described above. I did order and review the patient's blood work as noted in the electronic medical record. His white blood cell count is elevated. Troponin is negative. D-dimer is elevated. I did order a CT of the chest. I did review the images myself as well as the radiology report as described above. He does have no evidence of pulmonary embolism. He does have significant improvement of his prior pneumonia but still has findings possible interstitial pneumonia. I did discuss the test results with the patient. On reassessment he is feeling much better. Air entry is good on reexamination without wheezing. He is satting 100% on 2 L. He states he does not wish to stay in the hospital. He has to take care of his who cannot give herself insulin shots. I did discuss the case with Dr. Bauer who reviewed the case. He recommended not placing the patient on Xarelto given that there were no pulmonary emboli on his CT scan. He did recommend Levaquin and use of his inhaler. I did discuss the plan with the patient. He was given Levaquin here and discharged with a prescription for Levaquin. He was told to follow closely with his doctor and to return for any worsening symptoms. Medication Reconcilliation Current Medication List: was personally reviewed by me Blood Pressure Screening Patient's blood pressure: Normal blood pressure Blood pressure disposition: Did not require urgent referral Consults Time Called: 2239 Consulting Physician: Dr. Roach Returned Call: 2245 I discussed the patient's case with Dr. Roach. He states not to put the patient back on Xarelto. He wants the patient sent home on Levaquin and have him take his Pro Air when needed. Impression Primary Impression: COPD exacerbation Additional Impression: Interstitial pneumonia Scribe Attestation The scribe's documentation has been prepared under my direct and personally reviewed by me in its entirety. I confirm that the note above accurately reflects all work, treatment, procedures, and medical decision making performed by me. Departure Information Dispostion Home / Self-Care Prescriptions Levofloxacin (Levaquin) 500 Mg Tab 500 MG PO DAILY for 4 Days, #4 TAB Prov: Laci Johnson M.D. 06/26/17 Forms HOME CARE DOCUMENTATION FORM, IMPORTANT VISIT INFORMATION Patient Instructions My [facility] Additional Instructions You have been examined and treated today on an emergency basis only. This is not a substitute for, or an effort to provide, complete comprehensive medical care. It is impossible to recognize and treat all injuries or illnesses in a single emergency department visit. It is therefore important that you follow up closely with your physician. Call as soon as possible for an appointment. Return for worsening symptoms or if you develop fever, vomiting, or any other concerning symptoms. Problem Qualifiers
[2017-06-26 23:18] VITALS: BP 122/60; PULSE 78; O2SAT 98
[2017-07-04] MEDS ORDERED: IPRA1AER2 INH (10:29)
[2017-07-04] MEDS ORDERED: ZTHM250 PO (10:29)
[2017-07-04] MEDS ORDERED: AMOX1TAB43 PO (10:29)
== END 2017-06-26 23:17 | disposition home or self-care (01) ==
LOC: C.EDC 20:03 → EDBD 20:03 → C.EDC 23:17
DX: J44.1 Chronic obstructive pulmonary disease with (acute) exacerbation (principal); J84.9 Interstitial pulmonary disease, unspecified; I10 Essential (primary) hypertension; K21.9 Gastro-esophageal reflux disease without esophagitis; F32.9 Major depressive disorder, single episode, unspecified; F41.9 Anxiety disorder, unspecified; F20.9 Schizophrenia, unspecified; Z86.711 Personal history of pulmonary embolism; Z79.899 Other long term (current) drug therapy; Z80.9 Family history of malignant neoplasm, unspecified; Z83.3 Family history of diabetes mellitus; Z82.49 Family history of ischemic heart disease and other diseases of the circulatory system

== ENCOUNTER 2017-06-30 19:26 | Inpatient (IN) | payer OTHER ==
[~2017-06-30] VITALS: Ht 175.3 cm; Wt 91.8 kg
[~2017-06-30 19:26] MED LIST changes: -HLD5 PO; -IPRASOL4 INH; -KFZAV1 IV; +LEVO-366 PO; -XRL15 PO
[2017-06-30] MEDS ORDERED: LEVALBUTEROL 1.25MG/0.5ML NEB INH STA (20:03)
[2017-06-30] MEDS ORDERED: IPRATROPIUM BROMIDE NEB SOLN 0.02% 2.5 ML VIAL INH STA (20:03)
[2017-06-30] MEDS ORDERED: METHYLPREDNISOLONE 125 MG VIAL IV STA (20:03)
[2017-06-30] MEDS ORDERED: SODIUM CHLORIDE 0.9% 1000ML 1,000 ML IV STA (20:03)
[2017-06-30] MEDS ORDERED: PIPERACILLIN/TAZOBACTAM 4.5 GM/100ML D5W IV STA (20:03)
[2017-06-30] MEDS ORDERED: ONDANSETRON INJ 2 MG/ML 2 ML VIAL IV STA (20:03)
[2017-06-30] MEDS ORDERED: LORAZEPAM 2 MG/ML 1 ML VIAL IV STA (20:06)
--- NOTE | 2017-06-30 20:19 | EMERGENCY ROOM VISIT NOTE ---
History Report prepared by Jesus: Dell Troncoso Under the Supervision of: Dr. William Irby M.D. First contact with patient: 20:00 Chief Complaint: SHORTNESS OF BREATH Stated Complaint: SOB Nursing Triage Summary: Pt arrives ALS for evalution of increased sob. Pt was seen at [facility] ED on Wednesday and dx with COPD exacerbation and pnx. Pt refused to be admitted at that time and was sent home with antibx. Pt reports woke up today and sob was worse, worsened throughout the day. PMH: COPD, PE, PNX History of Present Illness The patient is a 56 year old male with a history of COPD and PE who presents to the Emergency Room via ambulance with complaints of a persistent illness that started a week ago. The patient says that he started getting short of breath, with hot and cold spells and a cough, and was seen here 4 days ago. He had a negative CT for PE, and was diagnosed with pneumonia and was placed on Levaquin. Admission/observation was recommended, but he refused. The patient notes that after being seen here, he started coughing up dark phlegm--he feels worse than a few days ago. He states that he has been nauseous as well and has not eaten well. The patient says that he only ate a hot dog today, and he has lost around 50 pounds over the past few months. He says that the breathing treatment that he was given in the ambulance has helped. The patient wears 2 to 4 liters of oxygen at home. He denies any leg swelling. Source of History: patient Onset: A week ago Position: other (global - illness) Timing: other (persistent) Modifying Factors (Relieving): other (breathing treatment) Associated Symptoms: + cough, + SOB, + nausea Note: Associated symptoms: Hot and cold spells. Decreased appetite. Denies leg swelling. Review of Systems See HPI for pertinent positives & negatives. A total of 10 systems reviewed and were otherwise negative. Past Medical & Surgical Medical Problems: (1) Anxiety (2) ARDS (adult respiratory distress syndrome) (3) Benign hypertension (4) Depression (5) Gastroesophageal reflux disease (6) History of - schizophrenia (7) Multifocal pneumonia (8) Pulmonary embolism (9) Weakness generalized Family History FHx: cancer FHx: diabetes FHx: heart disease FHx: hypertension FHx: lung disease Social History Smoking Status: Current Every Day Smoker Alcohol Use: none Drug Use: none Marital Status: Housing Status: lives with significant other Occupation Status: disabled Current/Historical Medications Scheduled Benztropine Mesylate (Cogentin), 1 MG PO BID Clonazepam (Klonopin), 0.5 MG PO BID Haloperidol (Haldol), 10 MG PO HS Levofloxacin (Levaquin), 500 MG PO DAILY Levothyroxine Sodium (Synthroid), 25 MCG PO QAM Meloxicam (Meloxicam), 15 MG PO DAILY Multivitamin (Multivitamin), 1 TAB PO DAILY Omeprazole (Prilosec), 40 MG PO DAILY Trazodone HCl (Trazodone HCl), 100 MG PO HS Scheduled PRN Albuterol Sulfate (Proair Respiclick), 2 PUFFS INH QID PRN for SOB/Wheezing Allergies Coded Allergies: No Known Allergies (Verified , 06/18/16) Physical Exam Vital Signs Date Time Temp Pulse Resp B/P (MAP) Pulse Ox O2 Delivery O2 Flow Rate FiO2 06/30/17 20:14 Room Air 06/30/17 19:59 85 06/30/17 19:50 Room Air 06/30/17 19:38 Nasal Cannula 4.0 06/30/17 19:35 37.0 92 26 107/69 99 Nasal Cannula 4.0 Physical Exam GENERAL: Patient is in no acute distress. He is slightly anxious. HEENT: No acute trauma, normocephalic atraumatic, mucous membranes moist, no nasal congestion, no scleral icterus. NECK: No stridor, no adenopathy, no meningismus, trachea is midline. LUNGS: Diminished breath sounds bilaterally with a few scattered wheezes. No rhonchi. Breath sounds are equal. HEART: Without murmurs gallops or rubs, regular rate and rhythm. ABDOMEN: Soft, nontender, bowel sounds positive, no hernias, no peritonitis. EXTREMITIES: No cyanosis or edema, full range of motion of all the joints without pain or difficulty, no signs for acute trauma. NEUROLOGIC: Oriented x 3, no acute motor or sensory deficits, no focal weakness. SKIN: No rash, no jaundice, no diaphoresis. Medical Decision & Procedures ER Provider Diagnostic Interpretation: X-ray results as stated below per interpretation by me and the radiologist: CHEST ONE VIEW PORTABLE CLINICAL HISTORY: 56 years-old Male presenting with EVALUATE RESPIRATORY DISTRESS.DYSPNEA. TECHNIQUE: Portable upright AP view of the chest was obtained. COMPARISON: 05/29/2017. FINDINGS: Cardiomediastinal silhouette normal. Significant interval clearance of diffuse pulmonary opacities. No large effusion or pneumothorax. Osseous structures normal. Upper abdomen normal. IMPRESSION: 1. Significant interval decrease of bilateral pulmonary opacities. Electronically signed by: Panda Miner M.D. 06/30/2017 8:21 PM Dictated Date/Time: 06/30/2017 8:20 PM Laboratory Results Test 06/30/17 20:03 Laboratory results reviewed by me. ECG Indication: SOB/dyspnea Rate (beats per minute): 80 Rhythm: normal sinus Findings: no acute ischemic change, no ectopy ED Course 1999: The patient was evaluated in room C6. A complete history and physical exam was performed. The patient verbally expressed understanding and agreement of the treatment plan. 2002: Ordered Atrovent 0.02% 0.5MG/2.5ML Neb 0.5 mg INH, Xopenex 1.25MG/9.5ML Neb 1.25 mg INH, Zosyn IV 4.5 gm IV, Solu-Medrol IV 80 mg IV, NSS 1000 ml @ 200 mls/hr IV, Zofran Inj 4 mg IV. 2005: Ordered Ativan 0.5 mg IV. 2013: I discussed the patient with Dr. Silva - [facility] hospitalist - he will evaluate the patient for further treatment. Medical Decision Differential diagnosis includes but is not limited to failed outpatient treatment, pneumonia, bronchitis, exacerbation of COPD, anemia, electrolyte imbalance, cardiac ischemia, CHF. The patient presents with worsening difficulty breathing despite oral antibiotics. He was here a few days ago and diagnosed with pneumonia, admission /observation was recommended however, he refused. He has been using Levaquin as an outpatient but feels he is worsening. Currently, the patient is not hypoxic. He is not febrile. Chest x-ray today does look improved to me compared to previous films, there was no pneumothorax or CHF. Laboratory testing is pending. EKG shows a sinus rhythm, no acute ischemia. The patient presents with failed outpatient treatment for pneumonia. I do think a hospital stay is warranted, the patient is willing to stay. The patient received IV saline, IV Ativan, IV Zofran, IV Solu-Medrol and a Xopenex Atrovent neb. He was given IV Zosyn. I spoke to case management, I talked with the patient. The on-call hospitalist was consulted. Medication Reconcilliation Current Medication List: was personally reviewed by me Blood Pressure Screening Patient's blood pressure: Normal blood pressure Consults Time Called: 2009 Consulting Physician: Dr. Ricardo COWAN hospitalist Returned Call: 2013 I discussed the patient with Dr. Ricardo COWAN hospitalist - he will evaluate the patient for further treatment. Impression Primary Impression: PNA (pneumonia) Additional Impressions: Failure of outpatient treatment COPD exacerbation Scribe Attestation The scribe's documentation has been prepared under my direction and personally reviewed by me in its entirety. I confirm that the note above accurately reflects all work, treatment, procedures, and medical decision making performed by me. Departure Information Dispostion Being Evaluated By Hospitalist Referrals Ashley Spence (PCP) Patient Instructions My [facility] Problem Qualifiers
--- NOTE | 2017-06-30 20:22 | DIAGNOSTIC IMAGING REPORT ---
CHEST ONE VIEW PORTABLE CLINICAL HISTORY: 56 years-old Male presenting with EVALUATE RESPIRATORY DISTRESS.DYSPNEA. TECHNIQUE: Portable upright AP view of the chest was obtained. COMPARISON: 05/29/2017. FINDINGS: Cardiomediastinal silhouette normal. Significant interval clearance of diffuse pulmonary opacities. No large effusion or pneumothorax. Osseous structures normal. Upper abdomen normal. IMPRESSION: 1. Significant interval decrease of bilateral pulmonary opacities. Electronically signed by: Panda Miner M.D. 06/30/2017 8:21 PM Dictated Date/Time: 06/30/2017 8:20 PM
[2017-06-30] MEDS ORDERED: ALBUTEROL 0.083% NEBU SOLN 3 ML VIAL INH PRN (20:30)
[2017-06-30] MEDS ORDERED: MAGNESIUM HYDROXIDE SUSP 30 ML UDC PO PRN (20:30)
[2017-06-30] MEDS ORDERED: POLYETHYLENE (MIRALAX) 17 GM PACK PO PRN (20:30)
[2017-06-30] MEDS ORDERED: ALBUTEROL HFA 8 GM INHALER INH PRN (20:30)
[2017-06-30] MEDS ORDERED: ONDANSETRON INJ 2 MG/ML 2 ML VIAL IV PRN (20:30)
[2017-06-30] MEDS ORDERED: ACETAMINOPHEN 325 MG TAB PO PRN (20:30)
[2017-06-30] MEDS ORDERED: ALUMINUM/MAGNESIUM/SIMETH (MAALOX MAX) 30 ML UDC PO PRN (20:30)
[2017-06-30 20:38] VITALS: PULSE 97; O2SAT 100
[2017-06-30 20:56] LABS: BASO % 0.3 %; BASO ABS # 0.04 K/uL (0-0.2); COMPLETE YES; EOS % 1.5 %; HEMATOCRIT 35.4 % (42-52); IG% 0.5 %; LYMPH ABS # 3.32 K/uL (1.2-3.4); MEAN CELL VOLUME 86.8 fL (80-100); MEAN CORPUSCULAR HEMOGLOBIN 30.9 pg (25-34); MEAN CORPUSCULAR HGB CONC 35.6 g/dl (32-36); MEAN PLATELET VOLUME 8.4 fL (7.4-10.4); MONO % 4.8 %; NEUT % 70.9 %; PLATELET COUNT 333 K/uL (130-400); RED BLOOD COUNT 4.08 M/uL (4.7-6.1); WHITE BLOOD COUNT 15.11 K/uL (4.8-10.8)
--- NOTE | 2017-06-30 20:58 | History and Physical ---
History & Physical Date & Time of Service: Jun 30, 2017 at 20:44 Chief Complaint: SOB Primary Care Physician: Ashley Spence History of Present Illness Source: patient 56 y/o M Hx HTN, schizophrenia, G1 diastolic dysfunction on recent echo, COPD, avid smoker. Pt presented to the ER 5 days prior and was diagnosed with a multifocal pneumonia on CT. He insisted on going home although admission was advised. He has become increasingly SOB since then and describes a worsening productive cough. He denies CP and is unable to confirm a fever. A repeat CXR is essentially unchanged for a previous. Past Medical/Surgical History Medical Problems: (1) Anxiety Status: Chronic (2) Benign hypertension Status: Chronic (3) Depression Status: Chronic (4) Gastroesophageal reflux disease Status: Chronic (5) History of - schizophrenia Status: Chronic (6) Pulmonary embolism Status: Resolved 7) COPD 8) Smoker 9) Grade 1 diastolic dysfunction echo 2017 Family History FHx: cancer FHx: diabetes FHx: heart disease FHx: hypertension FHx: lung disease Social History Smoking Status: Current Every Day Smoker Drug Use: none Marital Status: Housing status: lives with family Occupational Status: disabled Immunizations History of Influenza Vaccine: Yes Influenza Vaccine Date: Nov 01, 2009 History of Tetanus Vaccine?: No History of Pneumococcal: Yes Pneumococcal Date: Nov 24, 2008 History of Hepatitis B Vaccine: No Multi-Drug Resistant Organisms History of MDRO: No Allergies Coded Allergies: No Known Allergies (Verified , 06/18/16) Home Medications Scheduled Benztropine Mesylate (Cogentin), 1 MG PO BID Clonazepam (Klonopin), 0.5 MG PO BID Haloperidol (Haldol), 10 MG PO HS Levofloxacin (Levaquin), 500 MG PO DAILY Levothyroxine Sodium (Synthroid), 25 MCG PO QAM Meloxicam (Meloxicam), 15 MG PO DAILY Multivitamin (Multivitamin), 1 TAB PO DAILY Omeprazole (Prilosec), 40 MG PO DAILY Trazodone HCl (Trazodone HCl), 100 MG PO HS Scheduled PRN Albuterol Sulfate (Proair Respiclick), 2 PUFFS INH QID PRN for SOB/Wheezing Review of Systems Constitutional: No fever, No chills, No sweats Eyes: No worsening of vision ENT: No hearing loss, No unusual epistaxis, No nasal symptoms Respiratory: + cough, + sputum, + shortness of breath, + dyspnea on exertion, + dyspnea at rest, No wheezing Cardiovascular: No chest pain, No orthopnea, No PND Abdomen: No pain, No nausea, No vomiting Musculoskeletal: No joint pain, No muscle pain Genitourinary - Male: No hematuria, No dysuria Neurologic: No memory loss, No paralysis, No weakness Psychiatric: + anxiety Endocrine: + fatigue Hematologic / Lymphatic: No abnormal bleeding/bruising Integumentary: No rash Allergic / Immunologic: No environmental allergies Physical Exam Vital Signs Date Time Temp Pulse Resp B/P (MAP) Pulse Ox O2 Delivery O2 Flow Rate FiO2 06/30/17 20:14 Room Air 06/30/17 19:59 85 06/30/17 19:50 Room Air 06/30/17 19:38 Nasal Cannula 4.0 06/30/17 19:35 37.0 92 26 107/69 99 Nasal Cannula 4.0 General Appearance: WD/WN, no apparent distress, + pertinent finding (Anxious middle-aged male - no acute distress - appears older than his stated age) Head: normocephalic Eyes: normal inspection, PERRL, EOMI ENT: normal ENT inspection, pharynx normal Neck: supple, no JVD Respiratory/Chest: chest non-tender, + decreased breath sounds, + pertinent finding (No clear ccrackles or wheezing - very poor b/l air movement) Cardiovascular: regular rate, rhythm, no edema, no gallop, no JVD, no murmur, normal peripheral pulses Abdomen/GI: normal bowel sounds, non tender, soft Back: normal inspection, no CVA tenderness Extremities/Musculoskelatal: normal inspection, no calf tenderness, normal capillary refill 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 Pt presented to the ER 5 days prior and was diagnosed with a multifocal pneumonia on CT. He insisted on going home although admission was advised. He has become increasingly SOB since then and describes a worsening productive cough. He denies CP and is unable to confirm a fever. A repeat CXR is essentially unchanged for a previous. 1) Multifocal pneumonia - As he has essentially failed Levaquin, we will start him on Zosyn, Zithro and Vanc considering his MRSA Hx. Sputum and blood cultures are pending. 2) COPD - it is possible that his worsening symptoms are more related to his underlying COPD. We will treat for exacerbation with Nebs and Steroids - he is placed on an 02 protocol. 3) Schizophrenia - stable - cont Haldol, Benztropine. 4) History of DVT - PE - apparently dates to 1999 - placed on DVT prophylaxis 5) Discussed smoking cessation Full code - Heparin prophylaxis Total time for this admit including review of labs, meds, imaging, records - discussion with pt and ER attending Level of Care Med/Surg Resuscitation Status FULL RESUSCITATION VTE Prophylaxis VTE Risk Assessment Done? Y/N: Yes Risk Level: Low Given or contraindicated: Unfractionated heparin SQ
[2017-06-30] MEDS ORDERED: VANCOMYCIN INJ 2,250 MG in SODIUM CHLORIDE 0.9% 500ML 500 ML IV SCH (21:00)
[2017-06-30] MEDS ORDERED: VANCOMYCIN CONSULT ACTIVE PRN (21:00)
[2017-06-30] MEDS: ALBUT/IPRATROP 3MG/0.5MG NEB 3 ML VIAL INH SCH (21:00)
[2017-06-30] MEDS ORDERED: PIPERACILL/TAZOBAC CONSULT ACTIVE PRN (21:00)
[2017-06-30 21:21] VITALS: Ht 175.3 cm; Wt 91.8 kg
[2017-06-30 21:21] LABS: ALT/SGPT 20 U/L (12-78); BLOOD UREA NITROGEN 13 mg/dl (7-18); BUN/CREATININE RATIO 10.8 (10-20); CALCIUM 9.4 mg/dl (8.5-10.1); CARBON DIOXIDE 25 mmol/L (21-32); CHLORIDE 107 mmol/L (98-107); GLUCOSE 89 mg/dl (70-99); POTASSIUM 3.2 mmol/L (3.5-5.1); SODIUM 140 mmol/L (136-145)
[2017-06-30 21:26] LABS: ALB/GLOB RATIO 0.7 (0.9-2); ALKALINE PHOSPHATASE 74 U/L (45-117); AST/SGOT 19 U/L (15-37)
[2017-06-30 22:19] LABS: INFLUENZA A PCR Neg for Influ A (NEG); INFLUENZA B PCR Neg for Influ B (NEG)
--- NOTE | 2017-06-30 22:32 | Pharmacy Progress Note ---
Pharmacy Abx Initial Consult Date of Service Jun 30, 2017. Pharmacy Dosing Scope Date of Consult: 06/30/17 Consultation requested by: Dr. Silva Pharmacy is consulted to initiate vancomycin IV/Zosyn dosing therapy, order appropriate labs and adjust drug dose/frequency. Subjective The patient is a 56 year old male admitted on 06/30/17. Objective Height (Feet): 5 Height (Inches): 9.00 Weight (Kilograms): 91.800 Vital Signs (Past 12Hrs) Vital Signs Past 12 Hours Date Time Temp Pulse Resp B/P (MAP) Pulse Ox O2 Delivery O2 Flow Rate FiO2 06/30/17 21:30 101 24 139/68 98 Room Air 06/30/17 21:21 Nasal Cannula 4.0 06/30/17 20:38 97 18 100 Nasal Cannula 4.0 06/30/17 20:14 Room Air 06/30/17 19:59 85 06/30/17 19:50 Room Air 06/30/17 19:38 Nasal Cannula 4.0 06/30/17 19:35 37.0 92 26 107/69 99 Nasal Cannula 4.0 Lab Results (24Hrs) Laboratory Tests (24 Hours) Test 06/30/17 20:30 White Blood Count 15.11 K/uL (4.8-10.8) H Red Blood Count 4.08 M/uL (4.7-6.1) L Hemoglobin 12.6 g/dL (14.0-18.0) L Hematocrit 35.4 % (42-52) L Mean Corpuscular Volume 86.8 fL (80-100) Mean Corpuscular Hemoglobin 30.9 pg (25-34) Mean Corpuscular Hemoglobin Concent 35.6 g/dl (32-36) Platelet Count 333 K/uL (130-400) Mean Platelet Volume 8.4 fL (7.4-10.4) Neutrophils (%) (Auto) 70.9 % Lymphocytes (%) (Auto) 22.0 % Monocytes (%) (Auto) 4.8 % Eosinophils (%) (Auto) 1.5 % Basophils (%) (Auto) 0.3 % Neutrophils # (Auto) 10.74 K/uL (1.4-6.5) H Lymphocytes # (Auto) 3.32 K/uL (1.2-3.4) Monocytes # (Auto) 0.72 K/uL (0.11-0.59) H Eosinophils # (Auto) 0.22 K/uL (0-0.5) Basophils # (Auto) 0.04 K/uL (0-0.2) Micro Results Date/Time Source Procedure Growth Status 06/30/17 20:40 Blood Blood Culture Pending Received 06/30/17 20:30 Blood Blood Culture Pending Received Risk Factors for Resistance * Hospitalization for 48 hours or more within the past 90 days * History of infection with a multidrug-resistant organism: MRSA Assessment & Plan Assessment 56 year old male admitted with multifocal pneumonia. Patient has a history of COPD and is a current smoker. He has numerous past admissions and has a history of MRSA. MRSA nasal swab ordered. Plan vancomycin/Zosyn for treatment of pneumonia Vancomycin IV * Loading dose: 2250 mg (24.5 mg/kg) * Maintenance dose: 1250 mg IV (13.6 mg/kg) every 8 hours (previous patient data suggests that q12 dosing is not sufficient in this patient. Will attempt to achieve therapeutic levels by utilizing a lower mg/kg dose more frequently) * Goal trough level for pneumonia : 15 to 20 mcg/mL * Trough ordered for 07/02/17 prior to 0600 dose Piperacillin/tazobactam * 3.375 g bolus administered over 30 minutes, then 3.375 g IV extended infusion every 8 hours for CrCl greater than 20 mL/min Pharmacy will continue to follow and will adjust dose/frequency as necessary. Thank you.
[2017-06-30 23:45] VITALS: BP 124/79; PULSE 82; TEMP 37; O2SAT 98
[2017-07-01] VITALS (8 sets, daily range): BP systolic 100–112; BP diastolic 64–72; PULSE 74–89; TEMP 36.5–36.9; O2SAT 96–98
[2017-07-01] MEDS ORDERED: AZITHROMYCIN IV 500 MG in DEXTROSE 5% 250ML 250 ML IV SCH ×2
[2017-07-01] MEDS: HALOPERIDOL 5 MG TAB PO SCH ×2 (00:33→22:12)
[2017-07-01] MEDS: BENZTROPINE MESYLATE 1 MG TAB PO SCH ×3 (00:35→21:01)
[2017-07-01] MEDS: TRAZODONE HCL 100 MG TAB PO SCH ×2 (00:35→21:01)
[2017-07-01] MEDS ORDERED: CLONAZEPAM 0.5 MG TAB ONE (00:43)
[2017-07-01] MEDS: CLONAZEPAM 0.5 MG TAB PO SCH ×3 (00:44→21:03)
[2017-07-01] MEDS: PIPERACILL/TAZOBAC IV 3.375 GM in DEXTROSE 5% 100ML 100 ML IV SCH ×3 (01:36→18:19)
[2017-07-01] MEDS: METHYLPREDNISOLONE IV 60 MG in SYRINGE 0 ML IV SCH ×4 (01:36→21:02)
[2017-07-01] MEDS: ALBUT/IPRATROP 3MG/0.5MG NEB 3 ML VIAL INH SCH ×4 (02:01→19:41)
[2017-07-01] MEDS: VANCOMYCIN INJ 1,250 MG in SODIUM CHLORIDE 0.9% 250ML 250 ML IV SCH ×3 (05:06→22:06)
[2017-07-01] MEDS: HEPARIN SOD 5000 UNIT/0.5 ML CARP SQ SCH ×3 (05:11→21:07)
[2017-07-01] MEDS: LEVOTHYROXINE 25 MCG TAB PO SCH (05:12)
[2017-07-01 07:52] LABS: HEMATOCRIT 31.7 % (42-52); MEAN CELL VOLUME 86.6 fL (80-100); MEAN CORPUSCULAR HEMOGLOBIN 30.3 pg (25-34); MEAN PLATELET VOLUME 8.2 fL (7.4-10.4); PLATELET COUNT 305 K/uL (130-400); RED BLOOD COUNT 3.66 M/uL (4.7-6.1); WHITE BLOOD COUNT 7.18 K/uL (4.8-10.8)
[2017-07-01] MEDS ORDERED: PNEUMOCOCCAL POLYSACCHARIDES 25 MCG/0.5 ML VIAL/SYR IM. ONE (08:00)
[2017-07-01] MEDS ORDERED: PNEUMOCOCCAL ADMINISTRATION CHARGE ONE (08:00)
[2017-07-01 08:41] LABS: BUN/CREATININE RATIO 11.6 (10-20); CREATININE 1.1 mg/dl (0.60-1.40)
[2017-07-01] MEDS: PANTOprazole SOD 40 MG TAB PO SCH (08:47)
[2017-07-01] MEDS: MELOXICAM 7.5 MG TAB PO SCH (08:48)
--- NOTE | 2017-07-01 12:46 | Progress Note ---
Subjective Date of Service: Jul 01, 2017. Subjective Pt evaluation today including: conversation w/ patient, conversation w/ family , physical exam, chart review, lab review, review of studies, review of inpatient medication list Patient reported feeling much better, however still feeling cold and hot, much less cough, deny hemoptysis, denied chest pain, Problem List Medical Problems: (1) Altered mental status Status: Acute (2) Chest pain Status: Acute (3) COPD exacerbation Status: Acute (4) COPD exacerbation Status: Acute (5) Dehydration Status: Acute (6) Elevated troponin Status: Acute (7) Failure of outpatient treatment Status: Acute (8) Interstitial pneumonia Status: Acute (9) Leukocytosis Status: Acute (10) PNA (pneumonia) Status: Acute (11) Precordial chest pain Status: Acute (12) Tachycardia Status: Acute Review of Systems Constitutional: No fever, No chills, No sweats, No weight loss, No weakness, No fatigue, No problem reported Eyes: No worsening of vision, No eye pain, No redness, No discharge, No diplopia ENT: No hearing loss, No unusual epistaxis, No nasal symptoms, No sore throat, No tinnitus, No dental problems, No trouble swallowing Respiratory: + see HPI, + cough, + shortness of breath, No sputum, No wheezing , No dyspnea on exertion, No dyspnea at rest, No hemoptysis Cardiac: No chest pain, No orthopnea, No PND, No edema, No claudication, No palpitations Abdomen: No pain, No nausea, No vomiting, No diarrhea, No constipation Musculoskeletal: No joint pain, No muscle pain, No swelling, No calf pain Male : No dysuria, No urinary frequency, No incontinence, No nocturia more than once/night, No slowing stream, No hematuria Neurologic: No memory loss, No paralysis, No weakness, No numbness/tingling, No vertigo, No balance problems Psychiatric: No depression symptoms, No anhedonism, No anxiety, No insomnia, No substance abuse Heme: No abnormal bleeding/bruising, No clotting problems, No swollen lymph nodes, No night sweats Endo: No fatigue, No excessive thirst, No excessive urination Skin: No rash, No itch, No new/changing skin lesions, No color change, No bleeding Objective Vital Signs Date Time Temp Pulse Resp B/P (MAP) Pulse Ox O2 Delivery O2 Flow Rate FiO2 8/31/17 08:10 36.5 79 18 112/72 (85) 96 3.0 07/01/17 08:00 Nasal Cannula 4.0 07/01/17 06:57 77 18 98 Nasal Cannula 3.0 07/01/17 02:04 88 18 98 Nasal Cannula 3.0 07/01/17 00:00 98 Nasal Cannula 4.0 06/30/17 23:45 37.0 82 20 124/79 (94) 98 Nasal Cannula 4.0 06/30/17 23:27 71 106/91 96 06/30/17 21:30 101 24 139/68 98 Room Air 06/30/17 21:21 Nasal Cannula 4.0 06/30/17 20:38 97 18 100 Nasal Cannula 4.0 06/30/17 20:14 Room Air 06/30/17 19:59 85 06/30/17 19:50 Room Air 06/30/17 19:38 Nasal Cannula 4.0 06/30/17 19:35 37.0 92 26 107/69 99 Nasal Cannula 4.0 Physical Exam General Appearance: WD/WN, no apparent distress, + obese Eyes: normal inspection, PERRL, EOMI, sclerae normal ENT: normal ENT inspection, hearing grossly normal, pharynx normal Neck: supple, no adenopathy, thyroid normal, no JVD, no carotid bruits, trachea midline Respiratory/Chest: chest non-tender, lungs clear, normal breath sounds, no respiratory distress, no accessory muscle use, + decreased breath sounds ( significant, has smelling of smoking) Cardiovascular: regular rate, rhythm, no edema, no gallop, no JVD, no murmur Abdomen: normal bowel sounds, non tender, soft, no organomegaly, no pulsatile mass Extremities: normal range of motion, non-tender, normal inspection, no pedal edema, no calf tenderness, normal capillary refill, pelvis stable 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, no motor/sensory deficits, alert, normal mood/affect, oriented x 3 Skin: normal color, warm/dry, no rash Lymphatic: no adenopathy Laboratory Results Last 24 Hours Test 06/30/17 20:30 06/30/17 20:54 07/01/17 05:25 07/01/17 07:36 White Blood Count 15.11 K/uL 7.18 K/uL Red Blood Count 4.08 M/uL 3.66 M/uL Hemoglobin 12.6 g/dL 11.1 g/dL Hematocrit 35.4 % 31.7 % Mean Corpuscular Volume 86.8 fL 86.6 fL Mean Corpuscular Hemoglobin 30.9 pg 30.3 pg Mean Corpuscular Hemoglobin Concent 35.6 g/dl 35.0 g/dl Platelet Count 333 K/uL 305 K/uL Mean Platelet Volume 8.4 fL 8.2 fL Neutrophils (%) (Auto) 70.9 % Lymphocytes (%) (Auto) 22.0 % Monocytes (%) (Auto) 4.8 % Eosinophils (%) (Auto) 1.5 % Basophils (%) (Auto) 0.3 % Neutrophils # (Auto) 10.74 K/uL Lymphocytes # (Auto) 3.32 K/uL Monocytes # (Auto) 0.72 K/uL Eosinophils # (Auto) 0.22 K/uL Basophils # (Auto) 0.04 K/uL RDW Standard Deviation 43.2 fL 43.5 fL RDW Coefficient of Variation 13.5 % 13.5 % Immature Granulocyte % (Auto) 0.5 % Immature Granulocyte # (Auto) 0.07 K/uL Sodium Level 140 mmol/L 141 mmol/L Potassium Level 3.2 mmol/L 4.0 mmol/L Chloride Level 107 mmol/L 110 mmol/L Carbon Dioxide Level 25 mmol/L 23 mmol/L Anion Gap 8.0 mmol/L 8.0 mmol/L Blood Urea Nitrogen 13 mg/dl 13 mg/dl Creatinine 1.20 mg/dl 1.10 mg/dl Est Creatinine Clear Calc Drug Dose 77.0 ml/min 84.0 ml/min Estimated GFR () 77.9 86.5 Estimated GFR (Non- 67.2 74.6 BUN/Creatinine Ratio 10.8 11.6 Random Glucose 89 mg/dl 214 mg/dl Calcium Level 9.4 mg/dl 9.0 mg/dl Total Bilirubin 0.3 mg/dl Aspartate Amino Transf (AST/SGOT) 19 U/L Alanine Aminotransferase (ALT/SGPT) 20 U/L Alkaline Phosphatase 74 U/L Troponin I < 0.015 ng/ml Total Protein 7.5 gm/dl Albumin 3.1 gm/dl Globulin 4.4 gm/dl Albumin/Globulin Ratio 0.7 Influenza Type A (RT-PCR) Neg for Influ A Influenza Type B (RT-PCR) Neg for Influ B Magnesium Level 2.0 mg/dl Assessment and Plan 56 y/o M Hx HTN, schizophrenia, G1 diastolic dysfunction on recent echo, COPD, MRSA pneumonia, DVT/PE, smoker. Admitted on 06/30/2017 because of multiple lobe pneumonia Per report, presented to the ER 5 days prior and was diagnosed with a multifocal pneumonia on CT. however , insisted on going home although admission was advised. He has become increasingly SOB since then and describes a worsening productive cough. A repeat CXR in emergency room is unchanged for a previous. Multifocal pneumonia COPD, history of chronic resp failure home O2 dependent Tobacco abuse disorder Because he has essentially failed Levaquin, Agreed to and in you on Zosyn, Zithro and Vanc considering his MRSA Hx. Follow-up Sputum and blood cultures Continue Nebs and Steroids Schizophrenia - stable - cont Haldol, Benztropine. History of DVT - PE - apparently dates to 1999, continue on DVT prophylaxis Discussed smoking cessation, offered help include nicotine patch, he declined Full code - Heparin prophylaxis Discussed with patient about a care plan answer all questions Continued [facility] stay due to: multiple IV medications needed Discharge planning: home
[2017-07-02] VITALS (8 sets, daily range): BP systolic 105–123; BP diastolic 62–71; PULSE 68–95; TEMP 36.6–36.7; O2SAT 96–100
[2017-07-02] MEDS: ALBUT/IPRATROP 3MG/0.5MG NEB 3 ML VIAL INH SCH ×4 (01:51→20:17)
[2017-07-02] MEDS: PIPERACILL/TAZOBAC IV 3.375 GM in DEXTROSE 5% 100ML 100 ML IV SCH ×3 (01:57→18:10)
[2017-07-02] MEDS: METHYLPREDNISOLONE IV 60 MG in SYRINGE 0 ML IV SCH ×4 (01:57→20:38)
[2017-07-02] MEDS ORDERED: VANCOMYCIN TROUGH SCH (05:30)
[2017-07-02] MEDS: VANCOMYCIN INJ 1,250 MG in SODIUM CHLORIDE 0.9% 250ML 250 ML IV SCH ×3 (05:52→22:06)
[2017-07-02] MEDS: HEPARIN SOD 5000 UNIT/0.5 ML CARP SQ SCH ×3 (05:55→20:39)
[2017-07-02] MEDS: LEVOTHYROXINE 25 MCG TAB PO SCH (05:56)
[2017-07-02 06:18] LABS: CALCIUM 8.9 mg/dl (8.5-10.1); CREATININE 0.99 mg/dl (0.60-1.40)
--- NOTE | 2017-07-02 07:13 | Clinical Documentation Query ---
THOMAS Dotson : CLINICAL DOCUMENTATION QUERY Patient is a 56 year old male admitted 06/30 for multiple lobe pneumonia. He is being treated with Zosyn, Zithromax, and Vancomycin. As appropriate, consider documentation as suggested below as to the possible or suspected specific subtypes of pneumonia in which you are empirically treating. Thank you. In your clinical opinion is this patient being managed for: (x ) (Possible) MRSA and/or gram negative pneumonia ( ) Not Agree ( ) Other explanation of clinical findings (Please Explain) ( ) Unable to determine (Please Define) ( ) Need to Discuss The medical record reflects the following clinical findings, treatment, and risk factors. Clinical Indicators: As above Treatment:He is being treated with Zosyn, Zithromax, and Vancomycin. Sputum culture. Nebs, supplemental O2, steroids. Risk Factors: Age, co-morbid conditions, MRSA Hx. Please clarify and document your clinical opinion in the progress notes and discharge summary. Terms such as "probable", "suspected", "likely", "questionable", "possible", or "still to be ruled out" are acceptable. IF IN AGREEMENT, YOU MUST DOCUMENT ABOVE DIAGNOSTIC STATEMENT IN DAILY PROGRESS NOTES AND DISCHARGE SUMMARY. This document is not part of the patient's record. Thank You, Marcelo Fischer, WANG [phone]
[2017-07-02] MEDS: CLONAZEPAM 0.5 MG TAB PO SCH ×2 (08:51→20:37)
[2017-07-02] MEDS: MELOXICAM 7.5 MG TAB PO SCH (08:52)
[2017-07-02] MEDS: PANTOprazole SOD 40 MG TAB PO SCH (08:52)
[2017-07-02] MEDS: BENZTROPINE MESYLATE 1 MG TAB PO SCH ×2 (08:52→20:39)
[2017-07-02] MEDS: AZITHROMYCIN 250 MG TAB PO SCH (08:53)
--- NOTE | 2017-07-02 09:39 | Pharmacy Progress Note ---
Pharmacy Abx Dose Short Note Date of Service Jul 02, 2017. Assessment & Plan Assessment 56 year old male receiving vancomycin/zosyn/azithromycin for treatment of pneumonia Day # 3 of antimicrobial therapy. Plan Vancomycin * Trough level of 16.7 mcg/mL is therapeutic * Continue dose of 1250 mg q8H * Goal trough level for PNA: 15-20 mcg/mL * Trough level ordered for 07/03 1330 Pharmacy will continue to follow and will adjust dose/frequency as necessary. Thank you.
--- NOTE | 2017-07-02 12:09 | Progress Note ---
Subjective Date of Service: Jul 02, 2017. Subjective Pt evaluation today including: conversation w/ patient, physical exam, chart review, lab review, review of studies, conversation w/ [employer] consultant, review of inpatient medication list less cough , less sob, but feel naomy rib cage pain when deep breathing or cough, less sputum as well, Problem List Medical Problems: (1) Altered mental status Status: Acute (2) Chest pain Status: Acute (3) COPD exacerbation Status: Acute (4) COPD exacerbation Status: Acute (5) Dehydration Status: Acute (6) Elevated troponin Status: Acute (7) Failure of outpatient treatment Status: Acute (8) Interstitial pneumonia Status: Acute (9) Leukocytosis Status: Acute (10) PNA (pneumonia) Status: Acute (11) Precordial chest pain Status: Acute (12) Tachycardia Status: Acute Review of Systems Constitutional: + weakness, + fatigue, No fever, No chills, No sweats, No weight loss, No problem reported Eyes: No worsening of vision, No eye pain, No redness, No discharge, No diplopia ENT: No hearing loss, No unusual epistaxis, No nasal symptoms, No sore throat, No tinnitus, No dental problems, No trouble swallowing Respiratory: + cough, + sputum, No wheezing, No shortness of breath, No dyspnea on exertion, No dyspnea at rest, No hemoptysis Cardiac: No chest pain, No orthopnea, No PND, No edema, No claudication, No palpitations Abdomen: No pain, No nausea, No vomiting, No diarrhea, No constipation Musculoskeletal: No joint pain, No muscle pain, No swelling, No calf pain Male : No dysuria, No urinary frequency, No incontinence, No nocturia more than once/night, No slowing stream, No hematuria Neurologic: No memory loss, No paralysis, No weakness, No numbness/tingling, No vertigo, No balance problems Psychiatric: No depression symptoms, No anhedonism, No anxiety, No insomnia, No substance abuse Heme: No abnormal bleeding/bruising, No clotting problems, No swollen lymph nodes, No night sweats Endo: No fatigue, No excessive thirst, No excessive urination Skin: No rash, No itch, No new/changing skin lesions, No color change, No bleeding Objective Vital Signs Date Time Temp Pulse Resp B/P (MAP) Pulse Ox O2 Delivery O2 Flow Rate FiO2 07/02/17 10:34 Nasal Cannula 4.0 07/02/17 07:30 Nasal Cannula 4.0 07/02/17 07:22 36.6 79 18 105/62 (76) 100 Nasal Cannula 4.0 07/02/17 06:55 80 18 99 Nasal Cannula 3.0 07/02/17 01:51 88 18 96 Nasal Cannula 3.0 07/02/17 00:00 Nasal Cannula 4.0 07/01/17 23:13 36.7 74 20 102/65 (77) 97 2.0 07/01/17 19:41 84 18 96 Nasal Cannula 3.0 07/01/17 16:27 Nasal Cannula 07/01/17 16:16 36.9 89 18 100/64 (76) 98 Nasal Cannula 3.0 07/01/17 14:13 78 18 96 Nasal Cannula 3.0 Physical Exam General Appearance: WD/WN, no apparent distress Eyes: normal inspection, PERRL, EOMI, sclerae normal ENT: normal ENT inspection, hearing grossly normal, pharynx normal Neck: supple, no adenopathy, thyroid normal, no JVD, no carotid bruits, trachea midline Respiratory/Chest: chest non-tender, normal breath sounds, no respiratory distress, no accessory muscle use, + decreased breath sounds Cardiovascular: regular rate, rhythm, no edema, no gallop, no JVD, no murmur Abdomen: normal bowel sounds, non tender, soft, no organomegaly, no pulsatile mass Extremities: normal range of motion, non-tender, normal inspection, no pedal edema, no calf tenderness, normal capillary refill, pelvis stable 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, no motor/sensory deficits, alert, normal mood/affect, oriented x 3 Skin: normal color, warm/dry, no rash Lymphatic: no adenopathy Laboratory Results Last 24 Hours Test 07/02/17 05:32 Sodium Level 141 mmol/L Potassium Level 4.0 mmol/L Chloride Level 108 mmol/L Carbon Dioxide Level 26 mmol/L Anion Gap 7.0 mmol/L Blood Urea Nitrogen 14 mg/dl Creatinine 0.99 mg/dl Est Creatinine Clear Calc Drug Dose 93.3 ml/min Estimated GFR () 98.3 Estimated GFR (Non- 84.8 BUN/Creatinine Ratio 14.0 Random Glucose 228 mg/dl Calcium Level 8.9 mg/dl Magnesium Level 2.0 mg/dl Vancomycin Level Trough 16.7 mcg/ml Assessment and Plan 56 y/o M Hx HTN, schizophrenia, G1 diastolic dysfunction on recent echo, COPD, MRSA pneumonia, DVT/PE, smoker. Admitted on 06/30/2017 because of multiple lobe pneumonia Per report, presented to the ER 5 days prior and was diagnosed with a multifocal pneumonia on CT. however , insisted on going home although admission was advised. He has become increasingly SOB since then and describes a worsening productive cough. A repeat CXR in emergency room is unchanged for a previous. Multifocal pneumonia , stable /improving COPD, history of chronic resp failure home O2 dependent Tobacco abuse disorder Because he has essentially failed Levaquin, Possible MRSA and/or gram negative pneumonia cont on Zosyn, Zithro and Vanc considering his MRSA Hx. Follow-up Sputum and blood cultures, will narrow abx very soon Continue Nebs and Steroids chronic O2 dependent, taper down pt's NC O2 to bse line 2LPM, if possible Schizophrenia - stable - cont Haldol, Benztropine. History of DVT - PE - apparently dates to 1999, continue on DVT prophylaxis Discussed smoking cessation, offered help include nicotine patch, he declined Full code - Heparin prophylaxis Discussed with patient about a care plan answer all questions Continued [facility] stay due to: home environment unsafe for pt Discharge planning: home
[2017-07-02] MEDS: TRAZODONE HCL 100 MG TAB PO SCH (20:37)
[2017-07-02] MEDS: HALOPERIDOL 5 MG TAB PO SCH (20:39)
[2017-07-03 02:00] VITALS: PULSE 77; O2SAT 98
[2017-07-03] MEDS: ALBUT/IPRATROP 3MG/0.5MG NEB 3 ML VIAL INH SCH ×4 (02:02→19:11)
[2017-07-03] MEDS: PIPERACILL/TAZOBAC IV 3.375 GM in DEXTROSE 5% 100ML 100 ML IV SCH (02:13)
[2017-07-03] MEDS: METHYLPREDNISOLONE IV 60 MG in SYRINGE 0 ML IV SCH (02:15)
[2017-07-03] MEDS: VANCOMYCIN INJ 1,250 MG in SODIUM CHLORIDE 0.9% 250ML 250 ML IV SCH (05:31)
[2017-07-03] MEDS: HEPARIN SOD 5000 UNIT/0.5 ML CARP SQ SCH ×3 (05:33→21:18)
[2017-07-03] MEDS: LEVOTHYROXINE 25 MCG TAB PO SCH (05:33)
[2017-07-03 07:21] VITALS: BP 122/69; PULSE 66; TEMP 36.8; O2SAT 96
[2017-07-03 07:47] VITALS: PULSE 65; O2SAT 98
[2017-07-03] MEDS: CLONAZEPAM 0.5 MG TAB PO SCH ×2 (08:04→21:20)
[2017-07-03] MEDS: PANTOprazole SOD 40 MG TAB PO SCH (08:04)
[2017-07-03] MEDS: BENZTROPINE MESYLATE 1 MG TAB PO SCH ×2 (08:04→21:21)
[2017-07-03] MEDS: AZITHROMYCIN 250 MG TAB PO SCH (08:04)
[2017-07-03] MEDS: MELOXICAM 7.5 MG TAB PO SCH (08:04)
[2017-07-03 08:13] LABS: BLOOD UREA NITROGEN 17 mg/dl (7-18); BUN/CREATININE RATIO 17.9 (10-20); CARBON DIOXIDE 27 mmol/L (21-32); CHLORIDE 106 mmol/L (98-107); CREATININE 0.96 mg/dl (0.60-1.40); GLUCOSE 283 mg/dl (70-99); SODIUM 139 mmol/L (136-145)
[2017-07-03] MEDS: AMOXICILLIN/CLAVULANATE TAB 875 MG TAB PO SCH ×2 (08:23→17:46)
[2017-07-03 08:45] LABS: HEMATOCRIT 30.2 % (42-52); IG% 0.4 %; LYMPH % 8.1 %; LYMPH ABS # 1.14 K/uL (1.2-3.4); MEAN CELL VOLUME 89.3 fL (80-100); MEAN CORPUSCULAR HEMOGLOBIN 30.2 pg (25-34); MEAN PLATELET VOLUME 8.4 fL (7.4-10.4); MONO % 2.4 %; NEUT % 89.1 %; PLATELET COUNT 316 K/uL (130-400); RED BLOOD COUNT 3.38 M/uL (4.7-6.1); WHITE BLOOD COUNT 14.13 K/uL (4.8-10.8)
[2017-07-03 08:57] LABS: COMPLETE YES; MEAN CORPUSCULAR HGB CONC 33.8 g/dl (32-36)
[2017-07-03 08:58] LABS: POTASSIUM 3.9 mmol/L (3.5-5.1)
[2017-07-03 14:27] VITALS: PULSE 76; O2SAT 96
[2017-07-03 15:05] VITALS: BP 131/72; PULSE 86; TEMP 37.1; O2SAT 97
--- NOTE | 2017-07-03 15:56 | Progress Note ---
Subjective Date of Service: Jul 03, 2017. Subjective Pt evaluation today including: conversation w/ patient, physical exam, chart review, lab review, review of studies, review of inpatient medication list Doing okay, no fever and chill, less cough, oxygen level improved, currently in 2 L per min , which is in his baseline Problem List Medical Problems: (1) Altered mental status Status: Acute (2) Chest pain Status: Acute (3) COPD exacerbation Status: Acute (4) COPD exacerbation Status: Acute (5) Dehydration Status: Acute (6) Elevated troponin Status: Acute (7) Failure of outpatient treatment Status: Acute (8) Interstitial pneumonia Status: Acute (9) Leukocytosis Status: Acute (10) PNA (pneumonia) Status: Acute (11) Precordial chest pain Status: Acute (12) Tachycardia Status: Acute Review of Systems Constitutional: + fatigue, No fever, No chills, No sweats, No weight loss, No weakness, No problem reported Eyes: No worsening of vision, No eye pain, No redness, No discharge, No diplopia ENT: No hearing loss, No unusual epistaxis, No nasal symptoms, No sore throat, No tinnitus, No dental problems, No trouble swallowing Respiratory: + cough, + shortness of breath, No sputum, No wheezing, No dyspnea on exertion, No dyspnea at rest, No hemoptysis Cardiac: No chest pain, No orthopnea, No PND, No edema, No claudication, No palpitations Abdomen: No pain, No nausea, No vomiting, No diarrhea, No constipation Musculoskeletal: No joint pain, No muscle pain, No swelling, No calf pain Male : No dysuria, No urinary frequency, No incontinence, No nocturia more than once/night, No slowing stream, No hematuria Neurologic: No memory loss, No paralysis, No weakness, No numbness/tingling, No vertigo, No balance problems Psychiatric: No depression symptoms, No anhedonism, No anxiety, No insomnia, No substance abuse Heme: No abnormal bleeding/bruising, No clotting problems, No swollen lymph nodes, No night sweats Endo: No fatigue, No excessive thirst, No excessive urination Skin: No rash, No itch, No new/changing skin lesions, No color change, No bleeding Objective Vital Signs Date Time Temp Pulse Resp B/P (MAP) Pulse Ox O2 Delivery O2 Flow Rate FiO2 07/03/17 15:05 37.1 86 18 131/72 (91) 97 Nasal Cannula 2.0 07/03/17 14:27 76 18 96 Nasal Cannula 2.0 07/03/17 08:00 Nasal Cannula 2.0 07/03/17 07:47 65 18 98 Nasal Cannula 2.0 07/03/17 07:21 36.8 66 18 122/69 (86) 96 Nasal Cannula 2.0 07/03/17 02:00 77 18 98 Nasal Cannula 2.0 07/03/17 00:00 Nasal Cannula 2.0 07/02/17 20:19 68 18 98 Nasal Cannula 2.0 07/02/17 16:39 Nasal Cannula 2.0 Physical Exam General Appearance: WD/WN, no apparent distress Eyes: normal inspection, PERRL, EOMI, sclerae normal ENT: normal ENT inspection, hearing grossly normal, pharynx normal Neck: supple, no adenopathy, thyroid normal, no JVD, no carotid bruits, trachea midline Respiratory/Chest: chest non-tender, lungs clear, normal breath sounds, no respiratory distress, no accessory muscle use Cardiovascular: regular rate, rhythm, no edema, no gallop, no JVD, no murmur Abdomen: normal bowel sounds, non tender, soft, no organomegaly, no pulsatile mass Extremities: normal range of motion, non-tender, normal inspection, no pedal edema, no calf tenderness, normal capillary refill, pelvis stable 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, no motor/sensory deficits, alert, normal mood/affect, oriented x 3 Skin: normal color, warm/dry, no rash Lymphatic: no adenopathy Laboratory Results Last 24 Hours Test 07/03/17 06:55 07/03/17 08:29 07/03/17 13:35 Sodium Level 139 mmol/L Potassium Level mmol/L 3.9 mmol/L Chloride Level 106 mmol/L Carbon Dioxide Level 27 mmol/L Anion Gap 6.0 mmol/L Blood Urea Nitrogen 17 mg/dl Creatinine 0.96 mg/dl Est Creatinine Clear Calc Drug Dose 96.2 ml/min Estimated GFR () 102.0 Estimated GFR (Non- 88.0 BUN/Creatinine Ratio 17.9 Random Glucose 283 mg/dl Calcium Level 9.0 mg/dl Magnesium Level mg/dl 2.0 mg/dl White Blood Count 14.13 K/uL Red Blood Count 3.38 M/uL Hemoglobin 10.2 g/dL Hematocrit 30.2 % Mean Corpuscular Volume 89.3 fL Mean Corpuscular Hemoglobin 30.2 pg Mean Corpuscular Hemoglobin Concent 33.8 g/dl Platelet Count 316 K/uL Mean Platelet Volume 8.4 fL Neutrophils (%) (Auto) 89.1 % Lymphocytes (%) (Auto) 8.1 % Monocytes (%) (Auto) 2.4 % Eosinophils (%) (Auto) 0.0 % Basophils (%) (Auto) 0.0 % Neutrophils # (Auto) 12.59 K/uL Lymphocytes # (Auto) 1.14 K/uL Monocytes # (Auto) 0.34 K/uL Eosinophils # (Auto) 0.00 K/uL Basophils # (Auto) 0.00 K/uL RDW Standard Deviation 44.6 fL RDW Coefficient of Variation 13.6 % Immature Granulocyte % (Auto) 0.4 % Immature Granulocyte # (Auto) 0.06 K/uL Vancomycin Level Trough 21.4 mcg/ml Assessment and Plan 56 y/o M Hx HTN, schizophrenia, G1 diastolic dysfunction on recent echo, COPD, MRSA pneumonia, DVT/PE, smoker. Admitted on 06/30/2017 because of multiple lobe pneumonia Per report, presented to the ER 5 days prior and was diagnosed with a multifocal pneumonia on CT. however , insisted on going home although admission was advised. He has become increasingly SOB since then and describes a worsening productive cough. A repeat CXR in emergency room is unchanged for a previous. Multifocal pneumonia , stable /improving COPD, history of chronic resp failure home O2 dependent Tobacco abuse disorder, otherwise continue quit smoking will repeat x-ray two-view Because he has essentially failed Levaquin, Possible MRSA and/or gram negative pneumonia Has been on on Zosyn, Zithro and Vanc So far Sputum and blood cultures were unremarkable, no growth up-to-date, Reviewed history of microbiology, he was having staph blood infection, with was MSSA , will narrow abx very soon Discontinue zosyn, continue azithromycin, start Augmentin for the treatment of community-acquired pneumonia Continue Nebs and Steroids chronic O2 dependent, tapered down pt's [place] O2 to base line 2LPM, Schizophrenia - stable - cont Haldol, Benztropine. History of DVT - PE - apparently dates to 1999, continue on DVT prophylaxis Discussed smoking cessation, offered help include nicotine patch, he declined Full code - Heparin prophylaxis Discussed with patient about a care plan answer all questions Possible discharge tomorrow Continued [facility] stay due to: home environment unsafe for pt Discharge planning: home
[2017-07-03 19:11] VITALS: PULSE 70; O2SAT 98
[2017-07-03] MEDS: TRAZODONE HCL 100 MG TAB PO SCH (21:20)
[2017-07-03] MEDS: HALOPERIDOL 5 MG TAB PO SCH (21:21)
[2017-07-04 00:19] VITALS: BP 139/78; PULSE 73; TEMP 36.9; O2SAT 97
[2017-07-04 01:40] VITALS: PULSE 77; O2SAT 98
[2017-07-04] MEDS: ALBUT/IPRATROP 3MG/0.5MG NEB 3 ML VIAL INH SCH ×2 (01:40→07:28)
[2017-07-04] MEDS: LEVOTHYROXINE 25 MCG TAB PO SCH (06:05)
[2017-07-04] MEDS: HEPARIN SOD 5000 UNIT/0.5 ML CARP SQ SCH (06:08)
[2017-07-04 07:28] VITALS: PULSE 71; O2SAT 97
[2017-07-04] MEDS: AZITHROMYCIN 250 MG TAB PO SCH (07:38)
[2017-07-04] MEDS: MELOXICAM 7.5 MG TAB PO SCH (07:38)
[2017-07-04] MEDS: AMOXICILLIN/CLAVULANATE TAB 875 MG TAB PO SCH (07:38)
[2017-07-04] MEDS: PANTOprazole SOD 40 MG TAB PO SCH (07:38)
[2017-07-04] MEDS: CLONAZEPAM 0.5 MG TAB PO SCH (07:38)
[2017-07-04] MEDS: BENZTROPINE MESYLATE 1 MG TAB PO SCH (07:38)
[2017-07-04 07:39] VITALS: BP 134/72; PULSE 65; TEMP 36.9; O2SAT 98
[2017-07-04] MEDS ORDERED: ZTHM250 PO (10:29)
[2017-07-04] MEDS ORDERED: AMOX1TAB43 PO (10:29)
[2017-07-04] MEDS ORDERED: IPRA1AER2 INH (10:29)
--- NOTE | 2017-07-04 10:30 | Discharge Instructions ---
Discharge Instructions Date of Service Jul 04, 2017. Admission Reason for Admission: Copd Exacerbation; Multifocal Pneumonia Discharge Discharge Diagnosis / Problem: Multifocal pneumonia Discharge Goals Goal(s): Decrease discomfort, Improve function, Increase independence, Improve disease control, Improve nutritional status, Learn about illness, Diagnostic testing, Therapeutic intervention, Prevent Disease Progression, Specific goals Activity Recommendations Activity Limitations: resume your previous activity . Instructions / Follow-Up Instructions / Follow-Up you have Multifocal pneumonia , you need to continue home O2 you need to quit smoking I am giving you azithromycin, Augmentin , please continue as directed - you need to follow up with your primary care physician in 1 week, - take medication as instructed, never overdose or any misuse, or take with alcohol, because misuse of medicine may cause organ damage or , call your primary care physician if have questions of medicaitons. - call your primary care physician OR go to local emergency room if has any fever/chill, chest pain, shortness of breathing, nausea/vomiting/abdominal pain , facial droop/slurry speech/local weakness, or if has any questions. - fall precaution - diet as instructed - you need to follow up with your subspecialist - you should understand that it is important to follow up the above instruction , and "not following the above instruction" may cause delayed or missed care of your medical conditions which may cause permanent organ damage and even . Current Hospital Diet Patient's current hospital diet: AHA Diet (Heart Healthy) Discharge Diet Recommended Diet: AHA Diet (Heart Healthy) Procedures Procedures Performed: no Pending Studies Studies pending at discharge: no Medical Emergencies . Who to Call and When: Medical Emergencies: If at any time you feel your situation is an emergency, please call 911 immediately. . Non-Emergent Contact Non-Emergency issues call your: Primary Care Provider . . "Provider Documentation" section prepared by Prakash Bautista. . VTE Core Measure Inpt VTE Proph given/why not?: Unfractionated heparin SQ
--- NOTE | 2017-07-04 10:47 | DIAGNOSTIC IMAGING REPORT ---
CHEST 2 VIEWS ROUTINE CLINICAL HISTORY: COPD exacerbation. Follow-up pneumonia. COMPARISON STUDY: Chest CT June 26, 2017 and chest radiograph June 30, 2017. FINDINGS: There is no pneumothorax or pleural effusion. There is persistent mild interstitial thickening. This is similar to exam of June 30, 2017. There is no lobar consolidation. Cardiomediastinal silhouette is stable. IMPRESSION: No significant change in interstitial thickening and mild bilateral opacities. The findings could reflect an infectious process or interstitial lung disease. Electronically signed by: Valeriano Ceullar M.D. 07/04/2017 10:46 AM Dictated Date/Time: 07/04/2017 10:44 AM
[2017-07-04 11:08] VITALS: BP 134/72; PULSE 65; TEMP 36.9; O2SAT 98
--- NOTE | 2017-07-04 11:26 | Discharge Summary ---
Discharge Summary Date of Service Jul 04, 2017. Discharge Summary Admission Date: Jun 30, 2017 at 23:51 Discharge Date: Jul 04, 2017 Discharge Disposition: Home Principal Diagnosis: Multifocal pneumonia , Problems/Secondary Diagnoses: home O2 dependent Tobacco abuse disordeR Immunizations: Have You Had Influenza Vaccine: Yes Influenza Vaccine Date: Nov 01, 2009 History of Tetanus Vaccine?: No History of Pneumococcal: Yes Pneumococcal Date: Nov 24, 2008 History of Hepatitis B Vaccine: No Procedures: No Consultations: No Medication Reconciliation New Medications: Ipratropium-Albuterol (Combivent Respimat) 1 Aer Aer 1 PUFFS INH QID, #1 INH Amoxicillin & Pot Clavulanate (Amoxicillin/Clavulanate P) 1 Tab Tab 875 MG PO BIDM for 7 Days, TAB Azithromycin (Azithromycin) 250 Mg Tab 500 MG PO QAM for 3 Days, #6 TAB Continued Medications: Benztropine Mesylate (Cogentin) 1 Mg Tab 1 MG PO BID Clonazepam (Klonopin) 0.5 Mg Tab 0.5 MG PO BID, TAB Haloperidol (Haldol) 10 Mg Tab 10 MG PO HS Levothyroxine Sodium (Synthroid) 25 Mcg Tab 25 MCG PO QAM, TAB Meloxicam (Meloxicam) 15 Mg Tab 15 MG PO DAILY Multivitamin (Multivitamin) Tab 1 TAB PO DAILY, TAB Omeprazole (Prilosec) 40 Mg Cap 40 MG PO DAILY, CAP Trazodone HCl (Trazodone HCl) 100 Mg Tab 100 MG PO HS Discontinued Medications: Albuterol Sulfate (Proair Respiclick) 108 Mcg/Act Aer 2 PUFFS INH QID PRN for SOB/Wheezing Discharge Exam Continue doing well, mild cough, no fever, difficult breathing in baseline, oxygen level is in baseline with 2 L per min is of NC O2 continuously Review of Systems: Constitutional: No fever, No chills, No sweats, No weight loss, No weakness , No fatigue, No problem reported Eyes: No worsening of vision, No eye pain, No redness, No discharge, No diplopia, No problem reported ENT: No hearing loss, No unusual epistaxis, No nasal symptoms, No sore throat, No tinnitus, No dental problems, No trouble swallowing, No problem reported Respiratory: + dyspnea on exertion, No cough, No sputum, No wheezing, No shortness of breath, No dyspnea at rest, No hemoptysis, No problem reported Cardiovascular: No chest pain, No orthopnea, No PND, No edema, No claudication, No palpitations, No problem reported Abdomen: No pain, No nausea, No vomiting, No diarrhea, No constipation, No GI bleeding, No problem reported Musculoskeletal: No joint pain, No muscle pain, No swelling, No calf pain, No problem reported Genitourinary - Male: No hematuria, No dysuria, No urinary frequency, No urinary urgency, No urinary hesitancy, No urinary retention, No urinary incontinence, No penile discharge, No lesions, No impotence, No problem reported Neurologic: No memory loss, No paralysis, No weakness, No numbness/tingling , No vertigo, No balance problems, No problem reported Psychiatric: No depression symptoms, No anhedonism, No anxiety, No insomnia , No substance abuse, No problem reported Endocrine: No fatigue, No excessive thirst, No excessive urination, No problem reported Hematologic / Lymphatic: No abnormal bleeding/bruising, No clotting problems , No swollen lymph nodes, No night sweats, No problem reported Integumentary: No rash, No itch, No new/changing skin lesions, No color change, No bleeding, No problem reported Physical Exam: General Appearance: WD/WN, no apparent distress Eyes: normal inspection, PERRL, EOMI ENT: normal ENT inspection, hearing grossly normal Neck: supple, no adenopathy Respiratory/Chest: chest non-tender, + decreased breath sounds Cardiovascular: regular rate, rhythm, no edema, no gallop, no JVD Abdomen / GI: normal bowel sounds, non tender, soft Extremities: normal inspection, no calf tenderness, normal capillary refill 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 Admitted on 06/30/2017 because of multiple lobe pneumonia Per report, presented to the ER 5 days prior and was diagnosed with a multifocal pneumonia on CT. however , insisted on going home although admission was advised. He has become increasingly SOB since then and describes a worsening productive cough. A repeat CXR in emergency room is unchanged for a previous. Multifocal pneumonia , stable /improving COPD, history of chronic resp failure home O2 dependent Tobacco abuse disorder, otherwise continue quit smoking will repeat x-ray two-view Because he has essentially failed Levaquin, Possible MRSA and/or gram negative pneumonia Has been on on Zosyn, Zithro and Vanc So far Sputum and blood cultures were unremarkable, no growth up-to-date, Reviewed history of microbiology, he was having staph blood infection, with was MSSA , will narrow abx very soon Discontinue zosyn, continue azithromycin, start Augmentin for the treatment of community-acquired pneumonia Continue Nebs and Steroids, will send home with Combivent inhaler, disorganized documented chronic O2 dependent, tapered down pt's [place] O2 to base line 2LPM, has been continuing baseline and doing well Schizophrenia - stable - cont Haldol, Benztropine. History of DVT - PE - apparently dates to 1999, continue on DVT prophylaxis Discussed smoking cessation, offered help include nicotine patch, he declined Full code - Heparin prophylaxis Discussed with patient about a care plan answer all questions Instructions / Follow-Up you have Multifocal pneumonia , you need to continue home O2 you need to quit smoking I am giving you azithromycin, Augmentin , please continue as directed - you need to follow up with your primary care physician in 1 week, - take medication as instructed, never overdose or any misuse, or take with alcohol, because misuse of medicine may cause organ damage or , call your primary care physician if have questions of medicaitons. - call your primary care physician OR go to local emergency room if has any fever/chill, chest pain, shortness of breathing, nausea/vomiting/abdominal pain , facial droop/slurry speech/local weakness, or if has any questions. - fall precaution - diet as instructed - you need to follow up with your subspecialist - you should understand that it is important to follow up the above instruction , and "not following the above instruction" may cause delayed or missed care of your medical conditions which may cause permanent organ damage and even . Total Time Spent: Greater than 30 minutes This includes examination of the patient, discharge planning, medication reconciliation, and communication with other providers. Discharge Instructions Please refer to the electronic Patient Visit Report (Discharge Instructions) for additional information. Additional Copies To Ashley Spence
[2017-07-06 12:12] LABS: LEGIONELLA ANTIGEN NOT DETECTED (NOT DETECTED)
== END 2017-07-04 11:44 | disposition home or self-care (01) | DRG 190 ==
LOC: EDBD 19:26 → C.EDC 19:27 → EDBEDREQ 22:30 → ENRESERV 22:58 → C.MS2W 23:51
PROVIDERS: ADMIT Internal Medicine; ATTEND Hospitalist
DX: J44.0 Chronic obstructive pulmonary disease with (acute) lower respiratory infection (principal); J18.9 Pneumonia, unspecified organism; J96.10 Chronic respiratory failure, unspecified whether with hypoxia or hypercapnia; J44.1 Chronic obstructive pulmonary disease with (acute) exacerbation; I11.9 Hypertensive heart disease without heart failure; F20.9 Schizophrenia, unspecified; F17.200 Nicotine dependence, unspecified, uncomplicated; R63.4 Abnormal weight loss; Z68.29 Body mass index [BMI] 29.0-29.9, adult; Z99.81 Dependence on supplemental oxygen; Z86.14 Personal history of Methicillin resistant Staphylococcus aureus infection; Z86.718 Personal history of other venous thrombosis and embolism; Z86.711 Personal history of pulmonary embolism; Z79.1 Long term (current) use of non-steroidal anti-inflammatories (NSAID); Z79.899 Other long term (current) drug therapy

== ENCOUNTER → 2017-08-19 | Outpatient (CLI) | payer OTHER ==
[~2017-08-19] MED LIST changes: -ALBU18002 INH; +AMOX1TAB43 PO; +IPRA1AER2 INH; -LEVO-366 PO; +ZTHM250 PO
--- NOTE | 2017-08-19 09:26 | DIAGNOSTIC IMAGING REPORT ---
CHEST 2 VIEWS ROUTINE CLINICAL HISTORY: PNEUMONIA,SHORTNESS OF BREATH, COPD COMPARISON STUDY: 07/04/2017 FINDINGS: The cardiac and mediastinal contours are normal. There is no evidence of focal pulmonary consolidation. There is no evidence of failure. No pleural effusions are visualized.[ There have been interval improvement in the previously identified interstitial thickening. IMPRESSION: No active disease in the chest. Electronically signed by: Dain Frias M.D. 08/19/2017 9:24 AM Dictated Date/Time: 08/19/2017 9:23 AM
== END | disposition home or self-care (01) ==
LOC: C.RAD 08:53
PROVIDERS: ATTEND Nurse Practitioner Family
DX: J15.212 Pneumonia due to Methicillin resistant Staphylococcus aureus (principal); R06.02 Shortness of breath; J44.1 Chronic obstructive pulmonary disease with (acute) exacerbation

== ENCOUNTER 2018-02-15 21:01 | Emergency (ER) | payer OTHER ==
[~2018-02-15] VITALS: Ht 175.3 cm; Wt 90.3 kg
[~2018-02-15 21:01] MED LIST changes: +AZIT-57 PO; +BENZ-89 PO; -CGN1 PO; -IPRA1AER2 INH; +MELO-83 PO; -MELO15TA4 PO; -ZTHM250 PO
[2018-02-15 21:06] VITALS: TEMP 37; Ht 175.3 cm; Wt 90.3 kg
[2018-02-15 21:31] VITALS: O2SAT 98
[2018-02-15] MEDS ORDERED: METHYLPREDNISOLONE 125 MG VIAL IV STA (21:44)
[2018-02-15] MEDS ORDERED: ALBUT/IPRATROP 3MG/0.5MG NEB 3 ML VIAL INH STA (21:44)
[2018-02-15 22:00] LABS: BASO % 0.3 %; BASO ABS # 0.04 K/uL (0-0.2); EOS % 1.4 %; EOS ABS # 0.17 K/uL (0-0.5); HEMATOCRIT 41.5 % (42-52); HEMOGLOBIN 14.9 g/dL (14.0-18.0); IG# 0.04 K/uL (0.00-0.02); LYMPH % 27.1 %; LYMPH ABS # 3.34 K/uL (1.2-3.4); MEAN CELL VOLUME 87.7 fL (80-100); MEAN CORPUSCULAR HEMOGLOBIN 31.5 pg (25-34); MEAN CORPUSCULAR HGB CONC 35.9 g/dl (32-36); MEAN PLATELET VOLUME 8.7 fL (7.4-10.4); MONO % 7.1 %; MONO ABS # 0.87 K/uL (0.11-0.59); NEUT % 63.8 %; NEUT ABS # 7.87 K/uL (1.4-6.5); PLATELET COUNT 260 K/uL (130-400); RED CELL DISTRIBUTION WIDTH CV 13.5 % (11.5-14.5); WHITE BLOOD COUNT 12.33 K/uL (4.8-10.8)
[2018-02-15] MEDS ORDERED: OPTIRAY 320 IV PRN (22:00)
--- NOTE | 2018-02-15 22:02 | DIAGNOSTIC IMAGING REPORT ---
CHEST ONE VIEW PORTABLE CLINICAL HISTORY: Respiratory distress COMPARISON STUDY: 08/19/2017 FINDINGS: The cardiac and mediastinal contours are normal. There is no evidence of focal pulmonary consolidation. There is no evidence of failure. No pleural effusions are visualized.[ IMPRESSION: No active disease in the chest. Electronically signed by: Dain Frias M.D. 02/15/2018 10:01 PM Dictated Date/Time: 02/15/2018 10:00 PM
[2018-02-15 22:19] LABS: ALBUMIN 3.5 gm/dl (3.4-5.0); ALT/SGPT 21 U/L (12-78); AST/SGOT 10 U/L (15-37); BLOOD UREA NITROGEN 16 mg/dl (7-18); CALCIUM 8.7 mg/dl (8.5-10.1); CARBON DIOXIDE 22 mmol/L (21-32); CREATININE 1.24 mg/dl (0.60-1.40); GLUCOSE 118 mg/dl (70-99); POTASSIUM 3.7 mmol/L (3.5-5.1); SODIUM 140 mmol/L (136-145)
[2018-02-15 22:23] LABS: ALKALINE PHOSPHATASE 84 U/L (45-117); TOTAL PROTEIN 6.7 gm/dl (6.4-8.2)
[2018-02-15 22:30] LABS: INFLUENZA B ANTIGEN Neg for Influ B (NEG)
--- NOTE | 2018-02-15 23:02 | DIAGNOSTIC IMAGING REPORT ---
CT ANGIOGRAM OF THE CHEST CLINICAL HISTORY: Respiratory distress. History of pulmonary embolism. COMPARISON STUDY: June 2017 TECHNIQUE: Following the IV administration of 91 mL of [id number]-[id number], CT angiogram of the thorax was performed from the thoracic inlet to the lung bases utilizing the pulmonary embolus protocol. Images are reviewed in the axial, sagittal, and coronal planes. IV contrast was administered without complication. MIP imaging was performed. A dose lowering technique was utilized adhering to the principles of ALARA. CT DOSE: 417.54 mGy.cm FINDINGS: No pathologically enlarged axillary mediastinal or hilar lymph nodes were visualized. There was no evidence of thoracic aortic dilatation. There were no pulmonary artery filling defects to indicate acute pulmonary embolism. No pleural effusions are visualized. There was no evidence of focal pulmonary consolidation. There is underlying pulmonary emphysema. IMPRESSION: 1. No evidence of acute pulmonary embolism 2. Pulmonary emphysema 3. No evidence of focal pulmonary consolidation Electronically signed by: Dain Frias M.D. 02/15/2018 11:00 PM Dictated Date/Time: 02/15/2018 10:57 PM
[2018-02-15 23:09] VITALS: BP 123/76; PULSE 71; O2SAT 99
[2018-02-15] MEDS ORDERED: DXY100 PO (23:43)
[2018-02-15] MEDS ORDERED: PRED50TA PO (23:43)
[2018-02-15] MEDS ORDERED: DOXYCYCLINE HYCLATE 100 MG CAP PO ONE (23:45)
[2018-02-15] MEDS ORDERED: IPRA1AER2 INH (23:45)
--- NOTE | 2018-02-16 02:47 | EMERGENCY ROOM VISIT NOTE ---
History Report prepared by Jesus: Robert Trent Under the Supervision of: Dr. Rolando Gray M.D. First contact with patient: 21:21 Chief Complaint: SHORTNESS OF BREATH Stated Complaint: SOB Nursing Triage Summary: Patient with increased SOB over last week worsening today. Patinet states his breathing is worse during the night and in the morning. Patient states in the morning patient coughs up brown colored sputum. Also notes he was taking care of a friend who was just hospitalized with a viral infection last week. Patient wears 3 L NS chronically at home. History of Present Illness The patient is a 57 year old male who presents to the Emergency Room with complaints of worsening shortness of breath beginning over a week ago. He currently rates his discomfort a 7/10 in severity. The patient states he has been experiencing his shortness of breath for longer than a week, but it has worsened over the past week. He reports his on 3L of O2 at home for his history of COPD. The patient notes he was taking care of a friend who was hospitalized for a virus. He states it feels as if he cannot catch his breath and deep breathing causes chest pain. The patient reports he has a history of smoking, pneumonia, and blood clots. He notes he called his PCP and was told to come to the ED for evaluation. Pt denies LOC, headache, fevers, chills, diaphoresis, visual changes, neck pain, nausea, vomiting, abdominal pain, back pain, melena, hematochezia, urinary symptoms, numbness, weakness, lymphadenopathy, rash, recent steroid use, having a nebulizer or inhaler at home, a history of diabetes , or other complaints. Source of History: patient Onset: over a week ago Symptom Intensity: 7/10 Quality: other (SOB) Timing: worsening Associated Symptoms: + chest pain (with deep breathing) Review of Systems See HPI for pertinent positives and negatives. A total of ten systems were reviewed and were otherwise negative. Past Medical & Surgical Medical Problems: (1) Anxiety (2) ARDS (adult respiratory distress syndrome) (3) Benign hypertension (4) Depression (5) Gastroesophageal reflux disease (6) History of - schizophrenia (7) Multifocal pneumonia (8) Pulmonary embolism (9) Weakness generalized Family History FHx: cancer FHx: diabetes FHx: heart disease FHx: hypertension FHx: lung disease Social History Smoking Status: Current Every Day Smoker Alcohol Use: none Drug Use: none Marital Status: Housing Status: lives with significant other Occupation Status: disabled Current/Historical Medications Scheduled Benztropine Mesylate (Cogentin), 1 MG PO BID Clonazepam (Klonopin), 0.5 MG PO BID Doxycycline Hyclate (Doxycycline Hyclate), 100 MG PO BID Haloperidol (Haldol), 10 MG PO HS Ipratropium-Albuterol (Combivent Respimat), 1 PUFFS INH QID Levothyroxine Sodium (Synthroid), 25 MCG PO QAM Meloxicam (Meloxicam), 15 MG PO DAILY Multivitamin (Multivitamin), 1 TAB PO DAILY Omeprazole (Prilosec), 40 MG PO DAILY Prednisone (Prednisone), 50 MG PO DAILY Trazodone HCl (Trazodone HCl), 100 MG PO HS Allergies Coded Allergies: No Known Allergies (Verified , 02/15/18) Physical Exam Vital Signs Date Time Temp Pulse Resp B/P (MAP) Pulse Ox O2 Delivery O2 Flow Rate FiO2 02/15/18 23:09 71 20 123/76 99 Nasal Cannula 3.0 02/15/18 22:03 71 20 109/74 98 Nasal Cannula 3.0 02/15/18 21:31 98 Nasal Cannula 3.0 02/15/18 21:11 Nasal Cannula 3.0 02/15/18 21:11 Nasal Cannula 02/15/18 21:09 80 02/15/18 21:06 37.0 74 22 125/88 98 Nasal Cannula 3.0 Physical Exam GENERAL: Awake, alert, well-appearing, in no distress HENT: Normocephalic, atraumatic. Oropharynx unremarkable. EYES: Normal conjunctiva. Sclera non-icteric. NECK: Supple. No nuchal rigidity. FROM. No masses. RESPIRATORY: Clear to auscultation. No wheezes. No rales. Normal respiratory effort. CARDIAC: Normal rate. Normal rhythm. No murmurs. No rubs. Extremities warm and well perfused. Pulses equal. No JVD. GI: Soft, non-distended. No tenderness to palpation. No rebound or guarding. No masses. RECTAL: Deferred. MUSCULOSKELETAL: Atraumatic. Chest examination reveals no tenderness. The back is symmetrical on inspection without obvious abnormality. There is no CVA tenderness to palpation. No joint edema. LOWER EXTREMITIES: Calves are equal size bilaterally and non-tender. No edema. No discoloration. NEURO: Normal sensorium. No sensory or motor deficits noted. SKIN: No rash or jaundice noted. Medical Decision & Procedures ER Provider Diagnostic Interpretation: Radiology results as stated below per my review and radiologist interpretation: CHEST ONE VIEW PORTABLE CLINICAL HISTORY: Respiratory distress COMPARISON STUDY: 08/19/2017 FINDINGS: The cardiac and mediastinal contours are normal. There is no evidence of focal pulmonary consolidation. There is no evidence of failure. No pleural effusions are visualized.[ IMPRESSION: No active disease in the chest. Electronically signed by: Dain Frias M.D. 02/15/2018 10:01 PM Dictated Date/Time: 02/15/2018 10:[address] ANGIOGRAM OF THE CHEST CLINICAL HISTORY: Respiratory distress. History of pulmonary embolism. COMPARISON STUDY: June 2017 TECHNIQUE: Following the IV administration of 91 mL of [id number]-[id number], CT angiogram of the thorax was performed from the thoracic inlet to the lung bases utilizing the pulmonary embolus protocol. Images are reviewed in the axial, sagittal, and coronal planes. IV contrast was administered without complication. MIP imaging was performed. A dose lowering technique was utilized adhering to the principles of ALARA. CT DOSE: 417.54 mGy.cm FINDINGS: No pathologically enlarged axillary mediastinal or hilar lymph nodes were visualized. There was no evidence of thoracic aortic dilatation. There were no pulmonary artery filling defects to indicate acute pulmonary embolism. No pleural effusions are visualized. There was no evidence of focal pulmonary consolidation. There is underlying pulmonary emphysema. IMPRESSION: 1. No evidence of acute pulmonary embolism 2. Pulmonary emphysema 3. No evidence of focal pulmonary consolidation Electronically signed by: Dain Frias M.D. 02/15/2018 11:00 PM Dictated Date/Time: 02/15/2018 10:57 PM Laboratory Results 02/15/18 21:35 Red Blood Count 4.73, Mean Corpuscular Volume 87.7, Mean Corpuscular Hemoglobin 31.5, Mean Corpuscular Hemoglobin Concent 35.9, Mean Platelet Volume 8.7, Neutrophils (%) (Auto) 63.8, Lymphocytes (%) (Auto) 27.1, Monocytes (%) (Auto) 7.1, Eosinophils (%) (Auto) 1.4, Basophils (%) (Auto) 0.3, Neutrophils # (Auto) 7.87, Lymphocytes # (Auto) 3.34, Monocytes # (Auto) 0.87, Eosinophils # (Auto) 0.17, Basophils # (Auto) 0.04 02/15/18 21:35 Test 02/15/18 21:35 02/15/18 22:00 White Blood Count 12.33 K/uL (4.8-10.8) Red Blood Count 4.73 M/uL (4.7-6.1) Hemoglobin 14.9 g/dL (14.0-18.0) Hematocrit 41.5 % (42-52) Mean Corpuscular Volume 87.7 fL (80-100) Mean Corpuscular Hemoglobin 31.5 pg (25-34) Mean Corpuscular Hemoglobin Concent 35.9 g/dl (32-36) Platelet Count 260 K/uL (130-400) Mean Platelet Volume 8.7 fL (7.4-10.4) Neutrophils (%) (Auto) 63.8 % Lymphocytes (%) (Auto) 27.1 % Monocytes (%) (Auto) 7.1 % Eosinophils (%) (Auto) 1.4 % Basophils (%) (Auto) 0.3 % Neutrophils # (Auto) 7.87 K/uL (1.4-6.5) Lymphocytes # (Auto) 3.34 K/uL (1.2-3.4) Monocytes # (Auto) 0.87 K/uL (0.11-0.59) Eosinophils # (Auto) 0.17 K/uL (0-0.5) Basophils # (Auto) 0.04 K/uL (0-0.2) RDW Standard Deviation 43.0 fL (36.4-46.3) RDW Coefficient of Variation 13.5 % (11.5-14.5) Immature Granulocyte % (Auto) 0.3 % Immature Granulocyte # (Auto) 0.04 K/uL (0.00-0.02) Anion Gap 8.0 mmol/L (3-11) Est Creatinine Clear Calc Drug Dose 73.0 ml/min Estimated GFR () 74.3 Estimated GFR (Non- 64.1 BUN/Creatinine Ratio 13.0 (10-20) Calcium Level 8.7 mg/dl (8.5-10.1) Total Bilirubin 0.2 mg/dl (0.2-1) Aspartate Amino Transf (AST/SGOT) 10 U/L (15-37) Alanine Aminotransferase (ALT/SGPT) 21 U/L (12-78) Alkaline Phosphatase 84 U/L (45-117) Troponin I < 0.015 ng/ml (0-0.045) Pro-B-Type Natriuretic Peptide 22 pg/ml (0-900) Total Protein 6.7 gm/dl (6.4-8.2) Albumin 3.5 gm/dl (3.4-5.0) Globulin 3.2 gm/dl (2.5-4.0) Albumin/Globulin Ratio 1.1 (0.9-2) Influenza Type A Antigen Neg for Influ A (NEG) Influenza Type B Antigen Neg for Influ B (NEG) Laboratory results reviewed by me Medications Administered Medications (Trade) Dose Ordered Sig/Key Route Start Time Stop Time Status Last Admin Dose Admin Albuterol/ Ipratropium (Duoneb) 3 ml NOW STAT INH 02/15/18 21:44 02/15/18 21:45 DC 02/15/18 22:02 3 ML Methylprednisolone Sodium Succinate (Solu-Medrol IV) 125 mg NOW STAT IV 02/15/18 21:44 02/15/18 21:45 DC 02/15/18 22:02 125 MG Doxycycline Hyclate (Vibramycin Cap) 100 mg ONE ONCE PO 02/15/18 23:45 02/15/18 23:46 DC 02/15/18 23:52 100 MG ECG Per My Interpretation Indication: SOB/dyspnea Rate (beats per minute): 79 Rhythm: normal sinus Findings: no acute ischemic change, no ectopy, other (Normal intervals) ED Course 2142: The patient was evaluated in room A03. A complete history and physical exam was performed. 2143: Ordered Solu-Medrol IV 125mg IV, Duoneb 3ml INH 2306: I reevaluated the patient. He is feeling better. 5: Ordered Vibramycin Cap 100mg PO 0: I reevaluated the patient. Discussed results and discharge instructions: he verbalized understanding and agreement. The patient is ready for discharge. Medical Decision Prior records/ancillary studies reviewed. Triage Nursing notes reviewed and agree them. The patient's history was concerning for shortness of breath. Differential diagnosis: Etiologies such as pneumonia, COPD, reactive airway disease, CHF, cardiac ischemia, pulmonary embolism, pneumothorax, musculoskeletal, infections, gastrointestinal, as well as others were entertained. Physical examination: As above. ER treatment provided: DuoNeb IV Solu-Medrol On reassessment the patient felt much better. Doxycycline Diagnostic interpretation by me: The electrocardiogram was negative for pathologic change. The labs revealed an unremarkable CBC and chemistry panel. Flu testing negative. Cardiac markers and BNP negative. Imaging studies: Chest x-ray and CT scan as above. The patient has no evidence of PE or pneumonia on advanced imaging. I discussed conservative management with antibiotic, prednisone, and a bronchodilator. I gave my usual and customary discussion regarding this issue. By the evaluation outlined above emergent etiologies such as CHF, cardiac ischemia, pulmonary embolism, reactive airway disease, pneumonia, pneumothorax , musculoskeletal, infections, as well as others were deemed relatively unlikely. The patient was informed about the findings as listed above. All questions were answered and he was pleased with the treatment. Return instructions were outlined and the patient was discharged in stable condition. Outpatient prescription management: Doxycycline Prednisone Referral: The patient was referred back to his primary care physician for follow-up in 2 to 3 days for a recheck of the current condition. The chart was completed utilizing [employer] Speech voice recognition software. Grammatical errors, random word insertions, pronoun errors, and incomplete sentences are an occasional consequence of this system due to software limitations, ambient noise, and hardware issues. Any formal questions or concerns about the content, text, or information contained within the body of this dictation should be directly addressed to the physician for clarification. Medication Reconcilliation Current Medication List: was personally reviewed by me Blood Pressure Screening Patient's blood pressure: Normal blood pressure Blood pressure disposition: Did not require urgent referral Impression Primary Impression: Acute bronchitis Additional Impression: COPD (chronic obstructive pulmonary disease) Scribe Attestation The scribe's documentation has been prepared under my direction and personally reviewed by me in its entirety. I confirm that the note above accurately reflects all work, treatment, procedures, and medical decision making performed by me. Departure Information Dispostion Home / Self-Care Prescriptions Prednisone (Prednisone) 50 Mg Tab 50 MG PO DAILY for 4 Days, #4 TAB Prov: Rolando Gray MD 02/15/18 Doxycycline Hyclate (Doxycycline Hyclate) 100 Mg Cap 100 MG PO BID for 7 Days, #14 CAP Prov: Rolando Gray MD 02/15/18 Referrals Ashley Spence (PCP) Forms HOME CARE DOCUMENTATION FORM, IMPORTANT VISIT INFORMATION Patient Instructions My [facility] Additional Instructions Doxycycline 100mg: Take one pill twice daily for 7 days for your infection. Take with food, but avoid dairy. Avoid prolonged sun exposure since this medication makes you temporarily more susceptible to sunburns. All antibiotics can cause diarrhea. If this occurs and you feel worse or it does not resolve in 1-2 days follow up with your doctor or return to the Emergency Department as this could be signs of serious underlying problems. Any medication can cause an allergic reaction, stop the pills immediately and return to the ER for rash, hives, breathing difficulties, or swelling. Albuterol Inhaler: Take 2 puffs four times daily for seven days, then as needed. Acetaminophen(Tylenol) may be used for fever or pain. Use 1000mg every six hours as needed. Avoid using more than 4000mg in a 24 hour period. Prednisone 50 mg: Once daily until the prescription is finished. Controlling your fever with Tylenol and Ibuprofen as above will make you feel better. Rest and drink plenty of fluids. Avoid strenuous activity until your symptoms resolve and your breathing returns to normal. Return to the ER for chest pain, difficulty breathing, persistent fevers, vomiting, worsening of your condition, or as needed. Follow up with your primary physician in 2-3 days for a recheck of the current condition. Problem Qualifiers
== END 2018-02-15 23:45 | disposition home or self-care (01) ==
LOC: EDBD 21:01 → C.EDA 21:03
DX: J44.0 Chronic obstructive pulmonary disease with (acute) lower respiratory infection (principal); I10 Essential (primary) hypertension; F41.8 Other specified anxiety disorders; F17.200 Nicotine dependence, unspecified, uncomplicated; Z86.711 Personal history of pulmonary embolism; Z87.01 Personal history of pneumonia (recurrent); Z79.899 Other long term (current) drug therapy; Z99.81 Dependence on supplemental oxygen; Z83.3 Family history of diabetes mellitus; Z82.49 Family history of ischemic heart disease and other diseases of the circulatory system; Z83.6 Family history of other diseases of the respiratory system

== ENCOUNTER → 2018-05-19 | Outpatient (CLI) | payer OTHER ==
[~2018-05-19] MED LIST changes: -AMOX1TAB43 PO; -AZIT-57 PO; -CLON0.5T3 PO; +DXY100 PO; +IPRA1AER2 INH; +KLN/5 PO
[2018-05-19 09:17] LABS: BLOOD UREA NITROGEN 14 mg/dl (7-18); CALCIUM 8.3 mg/dl (8.5-10.1); CARBON DIOXIDE 29 mmol/L (21-32); CREATININE 0.99 mg/dl (0.60-1.40); GLUCOSE 132 mg/dl (70-99); POTASSIUM 3.3 mmol/L (3.5-5.1); SODIUM 144 mmol/L (136-145)
== END ==
LOC: C.LABCC 08:22
PROVIDERS: ATTEND Internal Medicine
DX: E87.6 Hypokalemia (principal)

== ENCOUNTER → 2018-05-27 | Outpatient (CLI) | payer OTHER ==
[2018-05-27 09:13] LABS: BLOOD UREA NITROGEN 18 mg/dl (7-18); CALCIUM 8.6 mg/dl (8.5-10.1); CARBON DIOXIDE 31 mmol/L (21-32); CREATININE 1.18 mg/dl (0.60-1.40); GLUCOSE 109 mg/dl (70-99); POTASSIUM 4.1 mmol/L (3.5-5.1); SODIUM 143 mmol/L (136-145)
== END ==
LOC: C.LABCC 07:55
PROVIDERS: ATTEND Internal Medicine
DX: E87.6 Hypokalemia (principal)

== ENCOUNTER → 2018-05-30 | Outpatient (CLI) | payer OTHER ==
[2018-05-30 10:18] LABS: ALBUMIN 3.1 gm/dl (3.4-5.0); ALKALINE PHOSPHATASE 65 U/L (45-117); ALT/SGPT 17 U/L (12-78); AST/SGOT 11 U/L (15-37); BLOOD UREA NITROGEN 19 mg/dl (7-18); CALCIUM 8.7 mg/dl (8.5-10.1); CARBON DIOXIDE 30 mmol/L (21-32); CHOLESTEROL 125 mg/dl (0-200); CREATININE 1.16 mg/dl (0.60-1.40); GLUCOSE 106 mg/dl (70-99); LDL CHOLESTEROL CALCULATED 65 mg/dl; POTASSIUM 3.9 mmol/L (3.5-5.1); SODIUM 142 mmol/L (136-145); TOTAL PROTEIN 5.8 gm/dl (6.4-8.2)
== END ==
LOC: C.LABCC 08:03
PROVIDERS: ATTEND Internal Medicine
DX: E03.9 Hypothyroidism, unspecified (principal); E78.5 Hyperlipidemia, unspecified; E87.1 Hypo-osmolality and hyponatremia

== ENCOUNTER 2023-10-02 19:05 | Observation (INO) ==
--- OUTSIDE RECORDS SUMMARY | 2023-10-02 19:11 | External Medical Summary ---
Author Name Unknown Address Unknown Organization [id number]:LABORATORY [facility] [place] - [address] [facility] [place] [address] Laboratory Report Ordering Provider Test Date Status SIDNEY JARAMILLO 07/22/2023 16:14:12 Final Observation Date Value Abnormality Reference (Units ) Status BUN 07/22/2023 16:14:12 16 6-20 (mg/dL) Final Creatinine 07/22/2023 16:14:12 1.1 0.6-1.2 (mg/dL) Final Glomerular filtration rate/1.73 sq M.predicted [Volume Rate/Area] in Serum, Plasma or Blood by Creatinine-based formula (CKD-EPI) 07/22/2023 16:14:12 78 >=60 (mL/min) Final eGFR is calculated based on the CKD-EPI 2020 equation SODIUM 07/22/2023 16:14:12 136 135-146 (m mol/L) Final Potassium 07/22/2023 16:14:12 4.6 3.5-5.1 (m mol/L) Final Cl 07/22/2023 16:14:12 101 98-107 (mm ol/L) Final CO2 07/22/2023 16:14:12 18 Below low normal 22- 32 (mmol/L) Final Anion gap 07/22/2023 16:14:12 17 Above high normal 7- 15 (mmol/L) Final Glucose 07/22/2023 16:14:12 93 70-120 (mg /dL) Final Albumin 07/22/2023 16:14:12 4.5 3.8-5.0 (g /dL) Final AST (Aspartate aminotransferase) 07/22/2023 16:14:12 10 10-50 (U/L) Fin al Alk Phos 07/22/2023 16:14:12 90 35-130 (U/ L) Final Bilirubin, Total 07/22/2023 16:14:12 0.2 <=1 .2 (mg/dL) Final Calcium 07/22/2023 16:14:12 9.2 8.4-10.2 ( mg/dL) Final Protein 07/22/2023 16:14:12 6.3 6.0-8.3 (g /dL) Final ALT (Alanine aminotransferase) 07/22/2023 16:14:12 13 10-50 (U/L) Talon fragoso Performing Location LABORATORY [facility] [place] - [address] [facility] [address]
--- OUTSIDE RECORDS SUMMARY | 2023-10-02 19:11 | External Medical Summary ---
Author Name Unknown Address Unknown Organization K01:LABORATORY [facility] - [address] [facility] [address] Laboratory Report Ordering Provider Test Date Status SIDNEY JARAMILLO 07/22/2023 16:14:12 Final Observation Date Value Abnormality Reference (Units ) Status Triglyceride 07/22/2023 16:14:12 116 <=174 ( mg/dL) Final Triglyceride Reference Range s (mg/dL):
<150 Acceptable
150-174 Borderline high
175-499 High
>=500 Very high Cholesterol 07/22/2023 16:14:12 137 <200 (mg /dL) Final Total Cholesterol Reference Ranges (mg/dL):
<200 Desirable
200-239 Borderline high
>=240 High HDL 07/22/2023 16:14:12 45 >39 (mg/dL ) Final HDL Cholesterol Reference Ra nges (mg/dL):
>=60 High (Desirable)
<50 Low (Undesirable) For Females
<40 Low (Undesirable) For Males NON-HDL CHOLESTEROL 07/22/2023 16:14:12 92 <=159 (mg/dL) Final Non-HDL Cholesterol Referenc e Range (mg/dL):
<100 Target level for high risk ASCVD patient
<130 Optimal for general population
130-159 Near optimal for general population
160-189 Borderline High
190-219 High
>=220 Very High LDL, (calculated) 07/22/2023 16:14:12 69 <= 129 (mg/dL) Final LDL Cholesterol Reference Ra nges (mg/dL):
<70 Target level for high risk ASCVD patient
<100 Optimal for general population
100-129 Near optimal for general population
130-159 Borderline high
160-189 High
>=190 Very high Performing Location LABORATORY [facility] - [address] [facility] [address]
--- OUTSIDE RECORDS SUMMARY | 2023-10-02 19:11 | External Medical Summary ---
Author Name Unknown Address Unknown Organization [id number]:LABORATORY [facility] [place] [place] - [address] [facility] [address] Laboratory Report Ordering Provider Test Date Status SIDNEY JARAMILLO 07/22/2023 16:14:12 Final <10,000 colonies/ml normal f jorge, one colony type Observation Date Value Abnormality Reference (Units) Status Bacteria identified in Specimen by Culture 07/22/2023 16:14:12 [id number]^STAPHYLOCO CCUS LUGDUNENSIS Abnormal Final >100,000 colonies/mL Staphyl ococcus lugdunensis Performing Location LABORATORY [facility] [place] [place] - [address] [facility] [address] Ordering Provider Test Date Status SIDNEY JARAMILLO 07/22/2023 16:14:12 Final Observation Date Value Abnormality Reference (Units ) Status Nitrofurantoin susceptibility 07/22/2023 16:14:12 <=16 Susceptible Final Oxacillinsusceptibility 07/22/2023 16:14:12 0.5 Susceptible Final Penicillin susceptibility 07/22/2023 16:14:12 <=0.03 Resistant Final Tetracyclinesusceptibility 07/22/2023 16:14:12 <=1 Susceptible Final TMP-SMZ susceptibility 07/22/2023 16:14:12 <=10 Susceptible Final Vancomycinsusceptibility 07/22/2023 16:14:12 <=0.5 Susceptible Final Test: Culture, Urine, Quanti tative
Specimen Source: Urine, Clean Catch
Specimen Type: Urine
Specimen Date: 07/22/2023 4:14 PM
Result Date: 07/26/2023 2:47 PM
Result Status: Final result
Abnormal: Yes
Resulting Lab: LABORATORY [facility] [place] [place]
[address]
[place] [address]

CULTURE

>100,000 colonies/mL Staphylococcus lugdunensis (Abnormal)

<10,000 colonies/ml normal reema, one colony type

SUSCEPTIBILITY

Staphylococcus
lugdunensis
METHOD MICROBROTH
DILUTIONS

NITROFURANTOIN <=16 Susceptible
OXACILLIN 0.5 Susceptible
PENICILLIN G <=0.03 Resistant
TETRACYCLINE <=1 Susceptible
TRIMETH/SULFAMETHOXAZOLE <=10 Susceptible
VANCOMYCIN <=0.5 Susceptible

null Performing Location LABORATORY [facility] [place] [place] - [address] [place] [address]
--- OUTSIDE RECORDS SUMMARY | 2023-10-02 19:11 | External Medical Summary ---
Author Name Unknown Address Unknown Organization K01:LABORATORY [facility] [place] - [address] [place] [address] Laboratory Report Ordering Provider Test Date Status SIDNEY JARAMILLO 07/22/2023 16:14:12 Final Normal: <30 mg/g creatinine< br/>High: 30-300 mg/g creatinine
Very High: >300 mg/g creatinine
Nephrotic: >2200 mg/g creatinine Observation Date Value Abnormality Reference (Units) Status Albumin, Urine 07/22/2023 16:14:12 <1.20 (mg/dL) Final Creatinine, Urine 07/22/2023 16:14:12 25 (mg/dL) Final ALBUMIN/CREATININE RATIO, HIDE 07/22/2023 16:14:12 Uninterpretable Albumin/Creatinine ratio due to very low albumin and creatinine values. <30 (mg/g Creat) Final Performing Location LABORATORY [facility] [place] - [address] [place] [address]
--- OUTSIDE RECORDS SUMMARY | 2023-10-02 19:11 | External Medical Summary ---
Author Name Unknown Address Unknown Organization K01:LABORATORY [facility] [place] - [facility] [address] [place] [address] Laboratory Report Ordering Provider Test Date Status SIDNEY JARAMILLO 07/22/2023 16:14:12 Final Observation Date Value Abnormality Reference (Units ) Status WBC, Total 07/22/2023 16:14:12 8.84 4.00-10.80 (K/uL) Final RBC 07/22/2023 16:14:12 4.70 4.50-5.25 (M/uL) Final Hemoglobin 07/22/2023 16:14:12 14.3 14.0-16.8 (g/dL) Final HCT 07/22/2023 16:14:12 43.0 40.0-48.4 (%) Final MCV 07/22/2023 16:14:12 91.5 82.0-99.5 (fL) Final MCH 07/22/2023 16:14:12 30.4 27.0-34.0 (pg) Final MCHC 07/22/2023 16:14:12 33.3 32.0-36.0 (g/dL) Final RDW 07/22/2023 16:14:12 13.4 11.5-15.5 (%) Final Platelets 07/22/2023 16:14:12 269 140-400 (K/uL) Final MPV 07/22/2023 16:14:12 9.0 6.6-11.1 (fL) Final Nucleated erythrocytes/100 leukocytes [Ratio] in Blood by Automated count 07/22/2023 16:14:12 0 <=0 (/100 WBCs) Final Performing Location LABORATORY [facility] [place] - [address] [place] [address]
--- OUTSIDE RECORDS SUMMARY | 2023-10-02 19:11 | External Medical Summary ---
Author Name Unknown Address Unknown Organization K01:LABORATORY [place] [address] [facility] [address] Laboratory Report Ordering Provider Test Date Status SIDNEY JARAMILLO 07/22/2023 16:14:12 Final Observation Date Value Abnormality Reference (Units ) Status SYNC LEUKOCYTES IN BLOOD BY AUTOMATED COUNT 07/22/2023 16:14:12 8.84 4.00-10.80 (K/uL) Final Segs 07/22/2023 16:14:12 56.6 40.0-75.0 (%) Final Lymphs % 07/22/2023 16:14:12 30.4 18.0-42.0 (%) Final Monos 07/22/2023 16:14:12 9.6 1.0-11.0 (%) Final Eosinophils 07/22/2023 16:14:12 2.1 0.0-6.0 (%) Final Basos 07/22/2023 16:14:12 1.0 0.0-2.0 (%) Final Immature Granulocyte, Percent 07/22/2023 16:14:12 0.3 0.0-2.0 (%) Final Absolute Segs 07/22/2023 16:14:12 4.99 1.80-7.70 (K/uL) Final Lymphs, absolute 07/22/2023 16:14:12 2.69 1.00-4.80 (K/ul) Final Monos, Abs 07/22/2023 16:14:12 0.85 0.00-1.10 (K/uL) Final Eos, Abs 07/22/2023 16:14:12 0.19 0.00-0.70 (K/uL) Final Basos, Abs 07/22/2023 16:14:12 0.09 0.00-0.20 (K/uL) Final Immature Granulocytes, Number 07/22/2023 16:14:12 0.03 0.00-0.20 (K/uL) Final Performing Location LABORATORY [facility] - [address] [facility] [address]
--- OUTSIDE RECORDS SUMMARY | 2023-10-02 19:11 | External Medical Summary ---
Author Name Unknown Address Unknown Organization K01:LABORATORY [facility] - [address] [place] [address] Laboratory Report Ordering Provider Test Date Status CLINTSIDNEY 07/22/2023 16:14:12 Final Observation Date Value Abnormality Reference (Units ) Status PSA 07/22/2023 16:14:12 0.96 <4.10 (ng/ mL) Final Performing Location LAB[facility]ATORY [facility] - [address] [address]
--- OUTSIDE RECORDS SUMMARY | 2023-10-02 19:11 | External Medical Summary ---
Author Name Unknown Address Unknown Organization K01:[facility] [place] [address] [facility] [id number] Laboratory Report Ordering Provider Test Date Status SIDNEY JARAMILLO 07/22/2023 16:14:12 Final Observation Date Value Abnormality Reference (Units ) Status Color of Urine by Auto 07/22/2023 16:14:12 Colorless Colorless, Light Yellow, Yellow, Dark Yellow Final Clarity, Urine 07/22/2023 16:14:12 Clear Clear Final Glucose [Mass/volume] in Urine by Automated test strip 07/22/2023 16:14:12 Negative Negative (mg/dL) Final Bilirubin.total [Presence] in Urine by Automated test strip 07/22/2023 16:14:12 Negative Negative Final Ketones [Mass/volume] in Urine by Automated test strip 07/22/2023 16:14:12 Negative Negative (mg/dL) Final Specific gravity, Urine 07/22/2023 16:14:12 1.007 1.003-1.030 Final Hemoglobin [Presence] in Urine by Automated test strip 07/22/2023 16:14:12 Negative Negative Final pH, Urine 07/22/2023 16:14:12 6.0 5.0-7.5 (Units) Final Protein [Mass/volume] in Urine by Automated test strip 07/22/2023 16:14:12 Negative Negative (mg/dL) Final Urobilinogen [Mass/volume] in Urine by Automated test strip 07/22/2023 16:14:12 Normal Normal (mg/dL) Final Nitrite [Presence] in Urine by Automated test strip 07/22/2023 16:14:12 Positive Abnormal Negative Final Leukocyte esterase [Presence] in Urine by Automated test strip 07/22/2023 16:14:12 Moderate Abnormal Negative Final RBC, Urine 07/22/2023 16:14:12 0-2 0-2 (/HPF) Final WBC, Urine 07/22/2023 16:14:12 10-19 Abnormal 0-2 (/HPF) Final Bacteria [#/area] in Urine sediment by Microscopy high power field 07/22/2023 16:14:12 101-150 Abnormal 0-25 (/HPF) Final Performing Location [facility] [place] [address] [facility] [id number]
--- OUTSIDE RECORDS SUMMARY | 2023-10-02 19:11 | External Medical Summary | Continuity of Care Document ---
Author Name Unknown Organization [facility] [address] [facility] [place] [address] Address [address] [id number] Care Team Providers Care Pari Mutuel Ticket Cashier Name Role Phone Steven Rodriguez Primary Care Physician [phone] Encounter [facility] [id number] Date(s): 05/06/23 - 05/06/23 [facility] [address] [facility] [place] [facility] Practice Site [address] [facility] [address] [place], [place] [address]Etkgu [phone] Encounter Diagnosis Tobacco user(Discharge Diagnosis) - 05/06/23 Syncope(Discharge Diagnosis) - 05/06/23 Discharge Disposition: Home or Self Care Attending Physician: DO Welch Gretchen Elizabeth Allergies, Adverse Reactions, Alerts Substance Reaction Severity Status lithium General unwellness Active Immunizations Given and Recorded Vaccine Date Status Refusal Reason influenza virus vaccine, inactivated 08/10/22 Antonio rded influenza virus vaccine, inactivated 10/16/21 Give n influenza virus vaccine, inactivated 09/24/20 Give n influenza virus vaccine, inactivated 09/25/19 Give n SARS-CoV-2 mRNA (tozinameran 5y-11y) 08/10/22 Antonio rded pneumococcal 23-valent vaccine 1 05/24/09 Recorded pneumococcal 23-valent vaccine 2 11/24/08 Recorded 1Result Comment: 2021-05-29: Historical information-source unspecified 2Result Comment: 2021-05-29: Historical information-source unspecified Medications Anoro Ellipta 62.5 mcg-25 mcg/inh inhalation powder Start: 04/30/23 15:22:00 EDT, 1 puff, inhaled, Daily, Disp# 60 blister, Refills: 5, Pharmacy: [id number] Start Date: 04/30/23 Status: Ordered benztropine 1 mg oral tablet Start: 05/26/22 16:12:00 EDT, 1 tab, PO, Daily, Disp# 30 tab, Refills: 3, Pharmacy: [facility] Start Date: 05/26/22 Status: Ordered Cogentin 1 mg oral tablet Start: 02/19/23 10:11:00 EDT, 1 tab, PO, Daily, Disp# 30 tab, Refills: 3, Pharmacy: [id number] Start Date: 02/19/23 Stop Date: 06/19/23 Status: Ordered finasteride 5 mg oral tablet Start: 03/12/21 13:50:00 EDT, 1 tab, PO, Daily Start Date: 03/12/21 Status: Ordered Flovent HFA 44 mcg/inh MDI Start: 04/30/23 15:22:00 EDT, See Instructions, Disp# 10.6 g, Refills: 11, INHALE 2 PUFFS BY MOUTH TWICE DAILY FOR SOB/WHEEZING, Pharmacy: [id number] Start Date: 04/30/23 Status: Ordered haloperidol 20 mg oral tablet Start: 02/19/23 10:12:00 EDT, See Instructions, Disp# 28 tab, Refills: 5, TAKE 1 TABLET BY MOUTH ONCE DAILY AT BEDTIME FOR SCHIZOPRENIA, Pharmacy: [id number] Start Date: 02/19/23 Status: Ordered haloperidol 5 mg oral tablet Start: 02/19/23 10:12:00 EDT, 1 tab, PO, tid, Disp# 60 tab, Refills: 3, prn use aggitation in addition to his daily 20mg dose, PRN: as needed for agitation, Pharmacy: [id number] Start Date: 02/19/23 Status: Ordered loperamide 2 mg oral capsule Start: 04/30/23 15:22:00 EDT, See Instructions, Disp# 30 cap, Refills: 11, TAKE ONE CAPSULE BY MOUTH ONCE DAILY WITH SEVERE DIARRHEA OVER 24 HOURS, Pharmacy: [id number] Start Date: 04/30/23 Status: Ordered melatonin 10 mg oral tablet, disintegrating Start: 02/12/22 14:10:00 EDT, See Instructions, Disp# 45 tab, dissolve on tongue 1/2 to 1 10 mg tabas needed at night for difficulty with sleep dissolve on tongue, other Start Date: 02/12/22 Status: Ordered meloxicam 7.5 mg oral tablet Start: 02/19/23 10:12:00 EDT, 1 tab, PO, Daily, Disp# 30 tab, Refills: 2, Pharmacy: [id number] Start Date: 02/19/23 Status: Ordered Protonix 40 mg oral delayed release tablet Start: 02/19/23 10:12:00 EDT, 1 tab, PO, Daily, Disp# 30 tab, Refills: 5, Pharmacy: [id number] Start Date: 02/19/23 Status: Ordered QC [place] Bismuth Liquid MARTÍNEZ Start: 05/29/21 12:37:00 EDT, QC [place] Bism[employer] Liquid MARTÍNEZ, See Instructions, Note to Pharmacy: 30ml every 30 minutes PRN for dyspepsia Start Date: 05/29/21 Status: Ordered traZODone 100 mg oral tablet Start: 02/19/23 10:12:00 EDT, See Instructions, Disp# 30 tab, Refills: 3, 0.5 tab or 1 tab PO qhs for sleed as needed, Pharmacy: [id number] Start Date: 02/19/23 Status: Ordered Tylenol 8 HR Arthritis Pain 650 mg oral tablet, extended release Start: 10/12/19 10:42:00 EST, 2 tab, PO, q12h, Disp# 50 tab, Refills: 5, prn dosing & do not crush or chew, PRN: pain, Pharmacy: [facility] Start Date: 10/12/19 Status: Ordered Ventolin HFA 90 mcg/inh inhalation aerosol Start: 04/30/23 15:22:00 EDT, See Instructions, Disp# 18 g, Refills: 3, 1-2 puffs every 4-6hrs PRN,Pharmacy: [id number] Start Date: 04/30/23 Status: Ordered Zofran 4 mg oral tablet Start: 09/08/22 14:23:00 EST, 1 tab, PO, tid, Disp# 30 tab, Refills: 0, as needed for nausea, PRN: as needed for nausea/vomiting, Pharmacy: [facility] Start Date: 09/08/22 Status: Ordered Mental Status 05/06/23 Barriers to Learning one year None evide nt Mandatory Health Literacy Documentation Yes Health Literacy Communication Barriers N ever Primary Language [place] Problem List Condition Confirmation Course Effective Dates Status H ealth Status Informant Degenerative arthritis Confirmed Active BPH with urinary obstruction Confirmed Active Chronic low back pain Confirmed Active 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 DDD (degenerative disc disease), lumbosacral Confirmed Active History of chest pain Confirmed Active Dietary iron deficiency Confirmed Active Arthritis Confirmed Active BIPOLAR DISORDER Confirmed Active Schizophrenia Confirmed Active Syncope Confirmed Active Tobacco user Confirmed Active Weight disorder Confirmed Active Diagnosis Diagnosis Type Effective Dates Health Status Cl inical Service Informant Syncope Discharge Diagnosis 05/06/23 Tobacco user Discharge Diagnosis 05/06/23 Procedures Procedure Date Related Diagnosis Body Site Status Chest X-ray 1 10/13/22 Completed Doppler ultrasound of kidney 2 07/28/22 Completed MRI of lumbar spine 3 07/21/[address] Low dose CT of chest without contrast 4 09/17/21 Completed Colonoscopy 5, 6 10/09/19 Complete d Chest x-ray 7 02/15/[address] of chest 8 02/15/18 Completed Chest X-ray 9 08/19/17 Completed Chest x-ray 10 07/04/17 Completed Chest x-ray 11 06/30/17 Completed ECG 12 06/30/[address] 13 06/26/[address] of head 14 05/29/17 Completed Echocardiogram 15 05/29/17 Complet ed CXR - Chest X-ray 16, 17, 18, 19 05/26/[address] 20 05/23/[address] of chest 21 05/23/17 Completed Venous doppler ultrasonography 22 05/23/17 Completed Exercise stress echocardiography 23 06/18/16 Completed Ultrasound Venous Doppler 24 06/18/16 Completed Cervical spine X-ray 25 08/14/15 C ompleted Plain X-ray spine 26 08/14/15 Comp leted X-ray of right knee 27 08/14/15 Co mpleted CXR - Chest X-ray 28 12/26/14 Comp leted Chest x-ray 29 Completed 1Impression: Negative for infiltrate. 2Impression: 1. No renal calculi or hydronephrosis identified by ultrasound 2. Distended urinary bladder with wall thickening and trabeculation suggestive of chronic bladder outlet obstruction 3. Post void residual of 542 ml 3Slight progression of the degenerative changes at L1-L2 and L2-L3 as described above. Moderate to severe central canal narrowing at L3-L4 and L4-L5 which is not significantly changed. No acute fracture or subluxation. Distended bladder. 4Stable 4 mm pulmonary nodule in the right upper lobe. No additional suspicious pulmonary nodules are seen. Lung-RADS Assessment Category: 2, Nodules with a very low likelihood of becoming a clinically active cancer due to size or lack of growth Management Recommendation: Continue with annual screening using low-dose chest CT in 12 months 5Pathology: Colon, ascending polyps, polypectomy: Benign colonic mucosa with a lymhoid aggregate. Negative for dysplasia and malignancy Colon, hepatic flexure polyp, polypectomy: Tubular adenoma. negative for high grade dysplasia Colon, sigmoid polyp, polypectomy: Tubular adenoma. Vegative for high grade dysplasia. 6Repeat in 5 years. 7No active diesase in chest 8no evidence of acute pulmonary embolism pulmonary emphysema no evidence of focal pulmonary consolidation 9No active disease in chest. 10No significant change in interstitial thickening and mild bilateral opacities. The findings could reflect an infecious process or interstitial lung disease. 11Significant interval decrease of bilateral pulmonary opacities. 12No acute ischemic change, no ectopy. 131. No evidence of pulmonary embolus. 2. Interval evolution of previously noted diffuse opacities, which now demonstrate peripheral reticulation, groundglass, and subpleural sparing. This could be compatible with a nonspecific interstitial pneumonia pattern. 3. Emphysema. 4. Few prominent mediastinal and hilar lymph nodes likely reactive. 14No acute intracranial findings. 15Normal chamber dimensions. No significant valvular abnormalities. No evidence of elevated right ventricular or central venous pressures. The study was technically difficult. 161. Multifocal umang opacities most concerning for multifocal pneumonia. Suggestion of cavitation orunderlying emphysema. 17Developing bilateral pulmonary airspace opacities. Diagnostic considerations include a bilateral pneumonitis, or pulmonary edema. Clinical and radiographic follow-up is recommended. 18No acute disease in chest 19No definite acute findings. Slight asymmetric interstitial thickening within the right lung likely reflects normal vessels although a mild infectious process could appear similar. 201. Technically limited study. 2. Probable but not definite small bilateral pulmonary emboli. Correlation with leg venous ultrasound sonography is recommended. 3. Extensive bilateral groundglass pulmonary opacities with a mosaic pattern. 211. Technically limited study. 2. Probable but not definite snall bilateral pulmonary emboli. Correlation with leg venous ultrasound sonography is recommended. 3. Extensive bilateral groundglass pulmonary opacities with a mosaic pattern. 22Chronic scarring right popliteal vein. No evidence for acute deep venous thrombosis. 23Negative sress echocardiogram for myocardial ischemia at 85% MPHR The left ventricle is normal in size Negative ECG portion of exercise treadmill test. Appropriate hemodynamic response to exercise. No symptoms No ectopy Fair to poor exercise tolerance. 5 MET workload. Resting echo with normal LV systolic function and regional wall motion abnormalities. 24No evidence of lower extremity DVT 25Signigicant osteoarthritic change primarily from C4 through C7 area in this is mildly to moderatelyprogressive compared to prior study of 03/05/2012 26Moderately progressive degenerative intervertebral disc change primarily at L3-L4 and to a somewhatlesser extent L5-S1 27minimal degenerative change. No evidence of fracture. 28Ring Shadow at the left base of uncertain significance. Recommend PA and shallow oblique views withnipple markers. 29Impression: Slight progression of extensive bilateral airspace opacities and interstitial thickening. Te findings could refect multifocal pneumonia, pulmonary edema or ARDS. Vital Signs Most recent to oldest [Reference Range]: 1 Temperature [36.5-37.9 DegC] 37 DegC (05/06/23 2:34 PM) Heart Rate 74 bpm (05/06/23 2:34 PM) Respiratory Rate 22 br/min (05/06/23 2:34 PM) Blood Pressure 122/74mmHg (05/06/23 2:34 PM) Cuff Pulse Pressure 48 mmHg (05/06/23 2:34 PM) Social History Social History Type Response Tobacco Current every day sm oker, Cigarettes, 1 per day. 45 year(s). Smoking Status Current every day li ght smoker Sex Male Patient Care team information Care Team Personnel Name: DO Rodriguez Gary Position: Resident Member Role: Primary Care Provider Address: Address: [address] [facility] [address] [place] [address] Care Team Related Persons Name: LUITEAGAN Address: home [address] [id number]
[2023-10-02] MEDS ORDERED: ALBUT/IPRATROP 3MG/0.5MG NEB 3 ML VIAL INH STA (19:24)
[2023-10-02] MEDS ORDERED: methylPREDNISolone 125 MG/2 ML VIAL IV STA (19:24)
--- NOTE | 2023-10-02 19:35 | XRay Report ---
XR chest 1V portable CLINICAL HISTORY: Dyspnea. COMPARISON STUDY: Lung screening CT September 17, 2021. Chest radiograph November 26, 2022. FINDINGS: Lung volumes are normal. Lungs are clear. There is no pneumothorax or pleural effusion. Car diac size is normal. Mediastinal contours are normal. There is no evidence for pulmonary edema. IMPRESSION: No acute cardiopulmonary findings. ACT 112: Negative or not required by law. Electronically signed by: Valeriano Cuellar M.D. 10/02/2023 7:34 PM
[2023-10-02 19:59] LABS: Basophils # (auto) 0.08 K/uL (0.00-0.20); Basophils % (auto) 0.6 %; Eosinophils % (auto) 1.6 %; Hematocrit (blood only) 37.1 % (42.0-52.0); Hemoglobin 13.6 g/dl (14.0-18.0); Immature Granulocytes # (auto) 0.04 K/uL (0.01-0.20); Immature Granulocytes % (auto) 0.3 %; Lymphocytes # (auto) 3.25 K/uL (1.20-3.40); Lymphocytes % (auto) 26.2 %; Mean Corpuscular Hgb Conc 36.7 g/dL (32.0-36.0); Mean Corpuscular Volume 84.5 fL (80.0-100.0); Mean Platelet Volume 8.6 fL (9.4-12.4); Monocytes # (auto) 1.03 K/uL (0.11-0.59); Monocytes % (auto) 8.3 %; Neutrophils # (auto) 7.81 K/uL (1.40-6.50); Platelet Count 266 K/uL (130-400); RDW Coefficient of Variation 12.9 % (11.5-14.5); RDW Standard Deviation 39.8 fL (36.4-46.3); Red Blood Count 4.39 M/uL (4.70-6.10); White Blood Count 12.41 K/ul (4.8-10.8)
[2023-10-02 20:19] LABS: Albumin Globulin Ratio 1.7 (0.9-2); Albumin Level 3.8 gm/dl (3.4-5.0); BUN Creatinine Ratio 11.7 (10-20); Bilirubin,Total 0.4 mg/dl (0.2-1.0); Calcium 8.7 mg/dl (8.6-10.3); Creatinine Clr Calc Pharmacy 69.6 ml/min; Est GFR (African American) 74.7 ml/min; Est GFR (Non-African American) 64.4 ml/min; Globulin 2.2 gm/dl (2.5-4.0); Potassium 3.4 mmol/L (3.5-5.1)
[2023-10-02 20:23] LABS: Troponin I High Sensitivity 7.8 pg/ml (0-20)
[2023-10-02 20:25] LABS: Appearance Urine Clear (Clear); Bacteria Urine Automated Negative (Negative); Bilirubin Urine Negative (Negative); Blood Urine Negative (Negative); Cast Urine Automated 0 /lpf (0-5); Color Urine Yellow; Glucose Urine UA Negative (Negative); Ketones Urine Negative (Negative); Leukocyte Esterase Urine 3+ (Negative); Nitrite Urine Positive (Negative); Protein Urine Negative (Negative); RBC Urine Automated 0-4 /hpf (0-4); Specific Gravity Urine 1.006 (1.000-1.030); Urobilinogen Urine Negative (Negative); WBC Urine Automated >30 /hpf (0-5); pH Urine 7.5 (4.5-7.5)
[2023-10-02 20:33] LABS: D Dimer 1090 ug/L FEU (0-500)
[2023-10-02 20:47] LABS: Adenovirus PCR Not Detected (NotDetected); Bordetella parapertussis PCR Not Detected (NotDetected); Bordetella pertussis PCR Not Detected (NotDetected); Chlamydia pneumoniae PCR Not Detected (NotDetected); Coronavirus 229E PCR Not Detected (NotDetected); Coronavirus CoV-2 (COVID19)PCR Not Detected (NotDetected); Coronavirus HKU1 PCR Not Detected (NotDetected); Coronavirus NL63 PCR Not Detected (NotDetected); Coronavirus OC43PCR Not Detected (NotDetected); Human Metapneumovirus PCR Not Detected (NotDetected); Influenza A PCR Not Detected (NotDetected); Influenza B PCR Not Detected (NotDetected); Mycoplasma pneumoniae PCR Not Detected (NotDetected); Parainfluenza Virus 1 PCR Not Detected (NotDetected); Parainfluenza Virus 2 PCR Not Detected (NotDetected); Parainfluenza Virus 3 PCR Not Detected (NotDetected); Parainfluenza Virus 4 PCR Not Detected (NotDetected); Respiratory Syncytial VirusPCR Not Detected (NotDetected); Rhinovirus/Enterovirus PCR Not Detected (NotDetected)
[2023-10-02] MEDS ORDERED: OPTIRAY 320 125ml IV ONE (20:55)
[2023-10-02] MEDS ORDERED: cefTRIAXone SODIUM 2,000 MG/50 ML BAG IV STA (22:00)
[2023-10-02] MEDS ORDERED: ALBUT/IPRATROP 3MG/0.5MG NEB 3 ML VIAL NEB STA (22:00)
--- NOTE | 2023-10-02 22:28 | CT Scan Report ---
CT ANGIOGRAM OF THE CHEST CLINICAL HISTORY: Dyspnea. Elevated d-dimer. COMPARISON STUDY: Chest x-ray dated 10/02/2023. Chest CT dated 09/17/2021 and 06/03/2021. TECHNIQUE: Following the IV administration of 115 cc of Optiray 320, CT angiogram of the chest was pe rformed from the upper abdomen to the thoracic inlet utilizing the pulmonary embolus protocol. Images are reviewed in the axial, sagittal, and coronal planes. 3-D MIPS images are created and assessed. I V contrast was administered without complication. A dose lowering technique was utilized adhering to the principles of ALARA. CT DOSE: 837.76 mGy.cm FINDINGS: Thyroid: Imaged portions of the thyroid gland are normal in size and attenuation. Thoracic aorta: The thoracic aorta is normal in caliber and demonstrates standard 3-vessel arch anato my. No dissection is seen. Pulmonary vasculature: The pulmonary trunk is normal in caliber. There is trace and age indeterminant pulmonary embolus within a segmental branch of the right lower lobe pulmonary artery seen on image # 83. There are no additional filling defects identified in main, lobar, or segmental pulmonary branche s to suggest pulmonary embolus. Heart: The heart is normal in size and without pericardial effusion. There are scattered coronary art clare calcifications. Lungs and pleural spaces: There is moderate emphysema. No airspace consolidation or pleural effusion is identified. Scarring/atelectasis is noted at the lung bases. The trachea and central airways are c lear. A 3 mm right upper lobe pulmonary nodule seen on image #133 is unchanged from 2021. Mediastinum: There is no mediastinal lymphadenopathy. Veronica: Clear. Axillae: There is no axillary lymphadenopathy. Upper abdomen: Partially visualized upper abdominal viscera is within normal limits. Skeletal structures: No lytic or blastic bony lesions are seen. Degenerative changes noted in the diana ulders and spine. IMPRESSION: 1. Trace and age indeterminant pulmonary embolus within a segmental branch of the right lower lobe pu lmonary artery. This was not seen on the 06/03/2021 examination. 2. The remaining pulmonary vessels appear clear. 3. Emphysema. 4. No airspace consolidation or pleural effusion is identified. 5. Additional findings as above. ACT 112: Negative or not required by law. Electronically signed by: William Arrieta M.D. 10/02/2023 10:25 PM
[2023-10-03] MEDS ORDERED: haloperidoL 5 MG TAB PO STA ×2 (01:24→03:16)
[2023-10-03] MEDS ORDERED: PANTOprazole 40 MG TAB PO STA ×2 (01:25→03:16)
[2023-10-03] MEDS ORDERED: traZODone HCL 100 MG TAB PO STA ×2 (01:25→03:16)
[2023-10-03] MEDS ORDERED: BENZTROPINE MESYLATE 1 MG TAB PO STA ×2 (01:25→03:16)
--- NOTE | 2023-10-03 01:30 | History & Physical Report ---
Date of Service October 03, 2023 Assessment & Plan (1) SOB (shortness of breath): Plan: Etiology unclear. Adequate oxygenation on RA -Continue home medications -Supplemental O2 -Mucinex BID (2) Pulmonary embolism: Plan: Age of PE unknown. Patient reports PE in the past for which he took Coumadin -Check bilateral LE doppler -Lovenox 90mg now -NOAC in AM (3) COPD (chronic obstructive pulmonary disease): Plan: Chronic. No wheezing appreciated on exam -Albuterol PRN -Flovent (4) Paranoid schizophrenia: Plan: Chronic. -Continue Haldol, Cogentin -Continue Trazodone History of Present Illness Chief Complaint: shortness of breath Primary Care Provider: NO PCP 62yo male presenting with cough and shortness of breath x 1 month or more. Denies fever but has had some chills. Denies chest pain, palpitations, abdominal pain, nausea, vomiting, diarrhea. Denies edema, weight gain, orthopnea or PND Allergies Allergy/AdvReac Type Severity Reaction Status Date / Time No Known Allergies Allergy Verified 10/02/23 21:00 Home Medications Medication Instructions Recorded Confirmed Type haloperidol 20 mg tablet 20 mg PO HS 09/06/19 10/02/23 History pantoprazole 20 mg tablet,delayed 20 mg PO BID 10/01/19 10/02/23 History release haloperidol 5 mg tablet 5 mg PO DAILY PRN Anxiety 05/12/20 10/02/23 History albuterol sulfate 90 mcg/actuation 1 - 2 puff inhalation .Q4-6HRS PRN 09/29/21 10/02/23 Rx aerosol inhaler (Ventolin HFA) Shortness Of Breath Or Wheezing #8 grams benztropine 1 mg tablet 1 mg PO DAILY 11/26/22 10/02/23 History fluticasone propionate 44 2 puff inhalation BID 11/26/22 10/02/23 History mcg/actuation HFA aerosol inhaler (Flovent HFA) loperamide 2 mg tablet 2 mg PO DAILY PRN SEVERE DIARRHEA 11/26/22 10/02/23 H istory OVER 24 HRS. trazodone 50 mg tablet 50 - 100 mg PO HS PRN Sleep 11/26/22 10/02/23 History umeclidinium 62.5 mcg-vilanterol 1 inh inhalation DAILY 11/26/22 10/02/23 History 25 mcg/actuation powdr for inhalation (Anoro Ellipta) meloxicam 7.5 mg tablet 7.5 mg PO DAILY 10/02/23 10/02/23 History Past Med/Surg History Medical History (Updated 10/03/23 @ 04:23 by Eva Morel DO) Urinary symptom or sign Dysuria Hypothyroidism Neurocognitive disorder R/O Anxiety disorder Emphysema of lung Bipolar disorder Paranoid schizophrenia GERD (gastroesophageal reflux disease) Weakness generalized Non-cardiac chest pain Multifocal pneumonia Chest pain COPD (chronic obstructive pulmonary disease) Acute bronchitis ARDS (adult respiratory distress syndrome) Family History Other Asthma Cancer Diabetes Heart disease Lung disease No pertinent family history in first degree relatives Social History Smoking Status: Current every day smoker Tobacco Type: Cigarettes Cigarettes Per Day: 1 pack per day; Do You Dip or Chew Tobacco: No; Hx Alcohol Use: No Hx Substance Use: Yes Last Used Substance Other:: months ago Preferred Language: Amharic Communication Ability: Effective Communication Ability Comment: PER FACILITY-"PT IS OF SOUND MIND-ABLE TO SIGN OWN CONSENT" Lacing Operator Required: No Beliefs That Will Affect Care: Nondenominational Nondenominational Beliefs: Mel Current Living Situation: Alone Feels Safe at Home: No Is there a partner from a previous relationship who is making you feel unsafe now?: No Any Concerns about Your Family Situation: No Would You Like to Speak to Someone About Your Situation: No Gender Identity: Male Assistive Devices: None Review of Systems Review of Systems: All systems reviewed & are unremarkable except as noted in HPI & below Physical Exam Physical Exam: General: patient resting comfortably, NAD, non-toxic in appearance, AA&O x 4 Skin: warm, dry, intact, no rashes or lesions HEENT: NC/AT, PERRL, EOMI, anicteric sclera, conjunctiva without injection, external ear normal to inspection and nontender, nares patent, moist mucus membranes, dentition intact, no oropharyngeal lesions, neck supple, trachea midline, no LAD, no thyromegaly, no JVD Heart: +S1/S2, regular, no m/r/g Lungs: equal air entry bilaterally, no rales/rhonchi/wheezes Abd: +BS, soft, NT/ND, no masses/organomegaly/ascites Ext: warm, 2+ pulses in UE/LE bilaterally, no clubbing/cyanosis or edema Neuro: nonfocal, patient AA&O x 4, speech intact, no facial droop, moving all extremities on command with equal strength 5/5 Results & Data Results & Data Vital Signs (Past 12 Hours) Vital Signs Temp Pulse Resp BP Pulse Ox O2 Del Method 10/03/23 00:37 64 18 99 Room Air 10/03/23 00:35 78 10/03/23 00:22 62 21 137/88 98 Room Air 10/02/23 21:07 57 L 15 156/84 H 100 Room Air 10/02/23 19:15 100 Room Air 10/02/23 19:15 36.9 C 58 L 19 165/131 H 100 Room Air 10/02/23 19:14 57 L 19 165/131 H 99 Room Air 10/02/23 19:11 56 L Laboratory Results Laboratory Results WBC 12.41 K/ul (4.8-10.8) H 10/02/23 19:45 RBC 4.39 M/uL (4.70-6.10) L 10/02/23 19:45 Hgb 13.6 g/dl (14.0-18.0) L 10/02/23 19:45 Hct 37.1 % (42.0-52.0) L 10/02/23 19:45 MCV 84.5 fL (80.0-100.0) 10/02/23 19:45 MCH 31.0 pg (25.0-34.0) 10/02/23 19:45 MCHC 36.7 g/dL (32.0-36.0) H 10/02/23 19:45 RDW Std Deviation 39.8 fL (36.4-46.3) 10/02/23 19:45 RDW Coeff of Cady 12.9 % (11.5-14.5) 10/02/23 19:45 Plt Count 266 K/uL (130-400) 10/02/23 19:45 MPV 8.6 fL (9.4-12.4) L 10/02/23 19:45 Immature Gran % (Auto) 0.3 % 10/02/23 19:45 Neut % (Auto) 63.0 % 10/02/23 19:45 Lymph % (Auto) 26.2 % 10/02/23 19:45 Rowan % (Auto) 8.3 % 10/02/23 19:45 Eos % (Auto) 1.6 % 10/02/23 19:45 Baso % (Auto) 0.6 % 10/02/23 19:45 Neut # (Auto) 7.81 K/uL (1.40-6.50) H 10/02/23 19:45 Lymph # (Auto) 3.25 K/uL (1.20-3.40) 10/02/23 19:45 Rowan # (Auto) 1.03 K/uL (0.11-0.59) H 10/02/23 19:45 Eos # (Auto) 0.20 K/uL (0.00-0.50) 10/02/23 19:45 Baso # (Auto) 0.08 K/uL (0.00-0.20) 10/02/23 19:45 Immature Gran # (Auto) 0.04 K/uL (0.01-0.20) 10/02/23 19:45 D-Dimer 1090 ug/L FEU (0-500) H* 10/02/23 19:45 Sodium 135 mmol/L (136-145) L 10/02/23 19:45 Potassium 3.4 mmol/L (3.5-5.1) L 10/02/23 19:45 Chloride 104 mmol/L (98-107) 10/02/23 19:45 Carbon Dioxide 22 mmol/L (21-32) 10/02/23 19:45 Anion Gap 9 (3-11) 10/02/23 19:45 BUN 14 mg/dl (6-23) 10/02/23 19:45 Creatinine 1.20 mg/dl (0.6-1.4) 10/02/23 19:45 Est Cr Clr Drug Dosing 69.6 ml/min 10/02/23 19:45 Est GFR ( Amer) 74.7 ml/min 10/02/23 19:45 Est GFR (Non-Af Amer) 64.4 ml/min 10/02/23 19:45 BUN/Creatinine Ratio 11.7 (10-20) 10/02/23 19:45 Glucose 86 mg/dl (70-99(Fasting)) 10/02/23 19:45 Calcium 8.7 mg/dl (8.6-10.3) 10/02/23 19:45 Phosphorus 2.0 mg/dl (2.5-4.9) L 10/02/23 19:45 Magnesium 1.6 mg/dl (1.7-2.4) L 10/02/23 19:45 Total Bilirubin 0.4 mg/dl (0.2-1.0) 10/02/23 19:45 AST 10 U/L (13-39) L 10/02/23 19:45 ALT 8 U/L (7-52) 10/02/23 19:45 Alkaline Phosphatase 73 U/L (34-104) 10/02/23 19:45 Troponin I High Sens 7.8 pg/ml (0-20) 10/02/23 19:45 B-Natriuretic Peptide 82 pg/ml (0-100) 10/02/23 19:45 Total Protein 6.0 gm/dl (6.0-8.3) 10/02/23 19:45 Albumin 3.8 gm/dl (3.4-5.0) 10/02/23 19:45 Globulin 2.2 gm/dl (2.5-4.0) L 10/02/23 19:45 Albumin/Globulin Ratio 1.7 (0.9-2) 10/02/23 19:45 Urine Color Yellow 10/02/23 20:09 Urine Appearance Clear (Clear) 10/02/23 20:09 Urine pH 7.5 (4.5-7.5) 10/02/23 20:09 Ur Specific [place] 1.006 (1.000-1.030) 10/02/23 20:09 Urine Protein Negative (Negative) 10/02/23 20:09 Urine Glucose (UA) Negative (Negative) 10/02/23 20:09 Urine Ketones Negative (Negative) 10/02/23 20:09 Urine Blood Negative (Negative) 10/02/23 20:09 Urine Nitrite Positive (Negative) A 10/02/23 20:09 Urine Bilirubin Negative (Negative) 10/02/23 20:09 Urine Urobilinogen Negative (Negative) 10/02/23 20:09 Ur Leukocyte Esterase 3+ (Negative) H 10/02/23 20:09 Urine WBC (Auto) >30 /hpf (0-5) H 10/02/23 20:09 Urine RBC (Auto) 0-4 /hpf (0-4) 10/02/23 20:09 U Hyaline Cast (Auto) 0 /lpf (0-5) 10/02/23 20:09 U Epithel Cells (Auto) 10-20 /lpf (0-5) H 10/02/23 20:09 Urine Bacteria (Auto) Negative (Negative) 10/02/23 20:09 Adenovirus (PCR) Not Detected (NotDetected) 10/02/23 19:45 B. pertussis DNA (PCR) Not Detected (NotDetected) 10/02/23 19:45 B.parapertussis DNA PCR Not Detected (NotDetected) 10/02/23 19:45 C. pneumoniae DNA (PCR) Not Detected (NotDetected) 10/02/23 19:45 Coronavirus OC43 (PCR) Not Detected (NotDetected) 10/02/23 19:45 Coronavirus HKU1 (PCR) Not Detected (NotDetected) 10/02/23 19:45 Coronavirus 229E (PCR) Not Detected (NotDetected) 10/02/23 19:45 SARS-CoV-2 (PCR) Not Detected (NotDetected) 10/02/23 19:45 Coronavirus NL63 (PCR) Not Detected (NotDetected) 10/02/23 19:45 Human Metapneumovir PCR Not Detected (NotDetected) 10/02/23 19:45 Influenza Type A (PCR) Not Detected (NotDetected) 10/02/23 19:45 Influenza Type B (PCR) Not Detected (NotDetected) 10/02/23 19:45 M. pneumoniae (PCR) Not Detected (NotDetected) 10/02/23 19:45 Parainfluenza 1 (PCR) Not Detected (NotDetected) 10/02/23 19:45 Parainfluenza 2 (PCR) Not Detected (NotDetected) 10/02/23 19:45 Parainfluenza 3 (PCR) Not Detected (NotDetected) 10/02/23 19:45 Parainfluenza 4 (PCR) Not Detected (NotDetected) 10/02/23 19:45 RSV (PCR) Not Detected (NotDetected) 10/02/23 19:45 Entero/Rhino (PCR) Not Detected (NotDetected) 10/02/23 19:45 Impressions Chest X-Ray 10/02/23 19:24 XR chest 1V portable CLINICAL HISTORY: Dyspnea. COMPARISON STUDY: Lung screening CT September 17, 2021. Chest radiograph November 26, 2022. FINDINGS: Lung volumes are normal. Lungs are clear. There is no pneumothorax or pleural effusion. Cardiac size is normal. Mediastinal contours are normal. There is no evidence for pulmonary edema. IMPRESSION: No acute cardiopulmonary findings. ACT 112: Negative or not required by law. Electronically signed by: Valeriano Cuellar M.D. 10/02/2023 7:34 PM Chest CTA 10/02/23 20:37 CT ANGIOGRAM OF THE CHEST CLINICAL HISTORY: Dyspnea. Elevated d-dimer. COMPARISON STUDY: Chest x-ray dated 10/02/2023. Chest CT dated 09/17/2021 and 06/03/2021. TECHNIQUE: Following the IV administration of 115 cc of Optiray 320, CT angiogram of the chest was performed from the upper abdomen to the thoracic inlet utilizing the pulmonary embolus protocol. Images are reviewed in the axial, sagittal, and coronal planes. 3-D MIPS images are created and assessed. IV contrast was administered without complication. A dose lowering technique was utilized adhering to the principles of ALARA. CT DOSE: 837.76 mGy.cm FINDINGS: Thyroid: Imaged portions of the thyroid gland are normal in size and attenuation. Thoracic aorta: The thoracic aorta is normal in caliber and demonstrates standard 3-vessel arch anatomy. No dissection is seen. Pulmonary vasculature: The pulmonary trunk is normal in caliber. There is trace and age indeterminant pulmonary embolus within a segmental branch of the right lower lobe pulmonary artery seen on image #83. There are no additional filling defects identified in main, lobar, or segmental pulmonary branches to suggest pulmonary embolus. Heart: The heart is normal in size and without pericardial effusion. There are scattered coronary artery calcifications. Lungs and pleural spaces: There is moderate emphysema. No airspace consolidation or pleural effusion is identified. Scarring/atelectasis is noted at the lung bases. The trachea and central airways are clear. A 3 mm right upper lobe pulmonary nodule seen on image #133 is unchanged from 2021. Mediastinum: There is no mediastinal lymphadenopathy. Veronica: Clear. Axillae: There is no axillary lymphadenopathy. Upper abdomen: Partially visualized upper abdominal viscera is within normal limits. Skeletal structures: No lytic or blastic bony lesions are seen. Degenerative changes noted in the shoulders and spine. IMPRESSION: 1. Trace and age indeterminant pulmonary embolus within a segmental branch of the right lower lobe pulmonary artery. This was not seen on the 06/03/2021 examination. 2. The remaining pulmonary vessels appear clear. 3. Emphysema. 4. No airspace consolidation or pleural effusion is identified. 5. Additional findings as above. ACT 112: Negative or not required by law. Electronically signed by: William Arrieta M.D. 10/02/2023 10:25 PM Code Status & VTE Plan VTE Prophylaxis Plan VTE Prophylaxis will be ordered: Yes PG Care Time/CCT Total # of Minutes Spent Total Time Spent with Patient: Total time spent is greater than 50% in coordination of care (as documented) at patient's floor/unit and/or counseling patient: Coding Level of Care Code 47232 INT INP/OBS CARE 2MIN Diagnoses SOB (shortness of breath) R06.02 Pulmonary embolism I26.99 COPD (chronic obstructive pulmonary disease) J44.9 Paranoid schizophrenia F20.0
[2023-10-03] MEDS ORDERED: ALBUTEROL HFA 8 GM INHALER INH PRN (02:40)
[2023-10-03] MEDS ORDERED: ONDANSETRON INJ 2 MG/ML 2 ML VIAL IV PRN (02:40)
[2023-10-03] MEDS ORDERED: ACETAMINOPHEN 325 MG TAB PO PRN (02:40)
[2023-10-03] MEDS ORDERED: POTASSIUM CHLORIDE CRTAB 20 MEQ TABCR PO STA (02:54)
[2023-10-03 03:01] LABS: Magnesium 1.6 mg/dl (1.7-2.4)
--- NOTE | 2023-10-03 03:16 | Emergency Department Note ---
Impression & Plan Pulmonary embolism, SOB (shortness of breath), COPD exacerbation, Acute UTI (urinary tract infection) ED Provider Note NAME: CHUY POE AGE: 62 SEX: Male INFORMANT: Patient ED PROVIDER(S): Rolando Gray MD CHIEF COMPLAINT: Shortness of breath PLAN: Disposition: Admit Outpatient prescription management: none Referral: None MEDICAL DECISION MAKING: Patient presented because of shortness of breath. He has a history of COPD. He was treated with Solu-Medrol and a DuoNeb. Workup was initiated. Patient had a negative chest x-ray. He was found have a leukocytosis on CBC. Left shift on differential. Chemistry panel and troponin were negative. BNP were negative. Unfortunately patient's D-dimer was significantly elevated. Urinalysis was also collected and was concerning for infection. Patient does have urinary symptoms. He underwent CT PE study and there is concern for out pulmonary embolism. Patient was reassessed and was feeling better after treatment. He was given IV Rocephin. I discussed further management in the hospital given the COPD, UTI, and PE. Patient was in agreement. Consultation was made with Dr. Morel of the [facility] hospitalist service. She did evaluate the patient in the ER. We did discuss anticoagulation option and she will manage this as an inpatient. Care/management discussed with: Discussed with project manager Level of care consideration(s): After review of the information above and other included data, I feel the patient requires further management in the hospital and escalation of care. Triage Nursing notes: reviewed and agree them. Vital Signs: reviewed and remarkable for hypertension Additional History obtained from: none Chronic Medical/Social Conditions affecting care: COPD Prior/ Outside/ External records reviewed: none Differential Diagnosis: Reactive airway disease, pneumonia, pneumothorax, COPD, CHF, infections, cardiac ischemia, pulmonary embolism, musculoskeletal, gastrointestinal, as well as other pathologies. Diagnostics, independently interpreted by me: ECG: Twelve-lead ECG was sinus bradycardia at [address] elevation or depression. No PVCs Cardiac Monitoring: Cardiac monitoring ordered by me: The patient was placed on continuous cardiac monitoring and observed. It revealed a normal sinus rhythm at 68 beats per minute without ectopy or evidence of dysrhythmia. Medical decision rules: none Imaging studies: Chest x-ray. Findings: A chest x-ray was performed and revealed no pneumothorax, effusion, infiltrate, pulmonary edema, free air under the diaphragm, or wide mediastinum. Impression: No acute disease. HPI: 62 year old Male arrives for evaluation of shortness of breath. Patient notes symptoms have been progressively worsening over the last few weeks. He was treated with an antibiotic because he had some urinary symptoms and concern for UTI. He was feeling better from a urinary standpoint as well as his breathing standpoint when he was on the antibiotic. Patient states he is using his inhalers as prescribed. He is a smoker. Patient notes he is prone to pneumonia as well as blood clots. Currently not on any anticoagulation. Pt denies LOC, headache, fevers, chills, diaphoresis, visual changes, neck pain, chest pain, nausea, vomiting, abdominal pain, back pain, melena, hematochezia, numbness, weakness, lymphadenopathy, rash, or other complaints.. PAST MEDICAL HISTORY: See Below, COPD PAST SURGICAL HISTORY: See Below, SOCIAL HISTORY: See Below, smoker HOME MEDICATIONS: See Below ALLERGIES: See Below VITALS: See Below PHYSICAL EXAMINATION: GENERAL: Awake, alert, anxious-appearing, in no distress HENT: Normocephalic, atraumatic. Oropharynx unremarkable. EYES: Normal conjunctiva. Sclera non-icteric. NECK: Inspection normal. Non-tender. Supple. No nuchal rigidity. FROM. No masses. RESPIRATORY: Clear to auscultation. No wheezes. No rales. Normal respiratory effort. CARDIAC: Normal rate. Normal rhythm. No murmurs. No rubs. Extremities warm and well perfused. Pulses equal. No JVD. GI: Soft, non-distended. No tenderness to palpation. No rebound or guarding. No masses. RECTAL: Deferred. MUSCULOSKELETAL: Atraumatic. Chest examination reveals no tenderness. The back is symmetrical on inspection without obvious abnormality. There is no CVA tenderness to palpation. No joint edema. LOWER EXTREMITIES: Calves are equal size bilaterally and non-tender. No edema. No discoloration. NEURO: Normal sensorium. No sensory or motor deficits noted. SKIN: No rash or jaundice noted. PROCEDURES: none CRITICAL CARE: none OBSERVATION NOTE: none Past Med/Surg History Medical History Acute bronchitis Anxiety disorder ARDS (adult respiratory distress syndrome) Bipolar disorder Chest pain COPD (chronic obstructive pulmonary disease) Dysuria Emphysema of lung GERD (gastroesophageal reflux disease) Hypothyroidism Multifocal pneumonia Neurocognitive disorder R/O Non-cardiac chest pain Paranoid schizophrenia Urinary symptom or sign Weakness generalized Family History Other Asthma Cancer Diabetes Heart disease Lung disease No pertinent family history in first degree relatives Social History Smoking Status: Current every day smoker Tobacco Type: Cigarettes Cigarettes Per Day: 1 pack per day; Do You Dip or Chew Tobacco: No; Hx Alcohol Use: No Hx Substance Use: Yes Last Used Substance Other:: months ago Preferred Language: Sami Communication Ability: Effective Communication Ability Comment: PER FACILITY-"PT IS OF SOUND MIND-ABLE TO SIGN OWN CONSENT" 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: No Beliefs That Will Affect Care: Restoration Restoration Beliefs: Mel Current Living Situation: Alone Other Information That Helps Us Care for You: No Feels Safe at Home: No Is there a partner from a previous relationship who is making you feel unsafe now?: No Any Concerns about Your Family Situation: No Would You Like to Speak to Someone About Your Situation: No Safety Concerns: Afraid for Self Gender Identity: Male Assistive Devices: None Allergies Allergies Allergy/AdvReac Type Severity Reaction Status Date / Time No Known Allergies Allergy Verified 10/02/23 21:00 Home Meds Home Medications Medication Instructions Recorded Confirmed haloperidol 20 mg tablet 20 mg PO HS 09/06/19 10/02/23 pantoprazole 20 mg tablet,delayed 20 mg PO BID 10/01/19 10/02/23 release haloperidol 5 mg tablet 5 mg PO DAILY PRN Anxiety 05/12/20 10/02/23 benztropine 1 mg tablet 1 mg PO DAILY 11/26/22 10/02/23 fluticasone propionate 44 2 puff inhalation BID 11/26/22 10/02/23 mcg/actuation HFA aerosol inhaler (Flovent HFA) loperamide 2 mg tablet 2 mg PO DAILY PRN SEVERE DIARRHEA 11/26/22 10/02/23 OVER 24 HRS. trazodone 50 mg tablet 50 - 100 mg PO HS PRN Sleep 11/26/22 10/02/23 umeclidinium 62.5 mcg-vilanterol 1 inh inhalation DAILY 11/26/22 10/02/23 25 mcg/actuation powdr for inhalation (Anoro Ellipta) meloxicam 7.5 mg tablet 7.5 mg PO DAILY 10/02/23 10/02/23 Previous Rx's Medication Instructions Recorded albuterol sulfate 90 mcg/actuation 1 - 2 puff inhalation .Q4-6HRS PRN 09/29/21 aerosol inhaler (Ventolin HFA) Shortness Of Breath Or Wheezing #8 grams Results & Data (ED) Vital Signs Vital Signs - 24 hr 10/02/23 19:11 10/02/23 19:14 10/02/23 19:15 Temperature Temperature Source Pulse Rate 56 L 57 L Pulse Rate from SpO2 Sensor Pulse Rhythm Pulse Strength Respiratory Rate 19 Respiratory Effort / Characteristics Spontaneous Grunting Respiratory Depth Deep Respiratory Pattern Regular Blood Pressure 165/131 H Blood Pressure Mean 142 Pulse Oximetry 99 Oxygen Delivery Method Room Air Sepsis Recent Fever Within 48 Hours Sepsis New/Unexplained Change in Mental Status Sepsis Action Taken by Nursing 10/02/23 19:15 10/02/23 19:15 10/02/23 21:07 Temperature 36.9 C Temperature Source Oral Pulse Rate 58 L 57 L Pulse Rate from SpO2 Sensor Pulse Rhythm Regular Pulse Strength Normal Respiratory Rate 19 15 Respiratory Effort / Characteristics Non-Labored Spontaneous Respiratory Depth Normal Respiratory Pattern Regular Blood Pressure 165/131 H 156/84 H Blood Pressure Mean 142 108 Pulse Oximetry 100 100 100 Oxygen Delivery Method Room Air Room Air Room Air Sepsis Recent Fever Within 48 Hours No Sepsis New/Unexplained Change in Mental Status N/A Sepsis Action Taken by Nursing No Action Required 10/03/23 00:22 10/03/23 00:35 10/03/23 00:37 Temperature Temperature Source Pulse Rate 62 78 64 Pulse Rate from SpO2 Sensor 66 Pulse Rhythm Regular Pulse Strength Respiratory Rate 21 18 Respiratory Effort / Characteristics Respiratory Depth Respiratory Pattern Blood Pressure 137/88 Blood Pressure Mean 104 Pulse Oximetry 98 99 Oxygen Delivery Method Room Air Room Air Sepsis Recent Fever Within 48 Hours Sepsis New/Unexplained Change in Mental Status Sepsis Action Taken by Nursing Laboratory Data 10/02/23 19:45 10/02/23 19:45 Lab Results 10/02/23 10/02/23 Range/Units 19:45 20:09 WBC 12.41 H (4.8-10.8) K/ul RBC 4.39 L (4.70-6.10) M/uL Hgb 13.6 L (14.0-18.0) g/dl Hct 37.1 L (42.0-52.0) % MCV 84.5 (80.0-100.0) fL MCH 31.0 (25.0-34.0) pg MCHC 36.7 H (32.0-36.0) g/dL RDW Std Deviation 39.8 (36.4-46.3) fL RDW Coeff of Cady 12.9 (11.5-14.5) % Plt Count 266 (130-400) K/uL MPV 8.6 L (9.4-12.4) fL Immature Gran % (Auto) 0.3 % Neut % (Auto) 63.0 % Lymph % (Auto) 26.2 % [place] % (Auto) 8.3 % Eos % (Auto) 1.6 % Baso % (Auto) 0.6 % Neut # (Auto) 7.81 H (1.40-6.50) K/uL Lymph # (Auto) 3.25 (1.20-3.40) K/uL [place] # (Auto) 1.03 H (0.11-0.59) K/uL Eos # (Auto) 0.20 (0.00-0.50) K/uL Baso # (Auto) 0.08 (0.00-0.20) K/uL Immature Gran # (Auto) 0.04 (0.01-0.20) K/uL D-Dimer 1090 H* (0-500) ug/L FEU Sodium 135 L (136-145) mmol/L Potassium 3.4 L (3.5-5.1) mmol/L Chloride 104 (98-107) mmol/L Carbon Dioxide 22 (21-32) mmol/L Anion Gap 9 (3-11) BUN 14 (6-23) mg/dl Creatinine 1.20 (0.6-1.4) mg/dl Est Cr Clr Drug Dosing 69.6 ml/min Est GFR ( Amer) 74.7 ml/min Est GFR (Non-Af Amer) 64.4 ml/min BUN/Creatinine Ratio 11.7 (10-20) Glucose 86 (70-99(Fasting)) mg/dl Calcium 8.7 (8.6-10.3) mg/dl Phosphorus 2.0 L (2.5-4.9) mg/dl Magnesium 1.6 L (1.7-2.4) mg/dl Total Bilirubin 0.4 (0.2-1.0) mg/dl AST 10 L (13-39) U/L ALT 8 (7-52) U/L Alkaline Phosphatase 73 (34-104) U/L Troponin I High Sens 7.8 (0-20) pg/ml B-Natriuretic Peptide 82 (0-100) pg/ml Total Protein 6.0 (6.0-8.3) gm/dl Albumin 3.8 (3.4-5.0) gm/dl Globulin 2.2 L (2.5-4.0) gm/dl Albumin/Globulin Ratio 1.7 (0.9-2) Urine Color Yellow Urine Appearance Clear (Clear) Urine pH 7.5 (4.5-7.5) Ur Specific [place] 1.006 (1.000-1.030) Urine Protein Negative (Negative) Urine Glucose (UA) Negative (Negative) Urine Ketones Negative (Negative) Urine Blood Negative (Negative) Urine Nitrite Positive A (Negative) Urine Bilirubin Negative (Negative) Urine Urobilinogen Negative (Negative) Ur Leukocyte Esterase 3+ H (Negative) Urine WBC (Auto) >30 H (0-5) /hpf Urine RBC (Auto) 0-4 (0-4) /hpf U Hyaline Cast (Auto) 0 (0-5) /lpf U Epithel Cells (Auto) 10-20 H (0-5) /lpf Urine Bacteria (Auto) Negative (Negative) Adenovirus (PCR) Not Detected (NotDetected) B. pertussis DNA (PCR) Not Detected (NotDetected) B.parapertussis DNA PCR Not Detected (NotDetected) C. pneumoniae DNA (PCR) Not Detected (NotDetected) Coronavirus OC43 (PCR) Not Detected (NotDetected) Coronavirus HKU1 (PCR) Not Detected (NotDetected) Coronavirus 229E (PCR) Not Detected (NotDetected) SARS-CoV-2 (PCR) Not Detected (NotDetected) Coronavirus NL63 (PCR) Not Detected (NotDetected) Human Metapneumovir PCR Not Detected (NotDetected) Influenza Type A (PCR) Not Detected (NotDetected) Influenza Type B (PCR) Not Detected (NotDetected) M. pneumoniae (PCR) Not Detected (NotDetected) Parainfluenza 1 (PCR) Not Detected (NotDetected) Parainfluenza 2 (PCR) Not Detected (NotDetected) Parainfluenza 3 (PCR) Not Detected (NotDetected) Parainfluenza 4 (PCR) Not Detected (NotDetected) RSV (PCR) Not Detected (NotDetected) Entero/Rhino (PCR) Not Detected (NotDetected) Administered Medications Discontinued Medications Albuterol (Albut/Ipratrop 3mg/0.5mg Neb 3 Ml Vial) 3 ml INH NOW STA Stop: 10/02/23 19:25 Last Admin: 10/02/23 20:06 Dose: 3 ml Documented By: MATTI Albuterol (Albut/Ipratrop 3mg/0.5mg Neb 3 Ml Vial) 3 ml NEB NOW STA; Protocol Stop: 10/02/23 22:01 Last Admin: 10/02/23 22:41 Dose: 3 ml Documented By: MATTI Ceftriaxone Sodium (Rocephin) 2,000 mg in 50 mls @ 100 mls/hr IV NOW STA Stop: 10/02/23 22:29 Last Infusion: 10/03/23 00:09 Dose: Infused Documented By: Admin: 10/02/23 22:41 Dose: 100 mls/hr Documented By: MATTI Ioversol (Optiray 320 125ml) 115 ml IV ONCE ONE Stop: 10/02/23 20:56 Last Admin: 10/02/23 20:55 Dose: 115 ml Documented By: MILAD Methylprednisolone (Methylprednisolone 125 Mg/2 Ml Vial) 125 mg IV NOW STA Stop: 10/02/23 19:25 Last Admin: 10/02/23 20:06 Dose: 125 mg Documented By: MATTI Imaging Data Radiologist's Impression: Chest X-Ray 10/02/23 19:24 XR chest 1V portable CLINICAL HISTORY: Dyspnea. COMPARISON STUDY: Lung screening CT September 17, 2021. Chest radiograph November 26, 2022. FINDINGS: Lung volumes are normal. Lungs are clear. There is no pneumothorax or pleural effusion. Cardiac size is normal. Mediastinal contours are normal. There is no evidence for pulmonary edema. IMPRESSION: No acute cardiopulmonary findings. ACT 112: Negative or not required by law. Electronically signed by: Valeriano Cuellar M.D. 10/02/2023 7:34 PM Chest CTA 10/02/23 20:37 CT ANGIOGRAM OF THE CHEST CLINICAL HISTORY: Dyspnea. Elevated d-dimer. COMPARISON STUDY: Chest x-ray dated 10/02/2023. Chest CT dated 09/17/2021 and 06/03/2021. TECHNIQUE: Following the IV administration of 115 cc of Optiray 320, CT angiogram of the chest was performed from the upper abdomen to the thoracic inlet utilizing the pulmonary embolus protocol. Images are reviewed in the axial, sagittal, and coronal planes. 3-D MIPS images are created and assessed. IV contrast was administered without complication. A dose lowering technique was utilized adhering to the principles of ALARA. CT DOSE: 837.76 mGy.cm FINDINGS: Thyroid: Imaged portions of the thyroid gland are normal in size and attenuation. Thoracic aorta: The thoracic aorta is normal in caliber and demonstrates standard 3-vessel arch anatomy. No dissection is seen. Pulmonary vasculature: The pulmonary trunk is normal in caliber. There is trace and age indeterminant pulmonary embolus within a segmental branch of the right lower lobe pulmonary artery seen on image #83. There are no additional filling defects identified in main, lobar, or segmental pulmonary branches to suggest pulmonary embolus. Heart: The heart is normal in size and without pericardial effusion. There are scattered coronary artery calcifications. Lungs and pleural spaces: There is moderate emphysema. No airspace consolidation or pleural effusion is identified. Scarring/atelectasis is noted at the lung bases. The trachea and central airways are clear. A 3 mm right upper lobe pulmonary nodule seen on image #133 is unchanged from 2021. Mediastinum: There is no mediastinal lymphadenopathy. Veronica: Clear. Axillae: There is no axillary lymphadenopathy. Upper abdomen: Partially visualized upper abdominal viscera is within normal limits. Skeletal structures: No lytic or blastic bony lesions are seen. Degenerative changes noted in the shoulders and spine. IMPRESSION: 1. Trace and age indeterminant pulmonary embolus within a segmental branch of the right lower lobe pulmonary artery. This was not seen on the 06/03/2021 examination. 2. The remaining pulmonary vessels appear clear. 3. Emphysema. 4. No airspace consolidation or pleural effusion is identified. 5. Additional findings as above. ACT 112: Negative or not required by law. Electronically signed by: William Arrieta M.D. 10/02/2023 10:25 PM Discharge Plan Visit Data Chief Complaint: Shortness of Breath/Dyspnea ED Provider: Rolando Gray Discharge Problem: Pulmonary embolism, SOB (shortness of breath), COPD exacerbation, Acute UTI (urinary tract infection) Patient Disposition: Admitted As Inpatient Discharge Instructions Interventions: ED Discharge Assessment Last Done: 10/03/23 02:25
[2023-10-03] MEDS: ENOXAPARIN 100 MG/1ML SYR SQ SCH ×2 (03:29→13:07)
--- NOTE | 2023-10-03 07:23 | Ultrasound Report ---
BILATERAL LOWER EXTREMITY VENOUS DOPPLER CLINICAL HISTORY: . Pulmonary emboli. ?DVT COMPARISON STUDY: Extremity venous ultrasound July 22. Bilateral lower extremity venous Doppler ultrasound May 23, 2017. TECHNIQUE: Sonography of the deep venous system of the bilateral lower extremities was performed. Co mpression and augmentation were evaluated. FINDINGS: There is mild wall thickening the bilateral common femoral veins. This suggests minimal ch ronic thrombus. No additional deep venous thrombus is identified within the lower extremity. There is also wall thickening of the right greater saphenous vein which suggests chronic minimal superficial thrombus. IMPRESSION: 1. No evidence of acute deep venous thrombus within the bilateral lower extremities. 2. Mild wall thickening of the bilateral common femoral veins which suggests minimal chronic deep sergio ous thrombus. 3. Wall thickening the right greater saphenous vein suggestive of minimal chronic superficial thrombu s. ACT 112: Negative or not required by law. Electronically signed by: Valeriano Cuellar M.D. 10/03/2023 7:21 AM
[2023-10-03] MEDS: FLUTICASONE FUROATE 100MCG 14 PUFFS/INHALER INH SCH (08:11)
[2023-10-03] MEDS: MELOXICAM 7.5 MG TAB PO SCH (08:11)
[2023-10-03] MEDS: UMECLIDINIUM/VILANTEROL 62.5/25MCG 7 PUFFS/INHALER INH SCH (08:11)
[2023-10-03] MEDS: PANTOprazole 40 MG TAB PO SCH ×2 (08:11→19:57)
[2023-10-03] MEDS: guaiFENesin 600 MG TABCR PO SCH ×2 (08:11→19:58)
[2023-10-03] MEDS ORDERED: PNEUMOCOCCAL VACCINE (PCV20) 20-VAL CONJ-DIP CRM/PF 0.5 ML SYR IM ONE (09:00)
[2023-10-03] MEDS ORDERED: INFLUENZA VIRUS QUADRIVALENT VACCINE (IIV4) 0.5 ML SYR IM ONE (09:00)
--- NOTE | 2023-10-03 13:16 | Electrocardiogram Report ---
Test Reason : Blood Pressure : / mmHG Vent. Rate : 054 BPM Atrial Rate : 000 BPM P-R Int : 000 ms QRS Dur : 080 ms QT Int : 446 ms P-R-T Axes : 000 052 048 degrees QTc Int : 422 ms Sinus bradycardia Nonspecific ST and T wave abnormality Abnormal ECG When compared with ECG of 26-NOV-2022 01:23, No significant change Confirmed by Kamlesh Newman ([id number]) on 10/03/2023 1:15:31 PM Referred By: REFERRED SELF Confirmed By:Kamlesh Newman
--- NOTE | 2023-10-03 14:00 | Hospitalist Progress Note ---
Date of Service October 03, 2023 Assessment & Plan (1) SOB (shortness of breath): Plan: possibly secondary to PE Treat PE -Continue home medications -Supplemental O2 -Mucinex BID (2) Pulmonary embolism: Plan: Age of PE unknown. Patient reports PE in the past for which he took Coumadin - bilateral lower extremity duplex ultrasound did not show acute DVT but findings suggestive of chronic DVT -Lovenox 90mg twice daily. Switched to Eliquis Check orthostatic vital signs (the patient complained of dizziness this morning) and ambulatory sats in a.m., prior to discharge (3) COPD (chronic obstructive pulmonary disease): Plan: Chronic. No wheezing appreciated on exam -Albuterol PRN -Flovent (4) Paranoid schizophrenia: Plan: Chronic. -Continue Haldol, Cogentin -Continue Trazodone Admission and Anticipated Discharge Date Admission Date: October 03, 2023 Subjective Patient says that he is feeling much better today than yesterday. His breathing has improved. However he felt dizzy in the morning. Review of Systems Review of Systems: All systems reviewed & are unremarkable except as noted in Subjective Physical Exam Physical Exam: General: Awake, conversant Heart: S1, S2/regular rate and rhythm, no murmur rubs or gallops Lungs: Clear to auscultation bilaterally. Normal effort Abdomen: Soft/nontender/nondistended. No hepatosplenomegaly Extremities: No clubbing/cyanosis. No edema Behavior: Appropriate, cooperative Results & Data Results & Data Vital Signs (Past 12 Hours) Vital Signs Temp Pulse Resp BP Pulse Ox O2 Del Method 10/03/23 08:45 Room Air 10/03/23 07:14 36.9 C 82 18 109/74 97 Room Air 10/03/23 03:36 Room Air 10/03/23 02:41 36.8 C 90 18 156/85 H 97 Room Air 10/03/23 02:25 Room Air Laboratory Results Abnormal lab results 10/02/23 10/02/23 Range/Units 19:45 20:09 WBC 12.41 H (4.8-10.8) K/ul RBC 4.39 L (4.70-6.10) M/uL Hgb 13.6 L (14.0-18.0) g/dl Hct 37.1 L (42.0-52.0) % MCHC 36.7 H (32.0-36.0) g/dL MPV 8.6 L (9.4-12.4) fL Neut # (Auto) 7.81 H (1.40-6.50) K/uL [place] # (Auto) 1.03 H (0.11-0.59) K/uL D-Dimer 1090 H* (0-500) ug/L FEU Sodium 135 L (136-145) mmol/L Potassium 3.4 L (3.5-5.1) mmol/L Phosphorus 2.0 L (2.5-4.9) mg/dl Magnesium 1.6 L (1.7-2.4) mg/dl AST 10 L (13-39) U/L Globulin 2.2 L (2.5-4.0) gm/dl Urine Nitrite Positive A (Negative) Ur Leukocyte Esterase 3+ H (Negative) Urine WBC (Auto) >30 H (0-5) /hpf U Epithel Cells (Auto) 10-20 H (0-5) /lpf Diagnostic Findings Chest X-Ray 10/02/23 19:24 XR chest 1V portable CLINICAL HISTORY: Dyspnea. COMPARISON STUDY: Lung screening CT September 17, 2021. Chest radiograph November 26, 2022. FINDINGS: Lung volumes are normal. Lungs are clear. There is no pneumothorax or pleural effusion. Cardiac size is normal. Mediastinal contours are normal. There is no evidence for pulmonary edema. IMPRESSION: No acute cardiopulmonary findings. ACT 112: Negative or not required by law. Electronically signed by: Valeriano Cuellar M.D. 10/02/2023 7:34 PM Chest CTA 10/02/23 20:37 CT ANGIOGRAM OF THE CHEST CLINICAL HISTORY: Dyspnea. Elevated d-dimer. COMPARISON STUDY: Chest x-ray dated 10/02/2023. Chest CT dated 09/17/2021 and 06/03/2021. TECHNIQUE: Following the IV administration of 115 cc of Optiray 320, CT angiogram of the chest was performed from the upper abdomen to the thoracic inlet utilizing the pulmonary embolus protocol. Images are reviewed in the axial, sagittal, and coronal planes. 3-D MIPS images are created and assessed. IV contrast was administered without complication. A dose lowering technique was utilized adhering to the principles of ALARA. CT DOSE: 837.76 mGy.cm FINDINGS: Thyroid: Imaged portions of the thyroid gland are normal in size and attenuation. Thoracic aorta: The thoracic aorta is normal in caliber and demonstrates standard 3-vessel arch anatomy. No dissection is seen. Pulmonary vasculature: The pulmonary trunk is normal in caliber. There is trace and age indeterminant pulmonary embolus within a segmental branch of the right lower lobe pulmonary artery seen on image #83. There are no additional filling defects identified in main, lobar, or segmental pulmonary branches to suggest pulmonary embolus. Heart: The heart is normal in size and without pericardial effusion. There are scattered coronary artery calcifications. Lungs and pleural spaces: There is moderate emphysema. No airspace consolidation or pleural effusion is identified. Scarring/atelectasis is noted at the lung bases. The trachea and central airways are clear. A 3 mm right upper lobe pulmonary nodule seen on image #133 is unchanged from 2021. Mediastinum: There is no mediastinal lymphadenopathy. Veronica: Clear. Axillae: There is no axillary lymphadenopathy. Upper abdomen: Partially visualized upper abdominal viscera is within normal limits. Skeletal structures: No lytic or blastic bony lesions are seen. Degenerative changes noted in the shoulders and spine. IMPRESSION: 1. Trace and age indeterminant pulmonary embolus within a segmental branch of the right lower lobe pulmonary artery. This was not seen on the 06/03/2021 examination. 2. The remaining pulmonary vessels appear clear. 3. Emphysema. 4. No airspace consolidation or pleural effusion is identified. 5. Additional findings as above. ACT 112: Negative or not required by law. Electronically signed by: William Arrieta M.D. 10/02/2023 10:25 PM Venous Doppler Study 10/03/23 02:40 BILATERAL LOWER EXTREMITY VENOUS DOPPLER CLINICAL HISTORY: . Pulmonary emboli. ?DVT COMPARISON STUDY: Extremity venous ultrasound July 22. Bilateral lower extremity venous Doppler ultrasound May 23, 2017. TECHNIQUE: Sonography of the deep venous system of the bilateral lower extremities was performed. Compression and augmentation were evaluated. FINDINGS: There is mild wall thickening the bilateral common femoral veins. This suggests minimal chronic thrombus. No additional deep venous thrombus is identified within the lower extremity. There is also wall thickening of the right greater saphenous vein which suggests chronic minimal superficial thrombus. IMPRESSION: 1. No evidence of acute deep venous thrombus within the bilateral lower extremities. 2. Mild wall thickening of the bilateral common femoral veins which suggests minimal chronic deep venous thrombus. 3. Wall thickening the right greater saphenous vein suggestive of minimal chronic superficial thrombus. ACT 112: Negative or not required by law. Electronically signed by: Valeriano Cuellar M.D. 10/03/2023 7:21 AM PG Care Time/CCT Total # of Minutes Spent Total Time Spent with Patient: Total time spent is greater than 50% in coordination of care (as documented) at patient's floor/unit and/or counseling patient: Coding Level of Care Code 02357 SUB INP/OBS CARE 2/35MIN Diagnoses SOB (shortness of breath) R06.02 Pulmonary embolism I26.99 COPD (chronic obstructive pulmonary disease) J44.9 Paranoid schizophrenia F20.0
[2023-10-03] MEDS: BENZTROPINE MESYLATE 1 MG TAB PO SCH (19:57)
[2023-10-03] MEDS: traZODone HCL 100 MG TAB PO PRN (19:58)
[2023-10-03] MEDS: APIXABAN 5 MG TABLET PO SCH (19:58)
[2023-10-03] MEDS: haloperidoL 5 MG TAB PO SCH (19:59)
[2023-10-03] MEDS ORDERED: SODIUM CHLORIDE 0.65% NA SOLN 45 ML (OCEAN) PRN (20:04)
[2023-10-04] MEDS: MELOXICAM 7.5 MG TAB PO SCH (08:24)
[2023-10-04] MEDS: FLUTICASONE FUROATE 100MCG 14 PUFFS/INHALER INH SCH (08:24)
[2023-10-04] MEDS: guaiFENesin 600 MG TABCR PO SCH ×2 (08:24→21:29)
[2023-10-04] MEDS: UMECLIDINIUM/VILANTEROL 62.5/25MCG 7 PUFFS/INHALER INH SCH (08:24)
[2023-10-04] MEDS: PANTOprazole 40 MG TAB PO SCH ×2 (08:24→20:17)
[2023-10-04] MEDS: APIXABAN 5 MG TABLET PO SCH ×2 (08:24→20:18)
[2023-10-04] MEDS ORDERED: cefTRIAXone SODIUM 2,000 MG in DEXTROSE 5 % MINI-B 50 ML IV SCH (10:30)
[2023-10-04 10:53] LABS: Basophils # (auto) 0.05 K/uL (0.00-0.20); Basophils % (auto) 0.4 %; Eosinophils # (auto) 0.07 K/uL (0.00-0.50); Eosinophils % (auto) 0.6 %; Hematocrit (blood only) 38.7 % (42.0-52.0); Hemoglobin 13.3 g/dl (14.0-18.0); Immature Granulocytes # (auto) 0.06 K/uL (0.01-0.20); Immature Granulocytes % (auto) 0.5 %; Lymphocytes # (auto) 2.98 K/uL (1.20-3.40); Lymphocytes % (auto) 25.1 %; Mean Corpuscular Hemoglobin 30.3 pg (25.0-34.0); Mean Corpuscular Hgb Conc 34.4 g/dL (32.0-36.0); Mean Corpuscular Volume 88.2 fL (80.0-100.0); Mean Platelet Volume 8.4 fL (9.4-12.4); Monocytes # (auto) 0.89 K/uL (0.11-0.59); Monocytes % (auto) 7.5 %; Neutrophils % (auto) 65.9 %; Platelet Count 255 K/uL (130-400); RDW Coefficient of Variation 13.5 % (11.5-14.5); Red Blood Count 4.39 M/uL (4.70-6.10); White Blood Count 11.85 K/ul (4.8-10.8)
[2023-10-04 11:14] LABS: BUN Creatinine Ratio 16.9 (10-20); Calcium 8.9 mg/dl (8.6-10.3); Creatinine Clr Calc Pharmacy 67.4 ml/min; Est GFR (African American) 71.8 ml/min; Est GFR (Non-African American) 61.9 ml/min; Magnesium 2.1 mg/dl (1.7-2.4); Potassium 4.1 mmol/L (3.5-5.1)
[2023-10-04] MEDS: AMOXICILLIN 500 MG CAP PO SCH ×2 (13:27→20:18)
--- NOTE | 2023-10-04 14:18 | XCELERA ---
[id number]
--- NOTE | 2023-10-04 16:39 | Hospitalist Progress Note ---
Date of Service October 04, 2023 Assessment & Plan (1) SOB (shortness of breath): Plan: possibly secondary to PE although very small PE so does not seem likely no wheezing but does smoke, could be COPD? Did receive Solu Medrol 125mg in ER and now improved-will hold off on further steroids at this point Respiratory BioFire neg -checked ECHO-normal EF and no evidence of CHF or volume overload on exam -CTA Chest otherwise clear, no effusions, PNA -nonetheless, is now resolved, not hypoxic continue to treat PE (2) Pulmonary embolism: Plan: Age of PE unknown. Patient reports PE in the past for which he took Coumadin - bilateral lower extremity duplex ultrasound did not show acute DVT but findings suggestive of chronic DVT -Lovenox 90mg twice daily. Switched to Eliquis -should remain on AC lifelong given second event (3) Acute UTI (urinary tract infection): Plan: received ceftriaxone in ER--> ordered for today x 1 dose but then Ur cx with Prob Enterococcus change to amox 500mg po tid and recommend 4 weeks of tx for prostatitis as pt says he frequently rebounds (4) COPD (chronic obstructive pulmonary disease): Plan: Chronic. No wheezing appreciated on exam -Albuterol PRN -Flovent (5) Paranoid schizophrenia: Plan: Chronic. -Continue Haldol, Cogentin -Continue Trazodone With some orthostasis on BPs but asymptomatic-advised to pump legs before standing and not to get up too quickly likely 2/2 side effects of meds Plan Dispo-continued stay as no ride home tonight Admission and Anticipated Discharge Date Admission Date: October 03, 2023 Subjective Pt reports feeling much better with his breathing. Has been walking around the room but not in halls. He reports urinary symptoms and frequent UTIs and could tell he had one. No CP, no nausea, no lightheadedness with standing. No other complaints. Says he won't be able to get a ride home today Physical Exam Constitutional: WD/WN, vitals as above Neck: trachea midline, no thyromegaly Respiratory: normal respiratory effort, lungs clear to auscultation Cardiovascular: RRR, no murmur, no edema Chest (Breasts): Chest: normal inspection of chest Gastrointestinal (Abdomen): normal bowel sounds, soft, nontender, no hepatosplenomegaly Musculoskeletal: Extremities: extremities normal to inspection; no cyanosis and no clubbing Skin: no rashes, warm and dry Neurologic: moves all extremities and awake; no focal motor deficits Psychiatric: A+Ox3, euthymic affect Lymphatic: no lymphedema Results & Data Results & Data Vital Signs (Past 12 Hours) Vital Signs Temp Pulse Resp BP Pulse Ox O2 Del Method 10/04/23 14:27 36.7 C 61 18 126/77 97 Room Air 10/04/23 07:51 36.9 C 56 L 18 121/79 97 Room Air 10/04/23 07:50 Room Air Laboratory Results CBC, BMP, magnesium reviewed PG Care Time/CCT Total # of Minutes Spent Total Time Spent with Patient: Total time spent is greater than 50% in coordination of care (as documented) at patient's floor/unit and/or counseling patient: Coding Level of Care Code 59885 SUB INP/OBS CARE 2/35MIN Diagnoses SOB (shortness of breath) R06.02 Pulmonary embolism I26.99 Acute UTI (urinary tract infection) N39.0 COPD (chronic obstructive pulmonary disease) J44.9 Paranoid schizophrenia F20.0
[2023-10-04] MEDS: haloperidoL 5 MG TAB PO SCH (20:17)
[2023-10-04] MEDS: BENZTROPINE MESYLATE 1 MG TAB PO SCH (20:18)
[2023-10-04] MEDS: traZODone HCL 100 MG TAB PO PRN (20:19)
[2023-10-05 08:12] VITALS: BP 109/70; RESP 14; TEMP 97.5; O2SAT 97
[2023-10-05] MEDS: APIXABAN 5 MG TABLET PO SCH (08:38)
[2023-10-05] MEDS: AMOXICILLIN 500 MG CAP PO SCH (08:38)
[2023-10-05] MEDS: guaiFENesin 600 MG TABCR PO SCH (08:39)
[2023-10-05] MEDS: PANTOprazole 40 MG TAB PO SCH (08:39)
[2023-10-05] MEDS: FLUTICASONE FUROATE 100MCG 14 PUFFS/INHALER INH SCH (08:48)
[2023-10-05] MEDS: UMECLIDINIUM/VILANTEROL 62.5/25MCG 7 PUFFS/INHALER INH SCH (08:48)
--- NOTE | 2023-10-05 10:50 | Discharge Summary ---
Discharge Summary Date of Service October 05, 2023 Notes For Next Care Provider Medication Changes From Visit Eliquis 10mg po bid x 5 more days and then 5mg po bid STOP meloxicam Tylenol 650mg po q6h prn pain Amoxicillin 500mg po tid x 4 weeks Admission HPI Per Admitting Provider 62yo male presenting with cough and shortness of breath x 1 month or more. Denies fever but has had some chills. Denies chest pain, palpitations, abdominal pain, nausea, vomiting, diarrhea. Denies edema, weight gain, orthopnea or PND Principal Dx & Hospital Course #1 = Principal Diagnosis (1) SOB (shortness of breath): Likely from COPD exacerbation Possibly secondary to PE although very small PE so does not seem likely No wheezing but does smoke. Did receive Solu Medrol 125mg in ER and now improved-will hold off on further steroids at this point Respiratory BioFire neg Checked ECHO-normal EF and no evidence of CHF or volume overload on exam CTA Chest otherwise clear, no effusions, PNA -nonetheless, is now resolved, not hypoxic continue to treat PE -encouraged smoking cessation, albuterol inhaler prn and continue maintenance inhalers (2) Pulmonary embolism: Age of PE unknown. Patient reports PE in the past for which he took Coumadin - bilateral lower extremity duplex ultrasound did not show acute DVT but findings suggestive of chronic DVT bilat -Lovenox 90mg twice daily given initially and then converted to Eliquis 10mg po bid x 7 days total and then 5mg po bid -should remain on AC lifelong given second event -gave bleeding precautions, avoid high risk for trauma activities (3) Acute UTI (urinary tract infection): received ceftriaxone in ER Ur cx with Prob Enterococcus, not yet finalized at time of discharge changed to amox 500mg po tid and recommend 4 weeks of tx for prostatitis as pt says he frequently rebounds f/u with Urology as directed previously by PCP (4) COPD (chronic obstructive pulmonary disease): with suspected exacerbation as above -Albuterol PRN -Flovent (5) Paranoid schizophrenia: Chronic. -Continue Haldol, Cogentin -Continue Trazodone With some orthostasis on BPs but asymptomatic-advised to pump legs before standing and not to get up too quickly likely 2/2 side effects of meds Plan Dispo-dc to home Discharge Exam Constitutional WD/WN, vitals as above Neck trachea midline, no thyromegaly Respiratory normal respiratory effort, lungs clear to auscultation Cardiovascular RRR, no murmur, no edema Chest (Breasts) Chest: normal inspection of chest Gastrointestinal (Abdomen) normal bowel sounds, soft, nontender, no hepatosplenomegaly Musculoskeletal Extremities: extremities normal to inspection; no cyanosis and no clubbing Skin no rashes, warm and dry Neurologic moves all extremities and awake; no focal motor deficits Psychiatric A+Ox3, euthymic affect Lymphatic no lymphedema Updated Medication List Medication Instructions Recorded Confirmed Type haloperidol 20 mg tablet 20 mg PO HS 09/06/19 10/02/23 History pantoprazole 20 mg tablet,delayed 20 mg PO BID 10/01/19 10/02/23 History release haloperidol 5 mg tablet 5 mg PO DAILY PRN Anxiety 05/12/20 10/02/23 History albuterol sulfate 90 mcg/actuation 1 - 2 puff inhalation .Q4-6HRS PRN 09/29/21 10/02/23 Rx aerosol inhaler (Ventolin HFA) Shortness Of Breath Or Wheezing #8 grams benztropine 1 mg tablet 1 mg PO DAILY 11/26/22 10/02/23 History fluticasone propionate 44 2 puff inhalation BID 11/26/22 10/02/23 History mcg/actuation HFA aerosol inhaler (Flovent HFA) loperamide 2 mg tablet 2 mg PO DAILY PRN SEVERE DIARRHEA 11/26/22 10/02/23 History OVER 24 HRS. trazodone 50 mg tablet 50 - 100 mg PO HS PRN Sleep 11/26/22 10/02/23 History umeclidinium 62.5 mcg-vilanterol 1 inh inhalation DAILY 11/26/22 10/02/23 History 25 mcg/actuation powdr for inhalation (Anoro Ellipta) meloxicam 7.5 mg tablet 7.5 mg PO DAILY 10/02/23 10/02/23 History acetaminophen 325 mg tablet 650 mg (2 x 325 mg) PO Q4H PRN 10/05/23 Rx pain #60 tabs amoxicillin 500 mg capsule 500 mg PO TID 27 days #81 caps 10/05/23 Rx apixaban 5 mg tablet (Eliquis) 10 mg (2 x 5 mg) PO BID #70 tabs 12/05/23 Rx Hospital Stay Data Consultations 10/03/23 00:55 ED Decision to Admit Stat Diagnostic Imagining Performed 10/02/23 20:37 CT angio chest PE protocol Stat 10/03/23 02:40 US venous doppler LE BI Stat ECHO Pending Results Patient Have Any Pending Studies at Discharge: Yes (Final urine culture) Discharge Instructions Given to Patient (Per Discharging Provider) You were admitted with shortness of breath which may have been related to a COPD exacerbation and improved with receiving steroids in the ER. You were also found to have a small blood clot in your lungs and older appearing blood clots in your veins of the lower extremities. You were started on Eliquis and this should be taken lifelong because this is the second time now you have had blood clots. If you develop bleeding from anywhere such as in your stool, urine, vomiting blood, or have trauma and a bleeding wound that won't stop, please return to the ER right away. If you fall and hit your head, you should be evaluated in the ER as you can get get bleeding in your brain. For your UTI, please take the antibiotic for 4 weeks. Total Time Total Time Spent Total Time Spent (In Minutes): 35 min Coding Level of Care Code 17091 INP/OBS DISCH >30 MIN Diagnoses SOB (shortness of breath) R06.02 Pulmonary embolism I26.99 Acute UTI (urinary tract infection) N39.0 COPD (chronic obstructive pulmonary disease) J44.9 Paranoid schizophrenia F20.0
[2023-10-05 11:02] VITALS: PULSE 55
== END 2023-10-05 11:28 | disposition home or self-care (01) ==
LOC: 3N 19:05 → ED 19:05 → SUATTDRO 10-03 01:28 → 3N 10-03 02:25

== ENCOUNTER 2023-11-17 18:23 | Inpatient (IN) ==
[2023-11-17] MEDS ORDERED: methylPREDNISolone 125 MG/2 ML VIAL IV STA (18:29)
[2023-11-17] MEDS ORDERED: ALBUT/IPRATROP 3MG/0.5MG NEB 3 ML VIAL NEB STA (18:29)
--- NOTE | 2023-11-17 18:34 | Emergency Department Note ---
History of Present Illness General Chief complaint: Shortness of Breath/Dyspnea Time Seen by Provider: 11/17/23 18:24 History of Present Illness 63-year-old male presents emergency department with complaint of shortness of breath that started 1 day ago. Patient has a slight cough. Patient is on Xarelto for pulmonary embolism he states has been taking his medicine. Patient does not use home oxygen. Patient was given a DuoNeb treatment by EMS prior to arrival. Patient denies any significant cough or congestion. Patient denies pleuritic chest pain or substernal chest pain. There are no other mitigating or alleviating factors Home Medications Medication Instructions Recorded Confirmed Type haloperidol 20 mg tablet 20 mg PO HS 09/06/19 10/02/23 History pantoprazole 20 mg tablet,delayed 20 mg PO BID 10/01/19 10/02/23 History release haloperidol 5 mg tablet 5 mg PO DAILY PRN Anxiety 05/12/20 10/02/23 History albuterol sulfate 90 mcg/actuation 1 - 2 puff inhalation .Q4-6HRS PRN 09/29/21 10/02/23 Rx aerosol inhaler (Ventolin HFA) Shortness Of Breath Or Wheezing #8 grams benztropine 1 mg tablet 1 mg PO DAILY 11/26/22 10/02/23 History fluticasone propionate 44 2 puff inhalation BID 11/26/22 10/02/23 History mcg/actuation HFA aerosol inhaler (Flovent HFA) loperamide 2 mg tablet 2 mg PO DAILY PRN SEVERE DIARRHEA 11/26/22 10/02/23 History OVER 24 HRS. trazodone 50 mg tablet 50 - 100 mg PO HS PRN Sleep 11/26/22 10/02/23 History umeclidinium 62.5 mcg-vilanterol 1 inh inhalation DAILY 11/26/22 10/02/23 History 25 mcg/actuation powdr for inhalation (Anoro Ellipta) acetaminophen 325 mg tablet 650 mg (2 x 325 mg) PO Q4H PRN 10/05/23 Rx pain #60 tabs rivaroxaban 10 mg tablet (Xarelto) 10 mg PO DAILY 35 days #35 tabs 10/26/23 Rx Allergies Allergy/AdvReac Type Severity Reaction Status Date / Time No Known Allergies Allergy Verified 10/02/23 21:00 Past Med/Surg History Medical History (Updated 11/17/23 @ 20:51 by Michael Barrera PA-C) History of pulmonary embolism Urinary symptom or sign Dysuria Hypothyroidism Neurocognitive disorder R/O Anxiety disorder Emphysema of lung Bipolar disorder Paranoid schizophrenia GERD (gastroesophageal reflux disease) Weakness generalized Non-cardiac chest pain Multifocal pneumonia Chest pain COPD (chronic obstructive pulmonary disease) Acute bronchitis ARDS (adult respiratory distress syndrome) Family History Other Asthma Cancer Diabetes Heart disease Lung disease No pertinent family history in first degree relatives Social History Smoking Status: Former smoker Tobacco Type: Cigarettes Cigarettes Per Day: 1 pack per day; Do You Dip or Chew Tobacco: No; Hx Alcohol Use: No Hx Substance Use: Yes Last Used Substance Other:: months ago Preferred Language: French Communication Ability: Effective Communication Ability Comment: PER FACILITY-"PT IS OF SOUND MIND-ABLE TO SIGN OWN CONSENT" Liquid Yeast Supervisor Required: No Beliefs That Will Affect Care: Restorationism Restorationism Beliefs: Worship Current Living Situation: Alone Feels Safe at Home: Yes Gender Identity: Male Assistive Devices: None Review of Systems A total of 10 systems reviewed and were otherwise negative Respiratory: + dyspnea Cardiovascular: no chest pain Physical Exam Vital Signs Vital Signs - 24 hr 11/17/23 18:29 11/17/23 18:29 11/17/23 18:29 Temperature 37.3 C Temperature Source Temporal Artery Scan Pulse Rate 84 Pulse Rate [Apical] Respiratory Rate 19 Respiratory Effort / Characteristics Labored Non-Labored Spontaneous Respiratory Depth Normal Respiratory Pattern Blood Pressure [Left Arm] Blood Pressure Mean [Left Arm] Blood Pressure Position [Left Arm] Pulse Oximetry 98 Oxygen Delivery Method Room Air Room Air Sepsis Recent Fever Within 48 Hours No Sepsis New/Unexplained Change in Mental Status No Sepsis Action Taken by Nursing No Action Required Pulse Oximetry Post Tiitration 98 11/17/23 18:33 11/17/23 18:44 11/17/23 20:00 Temperature Temperature Source Pulse Rate 72 Pulse Rate [Apical] 60 Respiratory Rate 18 Respiratory Effort / Characteristics Non-Labored Spontaneous Respiratory Depth Normal Respiratory Pattern Regular Blood Pressure [Left Arm] 128/97 Blood Pressure Mean [Left Arm] 107 Blood Pressure Position [Left Arm] Semi-fowlers Pulse Oximetry 97 95 Oxygen Delivery Method Room Air Room Air Sepsis Recent Fever Within 48 Hours Sepsis New/Unexplained Change in Mental Status Sepsis Action Taken by Nursing Pulse Oximetry Post Tiitration GENERAL: Patient is awake alert in no acute distress patient is resting comfortably; mildly anxious, speaking in full sentences EYES: The conjunctivae are clear. The pupils are round and reactive. EARS, NOSE, MOUTH AND THROAT: The nose is without any evidence of any deformity. Mucous membranes are moist. Tongue is midline. NECK: The neck is nontender and supple. RESPIRATORY: Normal respiratory effort is noted there is no evidence of wheezing rhonchi or rales CARDIOVASCULAR: Regular rate and rhythm noted there no murmurs rubs or gallops normal S1 normal S2. GASTROINTESTINAL: The abdomen is soft. Abdomen is nontender. BACK: No midline tenderness or or step-off noted range of motion in flexion extension as well as rotation no signs of muscle spasm noted MUSCULOSKELETAL/EXTREMITIES: There is no evidence of gross deformity full range of motion is noted in the hips and shoulders. SKIN: There is no obvious evidence of any rash. There are no petechiae, pallor or cyanosis noted. NEUROLOGIC: Patient is awake alert and oriented x3 strength is symmetric Course Reevaluation(s) Reevaluation #1: Patient is resting in no distress was started on IV Solu-Medrol, given DuoNeb treatment is not hypoxic Time: 20:59 Consultations Consultation #1: Case was [facility] for RSV COPD exacerbation the patient with a history of pulmonary embolism currently on Xarelto and a prior history of acute respiratory distress syndrome Time: 20:59 Administered Medications Discontinued Medications Albuterol (Albut/Ipratrop 3mg/0.5mg Neb 3 Ml Vial) 3 ml NEB NOW STA; Protocol Stop: 11/17/23 18:30 Last Admin: 11/17/23 18:47 Dose: 3 ml Documented By: YOLANDA Methylprednisolone (Methylprednisolone 125 Mg/2 Ml Vial) 125 mg IV NOW STA Stop: 11/17/23 18:30 Last Admin: 11/17/23 18:47 Dose: 125 mg Documented By: YOLANDA Medical Decision Making Medical Records Attestation: I reviewed the patient's medical records. Home Medications Current Medication List: was personally reviewed by me Laboratory Data Attestation: I reviewed the patient's lab results. Labs interpreted by me patient has an elevated creatinine, patient on respiratory swab is positive for RSV 11/17/23 18:40 11/17/23 18:40 Lab Results 11/17/23 11/17/23 11/17/23 Range/Units 18:40 18:48 19:12 WBC 7.84 (4.8-10.8) K/ul RBC 4.62 L (4.70-6.10) M/uL Hgb 14.1 (14.0-18.0) g/dl Hct 38.9 L (42.0-52.0) % MCV 84.2 (80.0-100.0) fL MCH 30.5 (25.0-34.0) pg MCHC 36.2 H (32.0-36.0) g/dL RDW Std Deviation 39.9 (36.4-46.3) fL RDW Coeff of Cady 13.0 (11.5-14.5) % Plt Count 217 (130-400) K/uL MPV 9.0 L (9.4-12.4) fL Immature Gran % (Auto) 0.4 % Neut % (Auto) 63.5 % Lymph % (Auto) 29.2 % [place] % (Auto) 5.5 % Eos % (Auto) 0.9 % Baso % (Auto) 0.5 % Neut # (Auto) 4.98 (1.40-6.50) K/uL Lymph # (Auto) 2.29 (1.20-3.40) K/uL [place] # (Auto) 0.43 (0.11-0.59) K/uL Eos # (Auto) 0.07 (0.00-0.50) K/uL Baso # (Auto) 0.04 (0.00-0.20) K/uL Immature Gran # (Auto) 0.03 (0.01-0.20) K/uL PT 11.4 (9.0-12.0) Seconds INR 1.0 (0.9-1.1) APTT 26 (21-31) Seconds PTT Ratio 0.9 Sodium 134 L (136-145) mmol/L Potassium 3.5 (3.5-5.1) mmol/L Chloride 103 (98-107) mmol/L Carbon Dioxide 20 L (21-32) mmol/L Anion Gap 11 (3-11) BUN 24 H (6-23) mg/dl Creatinine 1.59 H (0.6-1.4) mg/dl Est Cr Clr Drug Dosing 47.6 ml/min Est GFR ( Amer) 52.8 ml/min Est GFR (Non-Af Amer) 45.5 ml/min BUN/Creatinine Ratio 15.1 (10-20) Glucose 133 H (70-99(Fasting)) mg/dl Calcium 8.7 (8.6-10.3) mg/dl Magnesium 1.7 (1.7-2.4) mg/dl Total Bilirubin 0.5 (0.2-1.0) mg/dl AST 16 (13-39) U/L ALT 10 (7-52) U/L Alkaline Phosphatase 65 (34-104) U/L Troponin I High Sens 5.8 (0-20) pg/ml B-Natriuretic Peptide 12 (0-100) pg/ml Total Protein 6.7 (6.0-8.3) gm/dl Albumin 4.1 (3.4-5.0) gm/dl Globulin 2.6 (2.5-4.0) gm/dl Albumin/Globulin Ratio 1.6 (0.9-2) SARS-CoV-2 (PCR) NEGATIVE (Negative) Influenza Type A (PCR) Negative (Neg) Influenza Type B (PCR) Negative (Neg) RSV (RT-PCR) Positive A* (Neg) Imaging Data Attestation: I personally reviewed and interpreted this imaging study as follows: My Impression: Chest x-ray interpreted by me COPD changes normal mediastinum, no pneumothorax Radiologist's Impression: Chest X-Ray 11/17/23 18:30 SINGLE VIEW CHEST CLINICAL HISTORY: Dyspnea FINDINGS: An AP, portable, upright chest radiograph is compared to study dated 10/02/2023 and correlated with chest CT dated 10/26/2023. The cardiomediastinal silhouette is unremarkable. Emphysema and chronic interstitial thickening is similar to previous. There is mild bibasilar scarring/atelectasis. The lungs and pleural spaces are otherwise clear. No pneumothorax is seen. The bony thorax is grossly intact. Calcific tendinopathy is noted in the left shoulder. IMPRESSION: Emphysematous change with no active disease in the chest. ACT 112: Negative or not required by law. Electronically signed by: William Arrieta M.D. 11/17/2023 7:23 PM ECG Data Attestation: I personally reviewed and interpreted this ECG as follows: MDM Narrative Medical decision making differential diagnosis includes COPD exacerbation bronchitis, pneumonia, upper respiratory tract infection, anemia, cardiac dysrhythmia Plan is to check labs EKG, chest x-ray, give DuoNeb, give IV Solu-Medrol Patient was started on Solu-Medrol, DuoNeb, I reviewed the patient's prior records and recent discharge summary of the patient having pulmonary embolism on Xarelto and prior history of COPD with acute respiratory distress syndrome Patient will be admitted for further treatment of COPD, RSV Impression & Plan COPD exacerbation, RSV bronchitis Discharge Plan Visit Data Chief Complaint: Shortness of Breath/Dyspnea ED Provider: Marcelino Mary Discharge Problem: COPD exacerbation, RSV bronchitis Patient Disposition: Admitted As Inpatient Forms Stand Alone Forms: My [facility] [address] Prescriptions Prescriptions: No Action albuterol sulfate [Ventolin HFA] 90 mcg/actuation HFA aerosol inhaler 1 - 2 puff INHALATION .Q4-6HRS PRN (Reason: Shortness Of Breath Or Wheezing) Qty: 8 3RF haloperidol 20 mg Tablet 20 mg PO HS pantoprazole 20 mg Tablet,Delayed Release (Dr/Ec) 20 mg PO BID haloperidol 5 mg tablet 5 mg PO DAILY PRN (Reason: Anxiety) trazodone 50 mg Tablet 50 - 100 mg PO HS PRN (Reason: Sleep) loperamide 2 mg Tablet 2 mg PO DAILY PRN (Reason: SEVERE DIARRHEA OVER 24 HRS.) fluticasone propionate [Flovent HFA] 44 mcg/actuation Hfa Aerosol Inhaler 2 puff INHALATION BID Rx Instructions: administer with spacer benztropine 1 mg Tablet 1 mg PO DAILY Anoro Ellipta 62.5-25 mcg/actuation Blister With Device 1 inh INHALATION DAILY acetaminophen 325 mg Tablet 650 mg PO Q4H PRN (Reason: pain) Qty: 60 0RF Xarelto 10 mg tablet 10 mg PO DAILY 35 Days Qty: 35 2RF Referrals Referrals: Ciera Coyne PA-C [Primary Care Provider] -
[2023-11-17 19:23] LABS: Basophils # (auto) 0.04 K/uL (0.00-0.20); Basophils % (auto) 0.5 %; Eosinophils # (auto) 0.07 K/uL (0.00-0.50); Eosinophils % (auto) 0.9 %; Hematocrit (blood only) 38.9 % (42.0-52.0); Hemoglobin 14.1 g/dl (14.0-18.0); Immature Granulocytes # (auto) 0.03 K/uL (0.01-0.20); Immature Granulocytes % (auto) 0.4 %; Lymphocytes # (auto) 2.29 K/uL (1.20-3.40); Lymphocytes % (auto) 29.2 %; Mean Corpuscular Hemoglobin 30.5 pg (25.0-34.0); Mean Corpuscular Hgb Conc 36.2 g/dL (32.0-36.0); Mean Corpuscular Volume 84.2 fL (80.0-100.0); Monocytes # (auto) 0.43 K/uL (0.11-0.59); Monocytes % (auto) 5.5 %; Neutrophils # (auto) 4.98 K/uL (1.40-6.50); Neutrophils % (auto) 63.5 %; Platelet Count 217 K/uL (130-400); RDW Standard Deviation 39.9 fL (36.4-46.3); Red Blood Count 4.62 M/uL (4.70-6.10); White Blood Count 7.84 K/ul (4.8-10.8)
--- NOTE | 2023-11-17 19:25 | XRay Report ---
SINGLE VIEW CHEST CLINICAL HISTORY: Dyspnea FINDINGS: An AP, portable, upright chest radiograph is compared to study dated 10/02/2023 and correlat ed with chest CT dated 10/26/2023. The cardiomediastinal silhouette is unremarkable. Emphysema and ch ronic interstitial thickening is similar to previous. There is mild bibasilar scarring/atelectasis. T he lungs and pleural spaces are otherwise clear. No pneumothorax is seen. The bony thorax is grossly intact. Calcific tendinopathy is noted in the left shoulder. IMPRESSION: Emphysematous change with no active disease in the chest. ACT 112: Negative or not required by law. Electronically signed by: William Arrieta M.D. 11/17/2023 7:23 PM
[2023-11-17 19:42] LABS: Albumin Globulin Ratio 1.6 (0.9-2); Albumin Level 4.1 gm/dl (3.4-5.0); BUN Creatinine Ratio 15.1 (10-20); Bilirubin,Total 0.5 mg/dl (0.2-1.0); Calcium 8.7 mg/dl (8.6-10.3); Creatinine Clr Calc Pharmacy 47.6 ml/min; Est GFR (African American) 52.8 ml/min; Est GFR (Non-African American) 45.5 ml/min; Globulin 2.6 gm/dl (2.5-4.0); Magnesium 1.7 mg/dl (1.7-2.4); Potassium 3.5 mmol/L (3.5-5.1); Total Protein 6.7 gm/dl (6.0-8.3)
[2023-11-17 19:47] LABS: Troponin I High Sensitivity 5.8 pg/ml (0-20)
[2023-11-17 19:52] LABS: Partial Thromboplastin Ratio 0.9; Partial Thromboplastin Time 26 Seconds (21-31); Prothrombin Time 11.4 Seconds (9.0-12.0)
[2023-11-17 20:07] LABS: Influenza A virus by PCR Negative (Neg); Influenza B virus by PCR Negative (Neg); SARS CoV2 RNA(COVID-19) Ceph NEGATIVE (Negative)
[2023-11-17 20:14] LABS: RSV by PCR Positive (Neg)
--- NOTE | 2023-11-17 20:53 | History & Physical Report ---
Date of Service November 17, 2023 Assessment & Plan (1) RSV (respiratory syncytial virus infection): Plan: Ongoing productive cough and acute worsening SOB on 11/17 RSV+ on arrival Hx of emphysema Droplet isolation precautions in place No leukocytosis; afebrile Solu-Medrol 125 mg given in the ED Sputum culture ordered, pending Blood cultures ordered, pending Procalcitonin ordered, pending Will defer antibiotics at this time; follow sputum/blood cultures Continuous pulse oximetry Supplemental oxygen therapy as needed to maintain SpO2 >92% Guaifenesin 1200 mg p.o. twice daily Promote good pulmonary hygiene with incentive spirometry and flutter valve QID IV fluid resuscitation with LR at 100mL/hr x 2 DuoNeb 3 mL QIDR A.m. CBC, BMP (2) COPD (chronic obstructive pulmonary disease): Plan: Chronic; wheezing on exam Continue Anoro Ellipta DuoNebs (as above) (3) History of pulmonary embolism: Plan: At [facility] in October 2023 HR 60 bpm at time of admission Patient endorses pleuritic CP, but denies hemoptysis Well's Score: 1.5 points (low risk) Continue Xarelto (4) Former smoker: Plan: Quit 2mo ago following pulmonary embolism Former tobacco cigarette smoker, marijuana use, and vaping Declined nicotine patches (5) Paranoid schizophrenia: Plan: Continue Haldol, Cogentin Continue trazodone as needed HS Plan Disposition: Admit to [facility] telemetry Full code Regular diet VTE PPx: On Xarelto History of Present Illness Chief Complaint: SOB/dyspnea Primary Care Provider: Ciera Sanders is a 63-year-old male with PMH of COPD, chronic bronchitis, anxiety, paranoid schizophrenia, and recent pulmonary embolism (on Xarelto). He presented via EMS for difficulty breathing on 09/17. RSV positive on arrival. He has worsening emphysema x 5 years, and was placed on supplemental home oxygen 5 years ago, but is no longer uses it. Recent [facility] admission for pulmonary embolism in October 2023, and was discharged on Xarelto and amoxicillin for UTI. Patient quit smoking at this time (2 months ago); before this he was smoking tobacco cigarettes, marijuana, and vaping. He denies alcohol use. He reports he is taking all of his regular medications, and took his morning meds, including Xarelto, for which she reports having good compliance. He has not been eating or drinking much due to fever and illness. He reports taking Children's Motrin for his fever, as he could not get Johanne-Graham cold. Patient also notes that he completed a course of amoxicillin 500 mg p.o. TID x 4 weeks for UTI/prostatitis at time of last discharge. Vital stable at time of admission. ED course: Solu-Medrol 125 mg IV DuoNeb 3 mL ROS: Patient endorses fever, chills, dizziness, lightheadedness, DOMINGUEZ, productive cough (clear sputum), wheezing, SOB at rest and with exertion, and LUQ abdominal pain (at left anterior rib cage; ?pleuritic) Patient denies body aches, hemoptysis, chest pain, chest palpitations, dysuria, burning with urination, blood in urine/stool, or numbness/tingling/pain/swelling in the legs bilaterally. Allergies Allergy/AdvReac Type Severity Reaction Status Date / Time No Known Allergies Allergy Verified 11/17/23 21:04 Home Medications Medication Instructions Recorded Confirmed Type haloperidol 20 mg tablet 20 mg PO HS 09/06/19 11/17/23 History pantoprazole 20 mg tablet,delayed 20 mg PO BID 10/01/19 11/17/23 History release haloperidol 5 mg tablet 5 mg PO DAILY PRN Anxiety 05/12/20 11/17/23 History albuterol sulfate 90 mcg/actuation 1 - 2 puff inhalation .Q4-6HRS PRN 09/29/21 11/17/23 Rx aerosol inhaler (Ventolin HFA) Shortness Of Breath Or Wheezing #8 grams benztropine 1 mg tablet 1 mg PO HS 11/26/22 11/17/23 History loperamide 2 mg tablet 2 mg PO DAILY PRN SEVERE DIARRHEA 11/26/22 11/17/23 History OVER 24 HRS. trazodone 50 mg tablet 50 - 100 mg PO HS PRN Sleep 11/26/22 11/17/23 History umeclidinium 62.5 mcg-vilanterol 1 inh inhalation DAILY 11/26/22 11/17/23 History 25 mcg/actuation powdr for inhalation (Anoro Ellipta) acetaminophen 325 mg tablet 650 mg (2 x 325 mg) PO Q4H PRN 10/05/23 11/17/23 Rx pain #60 tabs rivaroxaban 10 mg tablet (Xarelto) 10 mg PO DAILY 35 days #35 tabs 10/26/23 11/17/23 Rx fluticasone propionate 44 2 puff inhalation BID 11/17/23 11/17/23 History mcg/actuation HFA aerosol inhaler meloxicam 7.5 mg tablet 7.5 mg PO DAILY 11/17/23 11/17/23 History Past Med/Surg History Medical History (Updated 11/17/23 @ 21:49 by Michael Barrera PA-C) Former smoker History of pulmonary embolism Urinary symptom or sign Dysuria Hypothyroidism Neurocognitive disorder R/O Anxiety disorder Emphysema of lung Bipolar disorder Paranoid schizophrenia GERD (gastroesophageal reflux disease) Weakness generalized Non-cardiac chest pain Multifocal pneumonia Chest pain COPD (chronic obstructive pulmonary disease) Acute bronchitis ARDS (adult respiratory distress syndrome) Family History Other Asthma Cancer Diabetes Heart disease Lung disease No pertinent family history in first degree relatives Social History Smoking Status: Current every day smoker Tobacco Type: Cigarettes Cigarettes Per Day: 1 pack; Do You Dip or Chew Tobacco: No; Hx Alcohol Use: No Hx Substance Use: Yes Last Used Substance: Unknown Last Used Substance Other:: months ago Preferred Language: Armenian Communication Ability: Effective Communication Ability Comment: PER FACILITY-"PT IS OF SOUND MIND-ABLE TO SIGN OWN CONSENT" Cinder Pit Worker Required: No Beliefs That Will Affect Care: None Current Living Situation: Alone Feels Safe at Home: Yes and No Is there a partner from a previous relationship who is making you feel unsafe now?: No Any Concerns about Your Family Situation: No Would You Like to Speak to Someone About Your Situation: Yes Safety Concerns: Afraid for Self Gender Identity: Male Assistive Devices: None Review of Systems Review of Systems: See HPI above Physical Exam Physical Exam: General: Mild respiratory distress; non-toxic appearing; appears older than stated age; cooperative; SpO2 98% on RA HEENT: normocephalic, atraumatic; no scleral icterus; PERRLA w/ EOMs intact; dry mucus membrane; vision and hearing grossly intact Neck: supple; no lymphadenopathy; trachea midline Skin: warm, dry without signs of tenting; no cyanosis; no rashes, bruising, lesions, or erythema noted CV: chest wall NTP; RRR; S1/S2 normal; no murmurs/rubs/gallops; pulses intact and symmetric at radial, DP, and PT Lungs: Mild respiratory distress; hoarse cough; symmetrical chest wall expansion; inspiratory/expiratory wheezing across all lung boone bilaterally ABD: Soft, NTP; LUQ NTP; BS present; no rebound/guarding MSK: no tics or fasciculations; no edema noted in the LEs b/l, nonerythematous Neuro: A&Ox3; normal mood and affect; fluent speech; no focal deficits; sensation grossly intact in the LEs b/l Results & Data Results & Data Vital Signs (Past 12 Hours) Vital Signs Temp Pulse Pulse Resp BP Pulse Ox O2 Del Method 11/17/23 20:00 60 18 128/97 95 Room Air 11/17/23 18:44 97 Room Air 11/17/23 18:33 72 11/17/23 18:29 Room Air 11/17/23 18:29 37.3 C 84 19 98 Room Air Laboratory Results Abnormal lab results 11/17/23 11/17/23 Range/Units 18:40 19:12 RBC 4.62 L (4.70-6.10) M/uL Hct 38.9 L (42.0-52.0) % MCHC 36.2 H (32.0-36.0) g/dL MPV 9.0 L (9.4-12.4) fL Sodium 134 L (136-145) mmol/L Carbon Dioxide 20 L (21-32) mmol/L BUN 24 H (6-23) mg/dl Creatinine 1.59 H (0.6-1.4) mg/dl Glucose 133 H (70-99(Fasting)) mg/dl RSV (RT-PCR) Positive A* (Neg) Diagnostic Findings Chest X-Ray 11/17/23 18:30 SINGLE VIEW CHEST CLINICAL HISTORY: Dyspnea FINDINGS: An AP, portable, upright chest radiograph is compared to study dated 10/02/2023 and correlated with chest CT dated 10/26/2023. The cardiomediastinal silhouette is unremarkable. Emphysema and chronic interstitial thickening is similar to previous. There is mild bibasilar scarring/atelectasis. The lungs and pleural spaces are otherwise clear. No pneumothorax is seen. The bony thorax is grossly intact. Calcific tendinopathy is noted in the left shoulder. IMPRESSION: Emphysematous change with no active disease in the chest. ACT 112: Negative or not required by law. Electronically signed by: William Arrieta M.D. 11/17/2023 7:23 PM Supervising Physician Co-Signing Physician Notes Patient seen and examined, chart reviewed, case discussed with KIM Barrera and I agree with the assessment and plan as above. In brief, patient is a 63yo male with recently diagnosed PE on anticoagulation therapy presenting with RSV. Ongoing shortness of breath On exam patient is afebrile, HD stable Skin - no rash HEENT - MMM, Neck supple Heart - +S1/S2, regular Lungs - Coarse breath sounds with diffuse end-expiratory wheezing Abd - +BS, soft, NT/ND Ext - warm, well perfused Labs and images reviewed Procalcitonin is NEGATIVE Assessment/Plan- 63yo female with RSV infection -Supplemental O2 as needed -Supportive care, Tylenol and Guaifenesen as needed. Pulmonary hygiene -Remainder as above PG Care Time/CCT Total # of Minutes Spent Total Time Spent with Patient: Total time spent is greater than 50% in coordination of care (as documented) at patient's floor/unit and/or counseling patient: C[place] [address] INT INP/OBS CARE 2/55MIN Patient Type Established Medical Decision Making Moderate Complexity Diagnoses RSV (respiratory syncytial virus infection) B33.8 COPD (chronic obstructive pulmonary disease) J44.9 History of pulmonary embolism Z86.711 Former smoker Z87.891 Paranoid schizophrenia F20.0
[2023-11-17] MEDS ORDERED: traZODone HCL 50 MG TAB PO ONE (22:16)
[2023-11-17] MEDS ORDERED: BENZTROPINE MESYLATE 1 MG TAB PO ONE (22:17)
[2023-11-17] MEDS ORDERED: haloperidoL 5 MG TAB PO ONE (22:17)
[2023-11-17] MEDS: LACTATED RINGER'S 1,000 ML IV SCH (22:27)
--- NOTE | 2023-11-18 03:15 | Billing Data ---
Date of Service November 17, 2023 Coding Level of Care Code 50307 INT INP/OBS CARE
[2023-11-18] MEDS: guaiFENesin 600 MG TABCR PO SCH ×3 (03:16→21:12)
[2023-11-18] MEDS: PANTOprazole 40 MG TAB PO SCH ×3 (03:17→21:12)
[2023-11-18] MEDS: ALBUT/IPRATROP 3MG/0.5MG NEB 3 ML VIAL NEB SCH ×4 (07:00→20:29)
[2023-11-18 07:26] LABS: Basophils # (auto) 0.01 K/uL (0.00-0.20); Basophils % (auto) 0.2 %; Hematocrit (blood only) 38.1 % (42.0-52.0); Hemoglobin 13.7 g/dl (14.0-18.0); Immature Granulocytes # (auto) 0.02 K/uL (0.01-0.20); Immature Granulocytes % (auto) 0.4 %; Lymphocytes # (auto) 0.83 K/uL (1.20-3.40); Lymphocytes % (auto) 17.3 %; Mean Corpuscular Hemoglobin 30.3 pg (25.0-34.0); Mean Corpuscular Volume 84.3 fL (80.0-100.0); Mean Platelet Volume 8.8 fL (9.4-12.4); Monocytes # (auto) 0.17 K/uL (0.11-0.59); Monocytes % (auto) 3.5 %; Neutrophils # (auto) 3.77 K/uL (1.40-6.50); Neutrophils % (auto) 78.6 %; Platelet Count 208 K/uL (130-400); RDW Standard Deviation 39.6 fL (36.4-46.3); Red Blood Count 4.52 M/uL (4.70-6.10)
[2023-11-18 07:45] LABS: BUN Creatinine Ratio 16.5 (10-20); Creatinine Clr Calc Pharmacy 62.5 ml/min; Est GFR (African American) 73.4 ml/min; Est GFR (Non-African American) 63.3 ml/min; Potassium 4.1 mmol/L (3.5-5.1)
[2023-11-18] MEDS: UMECLIDINIUM/VILANTEROL 62.5/25MCG 7 PUFFS/INHALER INH SCH (09:25)
[2023-11-18] MEDS: LACTATED RINGER'S 1,000 ML IV SCH (09:25)
[2023-11-18] MEDS: RIVAROXABAN 10 MG TABLET PO SCH (09:25)
--- NOTE | 2023-11-18 14:23 | Hospitalist Progress Note ---
Date of Service November 18, 2023 Assessment & Plan (1) RSV (respiratory syncytial virus infection): Plan: Acute Bronchitis due to RSV Ongoing productive cough and acute worsening SOB on 11/17, RSV+ on arrival Hx of emphysema Solu-Medrol 125 mg given in the ED - Continue 40mg q12 Sputum culture pending (uncollected as cough has been non productive) Blood cultures pending Procalcitonin negative Supplemental oxygen therapy as needed to maintain SpO2 >92% - Currently sable on room air Guaifenesin 1200 mg BID DuoNeb 3 mL QIDR Promote good pulmonary hygiene with incentive spirometry and flutter valve QID (2) COPD (chronic obstructive pulmonary disease): Plan: Chronic; wheezing on exam Continue Anoro Ellipta DuoNebs (as above) (3) History of pulmonary embolism: Plan: At [facility] in October 2023 Patient endorses pleuritic CP, but denies hemoptysis Well's Score: 1.5 points (low risk) Continue Xarelto (4) Former smoker: Plan: Quit 2mo ago following pulmonary embolism Former tobacco cigarette smoker, marijuana use, and vaping Declined nicotine patches (5) Paranoid schizophrenia: Plan: Continue Haldol, Cogentin Continue trazodone as needed HS Plan Disposition: continued inpatient stay VTE PPx: On Xarelto Admission and Anticipated Discharge Date Admission Date: November 17, 2023 Supervising Physician Co-Signing Physician Notes Attending Attestation - Chart reviewed, care plan d/w GEORGINA Cerda. I agree w/ the kellogg components of her documentation. Delgado Mueller MD Subjective Patient seen lying in bed, states that he had felt poorly over the last two weeks but didn't get bad until he came to the ER. Reports unproductive cough, body aches and chills. Lives at home alone, does all cooking and cleaning. Reports he has been looking for help around the house Tele sinus yahir 40-50s overnight, sinus rhythm 70s when sleeping Review of Systems Review of Systems: All systems reviewed & are unremarkable except as noted in Subjective Physical Exam Physical Exam: General: NAD, lying in bed, thin, VS as above Resp: normal respiratory effort, no accessory muscle use, inspiratory and expiratory wheezing throughout, bases are diminished CV: RRR, no murmur, Abd: normal bowel sounds, non tender, no hepatosplenomegaly Extremities: Moves all extremities, no edema Neuro: A&O x3, Skin: intact, no lesions noted Results & Data Results & Data Vital Signs (Past 12 Hours) Vital Signs Temp Pulse Resp BP BP Pulse Ox O2 Del Method 11/18/23 11:49 37.1 C 73 20 159/75 H 97 Room Air 11/18/23 11:29 66 20 95 Room Air 11/18/23 09:58 Room Air 11/18/23 07:30 37.1 C 70 20 130/71 95 Room Air 11/18/23 07:25 58 L 20 96 Room Air 11/18/23 04:15 37.2 C 62 18 121/78 95 Room Air Laboratory Results CBC, chemsitry, procalcitonin reviewed Diagnostic Findings CXR reviewed PG Care Time/CCT Total # of Minutes Spent Total Time Spent with Patient: Total time spent is greater than 50% in coordination of care (as documented) at patient's floor/unit and/or counseling patient: Coding Level of Care Code 48279 SUB INP/OBS CARE 2/35MIN Diagnoses RSV (respiratory syncytial virus infection) B33.8 COPD (chronic obstructive pulmonary disease) J44.9 History of pulmonary embolism Z86.711 Former smoker Z87.891 Paranoid schizophrenia F20.0
[2023-11-18] MEDS: methylPREDNISolone 40 MG in SYRINGE 0 ML IV SCH (16:38)
[2023-11-18] MEDS ORDERED: methylPREDNISolone 40 MG in SYRINGE 0 ML IV SCH (21:00)
[2023-11-18] MEDS: traZODone HCL 50 MG TAB PO PRN (21:13)
[2023-11-18] MEDS: BENZTROPINE MESYLATE 1 MG TAB PO SCH (21:15)
[2023-11-18] MEDS: haloperidoL 5 MG TAB PO SCH (21:15)
[2023-11-19] MEDS: methylPREDNISolone 40 MG in SYRINGE 0 ML IV SCH ×2 (03:53→16:07)
[2023-11-19 06:58] LABS: Basophils # (auto) 0.02 K/uL (0.00-0.20); Basophils % (auto) 0.2 %; Hemoglobin 13.2 g/dl (14.0-18.0); Immature Granulocytes # (auto) 0.05 K/uL (0.01-0.20); Immature Granulocytes % (auto) 0.4 %; Lymphocytes # (auto) 1.12 K/uL (1.20-3.40); Lymphocytes % (auto) 9.2 %; Mean Corpuscular Hemoglobin 30.3 pg (25.0-34.0); Mean Corpuscular Hgb Conc 35.7 g/dL (32.0-36.0); Mean Corpuscular Volume 84.9 fL (80.0-100.0); Mean Platelet Volume 8.7 fL (9.4-12.4); Monocytes # (auto) 0.43 K/uL (0.11-0.59); Monocytes % (auto) 3.5 %; Neutrophils % (auto) 86.7 %; Platelet Count 232 K/uL (130-400); RDW Coefficient of Variation 13.2 % (11.5-14.5); RDW Standard Deviation 41.2 fL (36.4-46.3); Red Blood Count 4.36 M/uL (4.70-6.10); White Blood Count 12.12 K/ul (4.8-10.8)
[2023-11-19 07:13] LABS: BUN Creatinine Ratio 15.4 (10-20); Calcium 8.9 mg/dl (8.6-10.3); Creatinine Clr Calc Pharmacy 72.7 ml/min; Est GFR (African American) 88.1 ml/min; Est GFR (Non-African American) 76.1 ml/min; Potassium 4.1 mmol/L (3.5-5.1)
[2023-11-19] MEDS: ALBUT/IPRATROP 3MG/0.5MG NEB 3 ML VIAL NEB SCH ×4 (07:15→19:15)
[2023-11-19] MEDS: RIVAROXABAN 10 MG TABLET PO SCH (08:16)
[2023-11-19] MEDS: guaiFENesin 600 MG TABCR PO SCH ×2 (08:17→19:55)
[2023-11-19] MEDS: UMECLIDINIUM/VILANTEROL 62.5/25MCG 7 PUFFS/INHALER INH SCH (08:17)
[2023-11-19] MEDS: PANTOprazole 40 MG TAB PO SCH ×2 (08:17→19:55)
--- NOTE | 2023-11-19 10:15 | Hospitalist Progress Note ---
Date of Service November 19, 2023 Assessment & Plan (1) RSV (respiratory syncytial virus infection): Plan: Acute Bronchitis due to RSV Ongoing productive cough and acute worsening SOB on 11/17, RSV+ on arrival Hx of emphysema Solu-Medrol 125 mg given in the ED - Continue 40mg q12 - likely discharge with steroid taper Sputum culture pending (uncollected as cough has been non productive) Blood cultures - no growth 24 hours Procalcitonin negative Currently sable on room air Guaifenesin 1200 mg BID DuoNeb 3 mL QIDR Continue incentive spirometry and flutter valve QID (2) COPD (chronic obstructive pulmonary disease): Plan: Chronic; wheezing on exam Continue Anoro Ellipta DuoNebs (as above) (3) History of pulmonary embolism: Plan: At [facility] in October 2023 Patient endorses pleuritic CP, but denies hemoptysis Well's Score: 1.5 points (low risk) Continue Xarelto 10mg (4) Former smoker: Plan: Quit 2mo ago following pulmonary embolism Former tobacco cigarette smoker, marijuana use, and vaping Declined nicotine patches (5) Paranoid schizophrenia: Plan: Continue Haldol, Cogentin Continue trazodone as needed HS Plan Disposition: continued inpatient stay, possible discharge tomorrow VTE PPx: On Xarelto Admission and Anticipated Discharge Date Admission Date: November 17, 2023 Supervising Physician Co-Signing Physician Notes Attending Attestation - Chart reviewed, care plan d/w GEORGINA Cerda. I agree w/ the kellogg components of her documentation. Delgado Mueller MD Subjective 1000 - Patient seen lying in bed, states he feels alittle bit better compared to yesterday. Still coughing but has not coughed up any mucous. Has been ambulating around the room, but has not been up this morning. Has been sitting up for meals. Still with body aches and chills but improved from yesterday. Good appetite, moving bowels. Denies CP. Tele SR 80s Review of Systems Review of Systems: All systems reviewed & are unremarkable except as noted in Subjective Physical Exam Physical Exam: General: NAD, lying in bed, thin, VS as above Resp: normal respiratory effort, no accessory muscle use,expiratory wheezing throughout - improved from yesterday, bases are diminished. Does not cough with deep breathing today. CV: RRR, no murmur, Abd: normal bowel sounds, non tender, no hepatosplenomegaly Extremities: Moves all extremities, no edema Neuro: A&O x3, Skin: intact, no lesions noted Results & Data Results & Data Vital Signs (Past 12 Hours) Vital Signs Temp Pulse Resp BP BP Pulse Ox O2 Del Method 11/19/23 07:33 36.7 C 66 18 122/85 100 Room Air 11/19/23 07:16 64 18 96 Room Air 11/19/23 03:50 36.9 C 68 18 133/78 97 Room Air 11/18/23 23:17 37.0 C 70 18 130/68 95 Room Air Laboratory Results CBC and chemistry reviewed PG Care Time/CCT Total # of Minutes Spent Total Time Spent with Patient: Total time spent is greater than 50% in coordination of care (as documented) at patient's floor/unit and/or counseling patient: Coding Level of Care Code 49490 SUB INP/OBS CARE 2/35MIN Diagnoses RSV (respiratory syncytial virus infection) B33.8 COPD (chronic obstructive pulmonary disease) J44.9 History of pulmonary embolism Z86.711 Former smoker Z87.891 Paranoid schizophrenia F20.0
[2023-11-19] MEDS: haloperidoL 5 MG TAB PO SCH (19:56)
[2023-11-19] MEDS: BENZTROPINE MESYLATE 1 MG TAB PO SCH (19:56)
[2023-11-19] MEDS: traZODone HCL 50 MG TAB PO PRN (21:28)
--- NOTE | 2023-11-19 22:26 | Electrocardiogram Report ---
Test Reason : Blood Pressure : / mmHG Vent. Rate : 064 BPM Atrial Rate : 064 BPM P-R Int : 170 ms QRS Dur : 082 ms QT Int : 402 ms P-R-T Axes : 068 059 054 degrees QTc Int : 414 ms Sinus rhythm When compared with ECG of 26-OCT-2023 15:35, No significant change Confirmed by Polo Krishna ([id number]) on 11/19/2023 10:25:33 PM Referred By: REFERRED SELF Confirmed By:Polo Krishna
[2023-11-20] MEDS: methylPREDNISolone 40 MG in SYRINGE 0 ML IV SCH ×2 (06:03→17:23)
[2023-11-20 06:22] LABS: Basophils # (auto) 0.03 K/uL (0.00-0.20); Basophils % (auto) 0.2 %; Eosinophils # (auto) 0.01 K/uL (0.00-0.50); Eosinophils % (auto) 0.1 %; Hematocrit (blood only) 37.3 % (42.0-52.0); Hemoglobin 12.8 g/dl (14.0-18.0); Immature Granulocytes # (auto) 0.09 K/uL (0.01-0.20); Immature Granulocytes % (auto) 0.6 %; Lymphocytes # (auto) 2.22 K/uL (1.20-3.40); Lymphocytes % (auto) 15.6 %; Mean Corpuscular Hemoglobin 29.7 pg (25.0-34.0); Mean Corpuscular Hgb Conc 34.3 g/dL (32.0-36.0); Mean Corpuscular Volume 86.5 fL (80.0-100.0); Mean Platelet Volume 8.6 fL (9.4-12.4); Monocytes # (auto) 0.96 K/uL (0.11-0.59); Monocytes % (auto) 6.8 %; Neutrophils % (auto) 76.7 %; Platelet Count 231 K/uL (130-400); RDW Coefficient of Variation 13.3 % (11.5-14.5); RDW Standard Deviation 42.4 fL (36.4-46.3); Red Blood Count 4.31 M/uL (4.70-6.10); White Blood Count 14.21 K/ul (4.8-10.8)
[2023-11-20 06:33] LABS: BUN Creatinine Ratio 17.3 (10-20); Calcium 9.2 mg/dl (8.6-10.3); Creatinine Clr Calc Pharmacy 77.2 ml/min; Est GFR (African American) 94.7 ml/min; Est GFR (Non-African American) 81.7 ml/min; Potassium 4.1 mmol/L (3.5-5.1)
[2023-11-20] MEDS: ALBUT/IPRATROP 3MG/0.5MG NEB 3 ML VIAL NEB SCH ×4 (07:38→19:50)
[2023-11-20] MEDS: RIVAROXABAN 10 MG TABLET PO SCH (08:46)
[2023-11-20] MEDS: guaiFENesin 600 MG TABCR PO SCH ×2 (08:46→20:59)
[2023-11-20] MEDS: UMECLIDINIUM/VILANTEROL 62.5/25MCG 7 PUFFS/INHALER INH SCH (08:46)
[2023-11-20] MEDS: PANTOprazole 40 MG TAB PO SCH ×2 (08:46→20:59)
--- NOTE | 2023-11-20 09:46 | Hospitalist Progress Note ---
Date of Service November 20, 2023 Assessment & Plan (1) RSV (respiratory syncytial virus infection): Plan: Acute Bronchitis due to RSV Ongoing productive cough and acute worsening SOB on 11/17, RSV+ on arrival Hx of emphysema and PE Solu-Medrol 125 mg given in the ED - Continue 40mg q12 - likely discharge with steroid taper - Leukocytosis likely reactive from steroids Sputum culture pending (uncollected as cough has been non productive) Blood cultures - no growth 48 hours Procalcitonin negative Currently sable on room air Guaifenesin 1200 mg BID DuoNeb 3 mL QIDR Continue incentive spirometry and flutter valve QID (2) COPD (chronic obstructive pulmonary disease): Plan: Chronic; wheezing on exam Continue Anoro Ellipta DuoNebs (as above) (3) History of pulmonary embolism: Plan: At [facility] in October 2023 Patient endorses pleuritic CP, but denies hemoptysis Well's Score: 1.5 points (low risk) Continue Xarelto 10mg (4) Former smoker: Plan: Quit 2mo ago following pulmonary embolism Former tobacco cigarette smoker, marijuana use, and vaping Declined nicotine patches (5) Paranoid schizophrenia: Plan: Continue Haldol, Cogentin Continue trazodone as needed HS Plan Disposition: continued inpatient stay, possible discharge tomorrow VTE PPx: On Xarelto Admission and Anticipated Discharge Date Admission Date: November 17, 2023 Supervising Physician Co-Signing Physician Notes Attending Attestation - Chart reviewed, care plan d/w GEORGINA Cerda. I agree w/ the kellogg components of her documentation. Delgado Mueller MD Subjective Patient seen lying in bed. Reports continues with dry cough. Moves around the room okay. Continues with myalgias and chills. Does not feel like he is back to baseline and has concerns about going home - lives alone. Good appetite, moving bowels. Review of Systems Review of Systems: All systems reviewed & are unremarkable except as noted in Subjective Physical Exam Physical Exam: General: NAD, lying in bed, thin, VS as above Resp: normal respiratory effort, no accessory muscle use,expiratory wheezing throughout. Does not cough with deep breathing today. CV: RRR, no murmur, Abd: normal bowel sounds, non tender, no hepatosplenomegaly Extremities: Moves all extremities, no edema Neuro: A&O x3, Skin: intact, no lesions noted Results & Data Results & Data Vital Signs (Past 12 Hours) Vital Signs Temp Pulse Pulse Pulse Resp BP Pulse Ox 11/20/23 08:10 36.7 C 54 L 18 134/79 97 11/20/23 07:39 79 16 97 11/20/23 07:09 51 L 11/20/23 04:00 36.7 C 79 18 135/83 95 11/19/23 23:33 75 11/19/23 23:11 11/19/23 21:52 36.9 C 75 19 136/75 93 O2 Del Method 11/20/23 08:10 Room Air 11/20/23 07:39 Room Air 11/20/23 07:09 11/20/23 04:00 Room Air 11/19/23 23:33 11/19/23 23:11 Room Air 11/19/23 21:52 Room Air Laboratory Results CBC and chemistry reviewed PG Care Time/CCT Total # of Minutes Spent Total Time Spent with Patient: Total time spent is greater than 50% in coordination of care (as documented) at patient's floor/unit and/or counseling patient: Coding Level of Care Code 54742 SUB INP/OBS CARE 2/35MIN Diagnoses RSV (respiratory syncytial virus infection) B33.8 COPD (chronic obstructive pulmonary disease) J44.9 History of pulmonary embolism Z86.711 Former smoker Z87.891 Paranoid schizophrenia F20.0
[2023-11-20] MEDS: ACETAMINOPHEN 325 MG TAB PO PRN (12:36)
[2023-11-20] MEDS: BENZTROPINE MESYLATE 1 MG TAB PO SCH (20:59)
[2023-11-20] MEDS: haloperidoL 5 MG TAB PO SCH (20:59)
[2023-11-20] MEDS: traZODone HCL 50 MG TAB PO PRN (21:10)
[2023-11-21] MEDS: methylPREDNISolone 40 MG in SYRINGE 0 ML IV SCH (05:35)
[2023-11-21] MEDS: ALBUT/IPRATROP 3MG/0.5MG NEB 3 ML VIAL NEB SCH ×4 (07:04→20:09)
[2023-11-21] MEDS: RIVAROXABAN 10 MG TABLET PO SCH (08:30)
[2023-11-21] MEDS: ACETAMINOPHEN 325 MG TAB PO PRN (08:30)
[2023-11-21] MEDS: UMECLIDINIUM/VILANTEROL 62.5/25MCG 7 PUFFS/INHALER INH SCH (08:30)
[2023-11-21] MEDS: PANTOprazole 40 MG TAB PO SCH ×2 (08:30→19:54)
[2023-11-21] MEDS: guaiFENesin 600 MG TABCR PO SCH ×2 (08:30→19:54)
--- NOTE | 2023-11-21 15:00 | Hospitalist Progress Note ---
Date of Service November 21, 2023 Assessment & Plan (1) RSV (respiratory syncytial virus infection): Plan: Acute Bronchitis due to RSV Ongoing productive cough and acute worsening SOB on 11/17, RSV+ on arrival Hx of emphysema and PE Solu-Medrol 125 mg given in the ED - taper to 40mg qAM - likely discharge with steroid taper Sputum culture - uncollected as cough has been non productive Blood cultures - no growth 48 hours Currently sable on room air Guaifenesin 1200 mg BID DuoNeb 3 mL QIDR Continue incentive spirometry and flutter valve QID will downgrade to medical today. (2) COPD (chronic obstructive pulmonary disease): Plan: Chronic; wheezing on exam Continue Anoro Ellipta DuoNebs (as above) (3) History of pulmonary embolism: Plan: At [facility] in October 2023 Patient endorses pleuritic CP, but denies hemoptysis Well's Score: 1.5 points (low risk) Continue Xarelto 10mg (4) Former smoker: Plan: Quit 2mo ago following pulmonary embolism Former tobacco cigarette smoker, marijuana use, and vaping Declined nicotine patches (5) Paranoid schizophrenia: Plan: Continue Haldol, Cogentin Continue trazodone as needed HS Plan Disposition: continued inpatient stay, medically stable. However patient does not drive and does not have family in the area. Is established with [email or web address], and anticipates they will be able to transport him tomorrow as well as take him to the pharmacy and grocery store to get everything he needs for successful recovery at home VTE PPx: On Xarelto Admission and Anticipated Discharge Date Admission Date: November 17, 2023 Supervising Physician Co-Signing Physician Notes Attending Attestation - Chart reviewed, care plan d/w GEORGINA Cerda. I agree w/ the kellogg components of her documentation. Overall his RSV induced bronchitis/COPD flare is improving. Hopefully home tomorrow. Delgado Mueller MD Subjective patient seen lying in bed. Continues with cough, continues to be nonproductive. Tylenol has helped with bodyaches and chills. Does feel better today and more confident that he would be able to take care of himself at home. Moves around the room independently. Tele SB/SR 50-60s Review of Systems Review of Systems: All systems reviewed & are unremarkable except as noted in Subjective Physical Exam Physical Exam: General: NAD, lying in bed, thin, VS as above Resp: normal respiratory effort, no accessory muscle use, No wheezing today. CV: RRR, no murmur, Abd: normal bowel sounds, non tender, no hepatosplenomegaly Extremities: Moves all extremities, no edema Neuro: A&O x3, Skin: intact, no lesions noted Results & Data Results & Data Vital Signs (Past 12 Hours) Vital Signs Temp Pulse Pulse Resp BP Pulse Ox O2 Del Method 11/21/23 14:54 89 16 96 Room Air 11/21/23 11:48 36.8 C 76 18 127/74 97 Room Air 11/21/23 11:11 72 18 97 Room Air 11/21/23 07:56 36.9 C 67 18 124/71 92 Room Air 11/21/23 07:56 Room Air 11/21/23 07:06 55 L 11/21/23 07:04 59 L 16 97 Room Air 11/21/23 04:11 36.5 C 67 18 137/82 95 Room Air PG Care Time/CCT Total # of Minutes Spent Total Time Spent with Patient: Total time spent is greater than 50% in coordination of care (as documented) at patient's floor/unit and/or counseling patient: Coding Level of Care Code 63665 SUB INP/OBS CARE 2/35MIN Diagnoses RSV (respiratory syncytial virus infection) B33.8 COPD (chronic obstructive pulmonary disease) J44.9 History of pulmonary embolism Z86.711 Former smoker Z87.891 Paranoid schizophrenia F20.0
[2023-11-21] MEDS: BENZTROPINE MESYLATE 1 MG TAB PO SCH (19:54)
[2023-11-21] MEDS: traZODone HCL 50 MG TAB PO PRN (19:54)
[2023-11-21] MEDS: haloperidoL 5 MG TAB PO SCH (19:54)
[2023-11-22] MEDS ORDERED: COUGH DROP (SUGAR FREE) LOZ 24 LOZ/1 BOX BUCCAL PRN (04:32)
[2023-11-22] MEDS ORDERED: BENZONATATE 100 MG CAPSULE PO PRN (04:32)
[2023-11-22] MEDS: ALBUT/IPRATROP 3MG/0.5MG NEB 3 ML VIAL NEB SCH ×3 (07:36→14:17)
[2023-11-22] MEDS: guaiFENesin 600 MG TABCR PO SCH (08:14)
[2023-11-22] MEDS: PANTOprazole 40 MG TAB PO SCH (08:15)
[2023-11-22] MEDS: UMECLIDINIUM/VILANTEROL 62.5/25MCG 7 PUFFS/INHALER INH SCH (08:15)
[2023-11-22] MEDS: RIVAROXABAN 10 MG TABLET PO SCH (08:15)
[2023-11-22] MEDS ORDERED: methylPREDNISolone 40 MG in SYRINGE 0 ML IV SCH (09:00)
--- NOTE | 2023-11-22 14:29 | Discharge Summary ---
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 He presented via EMS for difficulty breathing on 09/17. RSV positive on arrival. He has worsening emphysema x 5 years, and was placed on supplemental home oxygen 5 years ago, but is no longer uses it. Recent [facility] admission for pulmonary embolism in October 2023, and was discharged on Xarelto and amoxicillin for UTI. Patient quit smoking at this time (2 months ago); before this he was smoking tobacco cigarettes, marijuana, and vaping. He denies alcohol use. He reports he is taking all of his regular medications, and took his morning meds, including Xarelto, for which she reports having good compliance. He has not been eating or drinking much due to fever and illness. He reports taking Children's Motrin for his fever, as he could not get [place] cold. Patient also notes that he completed a course of amoxicillin 500 mg p.o. TID x 4 weeks for UTI/prostatitis at time of last discharge. Vital stable at time of admission. ED course: Solu-Medrol 125 mg IV DuoNeb 3 mL ROS: Patient endorses fever, chills, dizziness, lightheadedness, DOMINGUEZ, productive cough (clear sputum), wheezing, SOB at rest and with exertion, and LUQ abdominal pain (at left anterior rib cage; ?pleuritic) Patient denies body aches, hemoptysis, chest pain, chest palpitations, dysuria, burning with urination, blood in urine/stool, or numbness/tingling/pain/swelling in the legs bilaterally. Principal Dx & Hospital Course #1 = Principal Diagnosis (1) RSV (respiratory syncytial virus infection): Acute Bronchitis due to RSV Ongoing productive cough and acute worsening SOB on 11/17, RSV+ on arrival Hx of emphysema and PE Solu-Medrol 125 mg given in the ED - taper to 40mg qAM - discharged with prednisone taper Blood cultures - no growth 48 hours Guaifenesin 1200 mg BID Continue incentive spirometry and flutter valve at home (2) COPD (chronic obstructive pulmonary disease): Chronic; wheezing on exam Continue Anoro Ellipta recieved nebulizer treaments while inpatient (3) History of pulmonary embolism: At [facility] in October 2023. Well's Score: 1.5 points (low risk) Continue Xarelto 10mg (4) Former smoker: Quit 2mo ago following pulmonary embolism Former tobacco cigarette smoker, marijuana use, and vaping Declined nicotine patches (5) Paranoid schizophrenia: Continue Haldol, Cogentin Continue trazodone as needed HS Plan dispo: discharge to home on prednisone taper Discharge Exam General: NAD, lying in bed, thin, VS as above Resp: normal respiratory effort, no accessory muscle use, No wheezing today. CV: RRR, no murmur, Abd: normal bowel sounds, non tender, no hepatosplenomegaly Extremities: Moves all extremities, no edema Neuro: A&O x3, Skin: intact, no lesions noted Updated Medication List Medication Instructions Recorded Confirmed Type haloperidol 20 mg tablet 20 mg PO HS 09/06/19 11/17/23 History pantoprazole 20 mg tablet,delayed 20 mg PO BID 10/01/19 11/17/23 History release haloperidol 5 mg tablet 5 mg PO DAILY PRN Anxiety 05/12/20 11/17/23 History albuterol sulfate 90 mcg/actuation 1 - 2 puff inhalation .Q4-6HRS PRN 09/29/21 11/17/23 Rx aerosol inhaler (Ventolin HFA) Shortness Of Breath Or Wheezing #8 grams benztropine 1 mg tablet 1 mg PO HS 11/26/22 11/17/23 History loperamide 2 mg tablet 2 mg PO DAILY PRN SEVERE DIARRHEA 11/26/22 11/17/23 History OVER 24 HRS. trazodone 50 mg tablet 50 - 100 mg PO HS PRN Sleep 11/26/22 11/17/23 History umeclidinium 62.5 mcg-vilanterol 1 inh inhalation DAILY 11/26/22 11/17/23 History 25 mcg/actuation powdr for inhalation (Anoro Ellipta) acetaminophen 325 mg tablet 650 mg (2 x 325 mg) PO Q4H PRN 10/05/23 11/17/23 Rx pain #60 tabs rivaroxaban 10 mg tablet (Xarelto) 10 mg PO DAILY 35 days #35 tabs 10/26/23 11/17/23 Rx fluticasone propionate 44 2 puff inhalation BID 11/17/23 11/17/23 History mcg/actuation HFA aerosol inhaler meloxicam 7.5 mg tablet 7.5 mg PO DAILY 11/17/23 11/17/23 History benzocaine 15 mg-menthol 3.6 mg 1 rosana buccal Q2H PRN Cough 2 days 11/22/23 Rx lozenges (Cepacol Sore Throat #2 ea (benzocaine-menthol)) benzonatate 100 mg capsule 100 mg PO TID PRN cough #10 caps 11/22/23 Rx guaifenesin 600 mg tablet, 1,200 mg (2 x 600 mg) PO Q12 10 11/22/23 Rx extended release 12 hr (Mucinex) days #40 tabs prednisone 10 mg tablet See Taper PO DIRECTED #26 tabs 11/22/23 Rx Hospital Stay Data Consultations 11/17/23 20:48 ED Decision to Admit Stat Pending Results Patient Have Any Pending Studies at Discharge: Yes (blood cultures ) Discharge Instructions Given to Patient (Per Discharging Provider) Mr. Pike You were hospitalized after having RSV. We treated you with IV steroids, cough medicine and Tylenol. You will continue an oral steroid taper with prednisone that has been send to your pharmacy. 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 You can use these at home to help with your symptoms, follow the instructions on the bottle. The tylenol can be used for fever, pain or generalized body aches. The Mucinex is for your cough. Continue to use the incentive spirometer and flutter valve at home. it is important that you do not restart smoking. Also continue taking your Xarelto. We did not change any of your other home medications. It was our pleasure taking care of you! Total Time Total Time Spent Total Time Spent (In Minutes): Time spend day of discharge 30 minutes including direct patient care, medication reconciliation, documentation, review of labs and images, and coordination of care. Coding Level of Care Code 17941 INP/OBS DISCH >30 MIN Diagnoses RSV (respiratory syncytial virus infection) B33.8 COPD (chronic obstructive pulmonary disease) J44.9 History of pulmonary embolism Z86.711 Former smoker Z87.891 Paranoid schizophrenia F20.0
== END 2023-11-22 15:46 | disposition home or self-care (01) | DRG 202 ==
LOC: ED 18:23 → SUATTDRO 21:36 → EDINP 21:36 → 2S 23:45 → 2W 11-19 21:51 → 3E 11-21 18:25
DX: Z87.891 Personal history of nicotine dependence; J20.5 Acute bronchitis due to respiratory syncytial virus; F20.0 Paranoid schizophrenia; J44.0 Chronic obstructive pulmonary disease with (acute) lower respiratory infection; Z86.711 Personal history of pulmonary embolism

== ENCOUNTER 2024-01-17 19:32 | Inpatient (IN) ==
--- NOTE | 2024-01-17 19:45 | Emergency Department Note ---
Impression & Plan Chest pain, Weakness, Acute dyspnea, Acute hypokalemia ED Provider Note HISTORY OF PRESENT ILLNESS: Patient is a 63-year-old male presenting with chest pain and shortness of breath. Patient reports that his shortness of breath has been ongoing "for years." He states that he developed chest pain starting at 10 AM today. He called his doctor's office and they referred him to the emergency department. Patient reports he had continuous chest pain throughout the day today. He called 911 to come to the ER. And route to the hospital, he was given 324 mg of aspirin. On arrival to the ER, the patient reports he is still having some left-sided chest pain but it is improved in intensity from earlier. He denies ever having pain like this before. Denies any DVT or PE history. Denies any history of cardiac stents. He is not on any anticoagulation other than a baby aspirin. He denies any significant cough or fevers recently. He reports that he feels very weak over the last few weeks and is unable to care for himself at home. He reports he lives alone. ROS: as above PHYSICAL EXAM: Constitutional: Patient appears in no acute distress. HENT: Head: Normocephalic and atraumatic. Eyes: EOMI, PERRL Mouth/Throat: Mucous membranes moist. Neck: Trachea midline. Neck supple. Cardiovascular: RRR, No murmurs, rubs or gallops. Intact distal pulses. Pulmonary/Chest: No respiratory distress. Breath sounds clear and equal bilaterally. No wheezes or rales. Abdominal: Abdomen soft, no tenderness, rebound or guarding. Musculoskeletal: No edema, tenderness or deformity noted. Skin: Warm and dry. No rash, erythema, pallor or cyanosis Psychiatric: Appropriate mood and affect for situation. Neurological: Alert and keenly responsive. CN II-XII grossly intact, moving all extremities equally and fully. MDM: - Vitals signs stable. - History obtained via patient. History as above. - Chronic conditions affecting care: GERD; hypothyroidism; COPD - Differential diagnoses include, but are not limited to: Acute coronary syndrome; pulmonary embolism; dissection; tension pneumothorax; esophageal rupture; pneumonia - Order placed for continuous cardiac monitoring. At this time, monitor showed rate of 67 bpm with normal sinus rhythm, per my interpretation. - External medical records reviewed. Discharge summary dated 11/22/2023 was reviewed. Patient was admitted at that time for acute bronchitis due to RSV - EKG interpreted by myself showed normal sinus rhythm. Rate 66 bpm. QT 408. No acute ischemic changes. - Laboratory workup interpreted by myself showed normal WBC; slight hypokalemia (K 3.4); normal troponin; normal BNP - Viral respiratory panel negative - CXR negative for pneumonia, per my interpretation - Heart score 2 (History +0 slightly suspicious; EKG +0; Age +1; Risk factors +1; Initial troponin +0), amounting to a low score. - Discussed results with patient. He does not feel comfortable going home, as his is currently placed in a facility and he has no one to care for him. - Discussion was had with nurse case manager about patient's case and need for admission - Hospitalist consulted for admission - [facility] for further evaluation and management. ASSESSMENT AND PLAN: Diagnosis: Chest pain; dyspnea; generalized weakness; hypokalemia Plan: admit Past Med/Surg History Medical History (Updated 01/17/24 @ 23:22 by Laurita Wakefield MD) RSV (respiratory syncytial virus infection) Former smoker History of pulmonary embolism Urinary symptom or sign Dysuria Hypothyroidism Neurocognitive disorder R/O Anxiety disorder Emphysema of lung Bipolar disorder Paranoid schizophrenia GERD (gastroesophageal reflux disease) Weakness generalized Non-cardiac chest pain Multifocal pneumonia Chest pain COPD (chronic obstructive pulmonary disease) Acute bronchitis ARDS (adult respiratory distress syndrome) Family History Other Asthma Cancer Diabetes Heart disease Lung disease No pertinent family history in first degree relatives Social History Smoking Status: Current some day smoker Tobacco Type: Cigarettes Cigarettes Per Day: 1 pack; Do You Dip or Chew Tobacco: No; Hx Alcohol Use: No Hx Substance Use: Yes Last Used Substance: Unknown Last Used Substance Other:: months ago Preferred Language: Albanian Communication Ability: Effective Communication Ability Comment: PER FACILITY-"PT IS OF SOUND MIND-ABLE TO SIGN OWN CONSENT" Crop Roller Required: No Beliefs That Will Affect Care: None Current Living Situation: Alone Feels Safe at Home: Yes Gender Identity: Male Assistive Devices: None Allergies Allergies Allergy/AdvReac Type Severity Reaction Status Date / Time No Known Allergies Allergy Verified 01/17/24 21:35 Home Meds Home Medications Medication Instructions Recorded Confirmed haloperidol 20 mg tablet 20 mg PO HS 09/06/19 01/17/24 pantoprazole 20 mg tablet,delayed 20 mg PO BID 10/01/19 01/17/24 release haloperidol 5 mg tablet 5 mg PO DAILY PRN Anxiety 05/12/20 01/17/24 benztropine 1 mg tablet 1 mg PO HS 11/26/22 01/17/24 loperamide 2 mg tablet 2 mg PO DAILY PRN SEVERE DIARRHEA 11/26/22 01/17/24 OVER 24 HRS. trazodone 50 mg tablet 50 - 100 mg PO HS PRN Sleep 11/26/22 01/17/24 umeclidinium 62.5 mcg-vilanterol 1 inh inhalation DAILY 11/26/22 01/17/24 25 mcg/actuation powdr for inhalation (Anoro Ellipta) meloxicam 7.5 mg tablet 7.5 mg PO DAILY 11/17/23 01/17/24 Previous Rx's Medication Instructions Recorded albuterol sulfate 90 mcg/actuation 1 - 2 puff inhalation .Q4-6HRS PRN 09/29/21 aerosol inhaler (Ventolin HFA) Shortness Of Breath Or Wheezing #8 grams acetaminophen 325 mg tablet 650 mg (2 x 325 mg) PO Q4H PRN 10/05/23 pain #60 tabs rivaroxaban 10 mg tablet (Xarelto) 10 mg PO DAILY 35 days #35 tabs 10/26/23 benzonatate 100 mg capsule 100 mg PO TID PRN cough #10 caps 11/22/23 Results & Data (ED) Vital Signs Vital Signs - 24 hr 01/17/24 19:36 01/17/24 19:36 01/17/24 19:36 Temperature 36.9 C Temperature Source Oral Pulse Rate 70 Pulse Rate from SpO2 Sensor Respiratory Rate 22 Respiratory Effort / Characteristics Non-Labored Spontaneous Respiratory Depth Normal Respiratory Pattern Regular Blood Pressure 129/95 Blood Pressure Mean 106 Pulse Oximetry 99 99 99 Oxygen Delivery Method Room Air Room Air Room Air Oxygen Flow Rate 0 Sepsis Recent Fever Within 48 Hours No Sepsis New/Unexplained Change in Mental Status N/A Sepsis Action Taken by Nursing No Action Required 01/17/24 20:05 01/17/24 20:05 01/17/24 20:10 Temperature Temperature Source Pulse Rate 64 66 64 Pulse Rate from SpO2 Sensor 65 62 Respiratory Rate 19 23 Respiratory Effort / Characteristics Respiratory Depth Respiratory Pattern Blood Pressure Blood Pressure Mean Pulse Oximetry 98 97 Oxygen Delivery Method Room Air Oxygen Flow Rate Sepsis Recent Fever Within 48 Hours Sepsis New/Unexplained Change in Mental Status Sepsis Action Taken by Nursing 01/17/24 20:20 01/17/24 20:30 01/17/24 20:40 Temperature Temperature Source Pulse Rate 59 L 60 62 Pulse Rate from SpO2 Sensor 59 L 60 61 Respiratory Rate 22 20 19 Respiratory Effort / Characteristics Respiratory Depth Respiratory Pattern Blood Pressure Blood Pressure Mean Pulse Oximetry 98 96 98 Oxygen Delivery Method Oxygen Flow Rate Sepsis Recent Fever Within 48 Hours Sepsis New/Unexplained Change in Mental Status Sepsis Action Taken by Nursing 01/17/24 20:41 01/17/24 20:41 01/17/24 20:50 Temperature Temperature Source Pulse Rate 56 L 56 L Pulse Rate from SpO2 Sensor 59 L 55 L Respiratory Rate 16 20 Respiratory Effort / Characteristics Respiratory Depth Respiratory Pattern Blood Pressure 134/85 Blood Pressure Mean 102 Pulse Oximetry 96 98 Oxygen Delivery Method Oxygen Flow Rate Sepsis Recent Fever Within 48 Hours Sepsis New/Unexplained Change in Mental Status Sepsis Action Taken by Nursing 01/17/24 21:00 01/17/24 21:00 01/17/24 21:10 Temperature Temperature Source Pulse Rate 51 L 52 L Pulse Rate from SpO2 Sensor 51 L 52 L Respiratory Rate 19 17 Respiratory Effort / Characteristics Respiratory Depth Respiratory Pattern Blood Pressure 135/83 Blood Pressure Mean 113 Pulse Oximetry 97 99 Oxygen Delivery Method Room Air Oxygen Flow Rate Sepsis Recent Fever Within 48 Hours Sepsis New/Unexplained Change in Mental Status Sepsis Action Taken by Nursing 01/17/24 21:20 01/17/24 21:30 01/17/24 21:31 Temperature Temperature Source Pulse Rate 54 L 64 Pulse Rate from SpO2 Sensor 54 L 63 Respiratory Rate 14 19 Respiratory Effort / Characteristics Respiratory Depth Respiratory Pattern Blood Pressure 138/84 Blood Pressure Mean 104 Pulse Oximetry 99 98 Oxygen Delivery Method Room Air Oxygen Flow Rate Sepsis Recent Fever Within 48 Hours Sepsis New/Unexplained Change in Mental Status Sepsis Action Taken by Nursing 01/17/24 21:31 01/17/24 21:40 01/17/24 21:50 Temperature Temperature Source Pulse Rate 62 58 L 54 L Pulse Rate from SpO2 Sensor 71 56 L 55 L Respiratory Rate 18 15 13 Respiratory Effort / Characteristics Respiratory Depth Respiratory Pattern Blood Pressure Blood Pressure Mean Pulse Oximetry 97 99 99 Oxygen Delivery Method Oxygen Flow Rate Sepsis Recent Fever Within 48 Hours Sepsis New/Unexplained Change in Mental Status Sepsis Action Taken by Nursing 01/17/24 22:00 01/17/24 22:10 01/17/24 22:20 Temperature Temperature Source Pulse Rate 53 L 66 56 L Pulse Rate from SpO2 Sensor 51 L 67 55 L Respiratory Rate 13 19 14 Respiratory Effort / Characteristics Respiratory Depth Respiratory Pattern Blood Pressure Blood Pressure Mean Pulse Oximetry 99 99 98 Oxygen Delivery Method Oxygen Flow Rate Sepsis Recent Fever Within 48 Hours Sepsis New/Unexplained Change in Mental Status Sepsis Action Taken by Nursing 01/17/24 22:30 01/17/24 22:30 01/17/24 22:40 Temperature Temperature Source Pulse Rate 48 L 49 L Pulse Rate from SpO2 Sensor 49 L 50 L Respiratory Rate 16 14 Respiratory Effort / Characteristics Respiratory Depth Respiratory Pattern Blood Pressure 172/87 H Blood Pressure Mean 97 Pulse Oximetry 98 97 Oxygen Delivery Method Oxygen Flow Rate Sepsis Recent Fever Within 48 Hours Sepsis New/Unexplained Change in Mental Status Sepsis Action Taken by Nursing 01/17/24 22:50 01/17/24 23:00 01/17/24 23:00 Temperature Temperature Source Pulse Rate 50 L 67 Pulse Rate from SpO2 Sensor 50 L 64 Respiratory Rate 12 20 Respiratory Effort / Characteristics Respiratory Depth Respiratory Pattern Blood Pressure 110/68 Blood Pressure Mean 76 Pulse Oximetry 97 93 Oxygen Delivery Method Room Air Oxygen Flow Rate Sepsis Recent Fever Within 48 Hours Sepsis New/Unexplained Change in Mental Status Sepsis Action Taken by Nursing Laboratory Data 01/17/24 19:40 01/17/24 19:40 Lab Results 01/17/24 Range/Units 19:40 WBC 10.23 (4.8-10.8) K/ul RBC 4.67 L (4.70-6.10) M/uL Hgb 14.0 (14.0-18.0) g/dl Hct 39.5 L (42.0-52.0) % MCV 84.6 (80.0-100.0) fL MCH 30.0 (25.0-34.0) pg MCHC 35.4 (32.0-36.0) g/dL RDW Std Deviation 40.4 (36.4-46.3) fL RDW Coeff of Cady 13.2 (11.5-14.5) % Plt Count 305 (130-400) K/uL MPV 8.4 L (9.4-12.4) fL Immature Gran % (Auto) 0.4 % Neut % (Auto) 62.4 % Lymph % (Auto) 27.5 % [place] % (Auto) 7.9 % Eos % (Auto) 1.0 % Baso % (Auto) 0.8 % Neut # (Auto) 6.39 (1.40-6.50) K/uL Lymph # (Auto) 2.81 (1.20-3.40) K/uL [place] # (Auto) 0.81 H (0.11-0.59) K/uL Eos # (Auto) 0.10 (0.00-0.50) K/uL Baso # (Auto) 0.08 (0.00-0.20) K/uL Immature Gran # (Auto) 0.04 (0.01-0.20) K/uL PT 11.4 (9.0-12.0) Seconds INR 1.0 (0.9-1.1) Sodium 138 (136-145) mmol/L Potassium 3.4 L (3.5-5.1) mmol/L Chloride 109 H (98-107) mmol/L Carbon Dioxide 20 L (21-32) mmol/L Anion Gap 9 (3-11) BUN 22 (6-23) mg/dl Creatinine 1.32 (0.6-1.4) mg/dl Est Cr Clr Drug Dosing 62.1 ml/min Est GFR ( Amer) 66.1 ml/min Est GFR (Non-Af Amer) 57.0 ml/min BUN/Creatinine Ratio 16.7 (10-20) Glucose 98 (70-99(Fasting)) mg/dl Calcium 9.1 (8.6-10.3) mg/dl Magnesium 1.7 (1.7-2.4) mg/dl Total Bilirubin 0.6 (0.2-1.0) mg/dl AST 11 L (13-39) U/L ALT 9 (7-52) U/L Alkaline Phosphatase 70 (34-104) U/L Troponin I High Sens 7.0 (0-20) pg/ml B-Natriuretic Peptide 38 (0-100) pg/ml Total Protein 6.2 (6.0-8.3) gm/dl Albumin 3.9 (3.4-5.0) gm/dl Globulin 2.3 L (2.5-4.0) gm/dl Albumin/Globulin Ratio 1.7 (0.9-2) Lipase < 3 L (11-82) U/L Adenovirus (PCR) Not Detected (NotDetected) B. pertussis DNA (PCR) Not Detected (NotDetected) B.parapertussis DNA PCR Not Detected (NotDetected) C. pneumoniae DNA (PCR) Not Detected (NotDetected) Coronavirus OC43 (PCR) Not Detected (NotDetected) Coronavirus HKU1 (PCR) Not Detected (NotDetected) Coronavirus 229E (PCR) Not Detected (NotDetected) SARS-CoV-2 (PCR) Not Detected (NotDetected) Coronavirus NL63 (PCR) Not Detected (NotDetected) Human Metapneumovir PCR Not Detected (NotDetected) Influenza Type A (PCR) Not Detected (NotDetected) Influenza Type B (PCR) Not Detected (NotDetected) M. pneumoniae (PCR) Not Detected (NotDetected) Parainfluenza 1 (PCR) Not Detected (NotDetected) Parainfluenza 2 (PCR) Not Detected (NotDetected) Parainfluenza 3 (PCR) Not Detected (NotDetected) Parainfluenza 4 (PCR) Not Detected (NotDetected) RSV (PCR) Not Detected (NotDetected) Entero/Rhino (PCR) Not Detected (NotDetected) Discharge Plan Visit Data Chief Complaint: Cardiac Assessment Stated Complaint: CHEST PAIN, SOB ED Provider: Laurita Wakefield Discharge Problem: Chest pain, Weakness, Acute dyspnea, Acute hypokalemia Forms Stand Alone Forms: [facility] Prescriptions Prescriptions: No Action albuterol sulfate [Ventolin HFA] 90 mcg/actuation HFA aerosol inhaler 1 - 2 puff INHALATION .Q4-6HRS PRN (Reason: Shortness Of Breath Or Wheezing) Qty: 8 3RF haloperidol 20 mg Tablet 20 mg PO HS pantoprazole 20 mg Tablet,Delayed Release (Dr/Ec) 20 mg PO BID haloperidol 5 mg tablet 5 mg PO DAILY PRN (Reason: Anxiety) trazodone 50 mg Tablet 50 - 100 mg PO HS PRN (Reason: Sleep) loperamide 2 mg Tablet 2 mg PO DAILY PRN (Reason: SEVERE DIARRHEA OVER 24 HRS.) benztropine 1 mg Tablet 1 mg PO HS Anoro Ellipta 62.5-25 mcg/actuation Blister With Device 1 inh INHALATION DAILY acetaminophen 325 mg Tablet 650 mg PO Q4H PRN (Reason: pain) Qty: 60 0RF Xarelto 10 mg tablet 10 mg PO DAILY 35 Days Qty: 35 2RF meloxicam 7.5 mg Tablet 7.5 mg PO DAILY Hold Instructions: Resume on 12/16/23. do not take while taking xalrelto benzonatate 100 mg Capsule 100 mg PO TID PRN (Reason: cough) Qty: 10 0RF Referrals Referrals: Ciera Coyne PA-C [Primary Care Provider] -
[2024-01-17 19:59] LABS: Basophils # (auto) 0.08 K/uL (0.00-0.20); Basophils % (auto) 0.8 %; Hematocrit (blood only) 39.5 % (42.0-52.0); Immature Granulocytes # (auto) 0.04 K/uL (0.01-0.20); Immature Granulocytes % (auto) 0.4 %; Lymphocytes # (auto) 2.81 K/uL (1.20-3.40); Lymphocytes % (auto) 27.5 %; Mean Corpuscular Hgb Conc 35.4 g/dL (32.0-36.0); Mean Corpuscular Volume 84.6 fL (80.0-100.0); Mean Platelet Volume 8.4 fL (9.4-12.4); Monocytes # (auto) 0.81 K/uL (0.11-0.59); Monocytes % (auto) 7.9 %; Neutrophils # (auto) 6.39 K/uL (1.40-6.50); Neutrophils % (auto) 62.4 %; Platelet Count 305 K/uL (130-400); RDW Coefficient of Variation 13.2 % (11.5-14.5); RDW Standard Deviation 40.4 fL (36.4-46.3); Red Blood Count 4.67 M/uL (4.70-6.10); White Blood Count 10.23 K/ul (4.8-10.8)
[2024-01-17 20:15] LABS: Anion Gap 9 (3-11); BUN Creatinine Ratio 16.7 (10-20); Blood Urea Nitrogen 22 mg/dl (6-23); Calcium 9.1 mg/dl (8.6-10.3); Carbon Dioxide 20 mmol/L (21-32); Chloride 109 mmol/L (98-107); Creatinine Clr Calc Pharmacy 62.1 ml/min; Est GFR (African American) 66.1 ml/min; Glucose 98 mg/dl (70-99(Fasting)); Potassium 3.4 mmol/L (3.5-5.1); Sodium 138 mmol/L (136-145)
[2024-01-17 20:25] LABS: Alanine Aminotransferase 9 U/L (7-52); Albumin Globulin Ratio 1.7 (0.9-2); Albumin Level 3.9 gm/dl (3.4-5.0); Alkaline Phosphatase 70 U/L (34-104); Aspartate Aminotransferase 11 U/L (13-39); Bilirubin,Total 0.6 mg/dl (0.2-1.0); Globulin 2.3 gm/dl (2.5-4.0); Lipase < 3 U/L (11-82); Total Protein 6.2 gm/dl (6.0-8.3)
[2024-01-17 20:30] LABS: Prothrombin Time 11.4 Seconds (9.0-12.0)
[2024-01-17 20:44] LABS: Adenovirus PCR Not Detected (NotDetected); Bordetella parapertussis PCR Not Detected (NotDetected); Bordetella pertussis PCR Not Detected (NotDetected); Chlamydia pneumoniae PCR Not Detected (NotDetected); Coronavirus 229E PCR Not Detected (NotDetected); Coronavirus CoV-2 (COVID19)PCR Not Detected (NotDetected); Coronavirus HKU1 PCR Not Detected (NotDetected); Coronavirus NL63 PCR Not Detected (NotDetected); Coronavirus OC43PCR Not Detected (NotDetected); Human Metapneumovirus PCR Not Detected (NotDetected); Influenza A PCR Not Detected (NotDetected); Influenza B PCR Not Detected (NotDetected); Mycoplasma pneumoniae PCR Not Detected (NotDetected); Parainfluenza Virus 1 PCR Not Detected (NotDetected); Parainfluenza Virus 2 PCR Not Detected (NotDetected); Parainfluenza Virus 3 PCR Not Detected (NotDetected); Parainfluenza Virus 4 PCR Not Detected (NotDetected); Respiratory Syncytial VirusPCR Not Detected (NotDetected); Rhinovirus/Enterovirus PCR Not Detected (NotDetected)
[2024-01-17 22:04] LABS: Magnesium 1.7 mg/dl (1.7-2.4)
--- NOTE | 2024-01-17 23:31 | History & Physical Report ---
Date of Service January 17, 2024 Assessment & Plan (1) Chest pain: (2) Acute hypokalemia: (3) Shortness of breath: (4) Schizophrenia: Plan 63 year old male with h/o COPD, previous PE in 10/2023, paranoid schizophrenia presenting with chest pain. Given h/o PE and Xarelto non-compliance, higher suspicion for recurrent PE. May also be COPD exacerbation. Chest pain, shortness of breath: Troponin negative, EKG without ischemic changes, low suspicion for ACS Given suspicion for recurrent PE, CTA chest ordered, pending Supplemental O2 as needed to maintain SpO2~90 Hypokalemia: K+ 3.4 S/p repletion Schizophrenia: Continue home meds Dispo: PCU/tele VTE ppx: SCDs FEN/GI: Regular diet Full Code History of Present Illness Primary Care Provider: Ciera Stanford 63 year old male with h/o COPD, previous PE in 10/2023, paranoid schizophrenia presenting with chest pain. Patient notes that he has been having intermittent chest pain for the past 1-2 months with progressively increasing frequency. Chest pain this morning was much more severe, notes left parasternal chest pain has been sharp, constant since this morning. Pain worse with deep inspiration. Patient was started on Xarelto after recent PE, notes that he didn't like the way it made him feel and has not been taking for past 1-2 months. Endorses SOB, unsure whether this is above baseline. ED Course: EKG NSR with rate of 66 Troponin negative Labs significant for K+ 3.4, otherwise unremarkable. Respiratory Biofire negative Allergies Allergy/AdvReac Type Severity Reaction Status Date / Time No Known Allergies Allergy Verified 01/17/24 21:35 Home Medications Medication Instructions Recorded Confirmed Type haloperidol 20 mg tablet 20 mg PO HS 09/06/19 01/17/24 History pantoprazole 20 mg tablet,delayed 20 mg PO BID 10/01/19 01/17/24 History release haloperidol 5 mg tablet 5 mg PO DAILY PRN Anxiety 05/12/20 01/17/24 History albuterol sulfate 90 mcg/actuation 1 - 2 puff inhalation .Q4-6HRS PRN 09/29/21 01/17/24 Rx aerosol inhaler (Ventolin HFA) Shortness Of Breath Or Wheezing #8 grams benztropine 1 mg tablet 1 mg PO HS 11/26/22 01/17/24 History loperamide 2 mg tablet 2 mg PO DAILY PRN SEVERE DIARRHEA 11/26/22 01/17/24 History OVER 24 HRS. trazodone 50 mg tablet 50 - 100 mg PO HS PRN Sleep 11/26/22 01/17/24 History umeclidinium 62.5 mcg-vilanterol 1 inh inhalation DAILY 11/26/22 01/17/24 History 25 mcg/actuation powdr for inhalation (Anoro Ellipta) acetaminophen 325 mg tablet 650 mg (2 x 325 mg) PO Q4H PRN 10/05/23 01/17/24 Rx pain #60 tabs rivaroxaban 10 mg tablet (Xarelto) 10 mg PO DAILY 35 days #35 tabs 10/26/23 01/17/24 Rx meloxicam 7.5 mg tablet 7.5 mg PO DAILY 11/17/23 01/17/24 History benzonatate 100 mg capsule 100 mg PO TID PRN cough #10 caps 11/22/23 01/17/24 Rx Past Med/Surg History Medical History (Updated 01/17/24 @ 23:22 by Laurita Wakefield MD) RSV (respiratory syncytial virus infection) Former smoker History of pulmonary embolism Urinary symptom or sign Dysuria Hypothyroidism Neurocognitive disorder R/O Anxiety disorder Emphysema of lung Bipolar disorder Paranoid schizophrenia GERD (gastroesophageal reflux disease) Weakness generalized Non-cardiac chest pain Multifocal pneumonia Chest pain COPD (chronic obstructive pulmonary disease) Acute bronchitis ARDS (adult respiratory distress syndrome) Family History Other Asthma Cancer Diabetes Heart disease Lung disease No pertinent family history in first degree relatives Social History Smoking Status: Current some day smoker Tobacco Type: Cigarettes Cigarettes Per Day: 1 pack; Do You Dip or Chew Tobacco: No; Hx Alcohol Use: No Hx Substance Use: Yes Last Used Substance: Unknown Last Used Substance Other:: months ago Preferred Language: Kyrgyz Communication Ability: Effective Communication Ability Comment: PER FACILITY-"PT IS OF SOUND MIND-ABLE TO SIGN OWN CONSENT" Leaf 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 In mild distress. Cardiac: Distant heart sounds. Regular rate and rhythm, no murmurs appreciated Respiratory: Slightly diminished breath sounds throughout. Lungs clear to au scultation bilaterally, No increased work of breathing Abdominal: Soft, non-tender, non-distended. Bowel sounds present. Extremities: No lower extremity edema, calves non-tender bilaterally Results & Data Results & Data Vital Signs (Past 12 Hours) Vital Signs Temp Pulse Resp BP Pulse Ox O2 Del Method O2 Flow Rate 01/17/24 23:00 110/68 01/17/24 23:00 67 20 93 Room Air 01/17/24 22:50 50 L 12 97 01/17/24 22:40 49 L 14 97 01/17/24 22:30 48 L 16 98 01/17/24 22:30 172/87 H 01/17/24 22:20 56 L 14 98 01/17/24 22:10 66 19 99 01/17/24 22:00 53 L 13 99 01/17/24 21:50 54 L 13 99 01/17/24 21:40 58 L 15 99 01/17/24 21:31 62 18 97 01/17/24 21:31 138/84 01/17/24 21:30 64 19 98 Room Air 01/17/24 21:20 54 L 14 99 01/17/24 21:10 52 L 17 99 01/17/24 21:00 135/83 01/17/24 21:00 51 L 19 97 Room Air 01/17/24 20:50 56 L 20 98 01/17/24 20:41 134/85 01/17/24 20:41 56 L 16 96 01/17/24 20:40 62 19 98 01/17/24 20:30 60 20 96 01/17/24 20:20 59 L 22 98 01/17/24 20:10 64 23 97 Room Air 01/17/24 20:05 66 01/17/24 20:05 64 19 98 01/17/24 19:36 99 Room Air 01/17/24 19:36 99 Room Air 0 01/17/24 19:36 36.9 C 70 22 129/95 99 Room Air Code Status & VTE Plan VTE Prophylaxis Plan VTE Prophylaxis will be ordered: No Supervising Physician Co-Signing Physician Notes Chest pain/shortness of breath- The patient will be admitted to telemetry for serial cardiac enzymes, serial EKG's, cardiac rhythm monitoring and a 2-D echocardiogram with Dopplers. Initial troponin 7.0 with normal EKG, but will follow serial troponins History of small PE on 10/02/2023, and patient having stopped the Xarelto a few months ago. CTA chest this evening is negative for PE or other acute process Unclear etiology at this time COPD- Continue usual inhalers, Anoro elliptica, and albuterol HFA as needed If symptoms are persistent in a.m., could add Solu-Medrol, but on a clinical basis at this time, patient looks pretty comfortable Hypokalemia/generalized weakness/mild dehydration- Potassium 3.4 at admission Placed on 1 L normal saline plus KCl 20 mill equivalents at 100 mL/h Magnesium borderline at 1.7, will give magnesium sulfate 1 g IV repeat laboratories in a.m. BioFire testing negative Schizophrenia- Continue usual medications: Haloperidol, benztropine and trazodone Resident Activity Tracking Resident Involvement: Resident Care Provided Care Provided: Adult Hospital Medicine (4) Schizophrenia Schizophrenia type: paranoid schizophrenia Qualified Code(s): F20.0 - Paranoid schizophrenia
[2024-01-18] MEDS: OPTIRAY 320 125ml IV ONE (00:04)
[2024-01-18] MEDS: NSS + 20MEQ KCL 20 MEQ/1,000 ML BAG IV SCH (00:13)
[2024-01-18] MEDS ORDERED: POLYETHYLENE (MIRALAX) 17 GM PACK PO PRN (01:42)
[2024-01-18] MEDS ORDERED: haloperidoL 5 MG TAB PO PRN (01:42)
[2024-01-18] MEDS ORDERED: BENZONATATE 100 MG CAPSULE PO PRN (01:42)
[2024-01-18] MEDS ORDERED: ACETAMINOPHEN 325 MG TAB PO PRN (01:42)
[2024-01-18] MEDS ORDERED: ALBUTEROL HFA 8 GM INHALER INH PRN (01:42)
[2024-01-18] MEDS ORDERED: LOPERAMIDE HCL 2 MG CAP PO PRN (01:42)
--- NOTE | 2024-01-18 02:07 | CT Scan Report ---
Exam(s): CTA CHEST With Contrast IV Amt: 102 ml optiray 320 EXAM: CT Angiography Chest With Intravenous Contrast CLINICAL HISTORY: Reason for exam: PE r/o. TECHNIQUE: Axial computed tomographic angiography images of the chest with intravenous contrast. CTDI is 36.5 mGy and DLP is 825.45 mGy-cm. Automated exposure control was utilized for the study. A dose lowering technique was utilized adhering to the principles of ALARA. MIP reconstructed images were created and reviewed. CONTRAST: Patient received 102 ml optiray 320 of IV contrast COMPARISON: No relevant prior studies available. FINDINGS: Pulmonary arteries: Unremarkable. No acute pulmonary embolism. Aorta: No acute findings. No thoracic aortic aneurysm. Lungs: Unremarkable. No mass. No consolidation. Pleural space: Mild centrilobular emphysema. No focal infiltrate, pleural effusion, or pneumothorax. Heart: Unremarkable. No cardiomegaly. No significant pericardial effusion. No evidence of RV dysfunction. Mediastinum: Small hiatal hernia. Bones/joints: No acute fracture. No dislocation. Soft tissues: Unremarkable. Lymph nodes: Unremarkable. No enlarged lymph nodes. IMPRESSION: 1. No acute pulmonary embolism. 2. Mild centrilobular emphysema. No focal infiltrate, pleural effusion, or pneumothorax. 3. Small hiatal hernia. Electronically signed by: Kelvin Calles MD 01/18/24 02:06 AM
--- NOTE | 2024-01-18 06:18 | Billing Data ---
Date of Service January 18, 2024 Coding Level of Care Code 34800 INT INP/OBS CARE
[2024-01-18] MEDS: MAGNESIUM SULFATE / D5W 1 GM/100 ML BAG IV ONE (06:24)
--- NOTE | 2024-01-18 06:56 | XRay Report ---
XR chest 1V portable CLINICAL HISTORY: Chest pain, nonspecific TECHNIQUE: Single frontal radiograph of the chest was obtained. Comparison: Comparison is made to chest radiograph 11/17/2023 FINDINGS: No lines and tubes are seen. The cardiomediastinal silhouette is normal. The lungs are clear. No evid ence of pleural effusion or pneumothorax. IMPRESSION: No acute chest disease. ACT 112: Negative or not required by law. Electronically signed by: Zeus Garcia M.D. 01/18/2024 6:54 AM
[2024-01-18] MEDS: UMECLIDINIUM/VILANTEROL 62.5/25MCG 7 PUFFS/INHALER INH SCH (08:18)
[2024-01-18] MEDS: PANTOprazole 40 MG TAB PO SCH (08:18)
[2024-01-18] MEDS: MELOXICAM 7.5 MG TAB PO SCH (08:18)
[2024-01-18 09:00] LABS: Hematocrit (blood only) 39.3 % (42.0-52.0); Hemoglobin 13.3 g/dl (14.0-18.0); Mean Corpuscular Hemoglobin 29.6 pg (25.0-34.0); Mean Corpuscular Hgb Conc 33.8 g/dL (32.0-36.0); Mean Corpuscular Volume 87.5 fL (80.0-100.0); Mean Platelet Volume 8.2 fL (9.4-12.4); Platelet Count 289 K/uL (130-400); RDW Coefficient of Variation 13.4 % (11.5-14.5); RDW Standard Deviation 43.1 fL (36.4-46.3); Red Blood Count 4.49 M/uL (4.70-6.10); White Blood Count 7.36 K/ul (4.8-10.8)
[2024-01-18 09:15] LABS: Anion Gap 6 (3-11); BUN Creatinine Ratio 13.9 (10-20); Blood Urea Nitrogen 19 mg/dl (6-23); C Reactive Protein < 0.50 mg/dl (0-0.5); Calcium 8.3 mg/dl (8.6-10.3); Carbon Dioxide 24 mmol/L (21-32); Chloride 109 mmol/L (98-107); Creatinine Clr Calc Pharmacy 60.7 ml/min; Est GFR (African American) 63.2 ml/min; Est GFR (Non-African American) 54.5 ml/min; Glucose 102 mg/dl (70-99(Fasting)); Potassium 3.8 mmol/L (3.5-5.1); Sodium 139 mmol/L (136-145)
[2024-01-18 09:22] LABS: Troponin I High Sensitivity 7.2 pg/ml (0-20)
--- NOTE | 2024-01-18 13:03 | XCELERA ---
[id number]
--- NOTE | 2024-01-18 14:41 | Electrocardiogram Report ---
Test Reason : Blood Pressure : / mmHG Vent. Rate : 066 BPM Atrial Rate : 066 BPM P-R Int : 162 ms QRS Dur : 080 ms QT Int : 408 ms P-R-T Axes : 078 057 060 degrees QTc Int : 427 ms Normal sinus rhythm Normal ECG When compared with ECG of 17-NOV-2023 18:43, No significant change was found Confirmed by Leon Alcantara ([id number]) on 01/18/2024 2:41:07 PM Referred By: Ciera Coyne Confirmed By:Fredi Alcantara
--- NOTE | 2024-01-18 16:47 | Cardiology Consultation ---
Date of Consultation January 18, 2024 Assessment & Plan (1) Shortness of breath: (2) Non-cardiac chest pain: Plan 1. Chest pain: His symptoms are atypical in that they are nonexertional, hot in character and last for an extended period without intervention. While he has not the best historian, it seems like he has had frequent in fairly extended symptoms over the past week without elevation in his cardiac biomarkers. Think we can decidedly say this is nonischemic. Echocardiogram is essentially normal. Do not think he requires further cardiac evaluation in this regard. Possibly musculoskeletal. 2. Shortness of breath: Normal LV systolic function. Lung examination without rales or evidence of pulmonary edema. Most likely related to primary lung disease. 3. Dizziness: He describes diffuse lightheadedness, dizziness and presyncope. Again, not the best historian. However, he did report significant dizziness and lightheadedness today during his hospitalization. No arrhythmias noted on his telemetry. Unlikely to be related to an arrhythmia. History of Present Illness Reason for Consultation: Chest pain Requesting Physician: Sukhdeep Attending Physician: Yuval Tarango History of Present Illness The patient is a 63-year-old gentleman without a known history of cardiac disease who presented to the hospital with a diffuse symptom complex. Some of the symptoms included chest pains. Patient states that for several days now he has been having some episodes of chest discomfort. He describes this as a aching. It seems to occur in a fairly discrete location either in the left lower chest or by the left shoulder. Rarely he will have an episode of achiness in between the 2 areas. The episodes seem to be fairly random in nature. Not exclusively associated with activity or use of the left arm. Sometimes tender to palpation. No pleuritic symptoms. The episodes themselves can last for up to 1 hour. On the day of admission the patient had symptoms waxing and waning over the course of the day. He stated they would last an hour and then go away for an hour and then come back for an extended period and go away. Currently without symptoms. In general he is a very sedentary individual. However, he is able to do some work around his house. He does have some stairs which she is required to as send on occasion. His main limitation appears to be dyspnea. He has some shortness of breath with activities. No exertional chest pain. He does endorse symptoms of dizziness and lightheadedness at times. Again, fairly random. When he feels dizzy he will sit down. Sometimes associated with palpitations. Other times not associated with palpitations. He states that he has had syncope in the past but had difficulty relating a recent episode. The patient seems to have some reservation about returning to his apartment. He states that he needs help. When asked what kind of help he needs he is most interested in having somebody come by to stay with him during the day and do routine activities such as housework. Allergies Allergy/AdvReac Type Severity Reaction Status Date / Time No Known Allergies Allergy Verified 01/17/24 21:35 Home Medications Medication Instructions Recorded Confirmed Type haloperidol 20 mg tablet 20 mg PO HS 09/06/19 01/17/24 History pantoprazole 20 mg tablet,delayed 20 mg PO BID 10/01/19 01/17/24 History release haloperidol 5 mg tablet 5 mg PO DAILY PRN Anxiety 05/12/20 01/17/24 History albuterol sulfate 90 mcg/actuation 1 - 2 puff inhalation .Q4-6HRS PRN 09/29/21 01/17/24 Rx aerosol inhaler (Ventolin HFA) Shortness Of Breath Or Wheezing #8 grams benztropine 1 mg tablet 1 mg PO HS 11/26/22 01/17/24 History loperamide 2 mg tablet 2 mg PO DAILY PRN SEVERE DIARRHEA 11/26/22 01/17/24 History OVER 24 HRS. trazodone 50 mg tablet 50 - 100 mg PO HS PRN Sleep 11/26/22 01/17/24 History umeclidinium 62.5 mcg-vilanterol 1 inh inhalation DAILY 11/26/22 01/17/24 History 25 mcg/actuation powdr for inhalation (Anoro Ellipta) acetaminophen 325 mg tablet 650 mg (2 x 325 mg) PO Q4H PRN 10/05/23 01/17/24 Rx pain #60 tabs rivaroxaban 10 mg tablet (Xarelto) 10 mg PO DAILY 35 days #35 tabs 10/26/23 01/17/24 Rx meloxicam 7.5 mg tablet 7.5 mg PO DAILY 11/17/23 01/17/24 History benzonatate 100 mg capsule 100 mg PO TID PRN cough #10 caps 11/22/23 01/17/24 Rx Patient History Medical History (Updated 01/18/24 @ 16:46 by Leon Alcantara MD) Dizzy RSV (respiratory syncytial virus infection) Former smoker History of pulmonary embolism Urinary symptom or sign Dysuria Hypothyroidism Neurocognitive disorder R/O Anxiety disorder Emphysema of lung Bipolar disorder Paranoid schizophrenia GERD (gastroesophageal reflux disease) Weakness generalized Non-cardiac chest pain Multifocal pneumonia Chest pain COPD (chronic obstructive pulmonary disease) Acute bronchitis ARDS (adult respiratory distress syndrome) Family History Other Asthma Cancer Diabetes Heart disease Lung disease No pertinent family history in first degree relatives Social History Smoking Status: Current some day smoker Tobacco Type: Cigarettes Cigarettes Per Day: 1 pack; Do You Dip or Chew Tobacco: No; Hx Alcohol Use: No Hx Substance Use: Yes Last Used Substance: Unknown Last Used Substance Other:: months ago Preferred Language: Pashto Communication Ability: Effective Communication Ability Comment: PER FACILITY-"PT IS OF SOUND MIND-ABLE TO SIGN OWN CONSENT" 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 Physical Exam Physical Exam: The patient is alert and oriented. Mood and affect appeared normal. He answered all questions appropriately. HEENT: Pupils are equal and reactive to light and accommodation. Extraocular movements are intact. The sclerae are anicteric. Neuro: Cranial nerves intact Lungs: Clear to auscultation bilaterally. He has good air movement without use of accessory muscles. No rales wheezes or rhonchi. Cardiac: Heart demonstrates a regular rate and rhythm. Normal S1 and S2. No murmurs on examination. Pulses: The patient has palpable radial pulses bilaterally that are equal in intensity Extremities: There was no evidence of hypoperfusion. There is no cyanosis or clubbing. There is no edema. Skin: I did not appreciate any rashes on examination today. Results & Data Vital Signs (Past 12 Hours) Vital Signs Temp Pulse Pulse Resp BP Pulse Ox Pulse Ox 01/18/24 15:00 36.8 C 57 L 18 123/79 99 01/18/24 14:01 01/18/24 13:58 36.7 C 68 18 162/95 H 98 01/18/24 12:05 56 L 18 132/72 98 01/18/24 08:23 98 01/18/24 08:22 62 18 133/81 98 01/18/24 08:09 55 L 01/18/24 07:26 56 L 15 120/72 96 O2 Del Method O2 Del Method 01/18/24 15:00 Room Air 01/18/24 14:01 Room Air 01/18/24 13:58 Room Air 01/18/24 12:05 Room Air 01/18/24 08:23 Room Air 01/18/24 08:22 Room Air 01/18/24 08:09 01/18/24 07:26 Room Air Laboratory Results Abnormal Lab Results 01/17/24 01/18/24 19:40 08:39 WBC 10.23 7.36 RBC 4.67 L 4.49 L Hgb 14.0 13.3 L Hct 39.5 L 39.3 L MCV 84.6 87.5 MCH 30.0 29.6 MCHC 35.4 33.8 RDW Std Deviation 40.4 43.1 RDW Coeff of Cady 13.2 13.4 Plt Count 305 289 MPV 8.4 L 8.2 L Immature Gran % (Auto) 0.4 Neut % (Auto) 62.4 Lymph % (Auto) 27.5 [place] % (Auto) 7.9 Eos % (Auto) 1.0 Baso % (Auto) 0.8 Neut # (Auto) 6.39 Lymph # (Auto) 2.81 [place] # (Auto) 0.81 H Eos # (Auto) 0.10 Baso # (Auto) 0.08 Immature Gran # (Auto) 0.04 PT 11.4 INR 1.0 Sodium 138 139 Potassium 3.4 L 3.8 Chloride 109 H 109 H Carbon Dioxide 20 L 24 Anion Gap 9 6 BUN 22 19 Creatinine 1.32 1.37 Est Cr Clr Drug Dosing 62.1 60.7 Est GFR ( Amer) 66.1 63.2 Est GFR (Non-Af Amer) 57.0 54.5 BUN/Creatinine Ratio 16.7 13.9 Glucose 98 102 H Calcium 9.1 8.3 L Magnesium 1.7 Total Bilirubin 0.6 AST 11 L ALT 9 Alkaline Phosphatase 70 Troponin I High Sens 7.0 7.2 C-Reactive Protein < 0.50 B-Natriuretic Peptide 38 42 Total Protein 6.2 Albumin 3.9 Globulin 2.3 L Albumin/Globulin Ratio 1.7 Lipase < 3 L Adenovirus (PCR) Not Detected B. pertussis DNA (PCR) Not Detected B.parapertussis DNA PCR Not Detected C. pneumoniae DNA (PCR) Not Detected Coronavirus OC43 (PCR) Not Detected Coronavirus HKU1 (PCR) Not Detected Coronavirus 229E (PCR) Not Detected SARS-CoV-2 (PCR) Not Detected Coronavirus NL63 (PCR) Not Detected Human Metapneumovir PCR Not Detected Influenza Type A (PCR) Not Detected Influenza Type B (PCR) Not Detected M. pneumoniae (PCR) Not Detected Parainfluenza 1 (PCR) Not Detected Parainfluenza 2 (PCR) Not Detected Parainfluenza 3 (PCR) Not Detected Parainfluenza 4 (PCR) Not Detected RSV (PCR) Not Detected Entero/Rhino (PCR) Not Detected Diagnostic Findings Echocardiogram performed 01/18/2024: LV systolic function. Ejection fraction 55-60%. Normal LV wall motion. Stage I diastolic dysfunction. ECG Additional Comments: EKG obtained the time admission was normal PG Care Time/CCT Total # of Minutes Spent Total Time Spent with Patient: Total time spent is greater than 50% in coordination of care (as documented) at patient's floor/unit and/or counseling patient: Coding Level of Care Code 06029 IN/OBS CONSULT LVL 4,60M Diagnoses Shortness of breath R06.02 Non-cardiac chest pain R07.89
--- NOTE | 2024-01-18 17:48 | Hospitalist Progress Note ---
Date of Service January 18, 2024 Assessment & Plan (1) Chest pain: Plan: 63 year old male with h/o COPD, previous PE in 10/2023, paranoid schizophrenia presenting with chest pain. Given h/o PE and Xarelto non-compliance, higher suspicion for recurrent PE. May also be COPD exacerbation. Chest pain, shortness of breath: Troponin negative, EKG without ischemic changes, low suspicion for ACS Given suspicion for recurrent PE, CTA chest ordered, negative. consulted cardio: echo negative. no further workup given atypical presentation. will monitor overnight due to dizziness. anticipate discharge in AM Supplemental O2 as needed to maintain SpO2~90 (2) Acute hypokalemia: Plan: K+ is low. continue to replete S/p repletion Schizophrenia: Continue home meds Dispo: PCU/tele VTE ppx: SCDs FEN/GI: Regular diet Full Code (3) Shortness of breath: (4) Schizophrenia: Plan 63 year old male with h/o COPD, previous PE in 10/2023, paranoid schizophrenia presenting with chest pain. Given h/o PE and Xarelto non-compliance, higher suspicion for recurrent PE. May also be COPD exacerbation. Chest pain, shortness of breath: Troponin negative, EKG without ischemic changes, low suspicion for ACS Given suspicion for recurrent PE, CTA chest ordered, pending Supplemental O2 as needed to maintain SpO2~90 Hypokalemia: K+ 3.4 S/p repletion Schizophrenia: Continue home meds Dispo: PCU/tele VTE ppx: SCDs FEN/GI: Regular diet Full Code Admission and Anticipated Discharge Date Admission Date: January 17, 2024 Subjective Patient reports no new symptoms. Review of Systems Review of Systems: All systems reviewed & are unremarkable except as noted in HPI & below Physical Exam Physical Exam: General: Alert and oriented. In mild distress. Cardiac: Distant heart sounds. Regular rate and rhythm, no murmurs appreciated Respiratory: Lungs clear to auscultation bilaterally, No increased work of breathing Abdominal: Soft, non-tender, non-distended. Bowel sounds present. Extremities: No lower extremity edema, calves non-tender bilaterally Results & Data Results & Data Vital Signs (Past 12 Hours) Vital Signs Temp Pulse Pulse Resp BP Pulse Ox Pulse Ox 01/18/24 15:00 36.8 C 57 L 18 123/79 99 01/18/24 14:01 01/18/24 13:58 36.7 C 68 18 162/95 H 98 01/18/24 12:05 56 L 18 132/72 98 01/18/24 08:23 98 01/18/24 08:22 62 18 133/81 98 01/18/24 08:09 55 L 01/18/24 07:26 56 L 15 120/72 96 O2 Del Method O2 Del Method 01/18/24 15:00 Room Air 01/18/24 14:01 Room Air 01/18/24 13:58 Room Air 01/18/24 12:05 Room Air 01/18/24 08:23 Room Air 01/18/24 08:22 Room Air 01/18/24 08:09 01/18/24 07:26 Room Air PG Care Time/CCT Total # of Minutes Spent Total Time Spent with Patient: Total time spent is greater than 50% in coordination of care (as documented) at patient's floor/unit and/or counseling patient: Coding Level of Care Code 57637 SUB INP/OBS CARE 2/35MIN Diagnoses Chest pain R07.9 Acute hypokalemia E87.6 Shortness of breath R06.02 Schizophrenia F20.0 Schizophrenia type: paranoid schizophrenia (4) Schizophrenia Schizophrenia type: paranoid schizophrenia Qualified Code(s): F20.0 - Paranoid schizophrenia
[2024-01-18] MEDS: haloperidoL 5 MG TAB PO SCH (20:38)
[2024-01-18] MEDS: BENZTROPINE MESYLATE 1 MG TAB PO SCH (20:39)
[2024-01-18] MEDS: traZODone HCL 50 MG TAB PO PRN (20:42)
[2024-01-19 06:56] LABS: Hemoglobin 12.5 g/dl (14.0-18.0); Mean Corpuscular Hgb Conc 33.8 g/dL (32.0-36.0); Mean Corpuscular Volume 88.9 fL (80.0-100.0); Mean Platelet Volume 8.7 fL (9.4-12.4); Platelet Count 284 K/uL (130-400); RDW Coefficient of Variation 13.4 % (11.5-14.5); Red Blood Count 4.16 M/uL (4.70-6.10)
[2024-01-19 07:04] LABS: BUN Creatinine Ratio 12.5 (10-20); Calcium 8.3 mg/dl (8.6-10.3); Creatinine Clr Calc Pharmacy 68.8 ml/min; Est GFR (African American) 74.1 ml/min; Potassium 3.9 mmol/L (3.5-5.1)
--- NOTE | 2024-01-19 14:10 | Discharge Summary ---
Date of Service January 19, 2024 Admission HPI Per Admitting Provider 63 year old male with h/o COPD, previous PE in 10/2023, paranoid schizophrenia presenting with chest pain. Patient notes that he has been having intermittent chest pain for the past 1-2 months with progressively increasing frequency. Chest pain this morning was much more severe, notes left parasternal chest pain has been sharp, constant since this morning. Pain worse with deep inspiration. Patient was started on Xarelto after recent PE, notes that he didn't like the way it made him feel and has not been taking for past 1-2 months. Endorses SOB, unsure whether this is above baseline. ED Course: EKG NSR with rate of 66 Troponin negative Labs significant for K+ 3.4, otherwise unremarkable. Respiratory Biofire negative Principal Diagnosis chest pain Discharge Exam General: Alert and oriented. In mild distress. Cardiac: Distant heart sounds. Regular rate and rhythm, no murmurs appreciated Respiratory: Lungs clear to auscultation bilaterally, No increased work of breathing Abdominal: Soft, non-tender, non-distended. Bowel sounds present. Extremities: No lower extremity edema, calves non-tender bilaterally Discharge Data Allergies Allergy/AdvReac Type Severity Reaction Status Date / Time No Known Allergies Allergy Verified 01/17/24 21:35 Consultations 01/17/24 20:59 ED Decision to Admit Stat 01/18/24 08:36 Consult Cardiology Routine Ordered Studies 01/17/24 21:36 CTA chest w con [CT angio chest w con] Stat Hospital Course (1) Chest pain: 63 year old male with h/o COPD, previous PE in 10/2023, paranoid schizophrenia presenting with chest pain. Given h/o PE and Xarelto non-compliance, higher suspicion for recurrent PE. May also be COPD exacerbation. Chest pain, shortness of breath: Troponin negative, EKG without ischemic changes, low suspicion for ACS Given suspicion for recurrent PE, CTA chest ordered, negative. consulted cardio: echo negative. no further workup given atypical presentation. In regards to his dizziness, they do not appear to be related to arrhythmia. and as stated above Echo was normal. symptoms subsided on day of discharge. (2) Acute hypokalemia: K+ is low. S/p repletion Schizophrenia: Continue home meds (3) Shortness of breath: (4) Schizophrenia: Total Time Total Time Spent Total Time Spent (In Minutes): 32 Discharge Plan Discharge Items Patient Disposition: Transfer Inpatient Rehab Fac Reason For Visit: CHEST PAIN Discharge Diagnosis: chest pain Activity: Resume your previous activity Non-emergency contact: Primary Care Provider Call non-emergency contact if: you have any medication questions Follow-up/Referrals: Ciera Coyne PA-C [Primary Care Provider] - Diet: Regular Addtl Attending Provider Instructions: Recommend followup with PCP in 1-2 weeks. Pending Studies at Discharge: No Stand-Alone Forms: [facility] Skilled Items Patient informed of condition?: Yes DNR: No Discharge Level of Care: Acute rehab Communicable Disease: Yes Discharge Prognosis: Stable Lines: None Urinary Catheter: No Medications and DC Order Prescriptions: Continued albuterol sulfate [Ventolin HFA] 90 mcg/actuation HFA aerosol inhaler 1 - 2 puff INHALATION .Q4-6HRS PRN (Reason: Shortness Of Breath Or Wheezing) Qty: 8 3RF haloperidol 20 mg Tablet 20 mg PO HS haloperidol 5 mg tablet 5 mg PO DAILY PRN (Reason: Anxiety) trazodone 50 mg Tablet 50 - 100 mg PO HS PRN (Reason: Sleep) loperamide 2 mg Tablet 2 mg PO DAILY PRN (Reason: SEVERE DIARRHEA OVER 24 HRS.) benztropine 1 mg Tablet 1 mg PO HS Anoro Ellipta 62.5-25 mcg/actuation Blister With Device 1 inh INHALATION DAILY acetaminophen 325 mg Tablet 650 mg PO Q4H PRN (Reason: pain) Qty: 60 0RF Xarelto 10 mg tablet 10 mg PO DAILY 35 Days Qty: 35 2RF meloxicam 7.5 mg Tablet 7.5 mg PO DAILY Hold Instructions: Resume on 12/16/23. do not take while taking xalrelto benzonatate 100 mg Capsule 100 mg PO TID PRN (Reason: cough) Qty: 10 0RF Changed pantoprazole 20 mg Tablet,Delayed Release (Dr/Ec) 40 mg PO BID Qty: 30 0RF Discharge Orders: Discharge Order (Routine); Ordered 01/19/24 Ordered By: Yuval Tarango Admission Data Admit Date/Time: 01/17/24 23:21 Attending Provider: Yuval Tarango Admit Provider: Adama Driscoll Primary Care Provider: Ciera Coyne Other Providers: Leon Alcantara Coding Level of Care Code 90937 INP/OBS DISCH >30 MIN Diagnoses Chest pain R07.9 Acute hypokalemia E87.6 Shortness of breath R06.02 Schizophrenia F20.0 Schizophrenia type: paranoid schizophrenia
== END 2024-01-19 14:40 | DRG 313 ==
LOC: ED 19:32 → EDINP 23:21 → SUATTDRO 23:21 → 2S 01-18 01:42
DX: R42 Dizziness and giddiness; F17.210 Nicotine dependence, cigarettes, uncomplicated; E87.6 Hypokalemia; F20.0 Paranoid schizophrenia; R07.89 Other chest pain; E86.0 Dehydration; E03.9 Hypothyroidism, unspecified; Z86.711 Personal history of pulmonary embolism; Z91.128 Patient's intentional underdosing of medication regimen for other reason; Z79.899 Other long term (current) drug therapy; Z79.01 Long term (current) use of anticoagulants; R06.02 Shortness of breath; K21.9 Gastro-esophageal reflux disease without esophagitis; T45.516A Underdosing of anticoagulants, initial encounter; J44.9 Chronic obstructive pulmonary disease, unspecified

== ENCOUNTER 2025-06-26 21:36 | Inpatient (IN) ==
--- NOTE | 2025-06-26 21:45 | Emergency Department Note ---
Impression & Plan Left-sided weakness, Acute dyspnea, Left sided numbness ED Provider Note NAME: CHUY POE AGE: 64 SEX: M : 1960 ARRIVES VIA: Ambulance INFORMANT: Patient, ED PROVIDER(S): Gabe Smith MD CHIEF COMPLAINT: Shortness of breath, difficulty with movement MEDICAL DECISION MAKING: Patient presents with shortness of breath but on exam the patient does have left-sided deficits. Patient has left arm and left leg weakness a code stroke was initiated but to facilitate testing and possible treatment all the patient's time course does not make him a TNK candidate. IV was established and blood work was obtained. The patient's blood work shows a normal white count mild anemia with 11.5 and normal platelet count kidney function is unremarkable normal LFTs and electrolytes. Patient did have chest x-ray completed along with CT head and CT angiography of the head and neck. These are negative. Given the patient's reports of left-sided weak which which were not present during my last visit with him to believe the patient would benefit from admission at this time. I did speak the on-call hospital service Dr. Bauer and the patient was admitted to medicine service. Critical Care: I have personally spent 35 minutes of critical care time in direct management of this patient. This includes bedside care, interpretation of diagnostic studies, and testing, discussion with consultants, patient, and family members, and other require inpatient management activities. This 35 minutes is in excess of all separately billable procedures. Discussion w/ other healthcare providers: Dr. Torres inpatient medicine service Prior /Outside records reviewed: None Differential diagnosis: Infection, pneumonia, pneumothorax, dehydration, metabolic abnormality, hypo/hyperglycemia, electrolyte imbalance, anemia, UTI, pneumonia, thyroid dysfunction among others were considered. Diagnostics, as interpreted by me: ECG: Normal sinus rhythm, rate of 62, normal intervals, normal axis T wave version lead III no ST elevations. Cardiac monitoring: An order was placed for continuous cardiac monitoring. The monitor shows a rate of 65 with sinus rhythm. Patient was placed on pulse oximetry Medical decision rules: None Imaging studies: [I informally interpreted the patient's chest x-ray does not show obvious pneumonia with formal report to follow. HPI: Patient presents due to concern for shortness of breath. The patient reported to have this for about 1 to 2 days in duration. Known history of vaping. Patient has complained of left-sided weakness reports that this has been an ongoing issue but may be acutely worse. Patient denies any chest pains. The patient denies any nausea or vomiting. Patient also with associated left- sided weakness. Patient denies any leg swelling or calf pain. Reported prior history of PEs but not anticoagulated. PAST MEDICAL HISTORY: See Below PAST SURGICAL HISTORY: See Below SOCIAL HISTORY: See Below HOME MEDICATIONS: See Below ALLERGIES: See Below VITALS: See Below PHYSICAL EXAMINATION: GENERAL: NAD, non-toxic. EYE EXAM: Normal conjunctiva. PERRL, no anisocoria and EOM's grossly intact w/o pain. OROPHARYNX: Moist mucus membranes, edentulous. NECK: Trachea midline, no stridor. LUNGS: Clear to auscultation. Normal chest wall mechanics. HEART: NSR, no MRG. ABDOMEN: Abdomen soft, non-tender, no masses, no rebound or guarding. BACK: No CVA TTP. SKIN: No rashes and no bruising. UPPER EXTREMITIES: Upper extremities are grossly normal. LOWER EXTREMITIES: Grossly normal, no edema. NEURO EXAM: Awake and alert, follows commands, no obvious facial asymmetry, normal speech, left arm and left leg weakness when compared to the right. Left lower extremity drift. 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-caths 3x/d Nausea and vomiting Chronic low back pain Weakness (Acute) Former smoker Pulmonary embolism (Acute) ILIANA (generalized anxiety disorder) Multiple pulmonary nodules Chronic bronchitis GERD (gastroesophageal reflux disease) Weakness generalized Non-cardiac chest pain (Acute) COPD (chronic obstructive pulmonary disease) Medical History Encounter for pre-operative examination Orthostatic hypotension Weakness generalized hx Urinary retention self-caths 3x/d Multiple pulmonary nodules Left arm weakness "along with his neck as well" Hx of gastroesophageal reflux (GERD) Chronic low back pain Hx of colonic polyps History of COPD Cocaine abuse pt denies Tubular adenoma of colon Dizzy hx, pt stated it was due to the blood thinners he was previously taking "which he stopped because they were making him dizzy" History of pulmonary embolism pt unsure of details; per PCP note "History of multiple PEs in the past. Patient has previously been on warfarin, Xarelto and Eliquis and not tolerated them due to side effects of dizziness. I advised that these medicines are likely not the cause of his dizziness. I am concerned for orthostatic hypotension as above. I advised and patient understands that with his history of PE he is at increased risk of recurrent VTE without anticoagulation. He is choosing to continue without AC." Hypothyroidism Neurocognitive disorder R/O Anxiety disorder Emphysema of lung Surgical History Hx of tooth extraction all teeth removed Hx of colonoscopy (2019) No pertinent past surgical history Family History Mother Breast cancer Myocardial infarction Other Asthma Cancer Diabetes Heart disease Lung disease No pertinent family history in first degree relatives Denies family history of Osteoporosis Osteoarthritis Colorectal cancer Social History Smoking Status: Current some day smoker Tobacco Type: Cigarettes Age Started Using Tobacco: 12; packs per day: 2; Cigarettes Per Day: 1 pack; Second Hand Exposure: No; Do You Dip or Chew Tobacco: No (quit years ago; advised); Hx Alcohol Use: No Hx Substance Use: Yes Prescribed Medications: Marijuana Last Used Substance: Unknown Last Used Substance Other:: 1 week ago; advised Preferred Language: Cymraes Communication Ability: Effective Communication Ability Comment: PER FACILITY-"PT IS OF SOUND MIND-ABLE TO SIGN OWN CONSENT" Visual Impairment: No Limitations Hearing Ability: Normal Senior Report Developer Required: No Beliefs That Will Affect Care: None marital status: Current Living Situation: Alone current occupational status: retired Feels Safe at Home: Yes Childhood Exposure to Second-Hand Smoke: No caffeine: No during the past year weight has: decreased > 10 lbs Dental Care, Regularly: No Physical Activity Frequency: Does not Exercise Seatbelt Use: always Sunscreen Use: Yes Gender Identity: Male Assistive Devices: None Allergies Allergies Allergy/AdvReac Type Severity Reaction Status Date / Time No Known Allergies Allergy Verified 06/06/25 14:59 Home Meds Home Medications Medication Instructions Recorded Confirmed haloperidol 5 mg tablet 5 mg PO DAILY PRN Anxiety 05/12/20 06/06/25 trazodone 50 mg tablet 50 - 100 mg PO HS PRN Sleep 11/26/22 06/06/25 fluticasone fur. 100 mcg-umeclid 1 inh inhalation HS 01/05/25 06/06/25 62.5 mcg-vilant 25 mcg inhalat.powder (Trelegy Ellipta) loperamide 2 mg tablet 2 mg PO DAILY PRN SEVERE DIARRHEA 03/07/25 06/06/25 OVER 24 HRS. meloxicam 7.5 mg tablet 7.5 mg PO QAM 03/14/25 06/06/25 omeprazole 40 mg capsule,delayed 40 mg PO QAM 03/14/25 06/06/25 release Previous Rx's Medication Instructions Recorded albuterol sulfate 90 mcg/actuation 1 - 2 puff inhalation .Q4-6HRS PRN 09/29/21 aerosol inhaler (Ventolin HFA) Shortness Of Breath Or Wheezing #8 grams benztropine 1 mg tablet 1 mg PO HS #90 tabs 01/05/25 duloxetine 30 mg capsule,delayed 30 mg PO DAILY #90 caps 01/05/25 release haloperidol 20 mg tablet 20 mg PO HS #90 tabs 01/05/25 ondansetron 4 mg disintegrating 4 mg PO Q6H PRN nausea and 02/12/25 tablet vomiting #14 tabs albuterol sulfate 90 mcg/actuation 2 puffs inhalation 6XD PRN 06/18/25 aerosol inhaler shortness of breath or wheezing #6.7 grams aspirin 81 mg tablet,delayed 81 mg PO QAM 30 days #30 tabs 06/28/25 release atorvastatin 40 mg tablet 40 mg PO QAM #30 tabs 06/28/25 Results & Data (ED) Home Medications Current Medication List: was personally reviewed by me Laboratory Data Attestation: I reviewed the patient's lab results. 06/27/25 04:11 06/27/25 04:11 Lab Results 06/26/25 06/26/25 Range/Units 21:50 22:25 WBC 10.56 (4.8-10.8) K/ul RBC 3.92 L (4.70-6.10) M/uL Hgb 11.5 L (14.0-18.0) g/dl Hct 34.3 L (42.0-52.0) % MCV 87.5 (80.0-100.0) fL MCH 29.3 (25.0-34.0) pg MCHC 33.5 (32.0-36.0) g/dL RDW Std Deviation 48.0 H (36.4-46.3) fL RDW Coeff of Cady 15.3 H (11.5-14.5) % Plt Count 298 (130-400) K/uL MPV 8.4 L (9.4-12.4) fL Immature Gran % (Auto) 1.4 % Neut % (Auto) 55.7 % Lymph % (Auto) 31.5 % [place] % (Auto) 7.3 % Eos % (Auto) 3.5 % Baso % (Auto) 0.6 % Neut # (Auto) 5.88 (1.40-6.50) K/uL Lymph # (Auto) 3.33 (1.20-3.40) K/uL [place] # (Auto) 0.77 H (0.11-0.59) K/uL Eos # (Auto) 0.37 (0.00-0.50) K/uL Baso # (Auto) 0.06 (0.00-0.20) K/uL Immature Gran # (Auto) 0.15 (0.01-0.20) K/uL PT 10.6 (9.0-12.0) Seconds INR 1.0 (0.9-1.1) APTT 25 (21-31) Seconds PTT Ratio 0.9 Sodium 138 (136-145) mmol/L Potassium 3.8 (3.5-5.1) mmol/L Chloride 107 (98-107) mmol/L Carbon Dioxide 25 (21-32) mmol/L Anion Gap 6 (3-11) BUN 25 H (6-23) mg/dl Creatinine 1.20 (0.6-1.4) mg/dl Est Cr Clr Drug Dosing Not Reportable eGFR 67.53 BUN/Creatinine Ratio 20.8 H (10-20) Glucose 123 H (70-99(Fasting)) mg/dl POC Glucose 101 H (70-99) mg/dl Calcium 8.3 L (8.6-10.3) mg/dl Magnesium 2.0 (1.7-2.4) mg/dl Total Bilirubin 0.2 (0.2-1.0) mg/dl AST 13 (13-39) U/L ALT 10 (7-52) U/L Alkaline Phosphatase 76 (34-104) U/L Troponin I High Sens 5.9 (0-20) pg/ml Total Protein 5.5 L (6.0-8.3) gm/dl Albumin 3.1 L (3.4-5.0) gm/dl Globulin 2.4 L (2.5-4.0) gm/dl Albumin/Globulin Ratio 1.3 (0.9-2) Administered Medications Discontinued Medications Aspirin (Aspirin Chew 324 Mg) 324 mg PO NOW STA Stop: 06/26/25 23:40 Last Admin: 06/27/25 00:02 Dose: 324 mg Documented By: LISSET Aspirin (Aspirin 81 Mg Ectab) [facility] [place] Stop: 07/27/25 08:59 Last Admin: 06/28/25 08:53 Dose: 81 mg Documented By: Admin: 06/27/25 08:28 Dose: 81 mg Documented By: MARLIN Atorvastatin Calcium (Atorvastatin 40 Mg Tab) 40 mg PO NOW STA Stop: 06/26/25 23:40 Last Admin: 06/27/25 00:02 Dose: 40 mg Documented By: LISSET Atorvastatin Calcium (Atorvastatin 40 Mg Tab) [facility] [place] Stop: 07/27/25 08:59 Last Admin: 06/28/25 08:54 Dose: 40 mg Documented By: Admin: 06/27/25 08:28 Dose: 40 mg Documented By: CEF Benztropine Mesylate (Benztropine Mesylate 1 Mg Tab) 1 mg PO KAREEM Stop: 07/27/25 20:59 Last Admin: 06/27/25 20:59 Dose: 1 mg Documented By: ACO Duloxetine HCl (Duloxetine Hcl 30 Mg Cap) 30 mg PO DAILY KAREEM Stop: 07/27/25 08:59 Last Admin: 06/28/25 08:53 Dose: 30 mg Documented By: Admin: 06/27/25 08:28 Dose: 30 mg Documented By: CEF Fluticasone Furoate (Fluticasone Furoate 100mcg 14 Puffs/Inhaler) 1 puffs INH DAILY KAREEM Stop: 07/27/25 08:59 Last Admin: 06/28/25 08:55 Dose: 1 puffs Documented By: Admin: 06/27/25 08:27 Dose: 1 puffs Documented By: CEF Haloperidol (Haloperidol 5 Mg Tab) 20 mg PO HS KAREEM Stop: 07/27/25 01:59 Last Admin: 06/27/25 20:59 Dose: 20 mg Documented By: Admin: 06/27/25 03:11 Dose: 20 mg Documented By: MAYTE Lactated Ringer's (Lr) 1,000 mls @ 80 mls/hr IV .[id number] KAREEM Stop: 06/27/25 11:59 Last Infusion: 06/27/25 12:44 Dose: Infused Documented By: Admin: 06/27/25 00:02 Dose: 80 mls/hr Documented By: LISSET Ioversol (Optiray 320 125ml) 115 ml IV ONCE ONE Stop: 06/26/25 22:05 Last Admin: 06/26/25 22:05 Dose: 115 ml Documented By: JEREMIE Miscellaneous (Remove Nicoderm Patch) 1 each N/A DAILY@0859 [facility] Stop: 07/27/25 08:58 Last Admin: 06/28/25 08:54 Dose: 1 each Documented By: Admin: 06/27/25 08:29 Dose: 1 each Documented By: CEF Nicotine (Nicotine 14 Mg/24 Hr Patch) 1 patch TD QAM [facility] Stop: 07/27/25 08:59 Last Admin: 06/28/25 08:55 Dose: 1 patch Documented By: Admin: 06/27/25 08:30 Dose: 1 patch Documented By: CEF Pantoprazole Sodium (Pantoprazole 40 Mg Tab) 40 mg PO QAM KAREEM Stop: 07/27/25 08:59 Last Admin: 06/28/25 08:56 Dose: 40 mg Documented By: Admin: 06/27/25 08:28 Dose: 40 mg Documented By: CEF Umeclidinium/Vilanterol (Umeclidinium/Vilanterol 62.5/25mcg 7 Puffs/Inhaler) 1 puffs INH DAILY KAREEM Stop: 07/27/25 08:59 Last Admin: 06/28/25 08:55 Dose: 1 puffs Documented By: Admin: 06/27/25 08:26 Dose: 1 puffs Documented By: CEF Imaging Data Radiologist's Impression: Chest X-Ray 06/26/25 22:01 Exam(s): XR CXR 1 VIEW EXAM: XR Chest, 1 View CLINICAL HISTORY: Reason for exam: sob. TECHNIQUE: Frontal view of the chest. COMPARISON: 06/18/2025 FINDINGS: Lungs: No consolidation. No overt edema. Pleural space: No pleural effusion. No pneumothorax. Heart: Unremarkable. No cardiomegaly. IMPRESSION: No acute cardiopulmonary abnormality. Electronically signed by: Leodan Mejia MD 06/26/25 23:[address] 06/26/25 22:02 CR Exam(s): CT HEAD Without Contrast EXAM: CT Head Without Intravenous Contrast CLINICAL HISTORY: Reason for exam: neuro deficit, acute stroke suspected. TECHNIQUE: Axial computed tomography images of the head/brain without intravenous contrast. CTDI is 11.97 mGy and DLP is 1158.22 mGy-cm. Automated exposure control was utilized for the study. A dose lowering technique was utilized adhering to the principles of ALARA. COMPARISON: No relevant prior studies available. FINDINGS: Brain: No hemorrhage, extra-axial fluid collection, mass effect, or edema. Ventricles: Unremarkable. Bones/joints: Unremarkable. No fracture. Soft tissues: Unremarkable. Sinuses: No acute sinusitis. Mastoid air cells: Unremarkable as visualized. IMPRESSION: 1. No acute intracranial abnormality. Communications: Call Doctor Stroke Electronically signed by: Leodan Mejia MD 06/26/25 22:20 PM Head CTA 06/26/25 22:02 CR Exam(s): CTA HEAD With Contrast IV Amt: 115 ml optiray 320 EXAM: CT Angiography Head With Intravenous Contrast CLINICAL HISTORY: Reason for exam: neuro deficit, acute stroke suspected. TECHNIQUE: Axial computed tomographic angiography images of the head with intravenous contrast. CTDI is 11.97 mGy and DLP is 1158.22 mGy-cm. Automated exposure control was utilized for the study. A dose lowering technique was utilized adhering to the principles of ALARA. MIP reconstructed images were created and reviewed. CONTRAST: Patient received 115 ml optiray 320 of IV contrast COMPARISON: No relevant prior studies available. FINDINGS: Right internal carotid artery: Atherosclerotic calcifications causing up to 50% stenosis in the right ICA. Right anterior cerebral artery: No occlusion or significant stenosis. No aneurysm. Right middle cerebral artery: No occlusion or significant stenosis. No aneurysm. Right posterior cerebral artery: No occlusion or significant stenosis. No aneurysm. Right vertebral artery: Unremarkable as visualized. Left internal carotid artery: Intracranial segment is patent with no significant stenosis. No aneurysm. Left anterior cerebral artery: No occlusion or significant stenosis. No aneurysm. Left middle cerebral artery: No occlusion or significant stenosis. No aneurysm. Left posterior cerebral artery: origin of the CURTAIN CLEANER on the left. Left vertebral artery: Unremarkable as visualized. Basilar artery: No occlusion or significant stenosis. No aneurysm. IMPRESSION: No acute findings in the arteries of the head/brain. Communications: Call Doctor Stroke Electronically signed by: Leodan Mejia MD 06/26/25 22:22 PM Neck CTA 06/26/25 22:02 CR Exam(s): CTA NECK With Contrast IV Amt: 115 ml optiray 320 EXAM: CT Angiography Neck With Intravenous Contrast CLINICAL HISTORY: Reason for exam: neuro deficit, acute stroke suspected. TECHNIQUE: Routine carotid CT angiography protocol was performed with intravenous contrast. NASCET criteria using the distal ICAs for comparison were used for evaluation of stenoses. CTDI is 11.97 mGy and DLP is 1158.22 mGy-cm. Automated exposure control was utilized for the study. A dose lowering technique was utilized adhering to the principles of ALARA. MIP reconstructed images were created and reviewed. CONTRAST: Patient received 115 ml optiray 320 of IV contrast COMPARISON: None. FINDINGS: VASCULATURE: Right common carotid artery: No occlusion or significant stenosis. No dissection. Right internal carotid artery: Extracranial segment is patent with no occlusion or significant stenosis. No dissection. Right vertebral artery: No occlusion or significant stenosis. No dissection. Left common carotid artery: No occlusion or significant stenosis. No dissection. Left internal carotid artery: Extracranial segment is patent with no occlusion or significant stenosis. No dissection. Left vertebral artery: No occlusion or significant stenosis. No dissection. NECK: Bones/joints: Multilevel advanced degenerative changes in the spine.. No acute fracture. Soft tissues: Unremarkable. Lung apices: Emphysematous changes. CAROTID STENOSIS REFERENCE USING NASCET CRITERIA: % ICA stenosis = (1 - narrowest ICA diameter/diameter of distal cervical ICA) x 100. Mild - <50% stenosis. Moderate - 50-69% stenosis. Severe - 70-94% stenosis. Near occlusion - 95-99% stenosis. Occluded - 100% stenosis. IMPRESSION: Negative CTA neck. Communications: Call Doctor Stroke Electronically signed by: Leodan Mejia MD 06/26/25 22:27 PM Discharge Plan Visit Data Chief Complaint: Shortness of Breath/Dyspnea Stated Complaint: SOB, L Side Pain ED Provider: Gabe Smith Discharge Problem: Left-sided weakness, Acute dyspnea, Left sided numbness Patient Disposition: Admitted As Inpatient Condition: Good Discharge Instructions Interventions: ED Discharge Assessment Last Done: 06/27/25 02:01
[2025-06-26] MEDS: OPTIRAY 320 125ml IV ONE (22:05)
[2025-06-26 22:12] LABS: Hematocrit (blood only) 34.3 % (42.0-52.0); Hemoglobin 11.5 g/dl (14.0-18.0); Immature Granulocytes # (auto) 0.15 K/uL (0.01-0.20); Immature Granulocytes % (auto) 1.4 %; Mean Corpuscular Hemoglobin 29.3 pg (25.0-34.0); Mean Corpuscular Volume 87.5 fL (80.0-100.0); Platelet Count 298 K/uL (130-400); RDW Standard Deviation 48.0 fL (36.4-46.3); Red Blood Count 3.92 M/uL (4.70-6.10); White Blood Count 10.56 K/ul (4.8-10.8)
--- NOTE | 2025-06-26 22:21 | CT Scan Report ---
Exam(s): CT HEAD Without Contrast EXAM: CT Head Without Intravenous Contrast CLINICAL HISTORY: Reason for exam: neuro deficit, acute stroke suspected. TECHNIQUE: Axial computed tomography images of the head/brain without intravenous contrast. CTDI is 11.97 mGy and DLP is 1158.22 mGy-cm. Automated exposure control was utilized for the study. A dose lowering technique was utilized adhering to the principles of ALARA. COMPARISON: No relevant prior studies available. FINDINGS: Brain: No hemorrhage, extra-axial fluid collection, mass effect, or edema. Ventricles: Unremarkable. Bones/joints: Unremarkable. No fracture. Soft tissues: Unremarkable. Sinuses: No acute sinusitis. Mastoid air cells: Unremarkable as visualized. IMPRESSION: 1. No acute intracranial abnormality. Communications: Call Doctor Stroke Electronically signed by: Leodan Mejia MD 06/26/25 22:20 PM
--- NOTE | 2025-06-26 22:23 | CT Scan Report ---
Exam(s): CTA HEAD With Contrast IV Amt: 115 ml optiray 320 EXAM: CT Angiography Head With Intravenous Contrast CLINICAL HISTORY: Reason for exam: neuro deficit, acute stroke suspected. TECHNIQUE: Axial computed tomographic angiography images of the head with intravenous contrast. CTDI is 11.97 mGy and DLP is 1158.22 mGy-cm. Automated exposure control was utilized for the study. A dose lowering technique was utilized adhering to the principles of ALARA. MIP reconstructed images were created and reviewed. CONTRAST: Patient received 115 ml optiray 320 of IV contrast COMPARISON: No relevant prior studies available. FINDINGS: Right internal carotid artery: Atherosclerotic calcifications causing up to 50% stenosis in the right ICA. Right anterior cerebral artery: No occlusion or significant stenosis. No aneurysm. Right middle cerebral artery: No occlusion or significant stenosis. No aneurysm. Right posterior cerebral artery: No occlusion or significant stenosis. No aneurysm. Right vertebral artery: Unremarkable as visualized. Left internal carotid artery: Intracranial segment is patent with no significant stenosis. No aneurysm. Left anterior cerebral artery: No occlusion or significant stenosis. No aneurysm. Left middle cerebral artery: No occlusion or significant stenosis. No aneurysm. Left posterior cerebral artery: origin of the THICKENER OPERATOR on the left. Left vertebral artery: Unremarkable as visualized. Basilar artery: No occlusion or significant stenosis. No aneurysm. IMPRESSION: No acute findings in the arteries of the head/brain. Communications: Call Doctor Stroke Electronically signed by: Leodan Mejia MD 06/26/25 22:22 PM
--- NOTE | 2025-06-26 22:28 | CT Scan Report ---
Exam(s): CTA NECK With Contrast IV Amt: 115 ml optiray 320 EXAM: CT Angiography Neck With Intravenous Contrast CLINICAL HISTORY: Reason for exam: neuro deficit, acute stroke suspected. TECHNIQUE: Routine carotid CT angiography protocol was performed with intravenous contrast. NASCET criteria using the distal ICAs for comparison were used for evaluation of stenoses. CTDI is 11.97 mGy and DLP is 1158.22 mGy-cm. Automated exposure control was utilized for the study. A dose lowering technique was utilized adhering to the principles of ALARA. MIP reconstructed images were created and reviewed. CONTRAST: Patient received 115 ml optiray 320 of IV contrast COMPARISON: None. FINDINGS: VASCULATURE: Right common carotid artery: No occlusion or significant stenosis. No dissection. Right internal carotid artery: Extracranial segment is patent with no occlusion or significant stenosis. No dissection. Right vertebral artery: No occlusion or significant stenosis. No dissection. Left common carotid artery: No occlusion or significant stenosis. No dissection. Left internal carotid artery: Extracranial segment is patent with no occlusion or significant stenosis. No dissection. Left vertebral artery: No occlusion or significant stenosis. No dissection. NECK: Bones/joints: Multilevel advanced degenerative changes in the spine.. No acute fracture. Soft tissues: Unremarkable. Lung apices: Emphysematous changes. CAROTID STENOSIS REFERENCE USING NASCET CRITERIA: % ICA stenosis = (1 - narrowest ICA diameter/diameter of distal cervical ICA) x 100. Mild - <50% stenosis. Moderate - 50-69% stenosis. Severe - 70-94% stenosis. Near occlusion - 95-99% stenosis. Occluded - 100% stenosis. IMPRESSION: Negative CTA neck. Communications: Call Doctor Stroke Electronically signed by: Leodan Mejia MD 06/26/25 22:27 PM
[2025-06-26 22:30] LABS: Alanine Aminotransferase 10 U/L (7-52); Albumin Globulin Ratio 1.3 (0.9-2); Alkaline Phosphatase 76 U/L (34-104); Anion Gap 6 (3-11); Bilirubin,Total 0.2 mg/dl (0.2-1.0); Blood Urea Nitrogen 25 mg/dl (6-23); Calcium 8.3 mg/dl (8.6-10.3); Carbon Dioxide 25 mmol/L (21-32); Chloride 107 mmol/L (98-107); Globulin 2.4 gm/dl (2.5-4.0); Glucose 123 mg/dl (70-99(Fasting)); Magnesium 2.0 mg/dl (1.7-2.4); Potassium 3.8 mmol/L (3.5-5.1); Sodium 138 mmol/L (136-145); Total Protein 5.5 gm/dl (6.0-8.3)
--- NOTE | 2025-06-26 23:29 | History & Physical Report ---
Date of Service June 26, 2025 Assessment & Plan (1) Left sided numbness: (2) Left-sided weakness: (3) Ambulatory dysfunction: (4) Acute dehydration: Plan Patient is a 64-year-old male with a past medical history of COPD, GERD, multiple PEs (has not tolerated/refuses anticoagulation), tobacco use, marijuana use, and ILIANA. Patient presented via EMS due to dyspnea and left-sided numbness and pain that has been present for about 1 month since he left [facility] for rehab, the dyspnea has been present for years and is currently unchanged. CT of head and CTAs were negative in the ED. Patient is being admitted for further stroke workup and to have PT/OT evals. #Left sided numbness and pain/ambulatory dysfunction - Worsening over the course of 1 month with decreased strength to LUE and LLE, no facial deficits. Head CT and CTAs negative for acute changes. - stroke without TNK order set - active ROM, no IVs left side, Q4H neuro checks - asa load given on admission - start ASA 81mg daily - start Atorvastatin 40 mg daily on admission - adjust prn with lipid panel ordered - Allow for permissive hypertension with goal parameters 220/110 until MRI resulted - Telemetry monitoring - MRI brain ordered - echo with bubble study ordered - lipid panel and A1C with AM labs - PT/OT consulted #dehydration - Patient with dry MM, BUN/Cr elevated, BUN 20.8. - LR @ 80 ml/hr x 1L #dyspnea/COPD - Patient with dyspnea however relatively unchanged over past few years. Recently Tx for COPD exacerbation 06/18 with cefdinir and prednisone - course completed. CXR negative for acute changes and breath sounds clear on admission. Non-hypoxic. - incentive spirometry - continue home inhalers #orthostatic hypotension - reported for several years. Patient with occasional dizziness when sitting to standing, unchanged. Reported syncopal episode approx 2 weeks ago. - IVF as above - promote oral hydration - not on any anti-hypertensive agents #Nicotine use - reports vaping. - nicotine patch ordered - encourage smoking cessation #Hx PE - multiple reported PEs, noncompliant/intolerant of Warfarin, Xarelto, Eliquis in past. VSS on admission. - VTE ppx as below #diastolic CHF - echo 2023 revealed grade 1 diastolic dysfunction, EF 55-60%. - heart healthy diet #mental health - continue duloxetine and Haldol #GERD - continue ppi VTE ppx: SCDs, high risk given PE hx however defer chemical ppx until MRI resulted Dispo: med/tele Admission and Anticipated Discharge Date Admission Date: 06/27/25 History of Present Illness Chief Complaint: dyspnea Primary Care Provider: Andrey Welch DO Patient is a 64-year-old male with a past medical history of COPD, GERD, multiple PEs (has not tolerated/refuses anticoagulation), tobacco use, marijuana use, and ILIANA. Patient presented via EMS due to dyspnea and left-sided numbness and pain that has been present for about 1 month since he left [facility] for rehab, the dyspnea has been present for years and is currently unchanged. CT of head and CTAs were negative in the ED however patient is being admitted for stroke workup and to have PT/OT evals. Patient seen at bedside. He stated he went to her side and was discharged home by himself 1 month ago, he was there because he was having difficulties with ADLs. He uses a walker at baseline. He has had left-sided weakness and pain that he stated is worsening over the past month to now numbness of both his arm and leg, he also stated his leg occasionally gives out. This was somewhat present when he was at her side however not as severe. He denies any facial symptoms. He denies any difficulty finding words, slurred speech, facial droop, CP, n/v/d, abd pain. Patient stated he does get dizzy when going from sitting to standing and has a known history of orthostatic hypotension, he did have a syncopal episode when he was at his neighbors approximately 2 weeks ago. Patient also stating he has dyspnea that is unchanged over the past few years, recently was treated for COPD exacerbation after ED eval 06/18 with cefdinir and prednisone which patient stated he completed. He still continues to vape and use marijuana occasionally, does endorse marijuana use today. He is due for his evening medications and he wishes to be full code. Allergies Allergy/AdvReac Type Severity Reaction Status Date / Time No Known Allergies Allergy Verified 06/06/25 14:59 Home Medications Medication Instructions Recorded Confirmed Type haloperidol 5 mg tablet 5 mg PO DAILY PRN Anxiety 05/12/20 06/06/25 History albuterol sulfate 90 mcg/actuation 1 - 2 puff inhalation .Q4-6HRS PRN 09/29/21 06/06/25 Rx aerosol inhaler (Ventolin HFA) Shortness Of Breath Or Wheezing #8 grams trazodone 50 mg tablet 50 - 100 mg PO HS PRN Sleep 11/26/22 06/06/25 History benztropine 1 mg tablet 1 mg PO HS #90 tabs 01/05/25 06/06/25 Rx duloxetine 30 mg capsule,delayed 30 mg PO DAILY #90 caps 01/05/25 06/06/25 Rx release fluticasone fur. 100 mcg-umeclid 1 inh inhalation HS 01/05/25 06/06/25 History 62.5 mcg-vilant 25 mcg inhalat.powder (Trelegy Ellipta) haloperidol 20 mg tablet 20 mg PO HS #90 tabs 01/05/25 06/06/25 Rx ondansetron 4 mg disintegrating 4 mg PO Q6H PRN nausea and 02/12/25 06/06/25 Rx tablet vomiting #14 tabs loperamide 2 mg tablet 2 mg PO DAILY PRN SEVERE DIARRHEA 03/07/25 06/06/25 History OVER 24 HRS. aspirin 325 mg tablet 325 mg PO DAILY PRN Pain 03/14/25 06/06/25 History meloxicam 7.5 mg tablet 7.5 mg PO QAM 03/14/25 06/06/25 History omeprazole 40 mg capsule,delayed 40 mg PO QAM 03/14/25 06/06/25 History release albuterol sulfate 90 mcg/actuation 2 puffs inhalation 6XD PRN 06/18/25 Rx aerosol inhaler shortness of breath or wheezing #6.7 grams Past Med/Surg History Problem List (Updated 06/27/25 @ 00:29 by Ada Willis PA-C) Ambulatory dysfunction Left-sided weakness Left sided numbness Acute dehydration (Acute) Nausea & vomiting (Acute) COPD (chronic obstructive pulmonary disease) (Acute) Acute UTI (Acute) Acute dyspnea (Acute) Paranoid schizophrenia hx Orthostatic hypotension Marijuana use Left arm weakness Urinary retention self-caths 3x/d Nausea and vomiting Chronic low back pain Weakness (Acute) Former smoker Pulmonary embolism (Acute) ILIANA (generalized anxiety disorder) Multiple pulmonary nodules Chronic bronchitis GERD (gastroesophageal reflux disease) Weakness generalized Non-cardiac chest pain (Acute) COPD (chronic obstructive pulmonary disease) Medical History Encounter for pre-operative examination Orthostatic hypotension Weakness generalized hx Urinary retention self-caths 3x/d Multiple pulmonary nodules Left arm weakness "along with his neck as well" Hx of gastroesophageal reflux (GERD) Chronic low back pain Hx of colonic polyps History of COPD Cocaine abuse pt denies Tubular adenoma of colon Dizzy hx, pt stated it was due to the blood thinners he was previously taking "which he stopped because they were making him dizzy" History of pulmonary embolism pt unsure of details; per PCP note "History of multiple PEs in the past. Patient has previously been on warfarin, Xarelto and Eliquis and not tolerated them due to side effects of dizziness. I advised that these medicines are likely not the cause of his dizziness. I am concerned for orthostatic hypotension as above. I advised and patient understands that with his history of PE he is at increased risk of recurrent VTE without anticoagulation. He is choosing to continue without AC." Hypothyroidism Neurocognitive disorder R/O Anxiety disorder Emphysema of lung Surgical History Hx of tooth extraction all teeth removed Hx of colonoscopy (2019) No pertinent past surgical history Family History Mother Breast cancer Myocardial infarction Other Asthma Cancer Diabetes Heart disease Lung disease No pertinent family history in first degree relatives Denies family history of Osteoporosis Osteoarthritis Colorectal cancer Social History Smoking Status: Current every day smoker Tobacco Type: E-cigarettes / Vaping Age Started Using Tobacco: 12; packs per day: 2; Cigarettes Per Day: 1 pack; Second Hand Exposure: No; Do You Dip or Chew Tobacco: No (quit years ago; advised); Hx Alcohol Use: Yes (quit years ago) Hx Substance Use: Yes Prescribed Medications: Marijuana Last Used Substance: Unknown Last Used Substance Other:: 1 week ago; advised Preferred Language: Argentine Communication Ability: Effective Communication Ability Comment: PER FACILITY-"PT IS OF SOUND MIND-ABLE TO SIGN OWN CONSENT" Visual Impairment: No Limitations Hearing Ability: Normal 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 Beliefs That Will Affect Care: None marital status: Current Living Situation: Alone current occupational status: retired Feels Safe at Home: Yes Childhood Exposure to Second-Hand Smoke: No caffeine: No during the past year weight has: decreased > 10 lbs Dental Care, Regularly: No Physical Activity Frequency: Does not Exercise Seatbelt Use: always Sunscreen Use: Yes Gender Identity: Male Assistive Devices: None Review of Systems Review of Systems: see HPI Physical Exam Physical Exam: The patient is awake, alert and oriented 3, well developed and well nourished, normocephalic and atraumatic, in no acute distress. Non-toxic appearing. HEENT- EOMI, mucous membranes dry. Hearing grossly intact. Heart-normal S1 and S2. No murmurs, rubs or gallops. Lungs-clear bilaterally, no respiratory distress, no accessory muscle use. Abdomen-normal bowel sounds and soft. No ascites noted. Non-tender. Extremities- no clubbing, cyanosis, or edema. Psychiatric-normal affect. Musculoskeletal: Strength RUE 5/5, LUE 2/5, RLE 5/5, LLE 3/5 Neurologic: PERRL, EOMI, accommodation nl, no face palsy, no dysarthria decreased sensation LUE and LLE Normal BL sensation of face Results & Data Results & Data Vital Signs (Past 12 Hours) Vital Signs Temp Pulse Resp BP Pulse Ox O2 Del Method 06/26/25 22:48 58 L 18 97 06/26/25 22:45 103/62 06/26/25 22:45 103/62 06/26/25 22:39 58 L 15 98 06/26/25 22:31 100/65 06/26/25 22:31 100/65 06/26/25 22:30 69 15 97 06/26/25 22:21 61 13 98 06/26/25 22:18 62 17 98 06/26/25 22:17 97/76 L 06/26/25 22:17 97/76 L 06/26/25 21:53 Room Air 06/26/25 21:51 64 17 98 06/26/25 21:49 104/67 06/26/25 21:49 104/67 06/26/25 21:48 61 12 97 06/26/25 21:43 64 06/26/25 21:24 36.7 C 63 18 104/67 98 Room Air Laboratory Results Reviewed CBC, PT/INR, CMP, troponin, mag Diagnostic Findings reviewed neck CTA, head CTA, head CT, CXR Medications Administered ed - none admission - asa 325mg PO, atorvastatin 40 mg PO ECG Additional Comments: ordered Code Status & VTE Plan Code Status ordered VTE Prophylaxis Plan VTE Prophylaxis will be ordered: Yes Supervising Physician Co-Signing Physician Notes Attending addendum: I have physically seen this patient, have supervised the GIFTY's activities, and agree with the H&P unless as otherwise noted. Assessment and Plan: The patient is a 64-year-old male with a past medical history including COPD, GERD, multiple PEs intolerant of anticoagulation, tobacco use, marijuana use, and ILIANA. He presented to the emergency department via EMS due to dyspnea on exertion, and left-sided numbness and pain. The left-sided numbness and pain has been present for about 1 month since he left [facility] for rehab. He reports she has had dyspnea on for years and is currently unchanged. Neurologic workup in the ED included CT scan of head, CTA head and neck, all of which were negative. [facility] for further stroke evaluation, and for PT/OT evaluation. Left-sided numbness and pain/ambulatory dysfunction- Worsening decreased strength per patient over the past month Imaging, CT scan head, CTA head and neck all negative Stroke without thrombolytic order set Given aspirin 324 mg in the ED Start aspirin 81 mg daily in the a.m. Check a fasting blood panel and hemoglobin A1c in the a.m. Start atorvastatin 40 mg daily Permissive hypertension as noted MRI brain without contrast Complete echocardiogram with bubble study Consult PT/OT Dehydration/orthostatic hypotension- LR at 80 mL/h x 1 L Reports the orthostasis has been an intermittent issue for years, with a reported syncopal episode about 2 weeks ago PT/OT as noted Dyspnea/COPD- Completed course of cefdinir and prednisone for COPD exacerbation on 06/18 Normal-appearing chest x-ray Continue home inhalers Incentive spirometry Nicotine use- Nicotine patch ordered Encourage cessation of smoking and vaping History of PE- Has had multiple reported PEs, but has been unable to tolerate warfarin, Xarelto or Eliquis in the past Mental health- Continue duloxetine and haloperidol GERD- Continue omeprazole/pantoprazole PG Care Time/CCT Total # of Minutes Spent Total Time Spent with Patient: Total time spent is greater than 50% in coordination of care (as documented) at patient's floor/unit and/or counseling patient: Coding Level of Care Code 91483 INT INP/OBS CARE MIN Diagnoses Left sided numbness R20.0 Left-sided weakness R53.1 Ambulatory dysfunction R26.2 Acute dehydration E86.0
[2025-06-26 23:34] LABS: INR 1.0 (0.9-1.1); Partial Thromboplastin Time 25 Seconds (21-31); Prothrombin Time 10.6 Seconds (9.0-12.0)
--- NOTE | 2025-06-26 23:36 | XRay Report ---
Exam(s): XR CXR 1 VIEW EXAM: XR Chest, 1 View CLINICAL HISTORY: Reason for exam: sob. TECHNIQUE: Frontal view of the chest. COMPARISON: 06/18/2025 FINDINGS: Lungs: No consolidation. No overt edema. Pleural space: No pleural effusion. No pneumothorax. Heart: Unremarkable. No cardiomegaly. IMPRESSION: No acute cardiopulmonary abnormality. Electronically signed by: Leodan Mejia MD 06/26/25 23:35 PM
[2025-06-27] MEDS: ASPIRIN CHEW 324 MG PO STA (00:02)
[2025-06-27] MEDS: LACTATED RINGER'S 1,000 ML IV SCH (00:02)
[2025-06-27] MEDS: ATORVASTATIN 40 MG TAB PO STA (00:02)
[2025-06-27] MEDS ORDERED: ACETAMINOPHEN 325 MG TAB PO PRN (02:00)
[2025-06-27] MEDS ORDERED: DOCUSATE SODIUM 100 MG CAP PO PRN (02:00)
[2025-06-27] MEDS ORDERED: ONDANSETRON INJ 2 MG/ML 2 ML VIAL IV PRN (02:00)
[2025-06-27] MEDS ORDERED: ALBUTEROL HFA 8 GM INHALER INH PRN (02:00)
[2025-06-27] MEDS ORDERED: NON-FORMULARY MEDICATION (Fluticasone-Umeclidin-Vilanter [Trelegy Ellipta] 100-62.5-25 mcg INH SCH (02:00)
[2025-06-27] MEDS ORDERED: PHARMACIST DISCHARGE MED REC CONSULT PRN (02:00)
[2025-06-27] MEDS ORDERED: MELATONIN 3 MG TAB PO PRN (02:00)
--- NOTE | 2025-06-27 02:03 | Magnetic Resonance Report ---
EXAM: MR brain wo con CLINICAL HISTORY: Stroke workup. TECHNIQUE: MRI of the brain was performed without contrast, with multiplanar sequences obtained. COMPARISON: CT 11/26/2022. FINDINGS: Brain Parenchyma: No evidence of acute infarction or hemorrhage. Multiple discrete and clustered FLAIR hyperintense foci are seen in the subcortical and deep white matter of the bilateral cerebral hemispheres, without diffusion restriction, representing chronic microvascular ischemic changes. Fazekas grade I. Ventricles and Sulci: Prominent lateral ventricles, third ventricle, and fourth ventricle. Sylvian fissures, sulci, and cisterns are prominent. Posterior Fossa: The cerebellum and brainstem appear normal without evidence of mass lesions or signal abnormalities. Orbits and Skull Base: The orbits and skull base structures are normal without evidence of abnormalities. Incidental bilateral maxillary polyps/retention cysts are observed. Left-sided nasal septal deviation with spur. IMPRESSION: 1. No evidence of acute infarction or hemorrhage. 2. Chronic microvascular ischemic changes, Fazekas grade I, and senile cortical atrophy. 3. The findings concur with the prior CT report. Electronically signed by Taye Mcclain 06-27-2025 02:03 AM
[2025-06-27 04:42] LABS: Hematocrit (blood only) 33.8 % (42.0-52.0); Hemoglobin 11.5 g/dl (14.0-18.0); Immature Granulocytes # (auto) 0.22 K/uL (0.01-0.20); Immature Granulocytes % (auto) 2.2 %; Mean Corpuscular Hemoglobin 29.7 pg (25.0-34.0); Mean Corpuscular Volume 87.3 fL (80.0-100.0); Platelet Count 281 K/uL (130-400); RDW Standard Deviation 48.5 fL (36.4-46.3); Red Blood Count 3.87 M/uL (4.70-6.10); White Blood Count 9.90 K/ul (4.8-10.8)
[2025-06-27 05:00] LABS: Anion Gap 4.0 (3-11); Blood Urea Nitrogen 23.0 mg/dl (6-23); Calcium 8.3 mg/dl (8.6-10.3); Carbon Dioxide 28.0 mmol/L (21-32); Chloride 108.0 mmol/L (98-107); Cholesterol 114.0 mg/dl (0-200); Creatinine Clr Calc Pharmacy 66.4 ml/min; Glucose 99.0 mg/dl (70-99(Fasting)); HDL Cholesterol 55.0 mg/dl; Magnesium 2.2 mg/dl (1.7-2.4); Potassium 4.2 mmol/L (3.5-5.1); Sodium 140.0 mmol/L (136-145); Triglycerides 67.0 mg/dl (0-150)
[2025-06-27 07:37] LABS: Hemoglobin A1C 5.8 % (4.5-5.6)
[2025-06-27] MEDS: UMECLIDINIUM/VILANTEROL 62.5/25MCG 7 PUFFS/INHALER INH SCH (08:26)
[2025-06-27] MEDS: FLUTICASONE FUROATE 100MCG 14 PUFFS/INHALER INH SCH (08:27)
[2025-06-27] MEDS: ATORVASTATIN 40 MG TAB PO SCH (08:28)
[2025-06-27] MEDS: ASPIRIN 81 MG ECTAB PO SCH (08:28)
[2025-06-27] MEDS: REMOVE NICODERM PATCH SCH (08:29)
[2025-06-27] MEDS: NICOTINE 14 MG/24 HR PATCH TD SCH (08:30)
--- NOTE | 2025-06-27 11:07 | Hospitalist Progress Note ---
Date of Service June 27, 2025 Assessment & Plan (1) Left sided numbness: (2) Left-sided weakness: (3) Ambulatory dysfunction: (4) Acute dehydration: Plan Patient is a 64-year-old male with a past medical history of COPD, GERD, multiple PEs (has not tolerated/refuses anticoagulation), tobacco use, marijuana use, and ILIANA. Patient presented via EMS due to dyspnea and left-sided numbness and pain that has been present for about 1 month since he left [facility] for rehab, the dyspnea has been present for years and is currently unchanged. CT of head and CTAs were negative in the ED. Patient is being admitted for further stroke workup and to have PT/OT evals. #Left sided numbness and pain/ambulatory dysfunction - Worsening over the course of 1 month with decreased strength to LUE and LLE, no facial deficits. Head CT and CTAs negative for acute changes. -MRI brain did not show any acute infarct, shows only chronic ischemic changes -Patient seen this morning, still complains of left-sided numbness - asa load given on admission - start ASA 81mg daily - start Atorvastatin 40 mg daily on admission - adjust prn with lipid panel ordered - echo with bubble study ordered - lipid panel and A1C with AM labs - PT/OT consulted #dehydration - Patient with dry MM, BUN/Cr elevated, BUN 20.8. - LR @ 80 ml/hr x 1L #dyspnea/COPD - Patient with dyspnea however relatively unchanged over past few years. Recently Tx for COPD exacerbation 06/18 with cefdinir and prednisone - course completed. CXR negative for acute changes and breath sounds clear on admission. Non-hypoxic. - incentive spirometry - continue home inhalers #orthostatic hypotension - reported for several years. Patient with occasional dizziness when sitting to standing, unchanged. Reported syncopal episode approx 2 weeks ago. - IVF as above - promote oral hydration - not on any anti-hypertensive agents #Nicotine use - reports vaping. - nicotine patch ordered - encourage smoking cessation #Hx PE - multiple reported PEs, noncompliant/intolerant of Warfarin, Xarelto, Eliquis in past. VSS on admission. - VTE ppx as below #diastolic CHF - echo 2023 revealed grade 1 diastolic dysfunction, EF 55-60%. - heart healthy diet #mental health - continue duloxetine and Haldol #GERD - continue ppi VTE ppx: SCDs, high risk given PE hx however defer chemical ppx until MRI resulted Dispo: med/tele Admission and Anticipated Discharge Date Admission Date: June 26, 2025 Subjective Patient seen and examined today, states he still has weakness and numbness Review of Systems Review of Systems: All systems reviewed are negative, apart from the ones contained in the history. Physical Exam Physical Exam: The patient is awake, alert and oriented 3, well developed and well nourished, normocephalic and atraumatic, in no acute distress. Non-toxic appearing. HEENT- EOMI, mucous membranes dry. Hearing grossly intact. Heart-normal S1 and S2. No murmurs, rubs or gallops. Lungs-clear bilaterally, no respiratory distress, no accessory muscle use. Abdomen-normal bowel sounds and soft. No ascites noted. Non-tender. Extremities- no clubbing, cyanosis, or edema. Psychiatric-normal affect. Neurologic: PERRL, EOMI, accommodation nl, no face palsy, no dysarthria Results & Data Results & Data Vital Signs (Past 12 Hours) Vital Signs Temp Pulse Pulse Resp BP Pulse Ox Pulse Ox 06/27/25 08:25 60 16 100/52 L 99 06/27/25 07:25 69 06/27/25 03:55 98.2 F 58 L 18 116/67 97 06/27/25 02:00 57 L 18 122/66 97 06/27/25 02:00 99 06/27/25 00:00 59 L 16 98 O2 Del Method O2 Del Method 06/27/25 08:25 Room Air 06/27/25 07:25 06/27/25 03:55 Room Air 06/27/25 02:00 Room Air 06/27/25 02:00 Room Air 06/27/25 00:00 Room Air PG Care Time/CCT Total # of Minutes Spent Total Time Spent with Patient: Total time spent is greater than 50% in coordination of care (as documented) at patient's floor/unit and/or counseling patient: Coding Level of Care Code 36597 SUB INP/OBS CARE 2/35MIN Diagnoses Left sided numbness R20.0 Left-sided weakness R53.1 Ambulatory dysfunction R26.2 Acute dehydration E86.0 Time Spent (min) 35
[2025-06-27] MEDS: BENZTROPINE MESYLATE 1 MG TAB PO SCH (20:59)
--- NOTE | 2025-06-27 21:55 | XCELERA ---
[id number]
--- NOTE | 2025-06-28 05:38 | Electrocardiogram Report ---
Test Reason : Blood Pressure : */* mmHG Vent. Rate : 62 BPM Atrial Rate : 62 BPM P-R Int : 152 ms QRS Dur : 76 ms QT Int : 402 ms P-R-T Axes : -21 -9 -14 degrees QTcB Int : 408 ms Normal sinus rhythm Possible Inferior infarct , age undetermined Nonspecific ST abnormality Abnormal ECG When compared with ECG of 18-Jun-2025 14:53, Borderline criteria for Inferior infarct are now Present T wave inversion now evident in Inferior leads Confirmed by Polo Krishna ([id number]) on 06/28/2025 5:38:31 AM Referred By: REFERRED SELF Confirmed By: Polo Krishna
[2025-06-28 07:41] VITALS: RESP 18
[2025-06-28 11:04] VITALS: BP 110/59; TEMP 98.4; O2SAT 95
--- NOTE | 2025-06-28 11:19 | Hospitalist Progress Note ---
Date of Service June 28, 2025 Assessment & Plan (1) Left sided numbness: (2) Left-sided weakness: (3) Ambulatory dysfunction: (4) Acute dehydration: Plan Patient is a 64-year-old male with a past medical history of COPD, GERD, multiple PEs (has not tolerated/refuses anticoagulation), tobacco use, marijuana use, and ILIANA. Patient presented via EMS due to dyspnea and left-sided numbness and pain that has been present for about 1 month since he left [facility] for rehab, the dyspnea has been present for years and is currently unchanged. CT of head and CTAs were negative in the ED. Patient is being admitted for further stroke workup and to have PT/OT evals. #Left sided numbness and pain/ambulatory dysfunction - Worsening over the course of 1 month with decreased strength to LUE and LLE, no facial deficits. Head CT and CTAs negative for acute changes. -MRI brain did not show any acute infarct, shows only chronic ischemic changes -Patient seen this morning, still complains of left-sided numbness - asa load given on admission - start ASA 81mg daily - start Atorvastatin 40 mg daily on admission - adjust prn with lipid panel ordered - echo with bubble study did not show any PFO - lipid panel and A1C with AM labs - PT/OT consulted -He will need rehab #dyspnea/COPD - Patient with dyspnea however relatively unchanged over past few years. -Recently Tx for COPD exacerbation 06/18 with cefdinir and prednisone - course completed. -CXR negative for acute changes and breath sounds clear on admission. Non- hypoxic. - incentive spirometry - continue home inhalers #orthostatic hypotension - reported for several years. Patient with occasional dizziness when sitting to standing, unchanged. Reported syncopal episode approx 2 weeks ago. - IVF as above - promote oral hydration - not on any anti-hypertensive agents #Nicotine use - reports vaping. - nicotine patch ordered - encourage smoking cessation #Hx PE - multiple reported PEs, noncompliant/intolerant of Warfarin, Xarelto, Eliquis in past. VSS on admission. - VTE ppx as below #diastolic CHF - echo 2023 revealed grade 1 diastolic dysfunction, EF 55-60%. - heart healthy diet #mental health - continue duloxetine and Haldol #GERD - continue ppi VTE ppx: SCDs, Dispo: Discharge to rehab when accepted Admission and Anticipated Discharge Date Admission Date: June 26, 2025 Subjective Patient seen and examined today, states he still has weakness and numbness, but working with PT, they recommend rehab Review of Systems Review of Systems: All systems reviewed are negative, apart from the ones contained in the history. Physical Exam Physical Exam: The patient is awake, alert and oriented 3, well developed and well nourished, normocephalic and atraumatic, in no acute distress. Non-toxic appearing. HEENT- EOMI, mucous membranes dry. Hearing grossly intact. Heart-normal S1 and S2. No murmurs, rubs or gallops. Lungs-clear bilaterally, no respiratory distress, no accessory muscle use. Abdomen-normal bowel sounds and soft. No ascites noted. Non-tender. Extremities- no clubbing, cyanosis, or edema. Psychiatric-normal affect. Neurologic: PERRL, EOMI, accommodation nl, no face palsy, no dysarthria Results & Data Results & Data Vital Signs (Past 12 Hours) Vital Signs Temp Pulse Resp BP BP Pulse Ox O2 Del Method 06/28/25 11:03 98.4 F 73 18 110/59 L 95 Room Air 06/28/25 07:41 98.6 F 66 18 120/76 96 Room Air 06/28/25 04:02 98.4 F 59 L 16 134/82 94 Room Air PG Care Time/CCT Total # of Minutes Spent Total Time Spent with Patient: Total time spent is greater than 50% in coordination of care (as documented) at patient's floor/unit and/or counseling patient: Coding Level of Care Code 26668 SUB INP/OBS CARE 2/35MIN Diagnoses Left sided numbness R20.0 Left-sided weakness R53.1 Ambulatory dysfunction R26.2 Acute dehydration E86.0 Time Spent (min) 35
--- NOTE | 2025-06-28 11:35 | Discharge Summary ---
Date of Service June 28, 2025 Admission HPI Per Admitting Provider Patient is a 64-year-old male with a past medical history of COPD, GERD, multiple PEs (has not tolerated/refuses anticoagulation), tobacco use, marijuana use, and ILIANA. Patient presented via EMS due to dyspnea and left-sided numbness and pain that has been present for about 1 month since he left [facility] for rehab, the dyspnea has been present for years and is currently unchanged. CT of head and CTAs were negative in the ED however patient is being admitted for stroke workup and to have PT/OT evals. Patient seen at bedside. He stated he went to her side and was discharged home by himself 1 month ago, he was there because he was having difficulties with ADLs. He uses a walker at baseline. He has had left-sided weakness and pain that he stated is worsening over the past month to now numbness of both his arm and leg, he also stated his leg occasionally gives out. This was somewhat present when he was at her side however not as severe. He denies any facial symptoms. He denies any difficulty finding words, slurred speech, facial droop, CP, n/v/d, abd pain. Patient stated he does get dizzy when going from sitting to standing and has a known history of orthostatic hypotension, he did have a syncopal episode when he was at his neighbors approximately 2 weeks ago. Patient also stating he has dyspnea that is unchanged over the past few years, recently was treated for COPD exacerbation after ED eval 06/18 with cefdinir and prednisone which patient stated he completed. He still continues to vape and use marijuana occasionally, does endorse marijuana use today. He is due for his evening medications and he wishes to be full code. Admission Exam (Per Admitting) Constitutional The patient is awake, alert and oriented 3, well developed and well nourished, normocephalic and atraumatic, lying in bed and in no acute distress. HEENT--PERRL, EOMI, mucous membranes and oropharynx mildly dry Neck--supple. No JVD. No bruits. Thyroid normal, trachea midline, no adenopathy. Heart--normal S1 and S2. No murmurs, rubs or gallops. Lungs--clear bilaterally, no respiratory distress, no accessory muscle use. Abdomen--normal bowel sounds and soft. Extremities--no cyanosis or clubbing. No edema. Dermatologic--normal skin turgor, normal color, no abnormal lymph nodes, no rash. Neurologic--cranial nerves II through XII grossly intact. Rheumatologic--normal range of motion. Psychiatric--normal affect. Discharge Data Consultations 06/26/25 22:53 ED Decision to Admit Stat Hospital Course (1) Left sided numbness: (2) Left-sided weakness: (3) Ambulatory dysfunction: (4) Acute dehydration: Plan Patient is a 64-year-old male with a past medical history of COPD, GERD, multiple PEs (has not tolerated/refuses anticoagulation), tobacco use, marijuana use, and ILIANA. Patient presented via EMS due to dyspnea and left-sided numbness and pain that has been present for about 1 month since he left [facility] for rehab, the dyspnea has been present for years and is currently unchanged. CT of head and CTAs were negative in the ED. Patient is being admitted for further stroke workup and to have PT/OT evals. #Left sided numbness and pain/ambulatory dysfunction -Presents with Worsening over the course of 1 month with decreased strength to LUE and LLE, no facial deficits. -Head CT and CTAs negative for acute changes. -MRI brain did not show any acute infarct, shows only chronic ischemic changes -Patient seen this morning, still complains of left-sided numbness - asa load given on admission - start ASA 81mg daily - start Atorvastatin 40 mg daily on admission - adjust prn with lipid panel ordered - echo with bubble study did not show any PFO - lipid panel and A1C with AM labs - PT/OT consulted -He will need rehab #dyspnea/COPD - Patient with dyspnea however relatively unchanged over past few years. -Recently Tx for COPD exacerbation 06/18 with cefdinir and prednisone - course co mpleted. -CXR negative for acute changes and breath sounds clear on admission. Non- hypoxic. - incentive spirometry - continue home inhalers #orthostatic hypotension - reported for several years. Patient with occasional dizziness when sitting to standing, unchanged. Reported syncopal episode approx 2 weeks ago. - IVF as above - promote oral hydration - not on any anti-hypertensive agents #Nicotine use - reports vaping. - nicotine patch ordered - encourage smoking cessation #Hx PE - multiple reported PEs, noncompliant/intolerant of Warfarin, Xarelto, Eliquis in past. VSS on admission. - VTE ppx as below #diastolic CHF - echo 2023 revealed grade 1 diastolic dysfunction, EF 55-60%. - heart healthy diet #mental health - continue duloxetine and Haldol #GERD - continue ppi VTE ppx: SCDs, Dispo: Discharge to rehab when accepted Coding Level of Care Code 20551 INP/OBS DISCH >30 MIN Diagnoses Left sided numbness R20.0 Left-sided weakness R53.1 Ambulatory dysfunction R26.2 Acute dehydration E86.0 Time Spent (min) 35
[2025-06-28 15:20] VITALS: PULSE 58
== END 2025-06-28 15:23 | DRG 57 ==
LOC: ED 21:36 → SUATTDRO 23:40 → EDINP 23:40 → 2N 06-27 02:01